=== PATIENT | male | born 1945 | race Caucasian/White ===

== ENCOUNTER 2019-06-02 13:18 | Inpatient (IN) ==
[2019-06-02 14:17] LABS: Basophils # (auto) 0.02 K/uL (0-0.2); Basophils % (auto) 0.2 %; Eosinophils % (auto) 1.1 %; Hematocrit (blood only) 31.4 % (42-52); Hemoglobin 9.8 g/dL (14.0-18.0); Immature Granulocytes # (auto) 0.02 K/uL (0.00-0.02); Immature Granulocytes % (auto) 0.2 %; Lymphocytes # (auto) 0.54 K/uL (1.2-3.4); Lymphocytes % (auto) 5.9 %; Mean Corpuscular Hemoglobin 27.8 pg (25-34); Mean Corpuscular Hgb Conc 31.2 g/dL (32-36); Mean Corpuscular Volume 89.2 fL (80-100); Monocytes # (auto) 1.05 K/uL (0.11-0.59); Monocytes % (auto) 11.5 %; Neutrophils # (auto) 7.42 K/uL (1.4-6.5); Neutrophils % (auto) 81.1 %; Platelet Count 218 K/uL (130-400); RDW Coefficient of Variation 15.7 % (11.5-14.5); RDW Standard Deviation 50.7 fL (36.4-46.3); Red Blood Count 3.52 M/uL (4.7-6.1); White Blood Count 9.15 K/uL (4.8-10.8)
--- NOTE | 2019-06-02 14:22 | XRay Report ---
XR chest 1V portable CLINICAL HISTORY: Dyspnea COMPARISON STUDY: No previous studies for comparison. FINDINGS: The heart is enlarged. There is a subtle right lung interstitial edema pattern. While likel y representing asymmetric cardiogenic pulmonary edema, interstitial inflammatory processes could appe ar similar. Clinical and radiographic follow-up is recommended. The left lung appears generally clear . There are no significant pleural effusions.[ IMPRESSION: Right lung interstitial edema pattern. This likely represents asymmetric cardiogenic pulm onary edema although an interstitial inflammatory process could appear similar. [facility] is recommended. Electronically signed by: Vladimir Cheng M.D. 06/02/2019 2:21 PM
[2019-06-02 14:29] LABS: INR 1.2 (0.9-1.1); Partial Thromboplastin Ratio 1.1; Partial Thromboplastin Time 30.1 Seconds (21.0-31.0); Prothrombin Time 11.9 Seconds (9.0-12.0)
[2019-06-02 14:33] LABS: Alanine Aminotransferase 42 U/L (12-78); Albumin Level 3.9 gm/dl (3.4-5.0); Aspartate Aminotransferase 20 U/L (15-37); BUN Creatinine Ratio 17.2 (10-20); Blood Urea Nitrogen 27 mg/dl (7-18); Calcium 9.2 mg/dl (8.5-10.1); Carbon Dioxide 30 mmol/L (21-32); Chloride 104 mmol/L (98-107); Est GFR (African American) 50.7; Est GFR (Non-African American) 43.7; Glucose 96 mg/dl (70-99); Magnesium 2.3 mg/dl (1.8-2.4); Potassium 3.6 mmol/L (3.5-5.1); Sodium 143 mmol/L (136-145)
[2019-06-02 14:52] LABS: Albumin Globulin Ratio 1.2 (0.9-2); Alkaline Phosphatase 112 U/L (45-117); Globulin 3.3 gm/dl (2.5-4.0); Total Protein 7.2 gm/dl (6.4-8.2); Troponin I < 0.015 ng/ml (0-0.045)
[2019-06-02] MEDS ORDERED: FUROSEMIDE 40 MG/4 ML VIAL IV STA (15:44)
--- NOTE | 2019-06-02 16:21 | Emergency Department Note ---
Entered by Ian Viveros acting as a scribe for History of Present Illness General Chief complaint: Shortness of Breath/Dyspnea Stated complaint: SOB Time Seen by Provider: 06/02/19 13:30 Source: patient History of Present Illness Onset (ago): month(s) (few) Location: chest Pain Consistency: + other (persistent) Maximum Pain Intensity: 0 Quality: + other (SOB) Exacerbated By: + other (exertion) Associated symptoms: + denies other symptoms (recent weight gain, increased shortness of breath while laying flat, chest pain, chest pain while breathing, and recent long travels) The patient is a 74 y/o male who presents to the ED w/ CC of persistent shortness of breath beginning a few months ago. The patient states he has a history of atrial fibrillation. He reports he has a history of 7 cardioversions and an ablation. The patient notes his last cardioversion occurred after his ablation and took him out of a-fib for about four months. He states about 2 months ago he his blood pressure cuff told him he was in a-fib. The patient reports he normally knows he is in a-fib when he is short of breath. He notes for the past few days he has been going in and out of a-fib, but he is still short of breath. The patient states he is no longer in a-fib and becomes extremely short of breath with exertion. He reports he has been on Xarelto for several years now. The patient notes he recently had his insulin switched. He states his blood pressure is normally higher than 58 diastolic. The patient also reports a history of several stress test, both chemical and non-chemical, DM, and high cholesterol. He notes his BSG is normally under control. The patient denies recent weight gain, increased shortness of breath while lying flat, chest pain, chest pain while breathing, and recent long travels. He also denies a history of smoking, [place], heart catheterization, thyroid issues, and a heart valve issues. The patient notes he recently moved here from [place] and does not have a PCP up here because he usually travels to [place] for his medical needs. He notes recent right wrist pain but attributes it to carpal tunnel. Home Medications Home Medications Medication Instructions Recorded Confirmed Type [id number] Acid 300 1 cap PO BID 06/02/19 06/02/19 History Mk7 Vitamin K2 100mcg 1 cap PO HS 06/02/19 06/02/19 History albuterol sulfate [ProAir HFA] 2 puff INHALATION BID 06/02/19 06/02/19 History allopurinol 100 mg PO HS 06/02/19 06/02/19 History amlodipine 2.5 mg PO QAM 06/02/19 06/02/19 History anastrozole 1 mg PO UD 06/02/19 06/02/19 History atorvastatin 40 mg PO HS 06/02/19 06/02/19 History cholecalciferol (vitamin D3) 0 unit PO BID 06/02/19 06/02/19 History [Vitamin D3] cinnamon bark [Cinnamon] 500 mg PO BID 06/02/19 06/02/19 History clonidine HCl 0.3 mg PO HS 06/02/19 06/02/19 History coenzyme Q10 [CoQ-10] 100 mg PO HS 06/02/19 06/02/19 History cranberry 0 mg PO BID 06/02/19 06/02/19 History cyanocobalamin (vitamin B-12) 1,000 mcg PO Q2D 06/02/19 06/02/19 History [Vitamin B-12] docusate sodium [Colace] 100 mg PO HS 06/02/19 06/02/19 History dulaglutide [Trulicity] 0.75 mg SUBCUT WK 06/02/19 06/02/19 History eplerenone 25 mg PO QAM 06/02/19 06/02/19 History flecainide 100 mg PO Q12 06/02/19 06/02/19 History fluticasone propionate [Flovent 2 puff INHALATION BID 06/02/19 06/02/19 History HFA] glipizide 5 mg PO BID 06/02/19 06/02/19 History insulin glargine U-300 conc 30 unit SUBCUT HS 06/02/19 06/02/19 History [Toujeo SoloStar U-300 Insulin] insulin lispro [Humalog KwikPen 40 unit SUBCUT AC 06/02/19 06/02/19 History Insulin] lactobacillus combination no.4 0 mmu cells PO QAM 06/02/19 06/02/19 History [Probiotic] losartan 100 mg PO QAM 06/02/19 06/02/19 History metformin 500 mg PO BID 06/02/19 06/02/19 History metolazone 5 mg PO QAM 06/02/19 06/02/19 History metoprolol tartrate 25 mg PO BID 06/02/19 06/02/19 History modafinil 200 mg PO DAILY PRN 06/02/19 06/02/19 History naproxen sodium [Aleve] 220 mg PO Q12H PRN 06/02/19 06/02/19 History omega 4-[id number]-[id number]-fish oil [[place]-3] 1 cap PO BID 06/02/19 06/02/19 History potassium chloride 20 meq PO BID 06/02/19 06/02/19 History ranitidine HCl [[place] 75] 75 mg PO HS 06/02/19 06/02/19 History rivaroxaban [Xarelto] 20 mg PO HS 06/02/19 06/02/19 History tadalafil [Cialis] 20 mg PO DAILY PRN 06/02/19 06/02/19 History testosterone cypionate 400 mg SUBCUT UD 06/02/19 06/02/19 History torsemide 20 mg PO QAM 06/02/19 06/02/19 History triamcinolone acetonide [Nasacort] 2 spray INTRANASAL HS 06/02/19 06/02/19 History vit C-s.efobjp-bljhqx-diqmw sd 1 cap PO HS 06/02/19 06/02/19 History [Tart Roldan] Allergies Allergy/AdvReac Type Severity Reaction Status Date / Time No Known Allergies Allergy Unverified 06/02/19 14:25 Past Med/Surg History Medical History Acquired hallux valgus of right foot (Acute) Hallux valgus (acquired), left foot (Acute) Diabetes mellitus with diabetic polyneuropathy (Acute) Type 2 diabetes mellitus with diabetic neuropathy (Acute) Callus (Acute) Surgical History History of total right hip arthroplasty (Acute) Family History Other No pertinent family history Social History Feels Safe at Home: Yes Smoking Status: Never smoker Review of Systems See HPI for pertinent positives & negatives. and A total of 10 systems reviewed and were otherwise negative Physical Exam Vital Signs Vital Signs - 24 hr 06/02/19 13:26 06/02/19 13:57 06/02/19 14:12 Temperature 36.6 C Temperature Source Oral Sepsis Recent Fever Within 48 Hours No Sepsis New/Unexplained Change in Mental Status No Sepsis Action Taken by Nursing No Action Required Pulse Oximetry Post Tiitration 94 Pulse Rate 72 Pulse Rate [Left Finger] Respiratory Rate 16 Respiratory Effort / Characteristics Respiratory Depth Blood Pressure 121/58 L Blood Pressure [Left Arm] Blood Pressure Mean 79 Blood Pressure Mean [Left Arm] Pulse Oximetry 93 88 L 88 L Oxygen Delivery Method Room Air Room Air Nasal Cannula Oxygen Flow Rate 2 06/02/19 15:42 Temperature Temperature Source Sepsis Recent Fever Within 48 Hours Sepsis New/Unexplained Change in Mental Status Sepsis Action Taken by Nursing Pulse Oximetry Post Tiitration Pulse Rate Pulse Rate [Left Finger] 66 Respiratory Rate 14 Respiratory Effort / Characteristics Non-Labored Respiratory Depth Normal Blood Pressure Blood Pressure [Left Arm] 152/69 H Blood Pressure Mean Blood Pressure Mean [Left Arm] 96 Pulse Oximetry 95 Oxygen Delivery Method Nasal Cannula Oxygen Flow Rate 2 GENERAL: Patient is awake, alert, and in no acute distress.Patient is resting comfortably and showing no signs of anxiety EYES: The conjunctivae are clear. The pupils are round and reactive. EARS, NOSE, MOUTH AND THROAT: The nose is without any evidence of any deformity. Mucous membranes are moist.Tongue is midline NECK: The neck is nontender and supple. RESPIRATORY: Diminished breath sounds at both bases. No conversational dyspnea or tachypnea. There is no evidence of wheezing rhonchi or rales to auscultation. CARDIOVASCULAR: Regular rate and rhythm noted. There no murmurs rubs or gallops normal S1 normal S2 GASTROINTESTINAL: The abdomen is soft. Bowel sounds are present in all qu adrants. Abdomen is nontender. MUSCULOSKELETAL/EXTREMITIES: There is no evidence of gross deformity. Full range of motion is noted in the hips and shoulders. SKIN: There is no obvious evidence of any rash. There are no petechiae, pallor or cyanosis noted. Pedal edema bilaterally. NEUROLOGIC: Patient is awake alert and oriented x3. Course 1343: Past medical records reviewed. The patient was evaluated in room C01B. A complete history and physical exam was performed. 1548: I reviewed the patient's case with Dr. Chen, [facility] Hospitalist. She will evaluate the patient for further management. 1601: Upon reevaluation, I discussed findings and results with him. He verbalized agreement of the treatment plan. The patient will be evaluated for further management and care. Administered Medications Discontinued Medications Furosemide (Lasix) 20 mg IV NOW STA Stop: 06/02/19 15:45 Last Admin: 06/02/19 16:13 Dose: 20 mg Documented by: [id number] Medical Decision Making Differential Diagnosis Differential diagnoses includes but is not limited to pneumonia, bronchitis, COPD/Asthma exacerbation, pneumothorax, pulmonary embolism, congestive heart failure, acute coronary syndrome Medical Records Attestation: I reviewed the patient's medical records. Home Medications Current Medication List: was personally reviewed by me Laboratory Data Attestation: I reviewed the patient's lab results. Result diagrams: 06/02/19 14:05 06/02/19 14:05 Lab Results 06/02/19 06/02/19 06/02/19 Range/Units 14:05 14:05 14:05 WBC 9.15 (4.8-10.8) K/uL RBC 3.52 L (4.7-6.1) M/uL Hgb 9.8 L (14.0-18.0) g/dL Hct 31.4 L (42-52) % MCV 89.2 (80-100) fL MCH 27.8 (25-34) pg MCHC 31.2 L (32-36) g/dL RDW Std Deviation 50.7 H (36.4-46.3) fL RDW Coeff of [place] 15.7 H (11.5-14.5) % Plt Count 218 (130-400) K/uL MPV 9.0 (7.4-10.4) fL Immature Gran % (Auto) 0.2 % Neut % (Auto) 81.1 % Lymph % (Auto) 5.9 % Dare % (Auto) 11.5 % Eos % (Auto) 1.1 % Baso % (Auto) 0.2 % Immature Gran # (Auto) 0.02 (0.00-0.02) K/uL Neut # (Auto) 7.42 H (1.4-6.5) K/uL Lymph # (Auto) 0.54 L (1.2-3.4) K/uL Dare # (Auto) 1.05 H (0.11-0.59) K/uL Eos # (Auto) 0.10 (0-0.5) K/uL Baso # (Auto) 0.02 (0-0.2) K/uL PT 11.9 (9.0-12.0) Seconds INR 1.2 H (0.9-1.1) APTT 30.1 (21.0-31.0) Seconds PTT Ratio 1.1 Sodium 143 (136-145) mmol/L Potassium 3.6 (3.5-5.1) mmol/L Chloride 104 (98-107) mmol/L Carbon Dioxide 30 (21-32) mmol/L Anion Gap 8.0 (3-11) BUN 27 H (7-18) mg/dl Creatinine 1.56 H (0.6-1.4) mg/dl Est Cr Clr Drug Dosing 57.0 ml/min Est GFR ( Amer) 50.7 Est GFR (Non-Af Amer) 43.7 BUN/Creatinine Ratio 17.2 (10-20) Glucose 96 (70-99) mg/dl Calcium 9.2 (8.5-10.1) mg/dl Magnesium 2.3 (1.8-2.4) mg/dl Total Bilirubin 1.0 (0.2-1) mg/dl AST 20 (15-37) U/L ALT 42 (12-78) U/L Alkaline Phosphatase 112 (45-117) U/L Troponin I < 0.015 (0-0.045) ng/ml Total Protein 7.2 (6.4-8.2) gm/dl Albumin 3.9 (3.4-5.0) gm/dl Globulin 3.3 (2.5-4.0) gm/dl Albumin/Globulin Ratio 1.2 (0.9-2) TSH 1.220 (0.300-4.500) uIu/ml Imaging Data Radiologist's Impression: Radiology results as stated below per my review and the radiologist's interpretation: XR chest 1V portable CLINICAL HISTORY: Dyspnea COMPARISON STUDY: No previous studies for comparison. FINDINGS: The heart is enlarged. There is a subtle right lung interstitial edema pattern. While likely representing asymmetric cardiogenic pulmonary edema, interstitial inflammatory processes could appear similar. Clinical and radiographic follow-up is recommended. The left lung appears generally clear. There are no significant pleural effusions.[ IMPRESSION: Right lung interstitial edema pattern. This likely represents asymmetric cardiogenic pulmonary edema although an interstitial inflammatory process could appear similar. Clinical and radiographic follow-up is recommended. Electronically signed by: Vladimir Cheng M.D. 06/02/2019 2:21 PM ECG Data Attestation: I personally reviewed and interpreted this ECG as follows: Indication: SOB/dyspnea Rate (beats per minute): 68 Rhythm: sinus rhythm Findings: + other (Diffuse T-wave flattening noted) and + 1st degree AV block; no PAC, no PVC and no ectopy Comparison ECG Date: no prior available Blood Pressure Blood Pressure Findings: Elevated blood pressure Blood Pressure Disposition: further management by hospitalist MDM Narrative The patient is a 74-year-old male who presented to the emergency department for an evaluation of shortness of breath. The patient has been noticing exertional shortness of breath. He does have cardiac history including paroxysmal atrial fibrillation. He has a monitor at home that is told him that he has been in and out of A. fib recently but currently he is in sinus rhythm with a first-degree AV block. The patient was found to have anemia as well as a chest x-ray that I feel is consistent with pulmonary edema. The patient was treated with IV Lasix in the emergency department. He was reevaluated multiple times. I discussed the patient's laboratory and radiographic studies with him. I also discussed his case with the on-call [facility] hospitalist group. Given the patient's findings I do feel that he would be a candidate for inpatient management as well as further cardiac work-up. The patient was agreeable to this plan. Impression & Plan Congestive heart failure, Hypoxia, Anemia Discharge Plan Visit Data Chief Complaint: Shortness of Breath/Dyspnea Stated Complaint: SOB ED Provider: Bharath Esteban Discharge Problem: Congestive heart failure, Hypoxia, Anemia Patient Disposition: Being Evaluated by Hospitalist Forms Stand Alone Forms: My [facility] Prescriptions Prescriptions: No Action atorvastatin 40 mg tablet 40 mg PO HS RF: 0 anastrozole 1 mg tablet 1 mg PO UD RF: 0 torsemide 20 mg tablet 20 mg PO QAM RF: 0 clonidine HCl 0.3 mg tablet 0.3 mg PO HS RF: 0 glipizide 5 mg tablet extended release 24hr 5 mg PO BID RF: 0 metolazone 5 mg tablet 5 mg PO QAM RF: 0 cyanocobalamin (vitamin B-12) [Vitamin B-12] 1,000 mcg Tablet 1,000 mcg PO Q2D RF: 0 amlodipine 2.5 mg tablet 2.5 mg PO QAM RF: 0 potassium chloride 10 mEq tablet extended release 20 meq PO BID RF: 0 allopurinol 100 mg tablet 100 mg PO HS RF: 0 modafinil 200 mg Tablet 200 mg PO DAILY PRN (Reason: energy) RF: 0 ranitidine HCl [[place] 75] 75 mg Tablet 75 mg PO HS RF: 0 metformin 1,000 mg tablet 500 mg PO BID RF: 0 triamcinolone acetonide [Nasacort] 55 mcg Aerosol,[place] 2 spray INTRANASAL HS RF: 0 naproxen sodium [Aleve] 220 mg Tablet 220 mg PO Q12H PRN (Reason: Pain) RF: 0 flecainide 100 mg tablet 100 mg PO Q12 RF: 0 docusate sodium [Colace] 100 mg Capsule 100 mg PO HS RF: 0 testosterone cypionate 200 mg/mL oil 400 mg subcut UD RF: 0 albuterol sulfate [ProAir HFA] 90 mcg/actuation HFA aerosol inhaler 2 puff inhalation BID RF: 0 losartan 100 mg tablet 100 mg PO QAM RF: 0 cranberry 500 mg Capsule PO BID RF: 0 Flovent HFA 110 mcg/actuation HFA aerosol inhaler 2 puff inhalation BID RF: 0 cholecalciferol (vitamin D3) [Vitamin D3] 1,000 unit Capsule PO BID RF: 0 insulin lispro [Humalog KwikPen Insulin] 100 unit/mL insulin pen 40 unit subcut AC RF: 0 eplerenone 25 mg tablet 25 mg PO QAM RF: 0 coenzyme Q10 [CoQ-10] 100 mg Capsule 100 mg PO HS RF: 0 tadalafil [Cialis] 20 mg Tablet 20 mg PO DAILY PRN (Reason: BPH) RF: 0 metoprolol tartrate 25 mg tablet 25 mg PO BID RF: 0 cinnamon bark [Cinnamon] 500 mg Capsule 500 mg PO BID RF: 0 Tart Roldan [id number] mg Capsule 1 cap PO HS RF: 0 Xarelto 20 mg tablet 20 mg PO HS RF: 0 Probiotic 3 billion cell Capsule PO QAM RF: 0 Trulicity 0.75 mg/0.5 mL pen injector 0.75 mg subcut WK RF: 0 [place]-3 350 mg-235 mg- 90 mg-597 mg Capsule,Delayed Release(Dr/Ec) 1 cap PO BID RF: 0 Toujeo SoloStar U-300 Insulin 300 unit/mL (1.5 mL) insulin pen 30 unit subcut HS RF: 0 [id number] Acid 300 1 cap PO BID RF: 0 Mk7 Vitamin K2 100mcg 1 cap PO HS RF: 0 Referrals Referrals: Jennifer Moser MD [Primary Care Provider] - Discharge Problem: Congestive heart failure Qualifiers: Heart failure type: unspecified Heart failure chronicity: acute Qualified Code(s): I50.9 - Heart failure, unspecified Anemia Qualifiers: Anemia type: unspecified type Qualified Code(s): D64.9 - Anemia, unspecified The davyibe's documentation has been prepared under my direction and personally reviewed by me in its entirety. I confirm that the note above accurately reflects all work, treatment, procedures, and medical decision making performed by me.
[2019-06-02] MEDS ORDERED: NON-FORMULARY MEDICATION (Dulaglutide [Trulicity] 0.75 MG) SQ SCH (17:48)
[2019-06-02] MEDS ORDERED: GLUCOSE 40% GEL 15 GM TUBE PO PRN ×2 (17:48→21:29)
[2019-06-02] MEDS ORDERED: DEXTROSE 50% 50 ML SYRINGE IV PRN ×2 (17:48→21:29)
[2019-06-02] MEDS ORDERED: ZOLPIDEM TARTRATE 5 MG TAB PO PRN (17:48)
[2019-06-02] MEDS ORDERED: MODAFINIL 100 MG TAB PO PRN (17:48)
[2019-06-02] MEDS ORDERED: NON-FORMULARY MEDICATION (Tadalafil [Cialis] 20 MG) PO PRN (17:48)
[2019-06-02] MEDS ORDERED: GLUCOSE 10 TABS/TUBE PO PRN ×2 (17:48→21:29)
[2019-06-02] MEDS ORDERED: CARBOHYDRATES FOR HYPOGLYCEMIA PO PRN ×2 (17:48→21:29)
[2019-06-02] MEDS ORDERED: ACETAMINOPHEN 325 MG TAB PO PRN (17:48)
[2019-06-02] MEDS ORDERED: GLUCAGON FOR INJ 1 MG VIAL SQ PRN ×2 (17:48→21:29)
[2019-06-02] MEDS ORDERED: POLYETHYLENE (MIRALAX) 17 GM PACK PO PRN (17:48)
[2019-06-02] MEDS ORDERED: PHARMACY GLYCEMIC MGMT CONSULT PRN (18:24)
[2019-06-02 18:54] LABS: BUN Creatinine Ratio 18.1 (10-20); Calcium 9.4 mg/dl (8.5-10.1); Est GFR (African American) 53.6; Est GFR (Non-African American) 46.2; Potassium 3.7 mmol/L (3.5-5.1)
--- NOTE | 2019-06-02 19:18 | CT Scan Report ---
CT head/brain wo con CLINICAL HISTORY: 74 years-old Male with tingling in the arms. Acute strokelike symptoms TECHNIQUE: Multiple axial CT images of the head were obtained without contrast. A dose lowering tech nique was utilized adhering to the principles of ALARA. CT DOSE: 1232.33 mGy.cm COMPARISON: CT cervical spine of same day. FINDINGS: No acute intracranial hemorrhage, midline shift, intracranial mass, hydrocephalus, territorial ischem ia or abnormal extra-axial collection. Age-related involutional changes. Senescent calcifications of the lentiform nuclei. Mild degree of patchy white matter hypodensities suggest chronic microvascular ischemic disease. Cerebral vascular calcifications noted. The calvarium is intact. Polypoid mucosal thickening of the inferior right maxillary sinus. Mastoid air cells and middle ear cavities are clear. Soft tissues and orbits are within normal limits. IMPRESSION: No acute intracranial abnormality. The above report was generated using voice recognition software. It may contain grammatical, syntax o r spelling errors. Electronically signed by: Kevin San M.D. 06/02/2019 7:17 PM
--- NOTE | 2019-06-02 19:23 | CT Scan Report ---
CT cervical spine wo con CLINICAL HISTORY: 74 years-old Male with tingling in the arms. Acute tingling of the bilateral upper extremity COMPARISON: Head CT of same day. TECHNIQUE: Multiple axial CT images of the cervical spine were obtained without contrast. A dose low ering technique was utilized adhering to the principles of ALARA. FINDINGS: Multilevel spondylitic spurring with multilevel mild disc space narrowing with moderate to severe mul tilevel facet arthrosis. Evaluation of the central canal and neuroforamina is better assessed by MRI. There is a least mild right-sided foraminal narrowing at at C3-C4 with severe right-sided foraminal narrowing at C4-C5. No definite high-grade central canal stenosis. No prevertebral soft tissue swelli ng. Lung apices are clear without pneumothorax. Polypoid mucosal thickening of the inferior right max illary sinus. IMPRESSION: 1. No acute cervical spine fracture or subluxation. 2. Degenerative changes as above. The above report was generated using voice recognition software. It may contain grammatical, syntax o r spelling errors. Electronically signed by: Kevin San M.D. 06/02/2019 7:22 PM
[2019-06-02] MEDS ORDERED: metOLazone 5 MG TABLET PO SCH (20:00)
[2019-06-02] MEDS ORDERED: FUROSEMIDE 100 MG in DEXTROSE 5% 90 ML IV SCH (20:00)
[2019-06-02] MEDS ORDERED: Nursing to Pharmacy Communication ONE (20:32)
[2019-06-02] MEDS ORDERED: POTASSIUM CHLORIDE 20 MEQ TABCR PO STA (20:58)
[2019-06-02] MEDS ORDERED: [UNRECOGNIZED DRUG - OTHER] PO SCH (21:00)
[2019-06-02] MEDS ORDERED: [UNRECOGNIZED DRUG - OTHER] PO SCH (21:00)
[2019-06-02] MEDS ORDERED: VIT C S CHERRY CELERY GRAPE SD PO SCH (21:00)
[2019-06-02] MEDS ORDERED: CHOLECALCIFEROL PO SCH (21:00)
[2019-06-02] MEDS ORDERED: NON-FORMULARY MEDICATION (Coenzyme Q10 [Coq-10] 100 MG) PO SCH (21:00)
[2019-06-02] MEDS ORDERED: CRANBERRY PO SCH (21:00)
[2019-06-02] MEDS ORDERED: NON-FORMULARY MEDICATION (Cinnamon Bark [Cinnamon] 500 MG) PO SCH (21:00)
--- NOTE | 2019-06-02 21:06 | History & Physical Report ---
Date of Service June 02, 2019 Assessment & Plan (1) Congestive heart failure: Admit to PCU on telemetry Vital signs every 4 hours Started Lasix drip. Titrate drip to 1.5 L net output daily. CBC daily CMP every 6 hours Magnesium BNP pending Replenish magnesium and potassium daily. Keep magnesium above 2 and potassium around 4. Echocardiogram pending DVT prophylaxis -continue Xarelto 20 mg p.o. nightly for A. fib Heart healthy diet low sodium Restrict p.o. free water intake to 1200 mils per day. Full code Present on Admission?: Yes (2) Respiratory failure, acute: Appears to be related to congestive heart failure, but also could be an inflammatory process which was not clearly seen on chest x-rays. CT of the chest Procalcitonin If pneumonia possible or probable we will start ceftriaxone IV 2 g daily and doxycycline 100 mg IV twice daily Blood cultures pending Sputum cultures pending (3) Diabetes mellitus with diabetic polyneuropathy: AC and at bedtime Hemoglobin A1c pending Glycemic control per pharmacy Present on Admission?: Yes (4) Anemia: Chronic issue Will do iron studies Present on Admission?: Yes History of Present Illness Chief Complaint: Shortness of breath Primary Care Provider: Jennifer Moser MD Patient is a 74 years old male with past medical history of congestive heart failure, diabetes mellitus with diabetic polyneuropathy, anemia, presented with shortness of breath while laying flat, chest pain. Patient reports having atrial fibrillation. Patient said he had 7 cardioversions and ablation. Patient said that last cardioversion occurred after his ablation and to keep him out of A. fib's for about 4 months.. Patient is also diabetic and have diabetic polyneuropathy he reports tingling and numbness in his hands. Patient was seeing a patient oxygenation on room air was below 88% and on 2 L he was above 92. Patient denies fever chills chest pain headache syncope near syncope abdominal pain frequency urgency hemoptysis hematuria dysuria recent weight gain. Patient said that he recently moved here [place] and does not have PCP here but usually travels to [place] if he has medical needs. He is right wrist pain he attributes to carpal tunnel. Labs are reviewed: White blood cell 9.15, hemoglobin 9.8, hematocrit 31.4, platelets 218. PT 11.9, INR 1.2 APTT 30.1 sodium 142, potassium 3.7, chloride 104, anion gap 7, BUN 27, creatinine 1.49, GFR 46.2 calcium 9.4 magnesium 2.3 AST 20 ALT 42, troponin 0 0.015, total protein 7.2 albumin 3.9 globulin 3.3 TSH 1.22. BNP pending. Chest x-ray shows right lung interstitial edema pattern. This likely represent asymmetric metric cardiogenic pulmonary edema although an interstitial inflammatory process could appears seminal similar. Head CT no intracranial abnormalities except for inferior right maxillary sinus thickening of mucosa. CT neck no acute cervical spine fracture or subluxation. Degenerative changes present. There is a least mild right-sided foraminal narrowing at C3 and C4 with severe right-sided foraminal narrowing at C4 and C5. There is no definite high-grade central canal stenosis. No paravertebral soft tissue swelling. Multilevel spondylotic sporting with mid multilevel mild disc space narrowing with moderate to severe multilevel facet arthrosis. The case was discussed with the patient and he is admitted for pulmonary edema and diuresis to the floor on telemetry. Allergies Allergy/AdvReac Type Severity Reaction Status Date / Time No Known Allergies Allergy Unverified 06/02/19 14:25 Home Medications Home Medications Medication Instructions Recorded Confirmed Type [id number]+Alpha Acid 300 1 cap PO BID 06/02/19 06/02/19 History Mk7 Vitamin K2 100mcg 1 cap PO HS 06/02/19 06/02/19 History albuterol sulfate [ProAir HFA] 2 puff INHALATION BID 06/02/19 06/02/19 History allopurinol 100 mg PO HS 06/02/19 06/02/19 History amlodipine 2.5 mg PO QAM 06/02/19 06/02/19 History anastrozole 1 mg PO UD 06/02/19 06/02/19 History atorvastatin 40 mg PO HS 06/02/19 06/02/19 History cholecalciferol (vitamin D3) 0 unit PO BID 06/02/19 06/02/19 History [Vitamin D3] cinnamon bark [Cinnamon] 500 mg PO BID 06/02/19 06/02/19 History clonidine HCl 0.3 mg PO HS 06/02/19 06/02/19 History coenzyme Q10 [CoQ-10] 100 mg PO HS 06/02/19 06/02/19 History cranberry 0 mg PO BID 06/02/19 06/02/19 History cyanocobalamin (vitamin B-12) 1,000 mcg PO Q2D 06/02/19 06/02/19 History [Vitamin B-12] docusate sodium [Colace] 100 mg PO HS 06/02/19 06/02/19 History dulaglutide [Trulicity] 0.75 mg SUBCUT WK 06/02/19 06/02/19 History eplerenone 25 mg PO QAM 06/02/19 06/02/19 History flecainide 100 mg PO Q12 06/02/19 06/02/19 History fluticasone propionate [Flovent 2 puff INHALATION BID 06/02/19 06/02/19 History HFA] glipizide 5 mg PO BID 06/02/19 06/02/19 History insulin glargine U-300 conc 30 unit SUBCUT HS 06/02/19 06/02/19 History [Toujeo SoloStar U-300 Insulin] insulin lispro [Humalog KwikPen 40 unit SUBCUT AC 06/02/19 06/02/19 History Insulin] lactobacillus combination no.4 0 mmu cells PO QAM 06/02/19 06/02/19 History [Probiotic] losartan 100 mg PO QAM 06/02/19 06/02/19 History metformin 500 mg PO BID 06/02/19 06/02/19 History metolazone 5 mg PO QAM 06/02/19 06/02/19 History metoprolol tartrate 25 mg PO BID 06/02/19 06/02/19 History modafinil 200 mg PO DAILY PRN 06/02/19 06/02/19 History naproxen sodium [Aleve] 220 mg PO Q12H PRN 06/02/19 06/02/19 History omega 4-fua-yds-fish oil [Pevely-3] 1 cap PO BID 06/02/19 06/02/19 History potassium chloride 20 meq PO BID 06/02/19 06/02/19 History ranitidine HCl [[place] 75] 75 mg PO HS 06/02/19 06/02/19 History rivaroxaban [Xarelto] 20 mg PO HS 06/02/19 06/02/19 History tadalafil [Cialis] 20 mg PO DAILY PRN 06/02/19 06/02/19 History testosterone cypionate 400 mg SUBCUT UD 06/02/19 06/02/19 History torsemide 20 mg PO QAM 06/02/19 06/02/19 History triamcinolone acetonide [Nasacort] 2 spray INTRANASAL HS 06/02/19 06/02/19 History vit C-s.qjhjef-iqnhoy-qfkip sd 1 cap PO HS 06/02/19 06/02/19 History [Tart Roldan] Past Med/Surg History Medical History Acquired hallux valgus of right foot (Acute) Hallux valgus (acquired), left foot (Acute) Diabetes mellitus with diabetic polyneuropathy (Acute) Type 2 diabetes mellitus with diabetic neuropathy (Acute) Callus (Acute) Surgical History History of total right hip arthroplasty (Acute) Family History Other No pertinent family history Social History Preferred Language: Georgian Communication Ability: Effective Technical Program Manager Required: No Beliefs That Will Affect Care: None Current Living Situation: Spouse Other Information That Helps Us Care for You: Yes (small airway) Feels Safe at Home: Yes Safety Concerns: Feels Safe At This Time Smoking Status: Never smoker Hx Alcohol Use: No Hx Substance Use: No Review of Systems Review of Systems: All systems reviewed & are unremarkable except as noted in HPI & below Physical Exam Constitutional: WD/WN, vitals as above well developed and + morbidly obese Eyes: PERRL, conjunctivae normal, anicteric sclerae ENMT: external ear and nose normal, oropharynx normal Neck: trachea midline, no thyromegaly Respiratory: Auscultation: + crackles (Right lung) and + wheezes (Mostly right lung) Cardiovascular: Heart Sounds: normal S1 and normal S2 Palpation: + palpable S3 Vessels: + JVD and dorsalis pedis pulses present Extremities: + pedal edema (2+ pitting pedal edema up to the knees) Gastrointestinal (Abdomen): normal bowel sounds, soft, nontender, no hepatosplenomegaly Musculoskeletal: no cyanosis or clubbing, extremities motor strength 5/5 Skin: no rashes, warm and dry Neurologic: patellar DTR's 2+ bilat, sensation intact Psychiatric: A+Ox3, euthymic affect Lymphatic: no cervical or axillary lymphadenopathy Results & Data Vital Signs (Past 12 Hours) Vital Signs Temp Pulse Pulse Resp BP BP Pulse Ox 06/02/19 18:14 36.8 C 62 18 137/72 99 06/02/19 17:16 64 20 137/66 98 06/02/19 15:42 66 14 152/69 H 95 06/02/19 14:12 88 L 06/02/19 13:57 88 L 06/02/19 13:26 36.6 C 72 16 121/58 L 93 Code Status & VTE Plan Code Status Full code VTE Prophylaxis Plan VTE Prophylaxis will be ordered: Yes PG Care Time/CCT Total # of Minutes Spent Total Time Spent with Patient: Total time spent is greater than 50% in coordination of care (as documented) at patient's floor/unit and/or counseling patient: (1) Congestive heart failure Heart failure chronicity: acute Heart failure type: unspecified Qualified Code(s): I50.9 - Heart failure, unspecified (2) Anemia Anemia type: unspecified type Qualified Code(s): D64.9 - Anemia, unspecified
[2019-06-02] MEDS: INSULIN ASPART 100 UNITS/ML 3 ML PEN SC SCH ×2 (21:24→21:44)
[2019-06-02] MEDS: FLECAINIDE ACETATE 100 MG TABLET PO SCH (21:24)
[2019-06-02] MEDS: FLUTICASONE HFA 110MCG INHALER INH SCH (21:25)
[2019-06-02] MEDS: RIVAROXABAN 20 MG TAB PO SCH (21:27)
[2019-06-02] MEDS: ALLOPURINOL 100 MG TAB PO SCH (21:28)
[2019-06-02] MEDS: METOPROLOL TARTRATE 25 MG TAB PO SCH (21:28)
[2019-06-02] MEDS: DOCUSATE SODIUM 100 MG CAP PO SCH (21:28)
[2019-06-02] MEDS: ATORVASTATIN 40 MG TAB PO SCH (21:28)
[2019-06-02] MEDS ORDERED: PHARMACY GLYCEMIC MGMT CONSULT STA (21:29)
[2019-06-02] MEDS: TRIAMCINOLONE ACET NASAL SPRAY 10.8ML BTL NAE SCH (21:29)
[2019-06-02] MEDS: INSULIN GLARGINE SOLOSTAR 100 UNITS/ML 3 ML PEN SC SCH (21:30)
[2019-06-02 21:39] LABS: Albumin Level 3.7 gm/dl (3.4-5.0); BUN Creatinine Ratio 14.3 (10-20); Creatinine Clr Calc Pharmacy 47.6 ml/min; Est GFR (African American) 41.2; Est GFR (Non-African American) 35.6; Potassium 3.7 mmol/L (3.5-5.1)
[2019-06-02 21:44] LABS: Albumin Globulin Ratio 1.1 (0.9-2); Globulin 3.5 gm/dl (2.5-4.0); Total Protein 7.2 gm/dl (6.4-8.2)
[2019-06-02] MEDS: ALBUTEROL HFA 8 GM INHALER INH SCH (22:19)
[2019-06-03 00:13] LABS: BUN Creatinine Ratio 16.4 (10-20); Calcium 9.1 mg/dl (8.5-10.1); Creatinine Clr Calc Pharmacy 51.2 ml/min; Est GFR (Non-African American) 38.9; Potassium 3.5 mmol/L (3.5-5.1)
[2019-06-03] MEDS ORDERED: cefTRIAXone SODIUM 1,000 MG in DEXTROSE 5% 50 ML IV SCH (05:45)
[2019-06-03] MEDS ORDERED: cefTRIAXone SODIUM 2,000 MG in DEXTROSE 5% 50 ML IV SCH (06:00)
[2019-06-03] MEDS: DOXYCYCLINE HYCLATE 100 MG in DEXTROSE 5% 100 ML IV SCH ×2 (06:08→17:27)
[2019-06-03 06:11] LABS: Basophils # (auto) 0.02 K/uL (0-0.2); Basophils % (auto) 0.2 %; Eosinophils # (auto) 0.13 K/uL (0-0.5); Eosinophils % (auto) 1.6 %; Hematocrit (blood only) 32.5 % (42-52); Immature Granulocytes # (auto) 0.02 K/uL (0.00-0.02); Immature Granulocytes % (auto) 0.2 %; Lymphocytes # (auto) 0.88 K/uL (1.2-3.4); Lymphocytes % (auto) 10.6 %; Mean Corpuscular Hemoglobin 27.8 pg (25-34); Mean Corpuscular Hgb Conc 30.8 g/dL (32-36); Mean Corpuscular Volume 90.3 fL (80-100); Mean Platelet Volume 9.6 fL (7.4-10.4); Monocytes # (auto) 0.94 K/uL (0.11-0.59); Monocytes % (auto) 11.4 %; Neutrophils # (auto) 6.29 K/uL (1.4-6.5); Platelet Count 236 K/uL (130-400); RDW Coefficient of Variation 15.8 % (11.5-14.5); RDW Standard Deviation 52.3 fL (36.4-46.3); Reticulocytes # 0.07 10^6/uL (0.02-0.10); White Blood Count 8.28 K/uL (4.8-10.8)
[2019-06-03 06:45] LABS: BUN Creatinine Ratio 16.3 (10-20); Calcium 9.2 mg/dl (8.5-10.1); Creatinine Clr Calc Pharmacy 54.7 ml/min; Est GFR (African American) 49.5; Est GFR (Non-African American) 42.7; Potassium 3.4 mmol/L (3.5-5.1)
[2019-06-03 06:50] LABS: Ferritin 31.6 ng/ml (8-388)
[2019-06-03 07:16] LABS: Estimated Average Glucose 223 mg/dl; Hemoglobin A1C 9.4 % (4.5-5.6)
--- NOTE | 2019-06-03 08:02 | CT Scan Report ---
CT SCAN OF THE CHEST WITHOUT IV CONTRAST CLINICAL HISTORY: Dyspnea. COMPARISON STUDY: Chest x-ray dated 06/02/2019. TECHNIQUE: CT scan of the thorax was performed from the thoracic inlet to the upper abdomen. Images are reviewed in the axial, sagittal, and coronal planes. IV contrast was not administered for this ex amination as per the referring clinician. A dose lowering technique was utilized adhering to the niurka trudi of G[place]. CT DOSE: 862.07 mGy.cm FINDINGS: Thyroid: Imaged portions of the thyroid gland are normal in size and attenuation. A coarse calcificat ion is noted in the right lobe. Thoracic aorta: There is mild atherosclerotic calcification of the thoracic aorta, which is normal in caliber and demonstrates standard 3-vessel arch anatomy. Heart: The heart is enlarged and without pericardial effusion. The coronary arteries are densely calc ified. Lungs and pleural spaces: There is no lobar consolidation or pleural effusion. Mild groundglass negro e with tree-in-bud opacities are present in the right middle lobe and at both lung bases. Scarring/at electasis and mild air trapping are also present at the lung bases. The trachea and central airways a re clear. There is mild intralobular septal thickening. Mediastinum: There is no mediastinal lymphadenopathy. Brittney: Not well assessed without IV contrast. Axillae: There is no axillary lymphadenopathy. Upper abdomen: There is a small hiatal hernia. Diverticula are noted in the partially imaged colon. Skeletal structures: The skeletal structures are osteopenic. 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 Arthritic change is seen in the shoulders. No lytic or blastic bony lesions are seen. There are healed left-sided rib fractures. IMPRESSION: 1. Cardiomegaly. Mild intralobular septal thickening suggests a component of congestive change. This could be acute versus chronic and clinical correlation will be required. 2. Mild groundglass change with foci of tree-in-bud nodularity are seen in the right middle lobe as w ell the lower lobes. Correlate clinically for evidence of a mild infectious/inflammatory pneumonitis. 3. There is no lobar consolidation or pleural effusion. 4. Additional findings as above. Electronically signed by: Jaren Lopez M.D. 06/03/2019 8:01 AM
[2019-06-03] MEDS: FLUTICASONE HFA 110MCG INHALER INH SCH ×2 (08:25→20:37)
[2019-06-03] MEDS: METOPROLOL TARTRATE 25 MG TAB PO SCH ×2 (08:26→20:38)
[2019-06-03] MEDS: FLECAINIDE ACETATE 100 MG TABLET PO SCH ×2 (08:26→20:36)
[2019-06-03] MEDS: POTASSIUM CHLORIDE 20 MEQ TABCR PO SCH (08:26)
[2019-06-03] MEDS: ALBUTEROL HFA 8 GM INHALER INH SCH ×2 (08:26→20:37)
[2019-06-03] MEDS: AMLODIPINE BESYLATE 5 MG TAB PO SCH (08:27)
[2019-06-03] MEDS: LACTOBACILLUS ACIDOPHILUS (FLORANEX) TAB PO SCH (08:27)
[2019-06-03] MEDS: INSULIN ASPART 100 UNITS/ML 3 ML PEN SC SCH ×4 (08:28→20:40)
[2019-06-03 08:54] LABS: Folate (Folic Acid) 13.11 ng/ml (>5.38)
[2019-06-03] MEDS ORDERED: LOSARTAN POTASSIUM 50 MG TAB PO SCH (09:00)
[2019-06-03] MEDS ORDERED: CYANOCOBALAMIN 500 MCG TABLET (VITAMIN B-12) PO SCH (09:00)
[2019-06-03] MEDS ORDERED: ANASTROZOLE 1 MG TAB PO SCH (09:00)
[2019-06-03 12:48] LABS: BUN Creatinine Ratio 16.9 (10-20); Calcium 9.6 mg/dl (8.5-10.1); Creatinine Clr Calc Pharmacy 59.2 ml/min; Est GFR (African American) 54.5; Potassium 3.3 mmol/L (3.5-5.1)
--- NOTE | 2019-06-03 15:02 | Pharmacy Report ---
Glycemic Control Consultation - Date of Service June 03, 2019 - Scope Scope: Glycemic Pharmacist consulted by Dr. Chen on 06/02/19 for glycemic control and to write orders per [facility] inpatient glycemic control protocol - Objective Weight: 120.8 kg Accuchecks BSG (last 24hrs): 06/02/19 06/02/19 06/02/19 18:00 18:08 20:09 Glucose 117 H POC Glucose 122 H 214 H 06/02/19 06/02/19 06/03/19 21:10 23:34 05:48 Glucose 192 H 158 H 123 H POC Glucose 06/03/19 06/03/19 06/03/19 07:13 11:15 12:11 Glucose 200 H POC Glucose 148 H 217 H Laboratory Data (last 24hrs): 06/02/19 06/02/19 06/02/19 18:08 21:10 23:34 Potassium 3.7 3.7 3.5 Carbon Dioxide 31 34 H 33 H Anion Gap 7.0 6.0 7.0 Creatinine 1.49 H 1.85 H D 1.72 H Est Cr Clr Drug Dosing 59.0 47.6 51.2 06/03/19 06/03/19 05:48 12:11 Potassium 3.4 L 3.3 L Carbon Dioxide 34 H 34 H Anion Gap 6.0 7.0 Creatinine 1.59 H 1.47 H Est Cr Clr Drug Dosing 54.7 59.2 HbA1c: Hemoglobin A1c 9.4 % (4.5-5.6) H 06/03/19 05:48 - Recent Pertinent Medications Outpatient Anti-diabetic Regimen: * Trulicity * Glipizide 5 mg BID * Toujeo 30 units HS * Humalog 40 units AC * A1c = 9.4 % [date] The patient is currently receiving: * Basal insulin: Lantus at HS based on scale. Received 25 units last night. * Correctional Insulin: Novolog Correction per scale ACHS Goal Range: Low 110 mg/dL - High 140 mg/dL Correction Factor: 20 mg/dL/unit * Prandial insulin: Per carb ratio of 1 unit per 6 grams CHO consumed * Oral Agents: Glipizide on hold * Trulicity on hold Risk Factors for Insulin Resistance: * Steroids: none * Infection: Rocephin + Doxy IV * IVF: on Lasix drip * Diet: T2DM - Assessment & Plan Assessment & Plan: ASSESSMENT: * 74 y/o M admitted with CHF exacerbation and possible Pneumonia. Patient has history of Type 2 Diabetes managed by multiple agents as listed above. * Pharmacy consulted for glycemic control during inpatient stay. * Oral agents are not recommended for inpatient use d/t drug interactions, changing PO intake, and difficulty titrating for acute hyper/hypoglycemia. ADA recommends re-initiating outpatient oral agents 1-2 days prior to discharge if/when appropriate if they were held on admission. * Will hold oral agent (Glipizide) and Trulicity during admission and utilize SQ basal bolus insulin regimen which is the recommended regimen for inpatient glycemic control. * Patient on Toujeo 40 units HS IRON ERECTOR. Started patient on Lantus HS based on scale yesterday. Novolog was started based on SQ dose calculator using a stress of 2. CF = 20 and CR = 6. * Novolog carb ratio was tightened to 5 today with lunch since BSG trended up above 200. PLAN FOR INPATIENT GLYCEMIC CONTROL: * Holding outpatient oral diabetes medications and Trulicity. * Basal insulin * Lantus SQ at HS based on following scale: - for BSG less than 140 = 10 units - for BSG 140 - 180 = 20 units - for BSG greater than 180 = 25 units * Bolus insulin * NovoLog per scale ACHS or Q6hrs while NPO * Goal Range: Low 110 mg/dL - High 140 mg/dL * Correction Factor: 20 mg/dL/unit * Nutritional / Prandial insulin per carb ratio of 1 unit per 5 grams CHO consumed * Please note that the plan above was derived based on current level of insulin resistance and hospital stress. These recommendations are appropriate for inpatient admission only. Plan of care upon discharge will need to be reassessed to avoid potential outpatient hypo/hyperglycemia. Thank you.
[2019-06-03 18:39] LABS: BUN Creatinine Ratio 16.8 (10-20); Calcium 9.6 mg/dl (8.5-10.1); Creatinine Clr Calc Pharmacy 57.2 ml/min; Est GFR (African American) 52.3; Est GFR (Non-African American) 45.1; Potassium 3.6 mmol/L (3.5-5.1)
--- NOTE | 2019-06-03 20:12 | Hospitalist Progress Note ---
Date of Service June 03, 2019 Assessment & Plan (1) Congestive heart failure: Acute on chronic diastolic congestive heart failure Initially started started Lasix drip. Appears to be sensitive to Lasix and has a negative balance of 3100 Stopped Lasix drip Also stopped Losartan Will reevaluate tomorrow Echocardiogram showed normal LV size, mild concentric LVH, ejection fraction of 60%, no wall motion abnormality, diastolic dysfunction, normal RV size and function, mild aortic stenosis, mild mitral regurgitation, severe left atrial enlargement, mild pulmonary hypertension, 40 to 45 mmHg, normal estimated CVP DVT prophylaxis -continue Xarelto 20 mg p.o. nightly for A. fib Heart healthy diet low sodium Restrict p.o. free water intake to 1200 mils per day. Full code (2) Respiratory failure, acute: On admission had acute respiratory failure with hypoxemia Secondary to CHF Procalcitonin is negative Patient denies any fever/chills/cough Stop ceftriaxone and doxycycline CT chest results reviewed showed some questionable right middle lung density which I believe is an equal distribution of pulmonary congestion Sputum cultures pending (3) Diabetes mellitus with diabetic polyneuropathy: AC and at bedtime Hemoglobin A1c is 9.4 Glycemic control per pharmacy (4) Anemia: Chronic issue B12 is 863, folic acid is 13.8, TSH is 1.22 Await iron studies Subjective Feeling much better, no more shortness of breath Denies any cough or sputum production, denies any fever Review of Systems Review of Systems: Review of system Constitutional: No fever / no chills / no sweats / no weakness / no fatigue Eyes: no blurring of vision / no eye pain / no discharge / no redness ENT: no hearing loss / no epistaxis /no swallowing problems Respiratory: no cough / no wheezing / no SOB / no hemoptysis Cardiovascular: no Chest pain / no lower extremity edema / no palpitation Abdomen: no pain / no nausea / no vomiting / no constipation Musculoskeletal: no joint pain / no muscle pain / no joint swelling Genitourinary: no dysuria / no incontinence / no urinary retention Neurologic: no focal weakness / no numbness/tingling / no ataxia Psychiatric: no depression symptoms / no anxiety / no insomnia Endocrine: no excessive thirst / no excessive urination Hematologic: no abnormal bleeding / no bruising / no LN swelling Skin: No rash / no pallor Physical Exam Physical Exam: Physical examination General patient appears to be comfortable, not in acute distress HEENT: Atraumatic , normocephalic /no jaundice /no pallor /anicteric /no dry mucous membrane /normal external ear inspection Neck: Supple /no swelling /central trach Heart: S1/S2 normal/regular rate and rhythm/no gallop /no rub /no murmur Lungs: Clear to auscultation bilaterally/normal chest with expansion/no rhonchi/no rales/no wheezing/no use of accessory muscles of respiration Abdomen: Soft/nontender/no guarding/no rebound/no organomegaly/no pulsatile mass Musculoskeletal: No swelling/no edema/no tenderness/normal range of motion Neuro exam: Awake alert oriented 3/cranial nerves II through XII appear to be intact/sensation intact/moves all extremities/no abnormal movements Psychiatric evaluation: No depressed mood/normal affect Skin: No rash on exposed skin area/no erythema Extremity: Normal pulse/no pitting edema/no clubbing or cyanosis Endocrine/lymphatic: No obvious lymphadenopathy /no lymphedema Results & Data Vital Signs (Past 12 Hours) Vital Signs Temp Pulse Resp BP BP Pulse Ox 06/03/19 19:24 36.6 C 68 18 168/79 H 93 06/03/19 15:51 36.5 C 77 18 122/63 94 06/03/19 10:41 36.8 C 64 18 128/65 91 PG Care Time/CCT Total # of Minutes Spent Total Time Spent with Patient: 35 minutes total time spent is greater than 50% in coordination of care (as documented) at patient's floor/unit and/or counseling patient/family discussion of care with nursing staff (1) Congestive heart failure Heart failure chronicity: acute Heart failure type: unspecified Qualified Code(s): I50.9 - Heart failure, unspecified (2) Anemia Anemia type: unspecified type Qualified Code(s): D64.9 - Anemia, unspecified : Congestive heart failure Qualifiers: Heart failure type: unspecified Heart failure chronicity: acute Qualified Code(s): I50.9 - Heart failure, unspecified Anemia Qualifiers: Anemia type: unspecified type Qualified Code(s): D64.9 - Anemia, unspecified
[2019-06-03] MEDS: RIVAROXABAN 20 MG TAB PO SCH (20:35)
[2019-06-03] MEDS: TRIAMCINOLONE ACET NASAL SPRAY 10.8ML BTL NAE SCH (20:38)
[2019-06-03] MEDS: ALLOPURINOL 100 MG TAB PO SCH (20:38)
[2019-06-03] MEDS: DOCUSATE SODIUM 100 MG CAP PO SCH (20:39)
[2019-06-03] MEDS: INSULIN GLARGINE SOLOSTAR 100 UNITS/ML 3 ML PEN SC SCH (20:39)
[2019-06-03] MEDS: ATORVASTATIN 40 MG TAB PO SCH (20:39)
[2019-06-04 06:35] LABS: Basophils # (auto) 0.02 K/uL (0-0.2); Basophils % (auto) 0.3 %; Eosinophils # (auto) 0.14 K/uL (0-0.5); Eosinophils % (auto) 2.4 %; Hematocrit (blood only) 32.5 % (42-52); Immature Granulocytes # (auto) 0.01 K/uL (0.00-0.02); Immature Granulocytes % (auto) 0.2 %; Lymphocytes # (auto) 0.75 K/uL (1.2-3.4); Mean Corpuscular Hemoglobin 27.5 pg (25-34); Mean Corpuscular Hgb Conc 30.8 g/dL (32-36); Mean Corpuscular Volume 89.5 fL (80-100); Mean Platelet Volume 9.2 fL (7.4-10.4); Monocytes # (auto) 0.75 K/uL (0.11-0.59); Neutrophils # (auto) 4.09 K/uL (1.4-6.5); Neutrophils % (auto) 71.1 %; Platelet Count 208 K/uL (130-400); RDW Coefficient of Variation 15.6 % (11.5-14.5); RDW Standard Deviation 50.6 fL (36.4-46.3); Red Blood Count 3.63 M/uL (4.7-6.1); White Blood Count 5.76 K/uL (4.8-10.8)
[2019-06-04] MEDS: FLUTICASONE HFA 110MCG INHALER INH SCH (08:16)
[2019-06-04] MEDS: ALBUTEROL HFA 8 GM INHALER INH SCH (08:17)
[2019-06-04] MEDS: METOPROLOL TARTRATE 25 MG TAB PO SCH (08:17)
[2019-06-04] MEDS: AMLODIPINE BESYLATE 5 MG TAB PO SCH (08:17)
[2019-06-04] MEDS: LACTOBACILLUS ACIDOPHILUS (FLORANEX) TAB PO SCH (08:17)
[2019-06-04] MEDS: FLECAINIDE ACETATE 100 MG TABLET PO SCH (08:18)
[2019-06-04] MEDS: POTASSIUM CHLORIDE 20 MEQ TABCR PO SCH (08:18)
[2019-06-04] MEDS: INSULIN ASPART 100 UNITS/ML 3 ML PEN SC SCH ×2 (08:19→12:21)
[2019-06-04 08:28] LABS: Hematocrit (blood only) 32.4 % (42-52); Hemoglobin 10.2 g/dL (14.0-18.0); Mean Corpuscular Hemoglobin 28.1 pg (25-34); Mean Corpuscular Volume 89.3 fL (80-100); Mean Platelet Volume 8.9 fL (7.4-10.4); Platelet Count 209 K/uL (130-400); RDW Coefficient of Variation 15.6 % (11.5-14.5); Red Blood Count 3.63 M/uL (4.7-6.1); White Blood Count 5.49 K/uL (4.8-10.8)
[2019-06-04 08:35] LABS: Mean Corpuscular Hgb Conc 31.5 g/dL (32-36)
[2019-06-04 08:50] LABS: Creatine Kinase MB 1.6 ng/ml (0.5-3.6); Troponin I < 0.015 ng/ml (0-0.045)
[2019-06-04 09:04] LABS: BUN Creatinine Ratio 17.2 (10-20); Calcium 9.6 mg/dl (8.5-10.1); Est GFR (Non-African American) 56.1; Potassium 3.5 mmol/L (3.5-5.1)
--- NOTE | 2019-06-04 09:46 | Pharmacy Report ---
Pharmacy Glycemic Short Note 2 - Date of Service June 04, 2019 - Glycemic Short BSG Results (Last 24 hours): 06/03/19 06/03/19 06/03/19 11:15 12:11 16:32 Glucose 200 H POC Glucose 217 H 181 H 06/03/19 06/03/19 06/04/19 18:03 20:36 07:43 Glucose 259 H POC Glucose 226 H 187 H 06/04/19 08:14 Glucose 220 H POC Glucose OUTPATIENT ANTIDIABETIC REGIMEN: * Dulaglutide 0.75mg SQ weekly (last dose 06/02) * Toujeo 30 units Q HS * Humalog 40 units w/ meals * Glipizide 5mg BID * Metformin 500mg BID * A1c = 9.4% 06/03/19 ASSESSMENT: * Type 2 diabetic admitted for resp distress secondary to ADHF * Over the last 24 hrs 64 units insulin have been admin while pt tolerating diet * Fasting BSG 187 this AM with 25 units Lantus on board - will titrate upwards today. Pt used more basal than this PEDIATRIC ANESTHESIOLOGIST as well. * Current Novolog CF and CR doses are reasonable to continue today PLAN FOR INPATIENT GLYCEMIC CONTROL: * Hold outpatient oral diabetes medications (glipizide, metformin, trulicity) * Basal insulin * Lantus 5 units SQ x1 with next BSG check, then increase to 30 units Q HS * Bolus insulin * NovoLog per scale ACHS or Q6hrs while NPO * Goal Range: Low 110 mg/dL - High 140 mg/dL * Correction Factor: 20 mg/dL/unit * Nutritional / Prandial insulin per carb ratio of 1 unit per 5 grams CHO consumed PLAN FOR DISCHARGE: * Might consider dc of glipizide on discharge given the patient is already using GLP1 agonist and prandial insulin. MÉNDEZ have a known high failure rate with continued therapy. A1c is elevated above goal, out-pt regimen may need adjusted by PCP/Endo to better attain goal A1c.
[2019-06-04] MEDS ORDERED: INSULIN GLARGINE SOLOSTAR 100 UNITS/ML 3 ML PEN SC ONE (11:30)
--- NOTE | 2019-06-04 16:06 | Discharge Summary ---
Date of Service June 04, 2019 Admission HPI Per Admitting Provider Patient is a 74 years old male with past medical history of congestive heart failure, diabetes mellitus with diabetic polyneuropathy, anemia, presented with shortness of breath while laying flat, chest pain. Patient reports having atrial fibrillation. Patient said he had 7 cardioversions and ablation. Patient said that last cardioversion occurred after his ablation and to keep him out of A. fib's for about 4 months.. Patient is also diabetic and have diabetic polyneuropathy he reports tingling and numbness in his hands. Patient was seeing a patient oxygenation on room air was below 88% and on 2 L he was above 92. Patient denies fever chills chest pain headache syncope near syncope abdominal pain frequency urgency hemoptysis hematuria dysuria recent weight gain. Patient said that he recently moved here [place] and does not have PCP here but usually travels to [place] if he has medical needs. He is right wrist pain he attributes to carpal tunnel. Labs are reviewed: White blood cell 9.15, hemoglobin 9.8, hematocrit 31.4, platelets 218. PT 11.9, INR 1.2 APTT 30.1 sodium 142, potassium 3.7, chloride 104, anion gap 7, BUN 27, creatinine 1.49, GFR 46.2 calcium 9.4 magnesium 2.3 AST 20 ALT 42, troponin 0 0.015, total protein 7.2 albumin 3.9 globulin 3.3 TSH 1.22. BNP pending. Chest x-ray shows right lung interstitial edema pattern. This likely represent asymmetric metric cardiogenic pulmonary edema although an interstitial inflammatory process could appears seminal similar. Head CT no intracranial abnormalities except for inferior right maxillary sinus thickening of mucosa. CT neck no acute cervical spine fracture or subluxation. Degenerative changes present. There is a least mild right-sided foraminal narrowing at C3 and C4 with severe right-sided foraminal narrowing at C4 and C5. There is no definite high-grade central canal stenosis. No paravertebral soft tissue swelling. Multilevel spondylotic sporting with mid multilevel mild disc space narrowing w ith moderate to severe multilevel facet arthrosis. The case was discussed with the patient and he is admitted for pulmonary edema and diuresis to the floor on telemetry. Principal Diagnosis Shortness of breath secondary to below Acute diastolic congestive heart failure Acute kidney injury on chronic kidney disease stage III Uncontrolled diabetes mellitus insulin requiring Morbid obesity Anemia of chronic diseases Obstructive sleep apnea, compliant with CPAP machine Numbness in both hands Discharge Exam Physical examination General morbidly obese, patient appears to be comfortable, not in acute distress HEENT: Atraumatic , normocephalic /no jaundice /no pallor /anicteric /no dry mucous membrane /normal external ear inspection Neck: Supple /no swelling /central trach Heart: S1/S2 normal/regular rate and rhythm/no gallop /no rub /no murmur Lungs: Clear to auscultation bilaterally/normal chest with expansion/no rhonchi/no rales/no wheezing/no use of accessory muscles of respiration Abdomen: Soft/nontender/no guarding/no rebound/no organomegaly/no pulsatile mass Musculoskeletal: No swelling/no edema/no tenderness/normal range of motion Neuro exam: Awake alert oriented 3/cranial nerves II through XII appear to be intact/sensation intact/moves all extremities/no abnormal movements Psychiatric evaluation: No depressed mood/normal affect Skin: No rash on exposed skin area/no erythema Extremity: Normal pulse/no pitting edema/no clubbing or cyanosis Endocrine/lymphatic: No obvious lymphadenopathy /no lymphedema Discharge Data Allergies Allergy/AdvReac Type Severity Reaction Status Date / Time No Known Allergies Allergy Unverified 06/02/19 14:25 Consultations 06/02/19 15:48 ED Decision to Admit Stat Ordered Studies 06/02/19 18:39 CT cervical spine wo con Stat CT head/brain wo con Stat 06/02/19 21:22 CT chest wo con Urgent Hospital Course (1) Congestive heart failure: Acute on chronic diastolic congestive heart failure Initially started started Lasix drip. Lower rate 2 mg/h, with 20 mg Lasix bolus IV Took only 24-hour of the Lasix drip plus the bolus, and was able to diurese 5 L negative balance Appears to be sensitive to Lasix and has a negative balance of about 5 L Stopped Lasix drip, Also stopped Losartan due to bump in his creatinine to 1.87 Next day his creatinine improved to 1.27, his breathing normal in room air with saturation above 95% Lungs are clear and he has no new symptoms. Possibly his CHF relapse was secondary to forgetting to take his furosemide after traveling 4 hours with the car. Nevertheless adjusted his regimen is slightly, simplify the regimen All the regimen was to take torsemide 20 mg p.o. daily, monitor his swelling in his ankles and take metolazone if his ankles swelling gets worse. New regimen as to take torsemide 20 mg p.o. daily in the morning and 10 mg p.o. every afternoon at 5:00 afternoon Take his weight daily in the same time every day in the morning with the same close If he gains more than 5 pounds in 2 days in a row then to take 1 dose of metolazone plus an extra dose of potassium. Losartan was decreased from 100 mg p.o. daily to 50 mg p.o. daily Clonidine at bedtime was decreased from 0.3 mg nightly to 0.1 mg nightly Discussed all these changes with Dr. Moser, who is patient's primary care physician, who agreed with the plan. Echocardiogram showed normal LV size, mild concentric LVH, ejection fraction of 60%, no wall motion abnormality, diastolic dysfunction, normal RV size and function, mild aortic stenosis, mild mitral regurgitation, severe left atrial enlargement, mild pulmonary hypertension, 40 to 45 mmHg, normal estimated CVP DVT prophylaxis -continue Xarelto 20 mg p.o. nightly for A. fib Heart healthy diet low sodium Restrict p.o. free water intake to 1200 mils per day. Full code (2) Respiratory failure, acute: On admission had acute respiratory failure with hypoxemia Unable to speak full sentences, using accessory muscles of respiration, hypoxia of 88% on room air All improved with diuresis (3) Diabetes mellitus with diabetic polyneuropathy: Placed on sliding scale insulin while in the hospital Hemoglobin A1c is 9.4 Glycemic control per primary care physician, patient stated that they are starting a new plan Continued on same his diabetic regimen on discharge (4) Anemia: Chronic issue B12 is 863, folic acid is 13.8, TSH is 1.22 Normal initial iron study As far as numbness in his hand that thought to be neuropathy, he was instructed to follow-up with neurologist regarding possible carpal tunnel syndrome and may be the need for nerve conduction study Total Time Total Time Spent Total Time Spent (In Minutes): 35 minutes total time spent is greater than 50% in coordination of care (as documented) at patient's floor/unit and/or counseling patient/family discussion of care with nursing staff Discharge Plan Discharge Items Patient Disposition: Home - Self-Care Reason For Visit: SOB Discharge Diagnosis: Shortness of breath secondary to below Acute diastolic congestive heart failure Acute kidney injury on chronic kidney disease stage III Uncontrolled diabetes mellitus insulin requiring Morbid obesity Anemia of chronic diseases Obstructive sleep apnea, compliant with CPAP machine Numbness in both hands Condition: Good Discharge Goals: Decrease discomfort and Improve function Activity: Resume your previous activity Lifting: Gradually increase as tolerated and No more than 5 pounds Bathing: No limitations Sexual Activity: When tolerated Exercise/Sports: Gradually increase as tolerated Driving/Machine Use: Resume 1 day after discharge Weightbearing: Full weightbearing Non-emergency contact: Primary Care Provider Call non-emergency contact if: you have any medication questions and your symptoms worsen Follow-up/Referrals: Jennifer Moser MD [Primary Care Provider] - (Please, follow up with Dr. Mayur Moser. *I called the office and spoke with his nurse [place] regarding your hospitalization. The nurse said that Dr. Moser will see you as soon as you are able to get into the office. The office phone number is [phone].) Diet: Carb Consistent or DM2 and Low Sodium (2gm) Fluids: 1200ml (5 cups) Addtl Provider Instructions: You have been treated for fluid overload in your body take your weight daily, if you gain more than 5 pounds for 2 days in a row call your family doctor try to restrict your salt use as much as possible (no more than 2gms per day) try to restrict your fluid intake to 5-6 cups of water/fluid per day Prescriptions: New clonidine HCl 0.1 mg tablet 0.1 mg PO HS Qty: 30 RF: 0 losartan 50 mg tablet 50 mg PO DAILY Qty: 30 RF: 0 torsemide 10 mg tablet 10 mg PO QPM Qty: 30 RF: 0 Continued atorvastatin 40 mg tablet 40 mg PO HS RF: 0 anastrozole 1 mg tablet 1 mg PO UD RF: 0 torsemide 20 mg tablet 20 mg PO QAM RF: 0 glipizide 5 mg tablet extended release 24hr 5 mg PO BID RF: 0 metolazone 5 mg tablet 5 mg PO QAM RF: 0 cyanocobalamin (vitamin B-12) [Vitamin B-12] 1,000 mcg Tablet 1,000 mcg PO Q2D RF: 0 amlodipine 2.5 mg tablet 2.5 mg PO QAM RF: 0 potassium chloride 10 mEq tablet extended release 20 meq PO BID RF: 0 allopurinol 100 mg tablet 100 mg PO HS RF: 0 modafinil 200 mg Tablet 200 mg PO DAILY PRN (Reason: energy) RF: 0 ranitidine HCl [[place] 75] 75 mg Tablet 75 mg PO HS RF: 0 metformin 1,000 mg tablet 500 mg PO BID RF: 0 triamcinolone acetonide [Nasacort] 55 mcg Aerosol,[place] 2 spray INTRANASAL HS RF: 0 flecainide 100 mg tablet 100 mg PO Q12 RF: 0 docusate sodium [Colace] 100 mg Capsule 100 mg PO HS RF: 0 testosterone cypionate 200 mg/mL oil 400 mg subcut UD RF: 0 albuterol sulfate [ProAir HFA] 90 mcg/actuation HFA aerosol inhaler 2 puff inhalation BID RF: 0 cranberry 500 mg Capsule PO BID RF: 0 Flovent HFA 110 mcg/actuation HFA aerosol inhaler 2 puff inhalation BID RF: 0 cholecalciferol (vitamin D3) [Vitamin D3] 1,000 unit Capsule PO BID RF: 0 insulin lispro [Humalog KwikPen Insulin] 100 unit/mL insulin pen 40 unit subcut AC RF: 0 coenzyme Q10 [CoQ-10] 100 mg Capsule 100 mg PO HS RF: 0 tadalafil [Cialis] 20 mg Tablet 20 mg PO DAILY PRN (Reason: BPH) RF: 0 metoprolol tartrate 25 mg tablet 25 mg PO BID RF: 0 cinnamon bark [Cinnamon] 500 mg Capsule 500 mg PO BID RF: 0 Tart [place] [id number] mg Capsule 1 cap PO HS RF: 0 Xarelto 20 mg tablet 20 mg PO HS RF: 0 Probiotic 3 billion cell Capsule PO QAM RF: 0 Trulicity 0.75 mg/0.5 mL pen injector 0.75 mg subcut WK RF: 0 Toujeo SoloStar U-300 Insulin 300 unit/mL (1.5 mL) insulin pen 30 unit subcut HS RF: 0 [id number]+Alpha Acid 300 1 cap PO BID RF: 0 Mk7 Vitamin K2 100mcg 1 cap PO HS RF: 0 Discontinued clonidine HCl 0.3 mg tablet 0.3 mg PO HS RF: 0 naproxen sodium [Aleve] 220 mg Tablet 220 mg PO Q12H PRN (Reason: Pain) RF: 0 losartan 100 mg tablet 100 mg PO QAM RF: 0 eplerenone 25 mg tablet 25 mg PO QAM RF: 0 [place]-3 350 mg-235 mg- 90 mg-597 mg Capsule,Delayed Release(Dr/Ec) 1 cap PO BID RF: 0 Stand-Alone Forms: [facility] Discharge Orders: Discharge Order (Routine); Ordered 06/04/19 Ordered By: Lida Zuniga Admission Data Admit Date/Time: 06/02/19 16:09 Attending Provider: Lida Mauricio Admit Provider: Abigail Chen Primary Care Provider: Jennifer Moser Other Providers: Abigail Chen Service: Telemetry
[2019-06-04] MEDS ORDERED: INSULIN GLARGINE SOLOSTAR 100 UNITS/ML 3 ML PEN SC SCH (21:00)
== END 2019-06-04 17:02 | disposition home or self-care (01) | DRG 291 ==
LOC: ED 13:18 → 2S 16:09 → SUATTDRO 16:09 → 2S 17:16
DX: E11.42 Type 2 diabetes mellitus with diabetic polyneuropathy; D63.8 Anemia in other chronic diseases classified elsewhere; N18.3 Chronic kidney disease, stage 3 (moderate); J96.00 Acute respiratory failure, unspecified whether with hypoxia or hypercapnia; I50.33 Acute on chronic diastolic (congestive) heart failure; G47.33 Obstructive sleep apnea (adult) (pediatric); N17.9 Acute kidney failure, unspecified; Z79.4 Long term (current) use of insulin; E66.01 Morbid (severe) obesity due to excess calories

== ENCOUNTER 2019-11-14 15:52 | Inpatient (IN) ==
[2019-11-14] MEDS ORDERED: PIPERACILL/TAZOBAC CONSULT ACTIVE PRN (16:22)
[2019-11-14] MEDS ORDERED: PIPERACILLIN/TAZOBACTAM 4.5 GM/120 ML BAG IV ONE (16:22)
[2019-11-14 16:46] LABS: Eosinophils # (auto) 0.01 K/uL (0-0.5); Eosinophils % (auto) 0.2 %; Hematocrit (blood only) 35.8 % (42-52); Hemoglobin 11.3 g/dL (14.0-18.0); Immature Granulocytes # (auto) 0.04 K/uL (0.00-0.02); Immature Granulocytes % (auto) 0.7 %; Lymphocytes # (auto) 0.67 K/uL (1.2-3.4); Lymphocytes % (auto) 12.4 %; Mean Corpuscular Hemoglobin 28.6 pg (25-34); Mean Corpuscular Hgb Conc 31.6 g/dL (32-36); Mean Corpuscular Volume 90.6 fL (80-100); Mean Platelet Volume 9.9 fL (7.4-10.4); Monocytes # (auto) 0.08 K/uL (0.11-0.59); Monocytes % (auto) 1.5 %; Neutrophils % (auto) 85.2 %; Platelet Count 212 K/uL (130-400); RDW Coefficient of Variation 17.4 % (11.5-14.5); RDW Standard Deviation 58.2 fL (36.4-46.3); Red Blood Count 3.95 M/uL (4.7-6.1)
[2019-11-14 16:56] LABS: Partial Thromboplastin Ratio 0.9; Partial Thromboplastin Time 24.5 Seconds (21.0-31.0); Prothrombin Time 10.1 Seconds (9.0-12.0)
--- NOTE | 2019-11-14 16:58 | XRay Report ---
XR chest 1V portable CLINICAL HISTORY: SEPSIS COMPARISON STUDY: November 11, 2019 FINDINGS: The heart is enlarged. There is no focal pulmonary consolidation. There is minor chronic in terstitial thickening. There is no overt failure. There are no pleural effusions. Indistinctness of t he left heart border is felt to be chronic and likely secondary to a prominent fat-pad[ IMPRESSION: Cardiomegaly. No acute findings. ACT 112: Negative or not required by law. Electronically signed by: Vladimir Cheng M.D. 11/14/2019 4:57 PM
[2019-11-14 17:05] LABS: Albumin Level 3.1 gm/dl (3.4-5.0); BUN Creatinine Ratio 30.3 (10-20); Calcium 9.6 mg/dl (8.5-10.1); Creatinine Clr Calc Pharmacy 63.6 ml/min; Est GFR (African American) 58.8; Est GFR (Non-African American) 50.7; Magnesium 2.2 mg/dl (1.8-2.4); Potassium 3.2 mmol/L (3.5-5.1)
[2019-11-14 17:08] LABS: Albumin Globulin Ratio 0.7 (0.9-2); Bilirubin,Total 0.8 mg/dl (0.2-1); Globulin 4.1 gm/dl (2.5-4.0); Total Protein 7.2 gm/dl (6.4-8.2)
--- NOTE | 2019-11-14 17:33 | Ultrasound Report ---
US gallbladder CLINICAL HISTORY: M- bacteremia. Elevated LFTs and bilirubin. COMPARISON STUDY: Noncontrast CT scan dated November 11, 2019 FINDINGS: There is diffusely increased hepatic echogenicity, consistent with hepatic steatosis. There is an are a of presumed focal fatty sparing adjacent the gallbladder fossa. The pancreas appears sonographically normal. There are several tiny gallstones. There is borderline gallbladder wall thickening. The technologist reports a negative sonographic Whitley sign. There is no evidence of intra or extrahepatic biliary ductal dilatation. The common bile duct measure s 3 mm. There is no right-sided hydronephrosis IMPRESSION: 1. Cholelithiasis. No ductal dilatation 2. Borderline gallbladder wall thickening 3. Negative sonographic Whitley sign 4. Hepatic steatosis ACT 112: Negative or not required by law. Electronically signed by: Vladimir Cheng M.D. 11/14/2019 5:31 PM
--- NOTE | 2019-11-14 17:46 | Emergency Department Note ---
Entered by Yani Pederson acting as a scribe for Leo De La Rosa DO History of Present Illness General Chief complaint: Abnormal Labs/Diagnostic Testing Stated complaint: POSITIVE BLOOD CULTURE Source: patient Limitations: no limitations History of Present Illness Onset (ago): day(s) (a few) Location: head (general) Pain Consistency: + other (episode) Maximum Pain Intensity: 2 Quality: + other (abnormal labs) Associated symptoms: + denies other symptoms (urinary symptoms) The patient is a 74 year old male who presents to the Emergency Room with complaints of an episode of abnormal lab results, stating that he was called and informed that one of his blood culture was abnormal by the staff of this ER. He states that he was seen in this ER a few days ago, because he was feeling SOB. He notes that he was given doxycycline and prednisone per the chart. The patient reports that he was feeling hot/cold flashes, chills, and diaphoresis, but he has not experienced those symptoms since he was discharged. He complains of a cough. The patient denies any urinary symptoms and change in BMs. He also notes that his LFTs were elevated as well as his bilirubin and he followed up to have them checked yesterday. He denies any abdominal pain, nausea vomiting or diarrhea. No dysuria urgency or frequency. No chest pain. Home Medications Home Medications Medication Instructions Recorded Confirmed Type Flovent HFA 2 puff INHALATION BID 06/02/19 11/14/19 History Tart Roldan 1 cap PO HS 06/02/19 11/14/19 History Trulicity 0.75 mg SUBCUT WK 06/02/19 11/14/19 History Xarelto 20 mg PO HS 06/02/19 11/14/19 History albuterol sulfate [ProAir HFA] 2 puff INHALATION BID 06/02/19 11/14/19 History docusate sodium [Colace] 200 mg PO HS 06/02/19 11/14/19 History glipizide 5 mg PO BID 06/02/19 11/14/19 History metformin 500 mg PO BID 06/02/19 11/14/19 History modafinil 200 mg PO DAILY PRN 06/02/19 11/14/19 History ranitidine HCl [Wal-Sagar 75] 75 mg PO HS 06/02/19 11/14/19 History tadalafil [Cialis] 20 mg PO DAILY PRN 06/02/19 11/14/19 History torsemide 20 mg PO QAM 06/02/19 11/14/19 History triamcinolone acetonide [Nasacort] 2 spray INTRANASAL HS 06/02/19 11/14/19 History losartan 100 mg tablet 100 mg PO DAILY 07/14/19 11/14/19 History allopurinol 100 mg tablet 100 mg PO DAILY tab 10/14/19 11/14/19 History amlodipine 5 mg tablet 5 mg PO DAILY 10/14/19 11/14/19 History atorvastatin 20 mg tablet 20 mg PO QPM 10/14/19 11/14/19 History coenzyme Q10 100 mg capsule 100 mg PO DAILY cap 10/14/19 11/14/19 History cyanocobalamin (vitamin B-12) 1,000 mcg PO DAILY 10/14/19 11/14/19 History 1,000 mcg tablet doxazosin 2 mg tablet 2 mg PO BID 10/14/19 11/14/19 History eplerenone 25 mg tablet 25 mg PO DAILY 10/14/19 11/14/19 History gabapentin 100 mg capsule 200 mg PO BID cap 10/14/19 11/14/19 History insulin glargine U-300 conc 300 40 units SUBCUT HS ml 10/14/19 11/14/19 History unit/mL (1.5 mL) subcutaneous pen metolazone 10 mg tablet 10 mg PO DAILY 10/14/19 11/14/19 History metoprolol succinate 25 mg 50 mg PO BID tab 10/14/19 11/14/19 History tablet,extended release 24 hr potassium chloride 10 mEq 20 meq PO DAILY 10/14/19 11/14/19 History tablet,extended release cholecalciferol (vitamin D3) 25 mcg PO DAILY 11/11/19 11/14/19 History [Vitamin D3] cranberry 400 mg PO BID 11/11/19 11/14/19 History doxycycline hyclate 100 mg PO BID 7 Days #14 tab 11/11/19 11/14/19 Rx lactobacillus combination no.4 3 mmu cells PO DAILY 11/11/19 11/14/19 History [Probiotic] omega 1-aww-rom-fish oil [Fish Oil] 1 cap PO BID 11/11/19 11/14/19 History prednisone 60 mg PO DAILY 4 Days #12 tab 11/11/19 11/14/19 Rx vitamin K2 0 mcg PO DAILY 11/11/19 11/14/19 History Allergies Allergy/AdvReac Type Severity Reaction Status Date / Time No Known Drug Allergies Allergy Unknown Unknown Verified 11/14/19 16:13 Past Med/Surg History Medical History Acquired hallux valgus of right foot (Acute) Atrial fibrillation Status post pulmonary vein isolation at [facility], multiple cardioversions Callus (Acute) Diabetes mellitus with diabetic polyneuropathy (Acute) Hallux valgus (acquired), left foot (Acute) Type 2 diabetes mellitus with diabetic neuropathy (Acute) Surgical History History of total right hip arthroplasty (Acute) S/P tonsillectomy Family History Mother , mid 80s of dementia Hypertension Alzheimer disease Father , age 98 with dementia Dementia Other No pertinent family history Social History Preferred Language: Estonian Communication Ability: Effective 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 and A total of 10 systems reviewed and were otherwise negative Physical Exam Vital Signs Vital Signs - 24 hr 11/14/19 15:59 11/14/19 16:50 Temperature 36.3 C L Temperature Source Oral Pulse Rate 79 84 Pulse Rhythm Irregular Respiratory Rate 18 Respiratory Effort / Characteristics Non-Labored Spontaneous Respiratory Depth Normal Respiratory Pattern Regular Blood Pressure 158/81 H Blood Pressure Mean 106 Blood Pressure Position Sitting Pulse Oximetry 95 93 Oxygen Delivery Method Room Air Room Air Sepsis Recent Fever Within 48 Hours No Sepsis New/Unexplained Change in Mental Status No Sepsis Action Taken by Nursing No Action Required GENERAL: sitting up in bed, obese, no acute distress, non-toxic EYE EXAM: normal conjunctiva OROPHARYNX: no exudate, no erythema, lips, buccal mucosa, and tongue normal and mucous membranes are moist NECK: supple, no nuchal rigidity, no adenopathy, non-tender LUNGS: Clear to auscultation. Normal chest wall mechanics HEART: no murmurs, S1 normal and S2 normal ABDOMEN: abdomen soft, non-tender, normo-active bowel sounds, no masses, no rebound or guarding. BACK: Back is symmetrical on inspection and there is no deformity, no midline tenderness, no CVA tenderness. SKIN: no rashes and no bruising UPPER EXTREMITIES: upper extremities are grossly normal. LOWER EXTREMITIES: No pitting edema. NEURO EXAM: Normal sensorium, cranial nerves II-XII grossly intact, normal speech, no gross weakness of arms, no gross weakness of legs. Course Course ED COURSE: Vital signs were reviewed and showed hypertension The patients medical record was reviewed The above diagnostic studies were performed and reviewed. ED treatments and interventions as stated above. 1605: The patient was evaluated in room B10. A complete history and physical examination was performed. 1731: I spoke with Dr. Chen, [facility] hospitalist, about the patient's case. She will further evaluate the patient. 1745: Upon reevaluation, the patient is improved.I discussed my findings with the patient and he understands and agrees with the treatment plan. Based on the patients age, coexisting illnesses, exam and lab findings the decision to treat as an outpatient was made. The patient remained stable while under my care. The patient will be evaluated for further management. Administered Medications Discontinued Medications Piperacillin Sod/Tazobactam Sod (Zosyn) 4.5 gm in 120 mls @ 240 mls/hr IV NOW ONE Stop: 11/14/19 16:51 Last Infusion: 11/14/19 17:18 Dose: 0 mls/hr Documented by: [id number] Admin: 11/14/19 16:42 Dose: 240 mls/hr Documented by: [id number] Medical Decision Making Differential Diagnosis Differential diagnosis includes etiologies such as sepsis, UTI, pneumonia, metabolic, electrolyte abnormalities, cardiac sources, intracerebral event, toxicologic, neurologic, as well as others were entertained. Medical Records Attestation: I reviewed the patient's medical records. Home Medications Current Medication List: was personally reviewed by me Laboratory Data Attestation: I reviewed the patient's lab results. Result diagrams: 11/14/19 16:28 11/14/19 16:28 Lab Results 02/15/20 02/15/20 02/15/20 Range/Units 16:28 16:28 16:28 WBC 5.40 (4.8-10.8) K/uL RBC 3.95 L (4.7-6.1) M/uL Hgb 11.3 L (14.0-18.0) g/dL Hct 35.8 L (42-52) % MCV 90.6 (80-100) fL MCH 28.6 (25-34) pg MCHC 31.6 L (32-36) g/dL RDW Std Deviation 58.2 H (36.4-46.3) fL RDW Coeff of Dayami 17.4 H (11.5-14.5) % Plt Count 212 (130-400) K/uL MPV 9.9 (7.4-10.4) fL Immature Gran % (Auto) 0.7 % Neut % (Auto) 85.2 % Lymph % (Auto) 12.4 % Robertson % (Auto) 1.5 % Eos % (Auto) 0.2 % Baso % (Auto) 0.0 % Immature Gran # (Auto) 0.04 H (0.00-0.02) K/uL Neut # (Auto) 4.60 (1.4-6.5) K/uL Lymph # (Auto) 0.67 L (1.2-3.4) K/uL Robertson # (Auto) 0.08 L (0.11-0.59) K/uL Eos # (Auto) 0.01 (0-0.5) K/uL Baso # (Auto) 0.00 (0-0.2) K/uL PT 10.1 (9.0-12.0) Seconds INR 1.0 (0.9-1.1) APTT 24.5 (21.0-31.0) Seconds PTT Ratio 0.9 Sodium 139 (136-145) mmol/L Potassium 3.2 L (3.5-5.1) mmol/L Chloride 102 (98-107) mmol/L Carbon Dioxide 27 (21-32) mmol/L Anion Gap 10.0 (3-11) BUN 42 H (7-18) mg/dl Creatinine 1.38 (0.6-1.4) mg/dl Est Cr Clr Drug Dosing 63.6 ml/min Est GFR ( Amer) 58.8 Est GFR (Non-Af Amer) 50.7 BUN/Creatinine Ratio 30.3 H (10-20) Glucose 233 H (70-99) mg/dl Lactate (0.4-2.0) mmol/L Calcium 9.6 (8.5-10.1) mg/dl Magnesium 2.2 (1.8-2.4) mg/dl Total Bilirubin 0.8 (0.2-1) mg/dl AST 121 H (15-37) U/L ALT 238 H (12-78) U/L Alkaline Phosphatase 190 H (45-117) U/L Total Protein 7.2 (6.4-8.2) gm/dl Albumin 3.1 L (3.4-5.0) gm/dl Globulin 4.1 H (2.5-4.0) gm/dl Albumin/Globulin Ratio 0.7 L (0.9-2) / Range/Units 16:28 WBC (4.8-10.8) K/uL RBC (4.7-6.1) M/uL Hgb (14.0-18.0) g/dL Hct (42-52) % MCV (80-100) fL MCH (25-34) pg MCHC (32-36) g/dL RDW Std Deviation (36.4-46.3) fL RDW Coeff of Dayami (11.5-14.5) % Plt Count (130-400) K/uL MPV (7.4-10.4) fL Immature Gran % (Auto) % Neut % (Auto) % Lymph % (Auto) % Robertson % (Auto) % Eos % (Auto) % Baso % (Auto) % Immature Gran # (Auto) (0.00-0.02) K/uL Neut # (Auto) (1.4-6.5) K/uL Lymph # (Auto) (1.2-3.4) K/uL Robertson # (Auto) (0.11-0.59) K/uL Eos # (Auto) (0-0.5) K/uL Baso # (Auto) (0-0.2) K/uL PT (9.0-12.0) Seconds INR (0.9-1.1) APTT (21.0-31.0) Seconds PTT Ratio Sodium (136-145) mmol/L Potassium (3.5-5.1) mmol/L Chloride (98-107) mmol/L Carbon Dioxide (21-32) mmol/L Anion Gap (3-11) BUN (7-18) mg/dl Creatinine (0.6-1.4) mg/dl Est Cr Clr Drug Dosing ml/min Est GFR ( Amer) Est GFR (Non-Af Amer) BUN/Creatinine Ratio (10-20) Glucose (70-99) mg/dl Lactate 3.0 H* (0.4-2.0) mmol/L Calcium (8.5-10.1) mg/dl Magnesium (1.8-2.4) mg/dl Total Bilirubin (0.2-1) mg/dl AST (15-37) U/L ALT (12-78) U/L Alkaline Phosphatase (45-117) U/L Total Protein (6.4-8.2) gm/dl Albumin (3.4-5.0) gm/dl Globulin (2.5-4.0) gm/dl Albumin/Globulin Ratio (0.9-2) Imaging Data Radiologist's Impression: Radiology results as stated below per my review and the radiologist's interpretation: XR chest 1V portable CLINICAL HISTORY: SEPSIS COMPARISON STUDY: November 11, 2019 FINDINGS: The heart is enlarged. There is no focal pulmonary consolidation. There is minor chronic interstitial thickening. There is no overt failure. There are no pleural effusions. Indistinctness of the left heart border is felt to be chronic and likely secondary to a prominent fat-pad[ IMPRESSION: Cardiomegaly. No acute findings. ACT 112: Negative or not required by law. Electronically signed by: Vladimir Cheng M.D. 11/14/2019 4:57 PM ECG Data Attestation: I personally reviewed and interpreted this ECG as follows: Indication: + other (abnormal labs) Rate (beats per minute): 82 Rhythm: + atrial fibrillation ECG [place]: + Normal and + Left axis deviation ECG Findings: + Q waves (Septal); no PVCs Blood Pressure Blood Pressure Findings: Elevated blood pressure Blood Pressure Disposition: further management by hospitalist DORIAN Narrative Patient is a 74-year-old male who was seen in the ER just about 48 hours ago and his blood culture grew out gram-negative bacilli. At that time he was febrile. He was having hot and cold flashes along with sweating. He notes the symptoms have improved. He was discharged on doxycycline. IV was established blood work was obtained and showed no significant leukocytosis and a mild anemia consistent with previous. INR was unremarkable. BMP with mild hypokalemia. LFTs were elevated but do appear to be improving with an AST of 121 and ALT of 238. Elevation of the bilirubin has completely resolved. Previous CT was reviewed of the abdomen was unremarkable. Patient was given IV fluids and IV Zosyn. He was updated bedside. Discussed with the hospitalist and patient will be admitted for gram-negative bacteremia which I favor is intra-abdominal in origin with the elevated transaminitis. He has no belly pain or any abdominal symptoms at this time. Did discuss with general surgery and as patient is asymptomatic and has no belly pain does recommend admission and further work-up and agrees with treatment plan. Impression & Plan Gram-negative bacteremia, Transaminitis, URI (upper respiratory infection), Lactate blood increase Discharge Plan Visit Data Chief Complaint: Abnormal Labs/Diagnostic Testing Stated Complaint: POSITIVE BLOOD CULTURE ED Provider: Leo De La Rosa Discharge Problem: Gram-negative bacteremia, Transaminitis, URI (upper respiratory infection), Lactate blood increase Patient Disposition: Being Evaluated by Hospitalist Forms Stand Alone Forms: My [facility] Prescriptions Prescriptions: No Action doxazosin 2 mg tablet 2 mg PO BID RF: 0 metolazone 10 mg tablet 10 mg PO DAILY RF: 0 eplerenone [Inspra] 25 mg tablet 25 mg PO DAILY RF: 0 amlodipine [Norvasc] 5 mg tablet 5 mg PO DAILY RF: 0 atorvastatin [Lipitor] 20 mg tablet 20 mg PO QPM RF: 0 losartan 100 mg tablet 100 mg PO DAILY RF: 0 metoprolol succinate 25 mg tablet extended release 24 hr 50 mg PO BID RF: 0 gabapentin 100 mg capsule 200 mg PO BID RF: 0 cranberry 400 mg Capsule 400 mg PO BID RF: 0 cholecalciferol (vitamin D3) [Vitamin D3] 25 mcg (1,000 unit) Tablet 25 mcg PO DAILY RF: 0 omega 7-bgn-hun-fish oil [Fish Oil] 1,000 mg (120 mg-180 mg) Capsule 1 cap PO BID RF: 0 Probiotic 3 billion cell Capsule 3 mmu cells PO DAILY RF: 0 vitamin K2 40 mcg Tablet 0 mcg PO DAILY RF: 0 prednisone 20 mg tablet 60 mg PO DAILY 4 Days Qty: 12 RF: 0 doxycycline hyclate 100 mg tablet 100 mg PO BID 7 Days Qty: 14 RF: 0 torsemide 20 mg tablet 20 mg PO QAM RF: 0 glipizide 5 mg tablet extended release 24hr 5 mg PO BID RF: 0 modafinil 200 mg Tablet 200 mg PO DAILY PRN (Reason: energy) RF: 0 ranitidine HCl [Wal-Sagar 75] 75 mg Tablet 75 mg PO HS RF: 0 metformin 1,000 mg tablet 500 mg PO BID RF: 0 triamcinolone acetonide [Nasacort] 55 mcg Aerosol,Michie 2 spray INTRANASAL HS RF: 0 docusate sodium [Colace] 100 mg Capsule 200 mg PO HS RF: 0 albuterol sulfate [ProAir HFA] 90 mcg/actuation HFA aerosol inhaler 2 puff inhalation BID RF: 0 Flovent HFA 110 mcg/actuation HFA aerosol inhaler 2 puff inhalation BID RF: 0 tadalafil [Cialis] 20 mg Tablet 20 mg PO DAILY PRN (Reason: BPH) RF: 0 Tart Roldan [id number] mg Capsule 1 cap PO HS RF: 0 Xarelto 20 mg tablet 20 mg PO HS RF: 0 Trulicity 0.75 mg/0.5 mL pen injector 0.75 mg subcut WK RF: 0 allopurinol [Zyloprim] 100 mg tablet 100 mg PO DAILY RF: 0 Toujeo SoloStar U-300 Insulin 300 unit/mL (1.5 mL) insulin pen 40 units subcut HS RF: 0 potassium chloride 10 mEq tablet extended release 20 meq PO DAILY RF: 0 coenzyme Q10 [CoQ-10] 100 mg capsule 100 mg PO DAILY RF: 0 cyanocobalamin (vitamin B-12) [Vitamin B-12] 1,000 mcg tablet 1,000 mcg PO DAILY RF: 0 Referrals Referrals: Jennifer Moser MD [Primary Care Provider] - Discharge Problem: URI (upper respiratory infection) Qualifiers: URI type: unspecified URI Qualified Code(s): J06.9 - Acute upper respiratory infection, unspecified The scribe's documentation has been prepared under my direction and personally reviewed by me in its entirety. I confirm that the note above accurately reflects all work, treatment, procedures, and medical decision making performed by me.
[2019-11-14 17:57] LABS: Appearance Urine Clear (Clear); Bacteria Urine Automated Negative (Negative); Bilirubin Urine Negative (Negative); Blood Urine Negative (Negative); Cast Urine Automated 0 /lpf (0-5); Color Urine Yellow; Epithelial Cell Urine Auto 0-5 /lpf (0-5); Glucose Urine UA Negative (Negative); Ketones Urine Trace (Negative); Leukocyte Esterase Urine Negative (Negative); Nitrite Urine Negative (Negative); Protein Urine Trace (Negative); RBC Urine Automated 0-4 /hpf (0-4); Specific Gravity Urine 1.021 (1.000-1.030); Urobilinogen Urine Negative (Negative); WBC Urine Automated 0 /hpf (0-5)
--- NOTE | 2019-11-14 18:55 | History & Physical Report ---
Date of Service November 14, 2019 Assessment & Plan (1) Gram-negative bacteremia: Admit to [facility] on telemetry, Vital signs every 4 hours, Gram-negative bacteremia present in 1 of 2 blood cultures, Lactate 3, repeat lactate, Monitor electrolytes and replenish Continue doxycycline 100 mg p.o. twice daily and added ceftriaxone 2 g IV daily, DVT prophylaxis Xarelto (patient is for A. fib on Xarelto), Full code Present on Admission?: Yes (2) Bronchitis: Robitussin every 6 hours as needed cough for cough Duo nebs every 4 hours as needed for shortness of breath, CPAP at night for obstructive sleep apnea. Continue albuterol 2 puffs inhalation twice daily, Flovent HFA 2 puffs twice daily, Present on Admission?: Yes (3) Transaminitis: Patient had work-up for hepatitis which was all negative. Elevated liver enzymes most likely due to hepatic steatosis. Trend down transaminases Present on Admission?: Yes (4) CKD (chronic kidney disease): Creatinine is 1.38 which is borderline normal. Avoid nephrotoxic agents Continue monitoring creatinine and GFR Present on Admission?: Yes (5) JANUARY (obstructive sleep apnea): CPAP, patient may use from home Present on Admission?: Yes (6) History of atrial fibrillation: Continue Xarelto, continue metoprolol succinate 25 mg p.o. twice daily for rate control. Present on Admission?: Yes (7) Congestive heart failure: Diastolic congestive heart failure. BNP elevated to 2958, patient does not appear to be in acute CHF exacerbation but he did stop his torsemide several days ago. Continue metolazone zone 10 mg p.o. daily, losartan 100 mg p.o. daily, torsemide 20 mg p.o. every morning. Body pain 5 mg p.o. daily. Present on Admission?: Yes (8) Hypertension: Continue home medicine as listed above. (9) Diabetes mellitus type 2 in obese: Glycemic control per pharmacy, Accu-Cheks before meals and at bedtime, sliding scale insulin and two thirds of long-acting insulin while patient is in the hospital. Avoid oral hypoglycemic agents while patient is in the hospital to prevent kidney injury if patient needs radiological study and hypoglycemia. Present on Admission?: Yes (10) Gout: Continue allopurinol 100 mg p.o. daily. Present on Admission?: Yes History of Present Illness Chief Complaint: Cough and bacteremia Primary Care Provider: Jennifer Moser MD The patient is a 75 years old male with past medical history of diabetes melli tus type 2, atrial fibrillation on Xarelto, diastolic congestive heart failure, COPD, valvular heart disease, struct of sleep apnea, CKD stage III who was sent to the emergency room after he received abnormal lab results stating that he was informed that 1 of his blood culture was abnormal and positive for bacteremia. Patient was on Saturday in the emergency room when he presented for shortness of breath and cough. At that time blood cultures were drawn and he was given doxycycline and prednisone per chart and discharged home. The patient reports feeling some hot and cold flashes chills and diaphoresis but he did not have these symptoms at the time when he was discharged. Patient complains of nonproductive cough. Patient denies fever, headache, chest pain, abdominal pain, frequency, urgency. Labs are reviewed: Sodium 139, potassium 3.2, chloride 102, carbon dioxide 27, anion gap 1, BUN 42, creatinine 1.38, GFR 50.7, glucose 233, lactate 3, calcium 9.6, magnesium 2.2, total bilirubin 0.8, AST 121, ALT 238, alkaline phosphatase 190, troponin 0 0.02, BNP 2958, albumin 3.1, globulin 4.1, procalcitonin pending. TSH pending. WBCs 5.4, hemoglobin 11.3, hematocrit 35.8, PT 212. Urine is yellow with trace protein, trace ketone, urine nitrate negative, leukocyte Estrace negative. Patient is negative for Lyme disease is negative for hepatitis negative for hepatitis B and negative for hepatitis B core IgM, negative for hepatitis C antibodies. 2 days ago when patient was here he had extensive work-up with abdomen and pelvis CT showing no acute process within the abdomen or pelvis on unenhanced exam. Colonic diverticulosis without evidence of acute diverticulitis. No bowel obstruction. Fatty infiltrate of the liver. 1.4 cm cystic lesion arising from the pancreatic tail. Although indeterminant this is low suspicion and probably reflects a sidebranch IPMN. Was made to admit patient to [facility] on telemetry for possible bacteremia possibly due to pneumonia. Allergies Allergy/AdvReac Type Severity Reaction Status Date / Time No Known Drug Allergies Allergy Unknown Unknown Verified 11/14/19 16:13 Home Medications Home Medications Medication Instructions Recorded Confirmed Type Flovent HFA 2 puff INHALATION BID 06/02/19 11/14/19 History Tart Roldan 1 cap PO HS 06/02/19 11/14/19 History Trulicity 0.75 mg SUBCUT WK 06/02/19 11/14/19 History Xarelto 20 mg PO HS 06/02/19 11/14/19 History albuterol sulfate [ProAir HFA] 2 puff INHALATION BID 06/02/19 11/14/19 History docusate sodium [Colace] 200 mg PO HS 06/02/19 11/14/19 History glipizide 5 mg PO BID 06/02/19 11/14/19 History metformin 500 mg PO BID 06/02/19 11/14/19 History modafinil 200 mg PO DAILY PRN 06/02/19 11/14/19 History ranitidine HCl [[place] 75] 75 mg PO HS 06/02/19 11/14/19 History tadalafil [Cialis] 20 mg PO DAILY PRN 06/02/19 11/14/19 History torsemide 20 mg PO QAM 06/02/19 11/14/19 History triamcinolone acetonide [Nasacort] 2 spray INTRANASAL HS 06/02/19 11/14/19 History losartan 100 mg tablet 100 mg PO DAILY 07/14/19 11/14/19 History allopurinol 100 mg tablet 100 mg PO DAILY tab 10/14/19 11/14/19 History amlodipine 5 mg tablet 5 mg PO DAILY 10/14/19 11/14/19 History atorvastatin 20 mg tablet 20 mg PO QPM 10/14/19 11/14/19 History coenzyme Q10 100 mg capsule 100 mg PO DAILY cap 10/14/19 11/14/19 History cyanocobalamin (vitamin B-12) 1,000 mcg PO DAILY 10/14/19 11/14/19 History 1,000 mcg tablet doxazosin 2 mg tablet 2 mg PO BID 10/14/19 11/14/19 History eplerenone 25 mg tablet 25 mg PO DAILY 10/14/19 11/14/19 History gabapentin 100 mg capsule 200 mg PO BID cap 10/14/19 11/14/19 History insulin glargine U-300 conc 300 40 units SUBCUT HS ml 10/14/19 11/14/19 History unit/mL (1.5 mL) subcutaneous pen metolazone 10 mg tablet 10 mg PO DAILY 10/14/19 11/14/19 History metoprolol succinate 25 mg 50 mg PO BID tab 10/14/19 11/14/19 History tablet,extended release 24 hr potassium chloride 10 mEq 20 meq PO DAILY 10/14/19 11/14/19 History tablet,extended release cholecalciferol (vitamin D3) 25 mcg PO DAILY 11/11/19 11/14/19 History [Vitamin D3] cranberry 400 mg PO BID 11/11/19 11/14/19 History doxycycline hyclate 100 mg PO BID 7 Days #14 tab 11/11/19 11/14/19 Rx lactobacillus combination no.4 3 mmu cells PO DAILY 11/11/19 11/14/19 History [Probiotic] omega 8-lhf-yba-fish oil [Fish Oil] 1 cap PO BID 11/11/19 11/14/19 History prednisone 60 mg PO DAILY 4 Days #12 tab 11/11/19 11/14/19 Rx vitamin K2 0 mcg PO DAILY 11/11/19 11/14/19 History Past Med/Surg History Medical History Acquired hallux valgus of right foot (Acute) Atrial fibrillation Status post pulmonary vein isolation at [facility], multiple cardioversions Callus (Acute) Diabetes mellitus with diabetic polyneuropathy (Acute) Hallux valgus (acquired), left foot (Acute) Type 2 diabetes mellitus with diabetic neuropathy (Acute) Surgical History History of total right hip arthroplasty (Acute) S/P tonsillectomy Family History Mother , mid 80s of dementia Hypertension Alzheimer disease Father , age 98 with dementia Dementia Other No pertinent family history Social History Preferred Language: Grenadian Communication Ability: Effective Electronic Repair Troubleshooter Required: No Beliefs That Will Affect Care: None Current Living Situation: Spouse current occupational status: retired other: 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 Feels Safe at Home: Yes Smoking Status: Never smoker Hx Alcohol Use: No Hx Substance Use: No Review of Systems Review of Systems: All systems reviewed & are unremarkable except as noted in HPI & below Physical Exam Constitutional: WD/WN, vitals as above well developed and + morbidly obese Eyes: PERRL, conjunctivae normal, anicteric sclerae ENMT: external ear and nose normal, oropharynx normal Neck: trachea midline, no thyromegaly Respiratory: normal respiratory effort Auscultation: + wheezes Cardiovascular: Rate/Rhythm: + irregularly irregular Heart Sounds: normal S1 and normal S2 Vessels: dorsalis pedis pulses present Extremities: + pedal edema Gastrointestinal (Abdomen): normal bowel sounds, soft, nontender, no hepatosplenomegaly Musculoskeletal: no cyanosis or clubbing, extremities motor strength 5/5 Skin: no rashes, warm and dry Neurologic: patellar DTR's 2+ bilat, sensation intact Psychiatric: A+Ox3, euthymic affect Lymphatic: no cervical or axillary lymphadenopathy Results & Data Vital Signs (Past 12 Hours) Vital Signs Temp Pulse Resp BP Pulse Ox 11/14/19 16:50 84 93 11/14/19 15:59 36.3 C L 79 18 158/81 H 95 Code Status & VTE Plan Code Status Full code VTE Prophylaxis Plan VTE Prophylaxis will be ordered: Yes PG Care Time/CCT Total # of Minutes Spent Total Time Spent with Patient: Total time spent is greater than 50% in coordination of care (as documented) at patient's floor/unit and/or counseling patient: Coding Level of Care Code 89804 Initial Inpt Care Lvl 3 Diagnoses Gram-negative bacteremia R78.81 Bronchitis J40 Transaminitis R74.0 CKD (chronic kidney disease) N18.9 Chronic kidney disease stage: unspecified stage JANUARY (obstructive sleep apnea) G47.33 History of atrial fibrillation Z86.79 Congestive heart failure I50.9 Heart failure chronicity: acute Heart failure type: unspecified Hypertension I10 Diabetes mellitus type 2 in obese E11.69; E66.9 Gout M10.9 (1) CKD (chronic kidney disease) Chronic kidney disease stage: unspecified stage Qualified Code(s): N18.9 - Chronic kidney disease, unspecified (2) Congestive heart failure Heart failure chronicity: acute Heart failure type: unspecified Qualified Code(s): I50.9 - Heart failure, unspecified
[2019-11-14] MEDS ORDERED: DEXTROSE 50% 50 ML SYRINGE IV PRN (19:38)
[2019-11-14] MEDS ORDERED: POLYETHYLENE (MIRALAX) 17 GM PACK PO PRN (19:38)
[2019-11-14] MEDS ORDERED: ONDANSETRON INJ 2 MG/ML 2 ML VIAL IV PRN (19:38)
[2019-11-14] MEDS ORDERED: GLUCOSE 40% GEL 15 GM TUBE PO PRN (19:38)
[2019-11-14] MEDS ORDERED: GUAIFENESIN/CODEINE 200MG/20MG 10ML UDC PO PRN (19:38)
[2019-11-14] MEDS ORDERED: GLUCOSE 10 TABS/TUBE PO PRN (19:38)
[2019-11-14] MEDS ORDERED: NON-FORMULARY MEDICATION (Tadalafil [Cialis] 20 MG) PO PRN (19:38)
[2019-11-14] MEDS ORDERED: ALUMINUM/MAGNESIUM SUSP 30 ML UDC PO PRN (19:38)
[2019-11-14] MEDS ORDERED: modafiniL 100 MG TAB PO PRN (19:38)
[2019-11-14] MEDS ORDERED: MAGNESIUM HYDROXIDE SUSP 30 ML UDC PO PRN (19:38)
[2019-11-14] MEDS ORDERED: GLUCAGON FOR INJ 1 MG VIAL SQ PRN (19:38)
[2019-11-14] MEDS ORDERED: ALBUT/IPRATROP 3MG/0.5MG NEB 3 ML VIAL NEB PRN (19:38)
[2019-11-14] MEDS ORDERED: CARBOHYDRATES FOR HYPOGLYCEMIA PO PRN (19:38)
[2019-11-14] MEDS ORDERED: POTASSIUM CHLORIDE 20 MEQ TABCR PO STA (19:51)
[2019-11-14] MEDS ORDERED: PHARMACY GLYCEMIC MGMT CONSULT PRN (19:56)
[2019-11-14] MEDS: INSULIN ASPART 100 UNITS/ML 3 ML PEN SC SCH (20:44)
[2019-11-14] MEDS: GABAPENTIN 100 MG CAP PO SCH (20:48)
[2019-11-14] MEDS: DOCUSATE SODIUM 100 MG CAP PO SCH (20:49)
[2019-11-14] MEDS: METOPROLOL SUCC 50MG EXT REL TAB PO SCH (20:49)
[2019-11-14] MEDS: DOXYCYCLINE HYCLATE 100 MG CAP PO SCH (20:49)
[2019-11-14] MEDS: OMEGA-3 (PURIFIED FISH OIL) 1 GM CAP PO SCH (20:50)
[2019-11-14] MEDS: ATORVASTATIN 20 MG TAB PO SCH (20:50)
[2019-11-14] MEDS: DOXAZosin MESYLATE TAB 2 MG TAB PO SCH (20:51)
[2019-11-14] MEDS: RIVAROXABAN 20 MG TAB PO SCH (20:52)
[2019-11-14] MEDS: TRIAMCINOLONE ACET NASAL SPRAY 10.8ML BTL NAE SCH (20:53)
[2019-11-14] MEDS ORDERED: INSULIN GLARGINE SOLOSTAR 100 UNITS/ML 3 ML PEN SC ONE (21:00)
[2019-11-14] MEDS ORDERED: VIT C S CHERRY CELERY GRAPE SD PO SCH (21:00)
[2019-11-14] MEDS ORDERED: NON-FORMULARY MEDICATION (Cranberry 400 MG) PO SCH (21:00)
[2019-11-14] MEDS ORDERED: INSULIN GLARGINE U U SQ SCH (21:00)
[2019-11-14] MEDS ORDERED: ALBUTEROL HFA 8 GM INHALER INH PRN (21:00)
[2019-11-14] MEDS: cefTRIAXone SODIUM 2,000 MG in DEXTROSE 5% 50 ML IV SCH (21:51)
[2019-11-14] MEDS: EPLERENONE 25 MG SCH (23:39)
[2019-11-14] MEDS: ACETAMINOPHEN 325 MG TAB PO PRN (23:42)
[2019-11-15] MEDS ORDERED: INSULIN ASPART 100 UNITS/ML 3 ML PEN SC SCH ×2 (04:00)
[2019-11-15 07:22] LABS: Eosinophils # (auto) 0.01 K/uL (0-0.5); Eosinophils % (auto) 0.2 %; Hemoglobin 10.6 g/dL (14.0-18.0); Immature Granulocytes # (auto) 0.04 K/uL (0.00-0.02); Immature Granulocytes % (auto) 0.8 %; Lymphocytes # (auto) 0.62 K/uL (1.2-3.4); Lymphocytes % (auto) 11.8 %; Mean Corpuscular Hemoglobin 28.4 pg (25-34); Mean Corpuscular Hgb Conc 31.2 g/dL (32-36); Mean Corpuscular Volume 91.2 fL (80-100); Mean Platelet Volume 9.5 fL (7.4-10.4); Monocytes # (auto) 0.65 K/uL (0.11-0.59); Monocytes % (auto) 12.4 %; Neutrophils # (auto) 3.94 K/uL (1.4-6.5); Neutrophils % (auto) 74.8 %; Nucleated RBC # (auto) 0.02 K/uL (0-0); Nucleated RBC % (auto) 0.3 %; Platelet Count 191 K/uL (130-400); RDW Coefficient of Variation 17.5 % (11.5-14.5); RDW Standard Deviation 58.6 fL (36.4-46.3); Red Blood Count 3.73 M/uL (4.7-6.1); White Blood Count 5.26 K/uL (4.8-10.8)
[2019-11-15] MEDS: EPLERENONE 25 MG SCH ×2 (07:49→16:08)
[2019-11-15] MEDS: metOLazone 5 MG TABLET PO SCH (07:58)
[2019-11-15] MEDS: CYANOCOBALAMIN 500 MCG TABLET (VITAMIN B-12) PO SCH (07:58)
[2019-11-15] MEDS: allopurinoL 100 MG TAB PO SCH (07:58)
[2019-11-15 07:59] LABS: Albumin Globulin Ratio 0.7 (0.9-2); Albumin Level 2.7 gm/dl (3.4-5.0); BUN Creatinine Ratio 27.5 (10-20); Calcium 9.1 mg/dl (8.5-10.1); Est GFR (African American) 70.3; Est GFR (Non-African American) 60.7; Globulin 3.7 gm/dl (2.5-4.0); Potassium 3.3 mmol/L (3.5-5.1); Total Protein 6.4 gm/dl (6.4-8.2)
[2019-11-15] MEDS: METOPROLOL SUCC 50MG EXT REL TAB PO SCH ×2 (07:59→20:45)
[2019-11-15] MEDS: GABAPENTIN 100 MG CAP PO SCH (07:59)
[2019-11-15] MEDS: CHOLECALCIFEROL 1,000 UNITS 25 MCG TAB PO SCH (07:59)
[2019-11-15] MEDS: LOSARTAN POTASSIUM 50 MG TAB PO SCH (07:59)
[2019-11-15] MEDS: AMLODIPINE BESYLATE 5 MG TAB PO SCH (07:59)
[2019-11-15] MEDS: LACTOBACILLUS ACIDOPHILUS (FLORANEX) TAB PO SCH (07:59)
[2019-11-15] MEDS: OMEGA-3 (PURIFIED FISH OIL) 1 GM CAP PO SCH ×2 (07:59→20:42)
[2019-11-15] MEDS: TORSEMIDE 20 MG TAB PO SCH (07:59)
[2019-11-15] MEDS: DOXAZosin MESYLATE TAB 2 MG TAB PO SCH ×2 (08:00→20:46)
[2019-11-15] MEDS: INSULIN ASPART 100 UNITS/ML 3 ML PEN SC SCH ×4 (08:00→20:39)
[2019-11-15] MEDS: FLUTICASONE FUROATE 100MCG 14 PUFFS/INHALER INH SCH (08:00)
[2019-11-15 08:01] LABS: Bilirubin,Total 0.6 mg/dl (0.2-1)
[2019-11-15] MEDS: DOXYCYCLINE HYCLATE 100 MG CAP PO SCH ×2 (08:46→20:42)
--- NOTE | 2019-11-15 08:59 | Hospitalist Progress Note ---
Date of Service November 15, 2019 Assessment & Plan (1) Gram-negative bacteremia: Continue admit to [facility] on telemetry, Cell count normal Vital signs every 4 hours, Gram-negative bacteremia present in 1 of 2 blood cultures, Lactate 2.3-->3.5, repeat lactate, Monitor electrolytes and replenish Continue doxycycline 100 mg p.o. twice daily and added ceftriaxone 2 g IV daily, DVT prophylaxis Xarelto (patient is for A. fib on Xarelto), Full code (2) Bronchitis: Robitussin every 6 hours as needed cough for cough Duo nebs every 4 hours as needed for shortness of breath, CPAP at night for obstructive sleep apnea. Continue albuterol 2 puffs inhalation twice daily, Flovent HFA 2 puffs twice daily, (3) Transaminitis: Patient had work-up for hepatitis which was all negative. Elevated liver enzymes most likely due to hepatic steatosis. Trend down transaminases--improving. Appreciate GI recommendations: MRCP: Tiny gallstones are noted. Otherwise no normal MRCP. Hepatomegaly with hepatic steatosis. There are numerous at least 10 cysts pancreatic lesion measuring up to 1.4 cm. 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 Appreciate general surgery recommendation in respect of cholelithiasis. There is no evidence of acute cholecystitis. The transaminitis may have been due to the passage of a stone. General surgery discussed with patient laparoscopic cholecystectomy. Patient was not open to idea to have that done during this admission. They would like to discuss this with Dr. Dave. General surgery continues to follow. EUS as OP to evaluate his Pancreatic cysts. Tapering down steroids that patient was placed on by the ER physician for COPD exacerbation. (4) CKD (chronic kidney disease): Creatinine is 1.38-->1.19 improving. Avoid nephrotoxic agents Continue monitoring creatinine and GFR (5) JANUARY (obstructive sleep apnea): CPAP, patient may use from home (6) History of atrial fibrillation: Continue Xarelto, continue metoprolol succinate 25 mg p.o. twice daily for rate control. (7) Congestive heart failure: Diastolic congestive heart failure. BNP elevated to 2958, patient does not appear to be in acute CHF exacerbation but he did stop his torsemide several days ago. Continue metolazone zone 10 mg p.o. daily, losartan 100 mg p.o. daily, torsemide 20 mg p.o. every morning. Body pain 5 mg p.o. daily. (8) Hypertension: Continue home medicine as listed above. (9) Diabetes mellitus type 2 in obese: Glycemic control per pharmacy, Accu-Cheks before meals and at bedtime, sliding scale insulin and two thirds of long-acting insulin while patient is in the hospital. Avoid oral hypoglycemic agents while patient is in the hospital to prevent kidney injury if patient needs radiological study and hypoglycemia. (10) Gout: Continue allopurinol 100 mg p.o. daily. Admission and Anticipated Discharge Date Admission Date: November 14, 2019 Subjective Patient seen and examined at the bedside. He reports that his cough is slowly improving. Denies fever overnight. P.o. intake is good. Patient denies fever, chills, chest pain, shortness of breath, abdominal pain, frequency, urgency. Review of Systems Review of Systems: All systems reviewed & are unremarkable except as noted in HPI & below Physical Exam Constitutional: WD/WN, vitals as above well developed and + morbidly obese Eyes: PERRL, conjunctivae normal, anicteric sclerae ENMT: external ear and nose normal, oropharynx normal Neck: trachea midline, no thyromegaly Respiratory: normal respiratory effort Auscultation: no wheezes Cardiovascular: Rate/Rhythm: + irregularly irregular Heart Sounds: normal S1 and normal S2 Vessels: dorsalis pedis pulses present Extremities: + pedal edema Gastrointestinal (Abdomen): normal bowel sounds, soft, nontender, no hepatosplenomegaly Musculoskeletal: no cyanosis or clubbing, extremities motor strength 5/5 Skin: no rashes, warm and dry Neurologic: patellar DTR's 2+ bilat, sensation intact Psychiatric: A+Ox3, euthymic affect Lymphatic: no cervical or axillary lymphadenopathy Results & Data ([facility]) Vital Signs (Past 12 Hours) Vital Signs Temp Pulse Pulse Resp BP Pulse Ox 11/15/19 07:20 36.5 C 64 18 102/61 95 11/15/19 03:52 36.7 C 82 20 107/48 L 96 11/15/19 00:41 86 11/14/19 23:45 36.9 C 84 20 117/70 94 11/14/19 21:17 71 PG Care Time/CCT Total # of Minutes Spent Total Time Spent with Patient: Total time spent is greater than 50% in coordination of care (as documented) at patient's floor/unit and/or counseling patient: Coding Level of Care Code 49253 Subseq Hosp Care Lvl 3 Diagnoses Gram-negative bacteremia R78.81 Bronchitis J40 Transaminitis R74.0 CKD (chronic kidney disease) N18.9 Chronic kidney disease stage: unspecified stage JANUARY (obstructive sleep apnea) G47.33 History of atrial fibrillation Z86.79 Congestive heart failure I50.9 Heart failure chronicity: acute Heart failure type: unspecified Hypertension I10 Diabetes mellitus type 2 in obese E11.69; E66.9 Gout M10.9 (1) Congestive heart failure Heart failure chronicity: acute Heart failure type: unspecified Qualified Code(s): I50.9 - Heart failure, unspecified (2) CKD (chronic kidney disease) Chronic kidney disease stage: unspecified stage Qualified Code(s): N18.9 - Chronic kidney disease, unspecified
[2019-11-15] MEDS ORDERED: POTASSIUM CHLORIDE 20 MEQ TABCR PO SCH (09:00)
[2019-11-15] MEDS ORDERED: NON-FORMULARY MEDICATION (Coenzyme Q10 [Coq-10] 100 MG) PO SCH (09:00)
[2019-11-15] MEDS ORDERED: predniSONE 20 MG TAB PO SCH (09:00)
--- NOTE | 2019-11-15 10:34 | Pharmacy Report ---
Glycemic Control Consultation - Date of Service November 15, 2019 - Scope Scope: Glycemic Pharmacist consulted by Dr Chen on 11/14/19 for glycemic control and to write orders per [facility] inpatient glycemic control protocol - Objective Weight: 123.5 kg Accuchecks BSG (last 24hrs): 11/14/19 11/14/19 11/14/19 16:28 20:20 23:34 Glucose 233 H POC Glucose 221 H 303 H* 11/15/19 11/15/19 11/15/19 03:41 07:11 07:36 Glucose 124 H POC Glucose 194 H 113 H Laboratory Data (last 24hrs): 11/14/19 11/15/19 16:28 07:11 Potassium 3.2 L 3.3 L Carbon Dioxide 27 33 H Anion Gap 10.0 3.0 Creatinine 1.38 1.19 Est Cr Clr Drug Dosing 63.6 74.0 - Recent Pertinent Medications Outpatient Anti-diabetic Regimen: * Toujeo 40 units SQ HS * Metformin 500mg PO BID * Trulicity 0.75mg SQ weekly * Glipizide 5mg PO BID * A1c = 9.4 % 06/03/19, updated A1c ordered Risk Factors for Insulin Resistance: * Steroids: Prednisone 60mg PO daily * Infection: IV ceftriaxone, gram negative bacteremia, PO Doxy for bronchitis * Diet: Type 2 DM - Assessment & Plan Assessment & Plan: ASSESSMENT: * 74 year old male, gram negative bacteremia on IV ceftriaxone, type 2 diabetic on multiple DM medications as listed above. * Patient was started on Prednisone 60mg daily x [address] Parrish after ED visit on 11/11 for acute bronchitis. Spoke w/ Dr Chen today - will start tapering down tomorrow. * Will continue home dose of basal insulin and utilize Novolog CF/CR for prandial/correctional insulin. Will use tight CF/CR at this time and loosen as steroids taper. * ADA & AACE recommend a goal blood sugar range 140-180 mg/dl for the majority of critically ill & non-critically ill patients. However, more stringent targets may be selected in individual cases. Will utilize more stringent goal of 110-140mg/dl based on patient age & comorbidities. Additionally, tighter glycemic control is warranted to facilitate wound/infection healing. PLAN FOR INPATIENT GLYCEMIC CONTROL: * Holding outpatient diabetes medications * Basal insulin * Lantus 40 units SQ HS (30 units for BSG < 110mg/dl) * Bolus insulin * NovoLog per scale ACHS or Q6hrs while NPO * Goal Range: Low 110 mg/dL - High 140 mg/dL * Correction Factor: 10 mg/dL/unit --> 15 at dinner today * Nutritional / Prandial insulin per carb ratio of 1 unit per 3 grams CHO consumed --> 5 at dinner today * Please note that the plan above was derived based on current level of insulin resistance and hospital stress. These recommendations are appropriate for inpatient admission only. Plan of care upon discharge will need to be reassessed to avoid potential outpatient hypo/hyperglycemia. Thank you.
[2019-11-15] MEDS: ACETAMINOPHEN 325 MG TAB PO PRN ×2 (13:00→17:01)
--- NOTE | 2019-11-15 14:06 | Gastrointestinal Consultation ---
Date of Consultation November 15, 2019 Assessment & Plan (1) Transaminitis: patient had elevated LFTs with fever 4 days ago, now bilirubin is normal and AST/ALT trending down, no leukocytosis, CT scan and sonogram with no biliary ductal dilation however has gallstones. No abdominal pain but had nausea. Acute viral hepatitis panel is negative. He may have passed a CBD stones. Recommend: MRCP. Surgical evaluation for cholecystectomy. EUS as OP to evaluate his Pancreatic cysts. Continue ABx to complete a 10 days course in view of bacteremia. (2) Gram-negative bacteremia: (3) Gallstone: (4) Pancreas cyst: History of Present Illness Reason for Consultation: Abnormal LFTs Requesting Physician: Abigail Chen MD Attending Physician: Adriana Redman History of Present Illness 74 years old male patient with medical comorbids of Gout, HTN, DM, DLP, CKD, CHF, AFIB on Xarelto, presented to the hospital few days ago with fever, chills and SOB, was given ABx for possible Bronchitis and discharged home on PO ABx. At that time had abnormal LFTs with bilirubin around 3, he denied abdominal pain hence impression was unlikely he has cholangitis and CT scan did not reveal any intra-abdominal pathology however his Blood Cx grew GNB hence recalled back to the hospital. He feels fine now, denies any fever, chills, abdominal pain, nausea or vomiting. LFTs improving, Sono showed gallstones. Allergies Allergy/AdvReac Type Severity Reaction Status Date / Time No Known Drug Allergies Allergy Unknown Unknown Verified 11/14/19 16:13 Home Medications Home Medications Medication Instructions Recorded Confirmed Type Flovent HFA 2 puff INHALATION BID 06/02/19 11/14/19 History Tart Roldan 1 cap PO HS 06/02/19 11/14/19 History Trulicity 0.75 mg SUBCUT WK 06/02/19 11/14/19 History Xarelto 20 mg PO HS 06/02/19 11/14/19 History albuterol sulfate [ProAir HFA] 2 puff INHALATION BID 06/02/19 11/14/19 History docusate sodium [Colace] 200 mg PO HS 06/02/19 11/14/19 History glipizide 5 mg PO BID 06/02/19 11/14/19 History metformin 500 mg PO BID 06/02/19 11/14/19 History modafinil 200 mg PO DAILY PRN 06/02/19 11/14/19 History ranitidine HCl [[place] 75] 75 mg PO HS 06/02/19 11/14/19 History tadalafil [Cialis] 20 mg PO DAILY PRN 06/02/19 11/14/19 History torsemide 20 mg PO QAM 06/02/19 11/14/19 History triamcinolone acetonide [Nasacort] 2 spray INTRANASAL HS 06/02/19 11/14/19 History losartan 100 mg tablet 100 mg PO DAILY 07/14/19 11/14/19 History allopurinol 100 mg tablet 100 mg PO DAILY tab 10/14/19 11/14/19 History amlodipine 5 mg tablet 5 mg PO DAILY 10/14/19 11/14/19 History atorvastatin 20 mg tablet 20 mg PO QPM 10/14/19 11/14/19 History coenzyme Q10 100 mg capsule 100 mg PO DAILY cap 10/14/19 11/14/19 History cyanocobalamin (vitamin B-12) 1,000 mcg PO DAILY 10/14/19 11/14/19 History 1,000 mcg tablet doxazosin 2 mg tablet 2 mg PO BID 10/14/19 11/14/19 History eplerenone 25 mg tablet 25 mg PO DAILY 10/14/19 11/14/19 History gabapentin 100 mg capsule 200 mg PO BID cap 10/14/19 11/14/19 History insulin glargine U-300 conc 300 40 units SUBCUT HS ml 10/14/19 11/14/19 History unit/mL (1.5 mL) subcutaneous pen metolazone 10 mg tablet 10 mg PO DAILY 10/14/19 11/14/19 History metoprolol succinate 25 mg 50 mg PO BID tab 10/14/19 11/14/19 History tablet,extended release 24 hr potassium chloride 10 mEq 20 meq PO DAILY 10/14/19 11/14/19 History tablet,extended release cholecalciferol (vitamin D3) 25 mcg PO DAILY 11/11/19 11/14/19 History [Vitamin D3] cranberry 400 mg PO BID 11/11/19 11/14/19 History doxycycline hyclate 100 mg PO BID 7 Days #14 tab 11/11/19 11/14/19 Rx lactobacillus combination no.4 3 mmu cells PO DAILY 11/11/19 11/14/19 History [Probiotic] omega [id number] oil [Fish Oil] 1 cap PO BID 11/11/19 11/14/19 History prednisone 60 mg PO DAILY 4 Days #12 tab 11/11/19 11/14/19 Rx vitamin K2 0 mcg PO DAILY 11/11/19 11/14/19 History Patient History Medical History Acquired hallux valgus of right foot (Acute) Atrial fibrillation Status post pulmonary vein isolation at [facility], multiple cardioversions Callus (Acute) Diabetes mellitus with diabetic polyneuropathy (Acute) Hallux valgus (acquired), left foot (Acute) Type 2 diabetes mellitus with diabetic neuropathy (Acute) Surgical History History of total right hip arthroplasty (Acute) S/P tonsillectomy Family History Mother , mid 80s of dementia Hypertension Alzheimer disease Father , age 98 with dementia Dementia Other No pertinent family history Social History Preferred Language: Khmer Communication Ability: Effective Marketing Coordinator Required: No Beliefs That Will Affect Care: None Current Living Situation: Spouse current occupational status: retired other: 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 Feels Safe at Home: Yes Smoking Status: Never smoker Second Hand Exposure: No ; Hx Alcohol Use: No Hx Substance Use: No Review of Systems 2 Constitutional: no fever, no chills, no fatigue and no weight loss Eyes: no eye pain and no worsening vision Ear, Nose, Mouth, Throat: no tinnitus, no dizziness, no nasal discharge and no epistaxis Respiratory: no cough, no dyspnea, no dyspnea on exertion and no wheezing Cardiovascular: no chest pain, no orthopnea, no palpitations and no edema Gastrointestinal: as per Subjective / HPI Musculoskeletal: no stiffness and no myalgia Neurologic: no localized weakness, no paralysis, no tremor(s) and no headache(s) Endocrine: no polydipsia and no polyuria Hematologic / Lymphatic: no easy bleeding and no night sweats Physical Exam Constitutional: + well hydrated, cooperative and comfortable Eyes: PERRL, conjunctivae normal, anicteric sclerae ENMT: external ear and nose normal, oropharynx normal Neck: normal visual inspection and trachea midline Respiratory: normal respiratory effort, lungs clear to auscultation Auscultation: no wheezes Cardiovascular: RRR, no murmur, no edema Gastrointestinal (Abdomen): normal bowel sounds, soft, nontender, no hepatosplenomegaly Musculoskeletal: no cyanosis or clubbing, extremities motor strength 5/5 Skin: no rashes, warm and dry Neurologic: awake; no focal motor deficits Motor/Sensory: no tremor Results & Data ([facility]) Vital Signs (Past 12 Hours) Vital Signs Temp Pulse Resp BP Pulse Ox 11/15/19 11:17 36.5 C 81 18 101/59 L 94 11/15/19 07:20 36.5 C 64 18 102/61 95 11/15/19 03:52 36.7 C 82 20 107/48 L 96 Laboratory Results Laboratory Results - last 24 hr 11/14/19 11/14/19 11/14/19 16:28 16:28 18:27 WBC RBC Hgb Hct MCV MCH MCHC RDW Std Deviation RDW Coeff of Dayami Plt Count MPV Immature Gran % (Auto) Neut % (Auto) Lymph % (Auto) [place] % (Auto) Eos % (Auto) Baso % (Auto) Immature Gran # (Auto) Neut # (Auto) Lymph # (Auto) [place] # (Auto) Eos # (Auto) Baso # (Auto) Absolute Nucleated RBC Nucleated RBC % (auto) Sodium Potassium Chloride Carbon Dioxide Anion Gap BUN Creatinine Est Cr Clr Drug Dosing Est GFR ( Amer) Est GFR (Non-Af Amer) BUN/Creatinine Ratio Glucose POC Glucose Estimat Average Glucose Hemoglobin A1c Lactate 2.3 H* Calcium Total Bilirubin AST ALT Alkaline Phosphatase Troponin I NT-Pro-B Natriuret Pep 2958 H Total Protein Albumin Globulin Albumin/Globulin Ratio Triglycerides Cholesterol LDL Cholesterol, Calc VLDL Cholesterol, Calc HDL Cholesterol Cholesterol/HDL Ratio Procalcitonin 0.57 H 11/14/19 11/14/19 11/14/19 19:48 19:48 20:20 WBC RBC Hgb Hct MCV MCH MCHC RDW Std Deviation RDW Coeff of [place] Plt Count MPV Immature Gran % (Auto) Neut % (Auto) Lymph % (Auto) [place] % (Auto) Eos % (Auto) Baso % (Auto) Immature Gran # (Auto) Neut # (Auto) Lymph # (Auto) [place] # (Auto) Eos # (Auto) Baso # (Auto) Absolute Nucleated RBC Nucleated RBC % (auto) Sodium Potassium Chloride Carbon Dioxide Anion Gap BUN Creatinine Est Cr Clr Drug Dosing Est GFR ( Amer) Est GFR (Non-Af Amer) BUN/Creatinine Ratio Glucose POC Glucose 221 H Estimat Average Glucose Hemoglobin A1c Lactate 2.2 H* Calcium Total Bilirubin AST ALT Alkaline Phosphatase Troponin I < 0.015 NT-Pro-B Natriuret Pep Total Protein Albumin Globulin Albumin/Globulin Ratio Triglycerides Cholesterol LDL Cholesterol, Calc VLDL Cholesterol, Calc HDL Cholesterol Cholesterol/HDL Ratio Procalcitonin 11/14/19 11/14/19 11/15/19 21:37 23:34 01:34 WBC RBC Hgb Hct MCV MCH MCHC RDW Std Deviation RDW Coeff of [place] Plt Count MPV Immature Gran % (Auto) Neut % (Auto) Lymph % (Auto) [place] % (Auto) Eos % (Auto) Baso % (Auto) Immature Gran # (Auto) Neut # (Auto) Lymph # (Auto) [place] # (Auto) Eos # (Auto) Baso # (Auto) Absolute Nucleated RBC Nucleated RBC % (auto) Sodium Potassium Chloride Carbon Dioxide Anion Gap BUN Creatinine Est Cr Clr Drug Dosing Est GFR ( Amer) Est GFR (Non-Af Amer) BUN/Creatinine Ratio Glucose POC Glucose 303 H* Estimat Average Glucose Hemoglobin A1c Lactate 3.5 H* Calcium Total Bilirubin AST ALT Alkaline Phosphatase Troponin I < 0.015 NT-Pro-B Natriuret Pep Total Protein Albumin Globulin Albumin/Globulin Ratio Triglycerides Cholesterol LDL Cholesterol, Calc VLDL Cholesterol, Calc HDL Cholesterol Cholesterol/HDL Ratio Procalcitonin 11/15/19 11/15/19 11/15/19 03:41 07:11 07:11 WBC 5.26 RBC 3.73 L Hgb 10.6 L Hct 34.0 L MCV 91.2 MCH 28.4 MCHC 31.2 L RDW Std Deviation 58.6 H RDW Coeff of [place] 17.5 H Plt Count 191 MPV 9.5 Immature Gran % (Auto) 0.8 Neut % (Auto) 74.8 Lymph % (Auto) 11.8 [place] % (Auto) 12.4 Eos % (Auto) 0.2 Baso % (Auto) 0.0 Immature Gran # (Auto) 0.04 H Neut # (Auto) 3.94 Lymph # (Auto) 0.62 L [place] # (Auto) 0.65 H Eos # (Auto) 0.01 Baso # (Auto) 0.00 Absolute Nucleated RBC 0.02 H Nucleated RBC % (auto) 0.3 Sodium 140 Potassium 3.3 L Chloride 104 Carbon Dioxide 33 H Anion Gap 3.0 BUN 33 H Creatinine 1.19 Est Cr Clr Drug Dosing 74.0 Est GFR ( Amer) 70.3 Est GFR (Non-Af Amer) 60.7 BUN/Creatinine Ratio 27.5 H Glucose 124 H POC Glucose 194 H Estimat Average Glucose Hemoglobin A1c Lactate Calcium 9.1 Total Bilirubin 0.6 AST 76 H ALT 193 H Alkaline Phosphatase 144 H Troponin I NT-Pro-B Natriuret Pep Total Protein 6.4 Albumin 2.7 L Globulin 3.7 Albumin/Globulin Ratio 0.7 L Triglycerides 154 H Cholesterol 121 LDL Cholesterol, Calc 53 VLDL Cholesterol, Calc 31 HDL Cholesterol 37 Cholesterol/HDL Ratio 3 Procalcitonin 11/15/19 11/15/19 11/15/19 07:11 07:11 07:36 WBC RBC Hgb Hct MCV MCH MCHC RDW Std Deviation RDW Coeff of [place] Plt Count MPV Immature Gran % (Auto) Neut % (Auto) Lymph % (Auto) [place] % (Auto) Eos % (Auto) Baso % (Auto) Immature Gran # (Auto) Neut # (Auto) Lymph # (Auto) [place] # (Auto) Eos # (Auto) Baso # (Auto) Absolute Nucleated RBC Nucleated RBC % (auto) Sodium Potassium Chloride Carbon Dioxide Anion Gap BUN Creatinine Est Cr Clr Drug Dosing Est GFR ( Amer) Est GFR (Non-Af Amer) BUN/Creatinine Ratio Glucose POC Glucose 113 H Estimat Average Glucose Pending Hemoglobin A1c Pending Lactate Calcium Total Bilirubin AST ALT Alkaline Phosphatase Troponin I < 0.015 NT-Pro-B Natriuret Pep Total Protein Albumin Globulin Albumin/Globulin Ratio Triglycerides Cholesterol LDL Cholesterol, Calc VLDL Cholesterol, Calc HDL Cholesterol Cholesterol/HDL Ratio Procalcitonin 11/15/19 11/15/19 11/15/19 11:42 16:42 16:43 WBC RBC Hgb Hct MCV MCH MCHC RDW Std Deviation RDW Coeff of [place] Plt Count MPV Immature Gran % (Auto) Neut % (Auto) Lymph % (Auto) [place] % (Auto) Eos % (Auto) Baso % (Auto) Immature Gran # (Auto) Neut # (Auto) Lymph # (Auto) [place] # (Auto) Eos # (Auto) Baso # (Auto) Absolute Nucleated RBC Nucleated RBC % (auto) Sodium Potassium Chloride Carbon Dioxide Anion Gap BUN Creatinine Est Cr Clr Drug Dosing Est GFR ( Amer) Est GFR (Non-Af Amer) BUN/Creatinine Ratio Glucose POC Glucose 153 H 422 H* 402 H* Estimat Average Glucose Hemoglobin A1c Lactate Calcium Total Bilirubin AST ALT Alkaline Phosphatase Troponin I NT-Pro-B Natriuret Pep Total Protein Albumin Globulin Albumin/Globulin Ratio Triglycerides Cholesterol LDL Cholesterol, Calc VLDL Cholesterol, Calc HDL Cholesterol Cholesterol/HDL Ratio Procalcitonin
--- NOTE | 2019-11-15 14:08 | Electrocardiogram Report ---
Test Reason : Blood Pressure : / mmHG Vent. Rate : 082 BPM Atrial Rate : 375 BPM P-R Int : 000 ms QRS Dur : 096 ms QT Int : 362 ms P-R-T Axes : 000 -51 051 degrees QTc Int : 422 ms Atrial fibrillation Left axis deviation Incomplete right bundle branch block Possible Anterior infarct , age undetermined Abnormal ECG When compared with ECG of 11-NOV-2019 17:24, Incomplete right bundle branch block is now Present Borderline criteria for Anterior infarct are now Present Criteria for Inferior infarct are no longer Present Confirmed by Jose Lopez ([id number]) on 11/15/2019 2:07:50 PM Referred By: REFERRED SELF Confirmed By:Jose Lopez
--- NOTE | 2019-11-15 14:52 | Magnetic Resonance Report ---
MRCP CLINICAL HISTORY: Abnormal hepatic transaminases. COMPARISON STUDY: Abdominal ultrasound dated 11/14/2019. Abdominal CT dated 11/11/2019. TECHNIQUE: Abdominal MRCP is performed utilizing various T2-weighted sequences in the axial and coron al planes. IV contrast was not administered for this examination. 3-D reformats are created and asses sed. FINDINGS: Tiny gallstones are noted. The gallbladder is otherwise normal in appearance. There is no intra or ex trahepatic biliary ductal dilatation. The common bile duct measures 4 mm in diameter. No filling defe cts are seen to suggest choledocholithiasis. The pancreatic duct is normal in caliber. The liver is enlarged, measuring over 18 cm in length. Hepatic steatosis was shown on prior examinati ons. The unenhanced spleen and adrenal glands are grossly normal. The kidneys demonstrate cortical at rophy and are without hydronephrosis. A 1.4 cm cyst is noted in the right kidney. The abdominal aorta is normal in caliber. There is no bowel obstruction. There are numerous (at least 10) tiny cystic fo ci scattered throughout the pancreas. The largest are seen in the pancreatic head and tail, measuring 1.4 cm. There is no abdominal ascites. No pleural effusion is seen. The bony structures appear intac t. IMPRESSION: 1. Tiny gallstones are noted. 2. Otherwise normal MRCP. 3. Hepatomegaly and hepatic steatosis. 4. There are numerous (at least 10) cystic pancreatic lesions measuring up to 1.4 cm. 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 Dictated: 11/15/2019 2:11 PM Transcribed: 11/15/2019 2:28 PM Hemal[facility] [id number] [email or web address] Electronically signed by: Jaren Lopez M.D. 11/15/2019 2:50 PM
[2019-11-15] MEDS ORDERED: GLUCOSE 10 TABS/TUBE PO PRN (16:54)
[2019-11-15] MEDS ORDERED: PHARMACY GLYCEMIC MGMT CONSULT STA (16:54)
[2019-11-15] MEDS ORDERED: GLUCOSE 40% GEL 15 GM TUBE PO PRN (16:54)
[2019-11-15] MEDS ORDERED: DEXTROSE 50% 50 ML SYRINGE IV PRN (16:54)
[2019-11-15] MEDS ORDERED: GLUCAGON FOR INJ 1 MG VIAL SQ PRN (16:54)
[2019-11-15] MEDS ORDERED: CARBOHYDRATES FOR HYPOGLYCEMIA PO PRN (16:54)
[2019-11-15] MEDS ORDERED: INSULIN HUMAN REGULAR IV BOLUS 6 UNITS in SYRINGE 0 ML IV ONE (17:15)
--- NOTE | 2019-11-15 17:33 | Surgery Consultation ---
Date of Consultation November 15, 2019 Assessment & Plan (1) Transaminitis: The patient had transaminitis and elevated alkaline phosphatase all of which are now returning to normal. He has cholelithiasis but there is no evidence of acute cholecystitis. The transaminitis may have been due to the passage of a stone although normally I would expect an elevated bilirubin as well. I explained all this to the patient. I explained that under most circumstances laparoscopic cholecystectomy would be indicated. He is not sure he wants to have it during this admission. He may actually want Dr. Dave to do his surgery. We will continue to follow for evidence of developing acute cholecystitis. History of Present Illness Reason for Consultation: Cholelithiasis Requesting Physician: Abigail Chen MD Attending Physician: Abigail Chen MD History of Present Illness I have been asked by Dr. Chen to see this 74-year-old male who was admitted with a complaint of shortness of breath. He has a history of atrial fibrillation and has had 2 ablations and multiple cardioversions. He also has a history of congestive heart failure. During his work-up he was noted to have elevated AST, ALT and alkaline phosphatase. His bilirubin has not been elevated. He then underwent an ultrasound of the right upper quadrant that demonstrated cholelithiasis and minimal thickening of the gallbladder wall. There was no ductal dilatation. The patient has no abdominal pain whatsoever. He has no nausea or vomiting. He has never had right upper quadrant pain and denies fatty food intolerance. In fact he stated he can eat anything he wants whenever he wants. He has had no fever or chills. He was unaware that he had cholelithiasis. Allergies Allergy/AdvReac Type Severity Reaction Status Date / Time No Known Drug Allergies Allergy Unknown Unknown Verified 11/14/19 16:13 Home Medications Home Medications Medication Instructions Recorded Confirmed Type Flovent HFA 2 puff INHALATION BID 06/02/19 11/14/19 History Tart Roldan 1 cap PO HS 06/02/19 11/14/19 History Trulicity 0.75 mg SUBCUT WK 06/02/19 11/14/19 History Xarelto 20 mg PO HS 06/02/19 11/14/19 History albuterol sulfate [ProAir HFA] 2 puff INHALATION BID 06/02/19 11/14/19 History docusate sodium [Colace] 200 mg PO HS 06/02/19 11/14/19 History glipizide 5 mg PO BID 06/02/19 11/14/19 History metformin 500 mg PO BID 06/02/19 11/14/19 History modafinil 200 mg PO DAILY PRN 06/02/19 11/14/19 History ranitidine HCl [[place] 75] 75 mg PO HS 06/02/19 11/14/19 History tadalafil [Cialis] 20 mg PO DAILY PRN 06/02/19 11/14/19 History torsemide 20 mg PO QAM 06/02/19 11/14/19 History triamcinolone acetonide [Nasacort] 2 spray INTRANASAL HS 06/02/19 11/14/19 History losartan 100 mg tablet 100 mg PO DAILY 07/14/19 11/14/19 History allopurinol 100 mg tablet 100 mg PO DAILY tab 10/14/19 11/14/19 History amlodipine 5 mg tablet 5 mg PO DAILY 10/14/19 11/14/19 History atorvastatin 20 mg tablet 20 mg PO QPM 10/14/19 11/14/19 History coenzyme Q10 100 mg capsule 100 mg PO DAILY cap 10/14/19 11/14/19 History cyanocobalamin (vitamin B-12) 1,000 mcg PO DAILY 10/14/19 11/14/19 History 1,000 mcg tablet doxazosin 2 mg tablet 2 mg PO BID 10/14/19 11/14/19 History eplerenone 25 mg tablet 25 mg PO DAILY 10/14/19 11/14/19 History gabapentin 100 mg capsule 200 mg PO BID cap 10/14/19 11/14/19 History insulin glargine U-300 conc 300 40 units SUBCUT HS ml 10/14/19 11/14/19 History unit/mL (1.5 mL) subcutaneous pen metolazone 10 mg tablet 10 mg PO DAILY 10/14/19 11/14/19 History metoprolol succinate 25 mg 50 mg PO BID tab 10/14/19 11/14/19 History tablet,extended release 24 hr potassium chloride 10 mEq 20 meq PO DAILY 10/14/19 11/14/19 History tablet,extended release cholecalciferol (vitamin D3) 25 mcg PO DAILY 11/11/19 11/14/19 History [Vitamin D3] cranberry 400 mg PO BID 11/11/19 11/14/19 History doxycycline hyclate 100 mg PO BID 7 Days #14 tab 11/11/19 11/14/19 Rx lactobacillus combination no.4 3 mmu cells PO DAILY 11/11/19 11/14/19 History [Probiotic] omega [id number] oil [Fish Oil] 1 cap PO BID 11/11/19 11/14/19 History prednisone 60 mg PO DAILY 4 Days #12 tab 11/11/19 11/14/19 Rx vitamin K2 0 mcg PO DAILY 11/11/19 11/14/19 History Patient History Medical History Acquired hallux valgus of right foot (Acute) Atrial fibrillation Status post pulmonary vein isolation at [facility], multiple cardioversions Callus (Acute) Diabetes mellitus with diabetic polyneuropathy (Acute) Hallux valgus (acquired), left foot (Acute) Type 2 diabetes mellitus with diabetic neuropathy (Acute) Surgical History History of total right hip arthroplasty (Acute) S/P tonsillectomy Family History Mother , mid 80s of dementia Hypertension Alzheimer disease Father , age 98 with dementia Dementia Other No pertinent family history Social History Preferred Language: Cymro Communication Ability: Effective 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 Beliefs That Will Affect Care: None Current Living Situation: Spouse current occupational status: retired 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: [employer] and 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 Feels Safe at Home: Yes Smoking Status: Never smoker Second Hand Exposure: No ; Hx Alcohol Use: No Hx Substance Use: No Review of Systems Review of Systems: All systems reviewed & are unremarkable except as noted in HPI & below Physical Exam Constitutional: + obese; no acute distress Respiratory: normal respiratory effort, lungs clear to auscultation Cardiovascular: Rate/Rhythm: + irregularly irregular Gastrointestinal (Abdomen): normal bowel sounds, soft, nontender, no hepatosplenomegaly Skin: no rashes, warm and dry Lymphatic: no cervical lymphadenopathy Results & Data Vital Signs (Past 12 Hours) Vital Signs Temp Pulse Pulse Resp BP Pulse Ox 11/15/19 15:26 90 11/15/19 15:06 82 18 134/70 94 11/15/19 11:17 36.5 C 81 18 101/59 L 94 11/15/19 07:20 36.5 C 64 18 102/61 95 Laboratory Results 11/15/19 11/15/19 11/15/19 Range/Units 16:43 16:42 11:42 WBC (4.8-10.8) K/uL RBC (4.7-6.1) M/uL Hgb (14.0-18.0) g/dL Hct (42-52) % MCV (80-100) fL MCH (25-34) pg MCHC (32-36) g/dL RDW Std Deviation (36.4-46.3) fL RDW Coeff of Dayami (11.5-14.5) % Plt Count (130-400) K/uL MPV (7.4-10.4) fL Immature Gran % (Auto) % Neut % (Auto) % Lymph % (Auto) % Stokes % (Auto) % Eos % (Auto) % Baso % (Auto) % Immature Gran # (Auto) (0.00-0.02) K/uL Neut # (Auto) (1.4-6.5) K/uL Lymph # (Auto) (1.2-3.4) K/uL Stokes # (Auto) (0.11-0.59) K/uL Eos # (Auto) (0-0.5) K/uL Baso # (Auto) (0-0.2) K/uL Absolute Nucleated RBC (0-0) K/uL Nucleated RBC % (auto) % Sodium (136-145) mmol/L Potassium (3.5-5.1) mmol/L Chloride (98-107) mmol/L Carbon Dioxide (21-32) mmol/L Anion Gap (3-11) BUN (7-18) mg/dl Creatinine (0.6-1.4) mg/dl Est Cr Clr Drug Dosing ml/min Est GFR ( Amer) Est GFR (Non-Af Amer) BUN/Creatinine Ratio (10-20) Glucose (70-99) mg/dl POC Glucose 402 H* 422 H* 153 H (70-99) mg/dl Estimat Average Glucose Hemoglobin A1c Lactate (0.4-2.0) mmol/L Calcium (8.5-10.1) mg/dl Total Bilirubin (0.2-1) mg/dl AST (15-37) U/L ALT (12-78) U/L Alkaline Phosphatase (45-117) U/L Troponin I (0-0.045) ng/ml NT-Pro-B Natriuret Pep (0-900) pg/ml Total Protein (6.4-8.2) gm/dl Albumin (3.4-5.0) gm/dl Globulin (2.5-4.0) gm/dl Albumin/Globulin Ratio (0.9-2) Triglycerides (0-150) mg/dl Cholesterol (0-200) mg/dl LDL Cholesterol, Calc mg/dl VLDL Cholesterol, Calc mg/dl HDL Cholesterol mg/dl Cholesterol/HDL Ratio Procalcitonin (0-0.5) ng/ml Urine Color Urine Appearance (Clear) Urine pH (4.5-7.5) Ur Specific [place] (1.000-1.030) Urine Protein (Negative) Urine Glucose (UA) (Negative) Urine Ketones (Negative) Urine Blood (Negative) Urine Nitrite (Negative) Urine Bilirubin (Negative) Urine Urobilinogen (Negative) Ur Leukocyte Esterase (Negative) Urine WBC (Auto) (0-5) /hpf Urine RBC (Auto) (0-4) /hpf U Hyaline Cast (Auto) (0-5) /lpf U Epithel Cells (Auto) (0-5) /lpf Urine Bacteria (Auto) (Negative) 11/15/19 11/15/19 11/15/19 Range/Units 07:36 07:11 07:11 WBC (4.8-10.8) K/uL RBC (4.7-6.1) M/uL Hgb (14.0-18.0) g/dL Hct (42-52) % MCV (80-100) fL MCH (25-34) pg MCHC (32-36) g/dL RDW Std Deviation (36.4-46.3) fL RDW Coeff of [place] (11.5-14.5) % Plt Count (130-400) K/uL MPV (7.4-10.4) fL Immature Gran % (Auto) % Neut % (Auto) % Lymph % (Auto) % Stokes % (Auto) % Eos % (Auto) % Baso % (Auto) % Immature Gran # (Auto) (0.00-0.02) K/uL Neut # (Auto) (1.4-6.5) K/uL Lymph # (Auto) (1.2-3.4) K/uL Stokes # (Auto) (0.11-0.59) K/uL Eos # (Auto) (0-0.5) K/uL Baso # (Auto) (0-0.2) K/uL Absolute Nucleated RBC (0-0) K/uL Nucleated RBC % (auto) % Sodium (136-145) mmol/L Potassium (3.5-5.1) mmol/L Chloride (98-107) mmol/L Carbon Dioxide (21-32) mmol/L Anion Gap (3-11) BUN (7-18) mg/dl Creatinine (0.6-1.4) mg/dl Est Cr Clr Drug Dosing ml/min Est GFR ( Amer) Est GFR (Non-Af Amer) BUN/Creatinine Ratio (10-20) Glucose (70-99) mg/dl POC Glucose 113 H (70-99) mg/dl Estimat Average Glucose Pending Hemoglobin A1c Pending Lactate (0.4-2.0) mmol/L Calcium (8.5-10.1) mg/dl Total Bilirubin (0.2-1) mg/dl AST (15-37) U/L ALT (12-78) U/L Alkaline Phosphatase (45-117) U/L Troponin I < 0.015 (0-0.045) ng/ml NT-Pro-B Natriuret Pep (0-900) pg/ml Total Protein (6.4-8.2) gm/dl Albumin (3.4-5.0) gm/dl Globulin (2.5-4.0) gm/dl Albumin/Globulin Ratio (0.9-2) Triglycerides (0-150) mg/dl Cholesterol (0-200) mg/dl LDL Cholesterol, Calc mg/dl VLDL Cholesterol, Calc mg/dl HDL Cholesterol mg/dl Cholesterol/HDL Ratio Procalcitonin (0-0.5) ng/ml Urine Color Urine Appearance (Clear) Urine pH (4.5-7.5) Ur Specific [place] (1.000-1.030) Urine Protein (Negative) Urine Glucose (UA) (Negative) Urine Ketones (Negative) Urine Blood (Negative) Urine Nitrite (Negative) Urine Bilirubin (Negative) Urine Urobilinogen (Negative) Ur Leukocyte Esterase (Negative) Urine WBC (Auto) (0-5) /hpf Urine RBC (Auto) (0-4) /hpf U Hyaline Cast (Auto) (0-5) /lpf U Epithel Cells (Auto) (0-5) /lpf Urine Bacteria (Auto) (Negative) 11/15/19 11/15/19 11/15/19 Range/Units 07:11 07:11 03:41 WBC 5.26 (4.8-10.8) K/uL RBC 3.73 L (4.7-6.1) M/uL Hgb 10.6 L (14.0-18.0) g/dL Hct 34.0 L (42-52) % MCV 91.2 (80-100) fL MCH 28.4 (25-34) pg MCHC 31.2 L (32-36) g/dL RDW Std Deviation 58.6 H (36.4-46.3) fL RDW Coeff of [place] 17.5 H (11.5-14.5) % Plt Count 191 (130-400) K/uL MPV 9.5 (7.4-10.4) fL Immature Gran % (Auto) 0.8 % Neut % (Auto) 74.8 % Lymph % (Auto) 11.8 % Stokes % (Auto) 12.4 % Eos % (Auto) 0.2 % Baso % (Auto) 0.0 % Immature Gran # (Auto) 0.04 H (0.00-0.02) K/uL Neut # (Auto) 3.94 (1.4-6.5) K/uL Lymph # (Auto) 0.62 L (1.2-3.4) K/uL Stokes # (Auto) 0.65 H (0.11-0.59) K/uL Eos # (Auto) 0.01 (0-0.5) K/uL Baso # (Auto) 0.00 (0-0.2) K/uL Absolute Nucleated RBC 0.02 H (0-0) K/uL Nucleated RBC % (auto) 0.3 % Sodium 140 (136-145) mmol/L Potassium 3.3 L (3.5-5.1) mmol/L Chloride 104 (98-107) mmol/L Carbon Dioxide 33 H (21-32) mmol/L Anion Gap 3.0 (3-11) BUN 33 H (7-18) mg/dl Creatinine 1.19 (0.6-1.4) mg/dl Est Cr Clr Drug Dosing 74.0 ml/min Est GFR ( Amer) 70.3 Est GFR (Non-Af Amer) 60.7 BUN/Creatinine Ratio 27.5 H (10-20) Glucose 124 H (70-99) mg/dl POC Glucose 194 H (70-99) mg/dl Estimat Average Glucose Hemoglobin A1c Lactate (0.4-2.0) mmol/L Calcium 9.1 (8.5-10.1) mg/dl Total Bilirubin 0.6 (0.2-1) mg/dl AST 76 H (15-37) U/L ALT 193 H (12-78) U/L Alkaline Phosphatase 144 H (45-117) U/L Troponin I (0-0.045) ng/ml NT-Pro-B Natriuret Pep (0-900) pg/ml Total Protein 6.4 (6.4-8.2) gm/dl Albumin 2.7 L (3.4-5.0) gm/dl Globulin 3.7 (2.5-4.0) gm/dl Albumin/Globulin Ratio 0.7 L (0.9-2) Triglycerides 154 H (0-150) mg/dl Cholesterol 121 (0-200) mg/dl LDL Cholesterol, Calc 53 mg/dl VLDL Cholesterol, Calc 31 mg/dl HDL Cholesterol 37 mg/dl Cholesterol/HDL Ratio 3 Procalcitonin (0-0.5) ng/ml Urine Color Urine Appearance (Clear) Urine pH (4.5-7.5) Ur Specific [place] (1.000-1.030) Urine Protein (Negative) Urine Glucose (UA) (Negative) Urine Ketones (Negative) Urine Blood (Negative) Urine Nitrite (Negative) Urine Bilirubin (Negative) Urine Urobilinogen (Negative) Ur Leukocyte Esterase (Negative) Urine WBC (Auto) (0-5) /hpf Urine RBC (Auto) (0-4) /hpf U Hyaline Cast (Auto) (0-5) /lpf U Epithel Cells (Auto) (0-5) /lpf Urine Bacteria (Auto) (Negative) 11/15/19 11/14/19 11/14/19 Range/Units 01:34 23:34 21:37 WBC (4.8-10.8) K/uL RBC (4.7-6.1) M/uL Hgb (14.0-18.0) g/dL Hct (42-52) % MCV (80-100) fL MCH (25-34) pg MCHC (32-36) g/dL RDW Std Deviation (36.4-46.3) fL RDW Coeff of [place] (11.5-14.5) % Plt Count (130-400) K/uL MPV (7.4-10.4) fL Immature Gran % (Auto) % Neut % (Auto) % Lymph % (Auto) % Stokes % (Auto) % Eos % (Auto) % Baso % (Auto) % Immature Gran # (Auto) (0.00-0.02) K/uL Neut # (Auto) (1.4-6.5) K/uL Lymph # (Auto) (1.2-3.4) K/uL Stokes # (Auto) (0.11-0.59) K/uL Eos # (Auto) (0-0.5) K/uL Baso # (Auto) (0-0.2) K/uL Absolute Nucleated RBC (0-0) K/uL Nucleated RBC % (auto) % Sodium (136-145) mmol/L Potassium (3.5-5.1) mmol/L Chloride (98-107) mmol/L Carbon Dioxide (21-32) mmol/L Anion Gap (3-11) BUN (7-18) mg/dl Creatinine (0.6-1.4) mg/dl Est Cr Clr Drug Dosing ml/min Est GFR ( Amer) Est GFR (Non-Af Amer) BUN/Creatinine Ratio (10-20) Glucose (70-99) mg/dl POC Glucose 303 H* (70-99) mg/dl Estimat Average Glucose Hemoglobin A1c Lactate 3.5 H* (0.4-2.0) mmol/L Calcium (8.5-10.1) mg/dl Total Bilirubin (0.2-1) mg/dl AST (15-37) U/L ALT (12-78) U/L Alkaline Phosphatase (45-117) U/L Troponin I < 0.015 (0-0.045) ng/ml NT-Pro-B Natriuret Pep (0-900) pg/ml Total Protein (6.4-8.2) gm/dl Albumin (3.4-5.0) gm/dl Globulin (2.5-4.0) gm/dl Albumin/Globulin Ratio (0.9-2) Triglycerides (0-150) mg/dl Cholesterol (0-200) mg/dl LDL Cholesterol, Calc mg/dl VLDL Cholesterol, Calc mg/dl HDL Cholesterol mg/dl Cholesterol/HDL Ratio Procalcitonin (0-0.5) ng/ml Urine Color Urine Appearance (Clear) Urine pH (4.5-7.5) Ur Specific [place] (1.000-1.030) Urine Protein (Negative) Urine Glucose (UA) (Negative) Urine Ketones (Negative) Urine Blood (Negative) Urine Nitrite (Negative) Urine Bilirubin (Negative) Urine Urobilinogen (Negative) Ur Leukocyte Esterase (Negative) Urine WBC (Auto) (0-5) /hpf Urine RBC (Auto) (0-4) /hpf U Hyaline Cast (Auto) (0-5) /lpf U Epithel Cells (Auto) (0-5) /lpf Urine Bacteria (Auto) (Negative) 11/14/19 11/14/19 11/14/19 Range/Units 20:20 19:48 19:48 WBC (4.8-10.8) K/uL RBC (4.7-6.1) M/uL Hgb (14.0-18.0) g/dL Hct (42-52) % MCV (80-100) fL MCH (25-34) pg MCHC (32-36) g/dL RDW Std Deviation (36.4-46.3) fL RDW Coeff of [place] (11.5-14.5) % Plt Count (130-400) K/uL MPV (7.4-10.4) fL Immature Gran % (Auto) % Neut % (Auto) % Lymph % (Auto) % Stokes % (Auto) % Eos % (Auto) % Baso % (Auto) % Immature Gran # (Auto) (0.00-0.02) K/uL Neut # (Auto) (1.4-6.5) K/uL Lymph # (Auto) (1.2-3.4) K/uL Stokes # (Auto) (0.11-0.59) K/uL Eos # (Auto) (0-0.5) K/uL Baso # (Auto) (0-0.2) K/uL Absolute Nucleated RBC (0-0) K/uL Nucleated RBC % (auto) % Sodium (136-145) mmol/L Potassium (3.5-5.1) mmol/L Chloride (98-107) mmol/L Carbon Dioxide (21-32) mmol/L Anion Gap (3-11) BUN (7-18) mg/dl Creatinine (0.6-1.4) mg/dl Est Cr Clr Drug Dosing ml/min Est GFR ( Amer) Est GFR (Non-Af Amer) BUN/Creatinine Ratio (10-20) Glucose (70-99) mg/dl POC Glucose 221 H (70-99) mg/dl Estimat Average Glucose Hemoglobin A1c Lactate 2.2 H* (0.4-2.0) mmol/L Calcium (8.5-10.1) mg/dl Total Bilirubin (0.2-1) mg/dl AST (15-37) U/L ALT (12-78) U/L Alkaline Phosphatase (45-117) U/L Troponin I < 0.015 (0-0.045) ng/ml NT-Pro-B Natriuret Pep (0-900) pg/ml Total Protein (6.4-8.2) gm/dl Albumin (3.4-5.0) gm/dl Globulin (2.5-4.0) gm/dl Albumin/Globulin Ratio (0.9-2) Triglycerides (0-150) mg/dl Cholesterol (0-200) mg/dl LDL Cholesterol, Calc mg/dl VLDL Cholesterol, Calc mg/dl HDL Cholesterol mg/dl Cholesterol/HDL Ratio Procalcitonin (0-0.5) ng/ml Urine Color Urine Appearance (Clear) Urine pH (4.5-7.5) Ur Specific [place] (1.000-1.030) Urine Protein (Negative) Urine Glucose (UA) (Negative) Urine Ketones (Negative) Urine Blood (Negative) Urine Nitrite (Negative) Urine Bilirubin (Negative) Urine Urobilinogen (Negative) Ur Leukocyte Esterase (Negative) Urine WBC (Auto) (0-5) /hpf Urine RBC (Auto) (0-4) /hpf U Hyaline Cast (Auto) (0-5) /lpf U Epithel Cells (Auto) (0-5) /lpf Urine Bacteria (Auto) (Negative) 11/14/19 11/14/19 11/14/19 Range/Units 18:27 17:30 16:28 WBC (4.8-10.8) K/uL RBC (4.7-6.1) M/uL Hgb (14.0-18.0) g/dL Hct (42-52) % MCV (80-100) fL MCH (25-34) pg MCHC (32-36) g/dL RDW Std Deviation (36.4-46.3) fL RDW Coeff of [place] (11.5-14.5) % Plt Count (130-400) K/uL MPV (7.4-10.4) fL Immature Gran % (Auto) % Neut % (Auto) % Lymph % (Auto) % Stokes % (Auto) % Eos % (Auto) % Baso % (Auto) % Immature Gran # (Auto) (0.00-0.02) K/uL Neut # (Auto) (1.4-6.5) K/uL Lymph # (Auto) (1.2-3.4) K/uL Stokes # (Auto) (0.11-0.59) K/uL Eos # (Auto) (0-0.5) K/uL Baso # (Auto) (0-0.2) K/uL Absolute Nucleated RBC (0-0) K/uL Nucleated RBC % (auto) % Sodium (136-145) mmol/L Potassium (3.5-5.1) mmol/L Chloride (98-107) mmol/L Carbon Dioxide (21-32) mmol/L Anion Gap (3-11) BUN (7-18) mg/dl Creatinine (0.6-1.4) mg/dl Est Cr Clr Drug Dosing ml/min Est GFR ( Amer) Est GFR (Non-Af Amer) BUN/Creatinine Ratio (10-20) Glucose (70-99) mg/dl POC Glucose (70-99) mg/dl Estimat Average Glucose Hemoglobin A1c Lactate 2.3 H* (0.4-2.0) mmol/L Calcium (8.5-10.1) mg/dl Total Bilirubin (0.2-1) mg/dl AST (15-37) U/L ALT (12-78) U/L Alkaline Phosphatase (45-117) U/L Troponin I (0-0.045) ng/ml NT-Pro-B Natriuret Pep (0-900) pg/ml Total Protein (6.4-8.2) gm/dl Albumin (3.4-5.0) gm/dl Globulin (2.5-4.0) gm/dl Albumin/Globulin Ratio (0.9-2) Triglycerides (0-150) mg/dl Cholesterol (0-200) mg/dl LDL Cholesterol, Calc mg/dl VLDL Cholesterol, Calc mg/dl HDL Cholesterol mg/dl Cholesterol/HDL Ratio Procalcitonin 0.57 H (0-0.5) ng/ml Urine Color Yellow Urine Appearance Clear (Clear) Urine pH 6.0 (4.5-7.5) Ur Specific [place] 1.021 (1.000-1.030) Urine Protein Trace H (Negative) Urine Glucose (UA) Negative (Negative) Urine Ketones Trace H (Negative) Urine Blood Negative (Negative) Urine Nitrite Negative (Negative) Urine Bilirubin Negative (Negative) Urine Urobilinogen Negative (Negative) Ur Leukocyte Esterase Negative (Negative) Urine WBC (Auto) 0 (0-5) /hpf Urine RBC (Auto) 0-4 (0-4) /hpf U Hyaline Cast (Auto) 0 (0-5) /lpf U Epithel Cells (Auto) 0-5 (0-5) /lpf Urine Bacteria (Auto) Negative (Negative) 11/14/19 Range/Units 16:28 WBC (4.8-10.8) K/uL RBC (4.7-6.1) M/uL Hgb (14.0-18.0) g/dL Hct (42-52) % MCV (80-100) fL MCH (25-34) pg MCHC (32-36) g/dL RDW Std Deviation (36.4-46.3) fL RDW Coeff of [place] (11.5-14.5) % Plt Count (130-400) K/uL MPV (7.4-10.4) fL Immature Gran % (Auto) % Neut % (Auto) % Lymph % (Auto) % Stokes % (Auto) % Eos % (Auto) % Baso % (Auto) % Immature Gran # (Auto) (0.00-0.02) K/uL Neut # (Auto) (1.4-6.5) K/uL Lymph # (Auto) (1.2-3.4) K/uL Stokes # (Auto) (0.11-0.59) K/uL Eos # (Auto) (0-0.5) K/uL Baso # (Auto) (0-0.2) K/uL Absolute Nucleated RBC (0-0) K/uL Nucleated RBC % (auto) % Sodium (136-145) mmol/L Potassium (3.5-5.1) mmol/L Chloride (98-107) mmol/L Carbon Dioxide (21-32) mmol/L Anion Gap (3-11) BUN (7-18) mg/dl Creatinine (0.6-1.4) mg/dl Est Cr Clr Drug Dosing ml/min Est GFR ( Amer) Est GFR (Non-Af Amer) BUN/Creatinine Ratio (10-20) Glucose (70-99) mg/dl POC Glucose (70-99) mg/dl Estimat Average Glucose Hemoglobin A1c Lactate (0.4-2.0) mmol/L Calcium (8.5-10.1) mg/dl Total Bilirubin (0.2-1) mg/dl AST (15-37) U/L ALT (12-78) U/L Alkaline Phosphatase (45-117) U/L Troponin I (0-0.045) ng/ml NT-Pro-B Natriuret Pep 2958 H (0-900) pg/ml Total Protein (6.4-8.2) gm/dl Albumin (3.4-5.0) gm/dl Globulin (2.5-4.0) gm/dl Albumin/Globulin Ratio (0.9-2) Triglycerides (0-150) mg/dl Cholesterol (0-200) mg/dl LDL Cholesterol, Calc mg/dl VLDL Cholesterol, Calc mg/dl HDL Cholesterol mg/dl Cholesterol/HDL Ratio Procalcitonin (0-0.5) ng/ml Urine Color Urine Appearance (Clear) Urine pH (4.5-7.5) Ur Specific [place] (1.000-1.030) Urine Protein (Negative) Urine Glucose (UA) (Negative) Urine Ketones (Negative) Urine Blood (Negative) Urine Nitrite (Negative) Urine Bilirubin (Negative) Urine Urobilinogen (Negative) Ur Leukocyte Esterase (Negative) Urine WBC (Auto) (0-5) /hpf Urine RBC (Auto) (0-4) /hpf U Hyaline Cast (Auto) (0-5) /lpf U Epithel Cells (Auto) (0-5) /lpf Urine Bacteria (Auto) (Negative) Diagnostic Findings US gallbladder CLINICAL HISTORY: M- bacteremia. Elevated LFTs and bilirubin. COMPARISON STUDY: Noncontrast CT scan dated November 11, 2019 FINDINGS: There is diffusely increased hepatic echogenicity, consistent with hepatic steatosis. There is an area of presumed focal fatty sparing adjacent the gallbladder fossa. The pancreas appears sonographically normal. There are several tiny gallstones. There is borderline gallbladder wall thickening. The technologist reports a negative sonographic Whitley sign. There is no evidence of intra or extrahepatic biliary ductal dilatation. The common bile duct measures 3 mm. There is no right-sided hydronephrosis IMPRESSION: 1. Cholelithiasis. No ductal dilatation 2. Borderline gallbladder wall thickening 3. Negative sonographic Whitley sign 4. Hepatic steatosis MRCP CLINICAL HISTORY: Abnormal hepatic transaminases. COMPARISON STUDY: Abdominal ultrasound dated 11/14/2019. Abdominal CT dated 11/11/2019. TECHNIQUE: Abdominal MRCP is performed utilizing various T2-weighted sequences in the axial and coronal planes. IV contrast was not administered for this examination. 3-D reformats are created and assessed. FINDINGS: Tiny gallstones are noted. The gallbladder is otherwise normal in appearance. There is no intra or extrahepatic biliary ductal dilatation. The common bile duct measures 4 mm in diameter. No filling defects are seen to suggest choledocholithiasis. The pancreatic duct is normal in caliber. The liver is enlarged, measuring over 18 cm in length. Hepatic steatosis was shown on prior examinations. The unenhanced spleen and adrenal glands are grossly normal. The kidneys demonstrate cortical atrophy and are without hydronephrosis. A 1.4 cm cyst is noted in the right kidney. The abdominal aorta is normal in caliber. There is no bowel obstruction. There are numerous (at least 10) tiny cystic foci scattered throughout the pancreas. The largest are seen in the pancreatic head and tail, measuring 1.4 cm. There is no abdominal ascites. No pleural effusion is seen. The bony structures appear intact. IMPRESSION: 1. Tiny gallstones are noted. 2. Otherwise normal MRCP. 3. Hepatomegaly and hepatic steatosis. 4. There are numerous (at least 10) cystic pancreatic lesions measuring up to 1.4 cm. 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
[2019-11-15] MEDS: ATORVASTATIN 20 MG TAB PO SCH (20:41)
[2019-11-15] MEDS: POTASSIUM CHLORIDE 20 MEQ TABCR PO SCH (20:43)
[2019-11-15] MEDS: DOCUSATE SODIUM 100 MG CAP PO SCH (20:44)
[2019-11-15] MEDS: GABAPENTIN 400 MG CAP PO SCH (20:45)
[2019-11-15] MEDS: RIVAROXABAN 20 MG TAB PO SCH (20:47)
[2019-11-15] MEDS: TRIAMCINOLONE ACET NASAL SPRAY 10.8ML BTL NAE SCH (20:48)
[2019-11-15] MEDS ORDERED: GABAPENTIN 300 MG CAP PO SCH (21:00)
[2019-11-15] MEDS ORDERED: INSULIN GLARGINE SOLOSTAR 100 UNITS/ML 3 ML PEN SC SCH (21:00)
[2019-11-15] MEDS: cefTRIAXone SODIUM 2,000 MG in DEXTROSE 5% 50 ML IV SCH (21:10)
[2019-11-16] MEDS: EPLERENONE 25 MG SCH ×2 (01:05→07:50)
[2019-11-16 05:58] LABS: Estimated Average Glucose 220 mg/dl; Hemoglobin A1C 9.3 % (4.5-5.6)
[2019-11-16 06:16] LABS: Basophils # (auto) 0.01 K/uL (0-0.2); Basophils % (auto) 0.2 %; Eosinophils # (auto) 0.03 K/uL (0-0.5); Eosinophils % (auto) 0.5 %; Hematocrit (blood only) 37.4 % (42-52); Hemoglobin 11.8 g/dL (14.0-18.0); Immature Granulocytes % (auto) 1.5 %; Lymphocytes # (auto) 0.89 K/uL (1.2-3.4); Lymphocytes % (auto) 13.4 %; Mean Corpuscular Hemoglobin 28.8 pg (25-34); Mean Corpuscular Hgb Conc 31.6 g/dL (32-36); Mean Corpuscular Volume 91.2 fL (80-100); Mean Platelet Volume 9.7 fL (7.4-10.4); Monocytes # (auto) 0.66 K/uL (0.11-0.59); Neutrophils # (auto) 4.94 K/uL (1.4-6.5); Neutrophils % (auto) 74.4 %; Platelet Count 218 K/uL (130-400); RDW Coefficient of Variation 17.3 % (11.5-14.5); White Blood Count 6.63 K/uL (4.8-10.8)
[2019-11-16 06:58] LABS: Albumin Globulin Ratio 0.7 (0.9-2); Albumin Level 2.9 gm/dl (3.4-5.0); BUN Creatinine Ratio 28.4 (10-20); Bilirubin,Total 0.6 mg/dl (0.2-1); Calcium 9.5 mg/dl (8.5-10.1); Creatinine Clr Calc Pharmacy 62.8 ml/min; Est GFR (African American) 58.8; Est GFR (Non-African American) 50.7; Potassium 3.9 mmol/L (3.5-5.1); Total Protein 6.9 gm/dl (6.4-8.2)
[2019-11-16] MEDS: CHOLECALCIFEROL 1,000 UNITS 25 MCG TAB PO SCH (07:58)
[2019-11-16] MEDS: FLUTICASONE FUROATE 100MCG 14 PUFFS/INHALER INH SCH (07:58)
[2019-11-16] MEDS: allopurinoL 100 MG TAB PO SCH (07:58)
[2019-11-16] MEDS: CYANOCOBALAMIN 500 MCG TABLET (VITAMIN B-12) PO SCH (07:58)
[2019-11-16] MEDS: metOLazone 5 MG TABLET PO SCH (07:58)
[2019-11-16] MEDS: LOSARTAN POTASSIUM 50 MG TAB PO SCH (07:59)
[2019-11-16] MEDS: METOPROLOL SUCC 50MG EXT REL TAB PO SCH (07:59)
[2019-11-16] MEDS: POTASSIUM CHLORIDE 20 MEQ TABCR PO SCH (07:59)
[2019-11-16] MEDS: GABAPENTIN 400 MG CAP PO SCH (07:59)
[2019-11-16] MEDS ORDERED: INSULIN HUMAN NPH SC SCH (08:00)
[2019-11-16] MEDS: TORSEMIDE 20 MG TAB PO SCH (08:01)
[2019-11-16] MEDS: LACTOBACILLUS ACIDOPHILUS (FLORANEX) TAB PO SCH (08:01)
[2019-11-16] MEDS: OMEGA-3 (PURIFIED FISH OIL) 1 GM CAP PO SCH (08:01)
[2019-11-16] MEDS: DOXAZosin MESYLATE TAB 2 MG TAB PO SCH (08:01)
[2019-11-16] MEDS: AMLODIPINE BESYLATE 5 MG TAB PO SCH (08:01)
[2019-11-16] MEDS: INSULIN ASPART 100 UNITS/ML 3 ML PEN SC SCH ×2 (08:01→11:49)
[2019-11-16] MEDS: DOXYCYCLINE HYCLATE 100 MG CAP PO SCH (08:43)
[2019-11-16] MEDS ORDERED: predniSONE 20 MG TAB PO SCH (09:00)
--- NOTE | 2019-11-16 09:05 | Surgery Progress Note ---
Date of Service November 16, 2019 Assessment & Plan (1) Transaminitis: The patient had transaminitis and elevated alkaline phosphatase all of which are now returning to normal. He has cholelithiasis but there is no evidence of acute cholecystitis on MRCP. The transaminitis may have been due to the passage of a stone although T. bili is normal. Completely asymptomatic. LFTs improving/stable, slight bump in alk phos but t. bili wnl Plan: Patient is completely asymptomatic and there are no signs of acute cholecystitis or choledocholithiasis on MRCP. May require outpatient cholecystectomy in which patient states he would prefer to see Dr. lemus. Given bacteremia will need to determine course of IV abx to oral abx , defer to medicine team continue current medical management Discussed with Dr. Jj who agrees with above Subjective feeling good today no abdominal pain no n/v tolerated diet ready to go home Physical Exam Constitutional: WD/WN, vitals as above + obese; no acute distress Respiratory: normal respiratory effort, lungs clear to auscultation Cardiovascular: Rate/Rhythm: + irregularly irregular Gastrointestinal (Abdomen): Inspection/Auscultation: abdomen normal to inspection (obese); abdomen not distended Percussion/Palpation: abdomen soft; abdomen nontender, no guarding and abdomen not rigid Skin: no rashes, warm and dry Psychiatric: A+Ox3, euthymic affect Results & Data Vital Signs (Past 12 Hours) Vital Signs Temp Pulse Pulse Resp BP Pulse Ox 11/16/19 07:12 36.6 C 74 20 115/61 94 11/16/19 03:30 36.6 C 72 18 117/72 97 11/16/19 00:00 81 11/15/19 23:50 36.6 C 74 20 123/68 97 Laboratory Results 11/16/19 11/16/19 11/16/19 Range/Units 07:52 05:31 05:31 WBC 6.63 (4.8-10.8) K/uL RBC 4.10 L (4.7-6.1) M/uL Hgb 11.8 L (14.0-18.0) g/dL Hct 37.4 L (42-52) % MCV 91.2 (80-100) fL MCH 28.8 (25-34) pg MCHC 31.6 L (32-36) g/dL RDW Std Deviation 58.0 H (36.4-46.3) fL RDW Coeff of [place]ami 17.3 H (11.5-14.5) % Plt Count 218 (130-400) K/uL MPV 9.7 (7.4-10.4) fL Immature Gran % (Auto) 1.5 % Neut % (Auto) 74.4 % Lymph % (Auto) 13.4 % [place] % (Auto) 10.0 % Eos % (Auto) 0.5 % Baso % (Auto) 0.2 % Immature Gran # (Auto) 0.10 H (0.00-0.02) K/uL Neut # (Auto) 4.94 (1.4-6.5) K/uL Lymph # (Auto) 0.89 L (1.2-3.4) K/uL [place] # (Auto) 0.66 H (0.11-0.59) K/uL Eos # (Auto) 0.03 (0-0.5) K/uL Baso # (Auto) 0.01 (0-0.2) K/uL Sodium 141 (136-145) mmol/L Potassium 3.9 D (3.5-5.1) mmol/L Chloride 101 (98-107) mmol/L Carbon Dioxide 36 H (21-32) mmol/L Anion Gap 4.0 (3-11) BUN 39 H (7-18) mg/dl Creatinine 1.38 (0.6-1.4) mg/dl Est Cr Clr Drug Dosing 62.8 ml/min Est GFR ( Amer) 58.8 Est GFR (Non-Af Amer) 50.7 BUN/Creatinine Ratio 28.4 H (10-20) Glucose 172 H (70-99) mg/dl POC Glucose 152 H (70-99) mg/dl Estimat Average Glucose mg/dl Hemoglobin A1c (4.5-5.6) % Lactate (0.4-2.0) mmol/L Calcium 9.5 (8.5-10.1) mg/dl Total Bilirubin 0.6 (0.2-1) mg/dl AST 67 H (15-37) U/L ALT 193 H (12-78) U/L Alkaline Phosphatase 158 H (45-117) U/L Total Protein 6.9 (6.4-8.2) gm/dl Albumin 2.9 L (3.4-5.0) gm/dl Globulin 4.0 (2.5-4.0) gm/dl Albumin/Globulin Ratio 0.7 L (0.9-2) 11/16/19 11/15/19 11/15/19 Range/Units 02:22 19:59 19:56 WBC (4.8-10.8) K/uL RBC (4.7-6.1) M/uL Hgb (14.0-18.0) g/dL Hct (42-52) % MCV (80-100) fL MCH (25-34) pg MCHC (32-36) g/dL RDW Std Deviation (36.4-46.3) fL RDW Coeff of [place] (11.5-14.5) % Plt Count (130-400) K/uL MPV (7.4-10.4) fL Immature Gran % (Auto) % Neut % (Auto) % Lymph % (Auto) % [place] % (Auto) % Eos % (Auto) % Baso % (Auto) % Immature Gran # (Auto) (0.00-0.02) K/uL Neut # (Auto) (1.4-6.5) K/uL Lymph # (Auto) (1.2-3.4) K/uL [place] # (Auto) (0.11-0.59) K/uL Eos # (Auto) (0-0.5) K/uL Baso # (Auto) (0-0.2) K/uL Sodium (136-145) mmol/L Potassium (3.5-5.1) mmol/L Chloride (98-107) mmol/L Carbon Dioxide (21-32) mmol/L Anion Gap (3-11) BUN (7-18) mg/dl Creatinine (0.6-1.4) mg/dl Est Cr Clr Drug Dosing ml/min Est GFR ( Amer) Est GFR (Non-Af Amer) BUN/Creatinine Ratio (10-20) Glucose (70-99) mg/dl POC Glucose 188 H 397 H* 384 H* (70-99) mg/dl Estimat Average Glucose mg/dl Hemoglobin A1c (4.5-5.6) % Lactate (0.4-2.0) mmol/L Calcium (8.5-10.1) mg/dl Total Bilirubin (0.2-1) mg/dl AST (15-37) U/L ALT (12-78) U/L Alkaline Phosphatase (45-117) U/L Total Protein (6.4-8.2) gm/dl Albumin (3.4-5.0) gm/dl Globulin (2.5-4.0) gm/dl Albumin/Globulin Ratio (0.9-2) 11/15/19 11/15/19 11/15/19 Range/Units 19:08 16:43 16:42 WBC (4.8-10.8) K/uL RBC (4.7-6.1) M/uL Hgb (14.0-18.0) g/dL Hct (42-52) % MCV (80-100) fL MCH (25-34) pg MCHC (32-36) g/dL RDW Std Deviation (36.4-46.3) fL RDW Coeff of [place] (11.5-14.5) % Plt Count (130-400) K/uL MPV (7.4-10.4) fL Immature Gran % (Auto) % Neut % (Auto) % Lymph % (Auto) % [place] % (Auto) % Eos % (Auto) % Baso % (Auto) % Immature Gran # (Auto) (0.00-0.02) K/uL Neut # (Auto) (1.4-6.5) K/uL Lymph # (Auto) (1.2-3.4) K/uL [place] # (Auto) (0.11-0.59) K/uL Eos # (Auto) (0-0.5) K/uL Baso # (Auto) (0-0.2) K/uL Sodium (136-145) mmol/L Potassium (3.5-5.1) mmol/L Chloride (98-107) mmol/L Carbon Dioxide (21-32) mmol/L Anion Gap (3-11) BUN (7-18) mg/dl Creatinine (0.6-1.4) mg/dl Est Cr Clr Drug Dosing ml/min Est GFR ( Amer) Est GFR (Non-Af Amer) BUN/Creatinine Ratio (10-20) Glucose (70-99) mg/dl POC Glucose 402 H* 422 H* (70-99) mg/dl Estimat Average Glucose mg/dl Hemoglobin A1c (4.5-5.6) % Lactate 1.5 (0.4-2.0) mmol/L Calcium (8.5-10.1) mg/dl Total Bilirubin (0.2-1) mg/dl AST (15-37) U/L ALT (12-78) U/L Alkaline Phosphatase (45-117) U/L Total Protein (6.4-8.2) gm/dl Albumin (3.4-5.0) gm/dl Globulin (2.5-4.0) gm/dl Albumin/Globulin Ratio (0.9-2) 11/15/19 11/15/19 Range/Units 11:42 07:11 WBC (4.8-10.8) K/uL RBC (4.7-6.1) M/uL Hgb (14.0-18.0) g/dL Hct (42-52) % MCV (80-100) fL MCH (25-34) pg MCHC (32-36) g/dL RDW Std Deviation (36.4-46.3) fL RDW Coeff of [place] (11.5-14.5) % Plt Count (130-400) K/uL MPV (7.4-10.4) fL Immature Gran % (Auto) % Neut % (Auto) % Lymph % (Auto) % [place] % (Auto) % Eos % (Auto) % Baso % (Auto) % Immature Gran # (Auto) (0.00-0.02) K/uL Neut # (Auto) (1.4-6.5) K/uL Lymph # (Auto) (1.2-3.4) K/uL [place] # (Auto) (0.11-0.59) K/uL Eos # (Auto) (0-0.5) K/uL Baso # (Auto) (0-0.2) K/uL Sodium (136-145) mmol/L Potassium (3.5-5.1) mmol/L Chloride (98-107) mmol/L Carbon Dioxide (21-32) mmol/L Anion Gap (3-11) BUN (7-18) mg/dl Creatinine (0.6-1.4) mg/dl Est Cr Clr Drug Dosing ml/min Est GFR ( Amer) Est GFR (Non-Af Amer) BUN/Creatinine Ratio (10-20) Glucose (70-99) mg/dl POC Glucose 153 H (70-99) mg/dl Estimat Average Glucose 220 mg/dl Hemoglobin A1c 9.3 H (4.5-5.6) % Lactate (0.4-2.0) mmol/L Calcium (8.5-10.1) mg/dl Total Bilirubin (0.2-1) mg/dl AST (15-37) U/L ALT (12-78) U/L Alkaline Phosphatase (45-117) U/L Total Protein (6.4-8.2) gm/dl Albumin (3.4-5.0) gm/dl Globulin (2.5-4.0) gm/dl Albumin/Globulin Ratio (0.9-2) Diagnostic Findings MRCP CLINICAL HISTORY: Abnormal hepatic transaminases. COMPARISON STUDY: Abdominal ultrasound dated 11/14/2019. Abdominal CT dated 11/11/2019. TECHNIQUE: Abdominal MRCP is performed utilizing various T2-weighted sequences i n the axial and coronal planes. IV contrast was not administered for this examination. 3-D reformats are created and assessed. FINDINGS: Tiny gallstones are noted. The gallbladder is otherwise normal in appearance. There is no intra or extrahepatic biliary ductal dilatation. The common bile duct measures 4 mm in diameter. No filling defects are seen to suggest choledocholithiasis. The pancreatic duct is normal in caliber. The liver is enlarged, measuring over 18 cm in length. Hepatic steatosis was shown on prior examinations. The unenhanced spleen and adrenal glands are grossly normal. The kidneys demonstrate cortical atrophy and are without hydronephrosis. A 1.4 cm cyst is noted in the right kidney. The abdominal aorta is normal in caliber. There is no bowel obstruction. There are numerous (at least 10) tiny cystic foci scattered throughout the pancreas. The largest are seen in the pancreatic head and tail, measuring 1.4 cm. There is no abdominal ascites. No pleural effusion is seen. The bony structures appear intact. IMPRESSION: 1. Tiny gallstones are noted. 2. Otherwise normal MRCP. 3. Hepatomegaly and hepatic steatosis. 4. There are numerous (at least 10) cystic pancreatic lesions measuring up to 1.4 cm. 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
--- NOTE | 2019-11-16 17:49 | Discharge Summary ---
Date of Service November 16, 2019 Admission HPI Per Admitting Provider The patient is a 75 years old male with past medical history of diabetes mellitus type 2, atrial fibrillation on Xarelto, diastolic congestive heart failure, COPD, valvular heart disease, struct of sleep apnea, CKD stage III who was sent to the emergency room after he received abnormal lab results stating that he was informed that 1 of his blood culture was abnormal and positive for bacteremia. Patient was on Saturday in the emergency room when he presented for shortness of breath and cough. At that time blood cultures were drawn and he was given doxycycline and prednisone per chart and discharged home. The patient reports feeling some hot and cold flashes chills and diaphoresis but he did not have these symptoms at the time when he was discharged. Patient complains of nonproductive cough. Patient denies fever, headache, chest pain, abdominal pain, frequency, urgency. Labs are reviewed: Sodium 139, potassium 3.2, chloride 102, carbon dioxide 27, anion gap 1, BUN 42, creatinine 1.38, GFR 50.7, glucose 233, lactate 3, calcium 9.6, magnesium 2.2, total bilirubin 0.8, AST 121, ALT 238, alkaline phosphatase 190, troponin 0 0.02, BNP 2958, albumin 3.1, globulin 4.1, procalcitonin pending. TSH pending. WBCs 5.4, hemoglobin 11.3, hematocrit 35.8, PT 212. Urine is yellow with trace protein, trace ketone, urine nitrate negative, leukocyte Estrace negative. Patient is negative for Lyme disease is negative for hepatitis negative for hepatitis B and negative for hepatitis B core IgM, negative for hepatitis C antibodies. 2 days ago when patient was here he had extensive work-up with abdomen and pelvis CT showing no acute process within the abdomen or pelvis on unenhanced exam. Colonic diverticulosis without evidence of acute diverticulitis. No bowel obstruction. Fatty infiltrate of the liver. 1.4 cm cystic lesion arising from the pancreatic tail. Although indeterminant this is low suspicion and probably reflects a sidebranch IPMN. Was made to admit patient to [facility] on telemetry for possible bacteremia possibly due to pneumonia. Principal Diagnosis Presumed common bile duct stone with Klebsiella bacteremia Discharge Exam Constitutional WD/WN, vitals as above Eyes EOM intact bilaterally; no conjunctival abnormality ENMT external ear and nose normal, oropharynx normal Neck trachea midline, no thyromegaly normal visual inspection Respiratory normal respiratory effort, lungs clear to auscultation no respiratory distress Cardiovascular RRR, no murmur, no edema Gastrointestinal (Abdomen) Inspection/Auscultation: abdomen normal to inspection; abdomen not distended Musculoskeletal no cyanosis or clubbing, extremities motor strength 5/5 Skin no rashes, warm and dry Neurologic moves all extremities and awake Psychiatric Orientation: alert, oriented to person and cooperative Discharge Data Allergies Allergy/AdvReac Type Severity Reaction Status Date / Time No Known Drug Allergies Allergy Unknown Unknown Verified 11/14/19 16:13 Consultations 11/14/19 17:26 ED Decision to Admit Stat 11/15/19 10:32 Consult General Surgery Routine 11/15/19 10:35 Consult Gastroenterology Routine Ordered Studies 11/14/19 16:18 US gallbladder Stat 11/15/19 11:05 MR MRCP Urgent Hospital Course (1) Gram-negative bacteremia: Presumed to be due to a gallbladder stone that became impacted, then passed. Possibly no RUQ pain due to his diabetes and atypical presentation. - Gallbladder ultrasound and MRCP showed small stones, but no present impaction. - No fevers after 11/11 - Seen by both GI and surgery -> Patient prefers to see Dr. Dave regarding consideration of lap gertrude. No urgent need as no current impaction and minimal symptoms. - Discharged on Augmentin to cover any possible temporary cholangitis. (2) Bronchitis: Came to the ED on 11/11/2019 for shortness of breath. Was put on doxycycline and prednisone. - Breathing on discharge is at baseline. - Discharged with short taper of steroids to avoid hyperglycemia. (3) Diabetes mellitus type 2 in obese: A1c was 9.3% this admission. - Glycemic control per pharmacy while inpatient. - On discharge, since we were doing a fast taper of his steroids, we did not adjust his insulin. He has a reinsurance accountant analog circuit designer/PCP out [facility] who he can speak with multiple times per day regarding his DM care. I spoke with Dr. Moser on the phone, and he agreed with this plan. 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 (4) BPPV (benign paroxysmal positional vertigo): Performed April maneuver on the day of discharge with some improvement. - Given hand-out on how to do it at home. (5) Transaminitis: Patient had work-up for hepatitis which was all negative. Elevated liver enzymes most likely due to retained gallbladder stone that passed vs. hepatic steatosis. - Trended down transaminases--improving. - Seen by GI -> No further recs other than surgery follow up. (6) CKD (chronic kidney disease): Baseline creatinine is ~1.2-1.4. - Avoid nephrotoxic agents - Stable at 1.38 on discharge. (7) JANUARY (obstructive sleep apnea): CPAP, patient may use from home (8) History of atrial fibrillation: Continue Xarelto, continue metoprolol succinate 25 mg p.o. twice daily for rate control. (9) Congestive heart failure: Diastolic congestive heart failure. BNP elevated to 2958, patient does not appear to be in acute CHF exacerbation but he did stop his torsemide several days ago. - Continue metolazone zone 10 mg p.o. daily, losartan 100 mg p.o. daily, torsemide 20 mg p.o. every morning. - On discharge, lung sounds were clear, no swelling. Appears euvolemic. (10) Hypertension: BP stable on discharge. - Continue home medicine as listed above. (11) Gout: No flare while inpatient. - Continue allopurinol 100 mg p.o. daily. Last note: 10/03 blood cultures from 11/14 returned positive for Gram(+) cocci in clusters. I think this is spurious (contaminant) as it does not fit the clinical picture at all of his overall stay. He was also already on appropriate antibiotics and was discharged on Augmentin which will also cover Gram(+). I will call the patient and follow these abx. The MRSA PCR is negative, so no need to broaden him at this time. If it is likely a contaminant, then it needs no further follow up. Total Time Total Time Spent Total Time Spent (In Minutes): 35 Discharge Plan Discharge Items Patient Disposition: Home - Self-Care Reason For Visit: BACTEREMIA Discharge Diagnosis: Likely gallstone causing blockage and bacteremia Activity: Resume your previous activity Non-emergency contact: Primary Care Provider and Surgeon Call non-emergency contact if: your symptoms worsen and your temperature is above 101 Follow-up/Referrals: Jose Dave MD, FACS [Physician] - (Please see Dr. Dave in 1-2 weeks for follow up of your gallbladder.) Adriana Redman MD [Hospitalist] - (Please see Dr. Redman for your small pancreatic cysts. This is non-urgent and can be within the next month or so.) Jennifer Moser MD [Primary Care Provider] - Diet: Carb Consistent or DM2 and Heart Healthy Addtl Attending Provider Instructions: Mr. Abreu, You were admitted to the hospital with a positive blood culture. After testing, we believe this was caused by a gallbladder stone that got stuck in the bile duct and caused a back-up. Diabetic patients can have atypical symptoms with gallbladder issues, so this is possibly why you didn't have any abdominal (or right upper quadrant) pain. Your PCP can order labs in 1-2 weeks to be sure your liver function has returned to normal. We have had you on antibiotics since you've been here, and we are continuing an additional 8 days, to provide a total of a 10 day course. Please take the antibiotic before bedtime tonight and then 2 times per day afterward. You can follow up with Dr. Dave in 1-2 weeks to have him evaluate your gallbladder and discuss whether a gallbladder removal (laparoscopic cholecystectomy) is right for you. I am sending home on a short course of prednisone. You should take 20 mg (2 pills) tomorrow and Saturday, then 10 mg (1 pill) on Saturday and . Your breathing has been doing well here, and you have been on a good course of steroids. You will not need to be on them for more than a few more days. We will lower the dose to prevent your sugars from going so high, and Dr. Moser can work with you on any adjustments to your insulin. We did the April maneuver in the hospital, and this seemed to help your benign vertigo. We have included a hand out for it. Finally, I have increased your gabapentin just a little to see if this helps with your hands. Please follow up with Dr. Gaines as planned for this. Reasons to come back to the hospital would be if you have new/worsening pain in the right upper quadrant, fevers > 101 degrees, nausea, vomiting, or other concerning symptoms. Pending Studies at Discharge: No Stand-Alone Forms: My BUX, Smoking Cessation Medications and DC Order Prescriptions: New prednisone 10 mg tablet 20 mg PO DAILY Qty: 6 RF: 0 amoxicillin-pot clavulanate [Augmentin] 875-125 mg tablet 1 tab PO BID Qty: 17 RF: 0 gabapentin 400 mg capsule 400 mg PO BID Qty: 60 RF: 0 Continued doxazosin 2 mg tablet 2 mg PO BID RF: 0 metolazone 10 mg tablet 10 mg PO DAILY RF: 0 eplerenone [Inspra] 25 mg tablet 25 mg PO DAILY RF: 0 amlodipine [Norvasc] 5 mg tablet 5 mg PO DAILY RF: 0 atorvastatin [Lipitor] 20 mg tablet 20 mg PO QPM RF: 0 losartan 100 mg tablet 100 mg PO DAILY RF: 0 metoprolol succinate 25 mg tablet extended release 24 hr 50 mg PO BID RF: 0 cranberry 400 mg Capsule 400 mg PO BID RF: 0 cholecalciferol (vitamin D3) [Vitamin D3] 25 mcg (1,000 unit) Tablet 25 mcg PO DAILY RF: 0 omega [id number] oil [Fish Oil] 1,000 mg (120 mg-180 mg) Capsule 1 cap PO BID RF: 0 Probiotic 3 billion cell Capsule 3 mmu cells PO DAILY RF: 0 vitamin K2 40 mcg Tablet 0 mcg PO DAILY RF: 0 torsemide 20 mg tablet 20 mg PO QAM RF: 0 glipizide 5 mg tablet extended release 24hr 5 mg PO BID RF: 0 modafinil 200 mg Tablet 200 mg PO DAILY PRN (Reason: energy) RF: 0 ranitidine HCl [[place] 75] 75 mg Tablet 75 mg PO HS RF: 0 metformin 1,000 mg tablet 500 mg PO BID RF: 0 triamcinolone acetonide [Nasacort] 55 mcg Aerosol,[place] 2 spray INTRANASAL HS RF: 0 docusate sodium [Colace] 100 mg Capsule 200 mg PO HS RF: 0 albuterol sulfate [ProAir HFA] 90 mcg/actuation HFA aerosol inhaler 2 puff inhalation BID RF: 0 Flovent HFA 110 mcg/actuation HFA aerosol inhaler 2 puff inhalation BID RF: 0 tadalafil [Cialis] 20 mg Tablet 20 mg PO DAILY PRN (Reason: BPH) RF: 0 Tart [place] [id number] mg Capsule 1 cap PO HS RF: 0 Xarelto 20 mg tablet 20 mg PO HS RF: 0 Trulicity 0.75 mg/0.5 mL pen injector 0.75 mg subcut WK RF: 0 allopurinol [Zyloprim] 100 mg tablet 100 mg PO DAILY RF: 0 [place] SoloStar U-300 Insulin 300 unit/mL (1.5 mL) insulin pen 40 units subcut HS RF: 0 potassium chloride 10 mEq tablet extended release 20 meq PO DAILY RF: 0 coenzyme Q10 [CoQ-10] 100 mg capsule 100 mg PO DAILY RF: 0 cyanocobalamin (vitamin B-12) [Vitamin B-12] 1,000 mcg tablet 1,000 mcg PO DAILY RF: 0 Discontinued prednisone 20 mg tablet 60 mg PO DAILY 4 Days Qty: 12 RF: 0 doxycycline hyclate 100 mg tablet 100 mg PO BID 7 Days Qty: 14 RF: 0 Discharge Orders: Discharge Order (Routine); Ordered 11/16/19 Ordered By: Nicholas Banda/Other Patient Handouts: Vertigo Paroxysmal Positional Admission Data Admit Date/Time: 11/14/19 18:46 Attending Provider: Nicholas Rojas Admit Provider: Abigail Chen Primary Care Provider: Jennifer Moser Other Providers: Mao Lozoya Jr ; Adriana Redman ; Nicholas Rojas Other Interventions: Discharge Summary Assessment (RN) Last Done: 11/16/19 13:30 DC Date/Time DO NOT enter until pt leaves facility: 11/16/19 13:50 Coding Level of Care Code D/C Day Management >30 mins Diagnoses Gram-negative bacteremia R78.81 Bronchitis J40 Diabetes mellitus type 2 in obese E11.69; E66.9 BPPV (benign paroxysmal positional vertigo) H81.10 Transaminitis R74.0 CKD (chronic kidney disease) N18.9 Chronic kidney disease stage: unspecified stage JANUARY (obstructive sleep apnea) G47.33 History of atrial fibrillation Z86.79 Congestive heart failure I50.9 Heart failure chronicity: acute Heart failure type: unspecified Hypertension I10 Gout M10.9
--- NOTE | 2019-11-18 09:01 | Coding Query ---
CODING QUERY To promote full compliance with coding requirements relating to patient care, provider participation is requested in all cases of global sales director uncertainty. Please assist us with the question(s) below: Coding Question(s): 1. The Discharge Summary documents, "Was made to admit patient to [facility] on telemetry for possible bacteremia possibly due to pneumonia.", however, Pneumonia was not documented elsewhere in the record. Please clarify below, in your clinical opinion, regarding Pneumonia. ( x ) No Pneumonia - this is ruled-out ( ) Possible Pneumonia was treated during this admission ( ) Other: Please Specify 2. The Discharge Summary documents conflicting documentation regarding the likely etiology of the Bacteremia as the top of the Discharge Summary documents the bacteremia possibly due to Pneumonia and the Hospital Course documents bacteremia presumed due to gallbladder stone that became impacted, then passed and discharged on Augmentin to cover any possible cholangitis. Please clarify below, in your clinical opinion, regarding the most likely etiology of the Bacteremia. ( x ) Bacteremia with most likely etiology presumed to be due to a gallbladder stone that became impacted, then passed and discharged on Augmentin to cover any possible cholangitis ( ) Bacteremia with most likely etiology of Pneumonia ( ) Bacteremia with most likely etiology of Other: Please Specify Physician's Response(s): Thank you Ara Ramos Principal Diagnosis: "that condition established after study, to be chiefly responsible for occasioning the admission of the patient to the hospital for care." Co-Existing Principal Diagnosis: "when two or more diagnoses equally meet the criteria for principal diagnosis as determined by the circumstances of admission, diagnostic work up, and/or therapy provided, and the Alphabetic Index, Tabular List, or another coding guideline does not provide sequencing direction, any one of the diagnoses may be sequenced first." "When the physician has documented what appears to be a current diagnosis in the body of the record, but has not included the diagnosis in the final diagnostic statement, the physician should be asked whether the diagnosis should be added." (Source Coding Clinic 2 QTR90. p3-4) TAURUS
[2019-11-22] MEDS ORDERED: predniSONE 10 MG TABLET PO SCH (09:00)
== END 2019-11-16 13:50 | disposition home or self-care (01) | DRG 445 ==
LOC: ED 15:52 → SUATTDRO 18:46 → 2W 18:46

== ENCOUNTER 2020-04-21 05:24 | Observation (INO) ==
--- NOTE | 2020-04-15 08:24 | PAT Medication Instructions ---
Medication Instructions Date of Service April 15, 2020 Home Medications Medication Instructions Recorded gabapentin 400 mg PO BID #60 cap 11/16/19 Flovent HFA 2 puff INHALATION BID Tart Roldan 1 cap PO HS Trulicity 0.75 mg SUBCUT WK Xarelto 20 mg PO HS albuterol sulfate [ProAir HFA] 2 puff INHALATION BID docusate sodium [Colace] 200 mg PO HS glipizide 5 mg PO BID metformin 500 mg PO BID modafinil 200 mg PO DAILY PRN tadalafil [Cialis] 20 mg PO DAILY PRN torsemide 20 mg PO QAM triamcinolone acetonide [Nasacort] 2 spray INTRANASAL HS losartan 100 mg tablet 100 mg PO QAM allopurinol 100 mg tablet 100 mg PO QAM amlodipine 5 mg tablet 5 mg PO BID coenzyme Q10 100 mg capsule 100 mg PO DAILY cyanocobalamin (vitamin B-12) 1,000 mcg tablet 1,000 mcg PO DAILY doxazosin 2 mg tablet 2 mg PO HS eplerenone 25 mg tablet 25 mg PO BID insulin glargine U-300 conc 300 unit/mL (1.5 mL) subcutaneous pen 40 units SUBCUT BID metolazone 10 mg tablet 10 mg PO QAM metoprolol succinate 25 mg tablet,extended release 24 hr 50 mg PO BID potassium chloride 10 mEq tablet,extended release 20 meq PO BID Probiotic 3 mmu cells PO DAILY cholecalciferol (vitamin D3) [Vitamin D3] 25 mcg PO DAILY cranberry 400 mg PO BID omega 5-xtg-lpk-fish oil [Fish Oil] 1 cap PO BID vitamin K2 40 mcg PO DAILY gabapentin 400 mg PO BID anastrozole 1 mg PO Q2D calcium carbonate [Tums] 200 mg PO UD PRN insulin lispro [Humalog U-100 Insulin] 1 sliding scale dose SUBCUT USEASDIRECTD Continue as directed anastrozole 1 mg PO Q2D (unless surgeon instructs otherwise) Trulicity 0.75 mg SUBCUT WK ASK your prescriber and surgeon Xarelto 20 mg PO HS STOP taking 2 weeks before surgery (or stop as soon as possible) coenzyme Q10 100 mg capsule 100 mg PO DAILY cranberry 400 mg PO BID omega 9-buf-xcr-fish oil [Fish Oil] 1 cap PO BID vitamin K2 40 mcg PO DAILY Tart Roldan 1 cap PO HS STOP taking 24 hours before surgery tadalafil [Cialis] 20 mg PO DAILY PRN DO NOT take the morning of surgery losartan 100 mg tablet 100 mg PO QAM cyanocobalamin (vitamin B-12) 1,000 mcg tablet 1,000 mcg PO DAILY insulin lispro [Humalog U-100 Insulin] 1 sliding scale dose SUBCUT USEASDIRECTD calcium carbonate [Tums] 200 mg PO UD PRN Probiotic 3 mmu cells PO DAILY cholecalciferol (vitamin D3) [Vitamin D3] 25 mcg PO DAILY potassium chloride 10 mEq tablet,extended release 20 meq PO BID eplerenone 25 mg tablet 25 mg PO BID metolazone 10 mg tablet 10 mg PO QAM glipizide 5 mg PO BID metformin 500 mg PO BID torsemide 20 mg PO QAM modafinil 200 mg PO DAILY PRN Take morning of surgery With a small sip of water, OTHERWISE NOTHING TO EAT OR DRINK AFTER MIDNIGHT: allopurinol 100 mg tablet 100 mg PO QAM amlodipine 5 mg tablet 5 mg PO BID gabapentin 400 mg PO BID metoprolol succinate 25 mg tablet,extended release 24 hr 50 mg PO BID Flovent HFA 2 puff INHALATION BID albuterol sulfate [ProAir HFA] 2 puff INHALATION BID (use if needed; please bring with you to hospital day of surgery if possible) Take evening before surgery triamcinolone acetonide [Nasacort] 2 spray INTRANASAL HS amlodipine 5 mg tablet 5 mg PO BID doxazosin 2 mg tablet 2 mg PO HS eplerenone 25 mg tablet 25 mg PO BID insulin glargine U-300 conc 300 unit/mL (1.5 mL) subcutaneous pen 40 units SUBCUT BID metoprolol succinate 25 mg tablet,extended release 24 hr 50 mg PO BID potassium chloride 10 mEq tablet,extended release 20 meq PO BID gabapentin 400 mg PO BID calcium carbonate [Tums] 200 mg PO UD PRN insulin lispro [Humalog U-100 Insulin] 1 sliding scale dose SUBCUT USEASDIRECTD Flovent HFA 2 puff INHALATION BID albuterol sulfate [ProAir HFA] 2 puff INHALATION BID docusate sodium [Colace] 200 mg PO HS glipizide 5 mg PO BID metformin 500 mg PO BID Insulin Dependent Diabetic Patients * Test your blood sugar the morning of surgery * If Blood Sugar is GREATER THAN 150, take HALF of your regular dose of: insulin glargine U-300 conc 300 unit/mL (1.5 mL) subcutaneous pen (20 units) * If Blood Sugar is LESS THAN 150, DO NOT TAKE ANY: insulin glargine U-300 conc 300 unit/mL (1.5 mL) subcutaneous pen Other Notes If you have any questions please call us at [phone] or [phone] or [phone] or [phone]
--- NOTE | 2020-04-15 16:44 | Anesthesiology Consultation ---
Date of Service April 15, 2020 Assessment & Plan (1) Encounter for pre-operative examination: Per nursing phone assessment on 04/14: Travel screen negative. No known COVID- 19 positive contacts. No current COVID-19 related symptoms. Patient scheduled for preop protocol COVID-19 testing 04/18 ([place]). Awaiting results. - Check BSG AM DOS - Xarelto instructions per surgeon/prescriber - Possible difficult intubation: Per patient, has needed "small tube" in the past, no further details per RN phone interview Chart Review Chart Review: Acceptable Risk for Surgery (pending evaluation AM DOS) and Patient NOT seen in Pre Admission Testing History Surgery Operation Date: 04/21/20 07:00 Proposed Procedures p Laparoscopic Cholecystectomy, Possible Cholangiogram - Jose Dave MD, FACS s Endoscopic Ultrasonography Upper - Adriana Redman MD Height/Weight Height: 5 ft 10 in Weight: 120.202 kg Allergies Allergy/AdvReac Type Severity Reaction Status Date / Time No Known Drug Allergies Allergy Unknown Unknown Verified 04/14/20 15:27 Medications Home Medications Medication Instructions Recorded Confirmed Last Taken Flovent HFA 2 puff INHALATION BID 06/02/19 04/14/20 11/14/19 Tart Roldan 1 cap PO HS 06/02/19 04/14/20 11/14/19 Trulicity 0.75 mg SUBCUT WK 06/02/19 04/14/20 11/11/19 Xarelto 20 mg PO HS 06/02/19 04/14/20 11/13/19 albuterol sulfate [ProAir HFA] 2 puff INHALATION BID 06/02/19 04/14/20 11/14/19 docusate sodium [Colace] 200 mg PO HS 06/02/19 04/14/20 11/13/19 glipizide 5 mg PO BID 06/02/19 04/14/20 11/14/19 metformin 500 mg PO BID 06/02/19 04/14/20 11/14/19 modafinil 200 mg PO DAILY PRN 06/02/19 04/14/20 Unknown tadalafil [Cialis] 20 mg PO DAILY PRN 06/02/19 04/14/20 Unknown torsemide 20 mg PO QAM 06/02/19 04/14/20 11/14/19 triamcinolone acetonide [Nasacort] 2 spray INTRANASAL HS 06/02/19 04/14/20 11/13/19 losartan 100 mg tablet 100 mg PO QAM 07/14/19 04/14/20 11/14/19 allopurinol 100 mg tablet 100 mg PO QAM tab 10/14/19 04/14/20 11/14/19 amlodipine 5 mg tablet 5 mg PO BID 10/14/19 04/14/20 11/14/19 coenzyme Q10 100 mg capsule 100 mg PO DAILY cap 10/14/19 04/14/20 11/14/19 cyanocobalamin (vitamin B-12) 1,000 mcg PO DAILY 10/14/19 04/14/20 11/14/19 1,000 mcg tablet doxazosin 2 mg tablet 2 mg PO HS 10/14/19 04/14/20 11/14/19 eplerenone 25 mg tablet 25 mg PO BID 10/14/19 04/14/20 11/14/19 insulin glargine U-300 conc 300 40 units SUBCUT BID ml 10/14/19 04/14/20 11/13/19 unit/mL (1.5 mL) subcutaneous pen metolazone 10 mg tablet 10 mg PO QAM 10/14/19 04/14/20 11/13/19 metoprolol succinate 25 mg 50 mg PO BID tab 10/14/19 04/14/20 11/14/19 tablet,extended release 24 hr potassium chloride 10 mEq 20 meq PO BID 10/14/19 04/14/20 11/14/19 tablet,extended release Probiotic 3 mmu cells PO DAILY 11/11/19 04/14/20 11/14/19 cholecalciferol (vitamin D3) 25 mcg PO DAILY 11/11/19 04/14/20 11/14/19 [Vitamin D3] cranberry 400 mg PO BID 11/11/19 04/14/20 11/14/19 omega 5-fxj-xhr-fish oil [Fish Oil] 1 cap PO BID 11/11/19 04/14/20 11/14/19 vitamin K2 40 mcg PO DAILY 11/11/19 04/14/20 11/14/19 gabapentin 400 mg PO BID #60 cap 11/16/19 04/14/20 Unknown anastrozole 1 mg PO Q2D 04/14/20 04/14/20 Unknown calcium carbonate [Tums] 200 mg PO UD PRN 04/14/20 04/14/20 Unknown insulin lispro [Humalog U-100 1 sliding scale dose SUBCUT 04/14/20 04/14/20 Unknown Insulin] USEASDIRECTD Past Medical History Medical History (Updated 04/15/20 @ 16:40 by Rosario Treadwell) Acid reflux tums PRN Aortic stenosis, mild per 05/2019 echo Atrial fibrillation Status post pulmonary vein isolation at [facility], multiple cardioversions, Follows w/ Dr. Pandya BPH (benign prostatic hyperplasia) BPPV (benign paroxysmal positional vertigo) CHF (congestive heart failure) hx Cholelithiases Chronic kidney disease, stage 3 Baseline creatine per records 1.2-1.4 COPD (chronic obstructive pulmonary disease) Gout Hypertension Sleep apnea CPAP Type 2 diabetes mellitus with diabetic neuropathy IDDM Past Family History Family History Mother , mid 80s of dementia Alzheimer disease Hypertension Father , age 98 with dementia Dementia Colon cancer Other No pertinent family history Past Surgical History Surgical History (Updated 04/18/20 @ 08:58 by Rosario Treadwell) History of cardiac radiofrequency ablation X2 History of cardioversion History of colonoscopy History of right hip replacement S/P tonsillectomy Past Anesthesia History Difficult Airway (Possible- has needed "small tube" in the past, no further details per RN phone interview) Social History Smoking Status: Never smoker Do You Dip or Chew Tobacco: No Hx Alcohol Use: No Hx Substance Use: No substance use type: does not use Testing Laboratory Results 04/08/20 WBC 6.4 H/H 12.9/38.5 PLATELETS 178 SODIUM 137 POTASSIUM 3.7 CHLORIDE 94 CO2 35 BUN 34 CREATININE 1.40 GLUCOSE 292- surgeon's office made aware 11/15/19 HGBA1C 9.3% (estimated average glucose 220)- surgeon's office made aware Electrocardiogram Date: 11/14/19 Findings: + AFIB @ (82) Left axis deviation, incomplete right bundle branch, possible anterior infarct. Compared to EKG from 11/11/2019, incomplete right bundle branch block is now present, borderline criteria for anterior infarct are now present, criteria for inferior infarct are no longer present. Chest X-Ray Date: 11/14/19 Findings: + NAD. Cardiomegaly. No acute findings. There is minor chronic interstitial thickening. Indistinctness of the left heart border is felt to be chronic and likely secondary to a prominent fat-pad Echocardiogram Date: 06/03/19 EF: 60 to 65% RWMA: + none Other Findings: + LVH (Mild/concentric) Valvular Disease: + (Mild) and + MR (Mild) Diastolic dysfunction. Severe left atrial enlargement. Mild pulmonary hypertensionestimated PASP 40 to 45 mmHg.
[2020-04-21] MEDS ORDERED: cefUROXime 1,500 MG in DEXTROSE 5% 100 ML IV SCH (06:00)
[2020-04-21] MEDS ORDERED: LR 15ML/HR IV SCH (06:00)
--- NOTE | 2020-04-21 06:09 | History & Physical Report ---
Date of Service April 21, 2020 Assessment & Plan (1) Transaminitis: Patient is for laparoscopic cholecystectomy He will be admitted for observation He has a history of being on Xarelto History of Present Illness Primary Care Provider: Jennifer Moser MD 75-year-old male being brought in the hospital for endoscopic ultrasound And laparoscopic cholecystectomy Has a history of prior admission for abdominal pain and elevated LFTs which was felt to be a stone passing through the common bile duct He also has gallstones on his MRCP Patient is on Xarelto Allergies Allergy/AdvReac Type Severity Reaction Status Date / Time No Known Drug Allergies Allergy Unknown Unknown Verified 04/21/20 05:39 Home Medications Home Medications Medication Instructions Recorded Confirmed Type Flovent HFA 2 puff INHALATION BID 06/02/19 04/21/20 History Tart Roldan 1 cap PO HS 06/02/19 04/21/20 History Trulicity 0.75 mg SUBCUT WK 06/02/19 04/21/20 History Xarelto 20 mg PO HS 06/02/19 04/21/20 History albuterol sulfate [ProAir HFA] 2 puff INHALATION BID 06/02/19 04/21/20 History docusate sodium [Colace] 200 mg PO HS 06/02/19 04/21/20 History glipizide 5 mg PO BID 06/02/19 04/21/20 History metformin 500 mg PO BID 06/02/19 04/21/20 History modafinil 200 mg PO DAILY PRN 06/02/19 04/21/20 History tadalafil [Cialis] 20 mg PO DAILY PRN 06/02/19 04/21/20 History torsemide 20 mg PO QAM 06/02/19 04/21/20 History triamcinolone acetonide [Nasacort] 2 spray INTRANASAL HS 06/02/19 04/21/20 History losartan 100 mg tablet 100 mg PO QAM 07/14/19 04/21/20 History allopurinol 100 mg tablet 100 mg PO QAM tab 10/14/19 04/21/20 History amlodipine 5 mg tablet 5 mg PO BID 10/14/19 04/21/20 History coenzyme Q10 100 mg capsule 100 mg PO DAILY cap 10/14/19 04/21/20 History cyanocobalamin (vitamin B-12) 1,000 mcg PO DAILY 10/14/19 04/21/20 History 1,000 mcg tablet doxazosin 2 mg tablet 2 mg PO HS 10/14/19 04/21/20 History eplerenone 25 mg tablet 25 mg PO BID 10/14/19 04/21/20 History insulin glargine U-300 conc 300 40 units SUBCUT BID ml 10/14/19 04/21/20 History unit/mL (1.5 mL) subcutaneous pen metolazone 10 mg tablet 10 mg PO QAM 10/14/19 04/21/20 History metoprolol succinate 25 mg 50 mg PO BID tab 10/14/19 04/21/20 History tablet,extended release 24 hr potassium chloride 10 mEq 20 meq PO BID 10/14/19 04/21/20 History tablet,extended release Probiotic 3 mmu cells PO DAILY 11/11/19 04/21/20 History cholecalciferol (vitamin D3) 25 mcg PO DAILY 11/11/19 04/21/20 History [Vitamin D3] cranberry 400 mg PO BID 11/11/19 04/21/20 History omega 7-gpf-uvw-fish oil [Fish Oil] 1 cap PO BID 11/11/19 04/21/20 History vitamin K2 40 mcg PO DAILY 11/11/19 04/21/20 History gabapentin 400 mg PO BID #60 cap 11/16/19 04/21/20 Rx anastrozole 1 mg PO Q2D 04/14/20 04/21/20 History calcium carbonate [Tums] 200 mg PO UD PRN 04/14/20 04/21/20 History insulin lispro [Humalog U-100 1 sliding scale dose SUBCUT 04/14/20 04/21/20 History Insulin] USEASDIRECTD meloxicam 15 mg tablet 15 mg PO QAM PRN #30 tab 04/19/20 04/21/20 Rx atorvastatin 40 mg PO HS 04/21/20 04/21/20 History Past Med/Surg History Family History Mother , mid 80s of dementia Alzheimer disease Hypertension Father , age 98 with dementia Dementia Colon cancer Other No pertinent family history Social History Smoking Status: Never smoker Second Hand Exposure: No; Do You Dip or Chew Tobacco: No; Hx Alcohol Use: No Hx Substance Use: No Preferred Language: Swazi Communication Ability: Effective Steam Press Tender Required: No Beliefs That Will Affect Care: None marital status: Current Living Situation: Spouse current occupational status: retired Other Information That Helps Us Care for You: No other: 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 Feels Safe at Home: Yes Review of Systems All systems reviewed & are unremarkable except as noted in HPI & below Physical Exam Constitutional: well developed and well nourished; no acute distress Eyes: + anicteric sclerae Respiratory: normal respiratory effort; no respiratory distress Cardiovascular: Rate/Rhythm: regular rate Gastrointestinal (Abdomen): Percussion/Palpation: abdomen soft Musculoskeletal: Gait: normal gait Skin: no rashes, warm and dry Neurologic: awake Psychiatric: Orientation: alert Results & Data Vital Signs (Past 12 Hours) Vital Signs Temp Pulse Resp BP Pulse Ox 04/21/20 05:54 36.7 C 72 18 138/71 94
[2020-04-21] MEDS ORDERED: fentaNYL citrate 100 MCG/2 ML VIAL ONE ×2 (06:43→08:36)
[2020-04-21] MEDS ORDERED: MIDAZOLAM HCL 1 MG/ML 2ML VIAL ONE (06:43)
[2020-04-21] MEDS ORDERED: BUPIVACAINE 0.5 % 5 MG/1 ML MPF 30ML VIAL ONE (06:44)
[2020-04-21] MEDS ORDERED: HYDROmorphone INJ 0.5 MG/0.5 ML SYR IV PRN (06:54)
[2020-04-21] MEDS ORDERED: ONDANSETRON INJ 2 MG/ML 2 ML VIAL IV PRN ×2 (06:54→10:37)
[2020-04-21] MEDS ORDERED: ePHEDrine sulfate 50 MG/ML AMP IV PRN (06:54)
[2020-04-21] MEDS ORDERED: fentaNYL citrate 100 MCG/2 ML VIAL IV PRN (06:54)
[2020-04-21] MEDS ORDERED: PHENYLEPHRINE 100MCG/ML 5ML SYR IV PRN (06:54)
[2020-04-21] MEDS ORDERED: LABETALOL HCL IV 5 MG/ML 20ML IV PRN (06:54)
[2020-04-21] MEDS ORDERED: ATROPINE SULFATE 0.1 MG/ML 10ML SYR IV PRN (06:54)
[2020-04-21] MEDS ORDERED: MEPERIDINE HCL 25 MG/ML CARP/VIAL IV PRN (06:54)
--- NOTE | 2020-04-21 07:01 | History & Physical Report ---
Date of Service April 21, 2020 Assessment & Plan (1) Encounter for pre-operative examination: History of Present Illness Primary Care Provider: Jennifer Moser MD EUS +/- ERCP for pancreatic cysts and r/o choledocholithiasis Allergies Allergy/AdvReac Type Severity Reaction Status Date / Time No Known Drug Allergies Allergy Unknown Unknown Verified 04/21/20 05:39 Home Medications Home Medications Medication Instructions Recorded Confirmed Type Flovent HFA 2 puff INHALATION BID 06/02/19 04/21/20 History Tart Roldan 1 cap PO HS 06/02/19 04/21/20 History Trulicity 0.75 mg SUBCUT WK 06/02/19 04/21/20 History Xarelto 20 mg PO HS 06/02/19 04/21/20 History albuterol sulfate [ProAir HFA] 2 puff INHALATION BID 06/02/19 04/21/20 History docusate sodium [Colace] 200 mg PO HS 06/02/19 04/21/20 History glipizide 5 mg PO BID 06/02/19 04/21/20 History metformin 500 mg PO BID 06/02/19 04/21/20 History modafinil 200 mg PO DAILY PRN 06/02/19 04/21/20 History tadalafil [Cialis] 20 mg PO DAILY PRN 06/02/19 04/21/20 History torsemide 20 mg PO QAM 06/02/19 04/21/20 History triamcinolone acetonide [Nasacort] 2 spray INTRANASAL HS 06/02/19 04/21/20 History losartan 100 mg tablet 100 mg PO QAM 07/14/19 04/21/20 History allopurinol 100 mg tablet 100 mg PO QAM tab 10/14/19 04/21/20 History amlodipine 5 mg tablet 5 mg PO BID 10/14/19 04/21/20 History coenzyme Q10 100 mg capsule 100 mg PO DAILY cap 10/14/19 04/21/20 History cyanocobalamin (vitamin B-12) 1,000 mcg PO DAILY 10/14/19 04/21/20 History 1,000 mcg tablet doxazosin 2 mg tablet 2 mg PO HS 10/14/19 04/21/20 History eplerenone 25 mg tablet 25 mg PO BID 10/14/19 04/21/20 History insulin glargine U-300 conc 300 40 units SUBCUT BID ml 10/14/19 04/21/20 History unit/mL (1.5 mL) subcutaneous pen metolazone 10 mg tablet 10 mg PO QAM 10/14/19 04/21/20 History metoprolol succinate 25 mg 50 mg PO BID tab 10/14/19 04/21/20 History tablet,extended release 24 hr potassium chloride 10 mEq 20 meq PO BID 10/14/19 04/21/20 History tablet,extended release Probiotic 3 mmu cells PO DAILY 11/11/19 04/21/20 History cholecalciferol (vitamin D3) 25 mcg PO DAILY 11/11/19 04/21/20 History [Vitamin D3] cranberry 400 mg PO BID 11/11/19 04/21/20 History omega 4-wda-yry-fish oil [Fish Oil] 1 cap PO BID 11/11/19 04/21/20 History vitamin K2 40 mcg PO DAILY 11/11/19 04/21/20 History gabapentin 400 mg PO BID #60 cap 11/16/19 04/21/20 Rx anastrozole 1 mg PO Q2D 04/14/20 04/21/20 History calcium carbonate [Tums] 200 mg PO UD PRN 04/14/20 04/21/20 History insulin lispro [Humalog U-100 1 sliding scale dose SUBCUT 04/14/20 04/21/20 History Insulin] USEASDIRECTD meloxicam 15 mg tablet 15 mg PO QAM PRN #30 tab 04/19/20 04/21/20 Rx atorvastatin 40 mg PO HS 04/21/20 04/21/20 History Past Med/Surg History Family History Mother , mid 80s of dementia Alzheimer disease Hypertension Father , age 98 with dementia Dementia Colon cancer Other No pertinent family history Social History Smoking Status: Never smoker Second Hand Exposure: No; Do You Dip or Chew Tobacco: No; Hx Alcohol Use: No Hx Substance Use: No Preferred Language: Malay Communication Ability: Effective Audiovisual Aids Technician Required: No Beliefs That Will Affect Care: None marital status: Current Living Situation: Spouse current occupational status: retired Other Information That Helps Us Care for You: No 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
[2020-04-21] MEDS ORDERED: PROPOFOL IV EMULSION 10 MG/ML 20 ML VIAL IV ONE (07:47)
[2020-04-21] MEDS ORDERED: ROCURONIUM BROMIDE 10 MG/ML 5 ML VIAL IV ONE (07:48)
[2020-04-21] MEDS ORDERED: LIDOCAINE HCL 2% 2 ML VIAL/AMP(20MG/ML) INFIL ONE (07:48)
[2020-04-21] MEDS ORDERED: NEOSTIGMINE METHYLSULFATE 5 MG/5 ML SYR ONE (07:48)
[2020-04-21] MEDS ORDERED: GLYCOPYRROLATE 0.2 MG/ML VIAL ONE (07:48)
--- NOTE | 2020-04-21 08:10 | Operative Report ---
Post Operative Report Pre & Post Diagnosis Operation Date: 04/21/20 07:00 Pre-Op Diagnosis: CHOLELITHIASIS, PANCREATIC CYST Post-Op Diagnosis: PANCREATIC CYST I identified the patient and participated in the time-out.: Yes Procedure Operation Date: 04/21/20 07:00 Actual Procedures p Laparoscopic Cholecystectomy with Cholangiogram(Not Applicable) - Jose Dave MD, FACS s Upper Endoscopic Ultrasonography(Not Applicable) - Adriana Redman MD Surgeon Adriana Redman MD Cardiothoracic Icu Rn None Estimated Blood Loss 0 Findings See Below (Pancreas cyst ) Specimens Cyst aspirate Description of Procedure EUS I attest to the content of the Intraoperative Record and any orders documented therein. Any exceptions are noted below.
--- NOTE | 2020-04-21 08:24 | GI REPORT ---
Patient Name: Andre Abreu Procedure Date: 04/21/2020 7:06 AM Date of : 1945 Admit Type: Outpatient Age: 75 Gender: Male Attending MD: Adriana Redman MD Procedure: Upper GI endoscopy Providers: Adriana Redman MD Referring MD: Jose Dave Indications: Suspected gastro-esophageal reflux disease, Abnormal MRI of the GI tract Medicines: General Anesthesia Complications: No immediate complications. Estimated Blood Loss: Estimated blood loss: none. Procedure: Pre-Anesthesia Assessment: - Prior to the procedure, a History and Physical was performed, and patient medications, allergies and sensitivities were reviewed. The patient's tolerance of previous anesthesia was reviewed. - The risks and benefits of the procedure and the sedation options and risks were discussed with the patient. All questions were answered and informed consent was obtained. - Patient identification and proposed procedure were verified prior to the procedure by the physician and the nurse. The procedure was verified in the procedure room. - Pre-procedure physical examination revealed no contraindications to sedation. After obtaining informed consent, the endoscope was passed under direct vision. Throughout the procedure, the patient's blood pressure, pulse, and oxygen saturations were monitored continuously. The Endoscope was introduced through the mouth, and advanced to the second part of duodenum. The upper GI endoscopy was accomplished without difficulty. The patient tolerated the procedure well. Findings: The examined esophagus was normal. The entire examined stomach was normal. The duodenal bulb and second portion of the duodenum were normal. Impression: - Normal esophagus. - Normal stomach. - Normal duodenal bulb and second portion of the duodenum. Recommendation: - Perform an upper endoscopic ultrasound (UEUS) today. Adriana Redman MD 04/21/2020 8:23:49 AM This report has been signed electronically. Note Initiated On: 04/21/2020 7:06 AM Number of Addenda: 0 I attest to the content of the Intraoperative Record and orders documented therein, exceptions below {[id number]}
--- NOTE | 2020-04-21 08:37 | GI REPORT ---
Patient Name: Andre Abreu Procedure Date: 04/21/2020 7:07 AM Date of : 1945 Admit Type: Outpatient Age: 75 Gender: Male Attending MD: Adriana Redman MD Procedure: Upper EUS Providers: Adriana Redman MD Referring MD: Jose Dave Indications: Pancreatic cyst on MRCP, Suspected choledocholithiasis Medicines: General Anesthesia, Cefuroxime Complications: No immediate complications. Estimated Blood Loss: Estimated blood loss: none. Procedure: Pre-Anesthesia Assessment: - Prior to the procedure, a History and Physical was performed, and patient medications, allergies and sensitivities were reviewed. The patient's tolerance of previous anesthesia was reviewed. - The risks and benefits of the procedure and the sedation options and risks were discussed with the patient. All questions were answered and informed consent was obtained. - Patient identification and proposed procedure were verified prior to the procedure by the physician and the nurse. The procedure was verified in the procedure room. - Pre-procedure physical examination revealed no contraindications to sedation. After obtaining informed consent, the endoscope was passed under direct vision. Throughout the procedure, the patient's blood pressure, pulse, and oxygen saturations were monitored continuously. The scope was introduced through the mouth, and advanced to the second part of duodenum. The upper EUS was accomplished without difficulty. The patient tolerated the procedure well. Findings: ENDOSONOGRAPHIC FINDING: (limited exam due to fat related shadowing artifact). : There was no sign of significant endosonographic abnormality in the ampulla. No masses were identified. There was no sign of significant endosonographic abnormality in the common bile duct. The maximum diameter of the duct was 4 mm. No stones and no biliary sludge were identified. Many stones were visualized endosonographically in the gallbladder. They were hyperechoic and characterized by shadowing. There was abnormal echotexture in the visualized portion of the liver suggestive of fatty liver. Pancreatic parenchymal abnormalities were noted in the entire pancreas. These consisted of atrophy, diffuse echogenicity, lobularity and cysts. Pancreatic duct diameter measured 2 mm in the head and 1.5 mm in the body. An anechoic lesion suggestive of a cyst was identified in the pancreatic tail. It is not in obvious communication with the pancreatic duct. The lesion measured 12 mm in maximal cross-sectional diameter. There was a single compartment without septae. The outer wall of the lesion was thin. There was no associated mass. There was no internal debris within the fluid-filled cavity. Diagnostic needle aspiration for fluid was performed. Color Doppler imaging was utilized prior to needle puncture to confirm a lack of significant vascular structures within the needle path. One pass was made with the 22 gauge needle using a transgastric approach. A stylet was used. The amount of fluid collected was 2 mL. Sample(s) were sent for cytology and CEA. Verification of patient identification for the specimen was done by the physician and nurse using the patient's name and date. Anechoic lesions suggestive of a few cysts were identified in the pancreatic body and pancreatic tail. The largest lesion measured 6 mm in maximal cross-sectional diameter. There was no associated mass. There was no sign of significant endosonographic abnormality involving the celiac trunk. Impression: - There was no sign of significant pathology in the ampulla. - There was no sign of significant pathology in the common bile duct. No stones. - Many stones were visualized endosonographically in the gallbladder. - There was abnormal echotexture in the visualized portion of the liver suggestive of pete liver. - Pancreatic parenchymal abnormalities were noted in the entire pancreas consistent with atrophic fatty pancreas. PD was normal. 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 Fine needle aspiration for fluid performed. - A few subcentimer cysts were seen in the pancreatic body and pancreatic tail likely side branch IPMN, no worrisome features. - The celiac trunk was endosonographically normal. Recommendation: - Discharge patient to home. - Await cytology results. - Perform magnetic resonance imaging (MRI) with gadolinium in 3 months given limitations of today's exam. - Return to referring physician. Adriana Redman MD 04/21/2020 8:36:37 AM This report has been signed electronically. Note Initiated On: 04/21/2020 7:07 AM Number of Addenda: 0 I attest to the content of the Intraoperative Record and orders documented therein, exceptions below {[id number]}
[2020-04-21] MEDS ORDERED: ACETAMINOPHEN 1,000 MG/100 ML VIAL IV ONE (09:09)
--- NOTE | 2020-04-21 09:09 | Post Operative Brief Note ---
PG Immediate Post Op with CF Date of Surgery April 21, 2020 Pre & Post Diagnosis Operation Date: 04/21/20 07:00 Pre-Op Diagnosis: CHOLELITHIASIS, PANCREATIC CYST Post-Op Diagnosis: CHOLELITHIASIS, PANCREATIC CYST adhesions I identified the patient and participated in the time-out.: Yes Procedure Operation Date: 04/21/20 07:00 Actual Procedures p Laparoscopic Cholecystectomy (Not Applicable) - Jose Dave MD, FACS lysis of adhesions s Upper Endoscopic Ultrasonography(Not Applicable) - Adriana Redman MD Surgeon Jose Dave MD, FACS Greeting Card Editor None Estimated Blood Loss 20 Findings Consistent with Post-Op Diagnosis Specimens Specimen Description: Permanent Solution: A.) Gallbladder and Contents
[2020-04-21] MEDS ORDERED: INSULIN ASPART PER UNIT ONE (09:55)
[2020-04-21] MEDS ORDERED: INSULIN ASPART PER UNIT SC STA (09:56)
--- NOTE | 2020-04-21 09:58 | Anesthesiology Progress Note ---
Date of Service April 21, 2020 Anesthesia Post Procedure Vital Signs Vital Signs: Temp Pulse Pulse Resp BP Pulse Ox 04/21/20 09:50 36.2 C L 67 21 134/69 94 04/21/20 09:40 64 18 132/70 94 04/21/20 09:32 36 C L 61 16 125/69 93 04/21/20 05:54 36.7 C 72 18 138/71 94 Transfer of Care Handoff Completed per policy Notes Mental Status: alert / awake / arousable Patient Amnestic to Procedure: Yes Nausea / Vomiting: adequately controlled Pain: adequately controlled Airway Patency, RR, SpO2: stable & adequate BP & HR: stable & adequate Hydration State: stable & adequate Anesthetic Complications: no major complications apparent and Pt Satisfied with anesthetic care Notes: The patient is awake and comfortable. His vital signs are stable. Postop BSG was 243. He will be given Novolog insulin 8 units SC. His BSG will be rechecked on the floor.
--- NOTE | 2020-04-21 10:23 | Operative Report (OR) ---
DATE OF OPERATION: 04/21/2020 NAME OF OPERATION: Laparoscopic cholecystectomy with lysis of adhesions. PREOPERATIVE DIAGNOSES: Cholelithiasis and transaminitis. POSTOPERATIVE DIAGNOSES: Cholelithiasis and transaminitis. STAFF SURGEON: Jose Dave MD. GASOLINE ATTENDANT: Nurses. ANESTHESIA: General. DESCRIPTION OF PROCEDURE: The patient was in the operating room on the operating room table in supine position. Dr. Redman had just performed EUS. The patient's abdomen was prepped and draped in usual fashion. 0.5% plain Marcaine was used to anesthetize skin and subcutaneous tissue above the umbilicus. Incision made carrying dissection down to the fascia, placing a Veress needle producing pneumoperitoneum and then placing an 11 mm port. Under visualization, three 5 mm ports were placed, 1 cephalad and 2 laterally. The patient was placed in reverse Trendelenburg position. The patient had an enormous omentum up over the liver, which was somewhat difficult to retract down, but I was able to identify the gallbladder and grasp it. We did have some spillage of bile, which was aspirated. Gallbladder was retracted with some difficulty because of the patient's obesity. Dissection carried out to niki hepatis, identifying the cystic duct and cystic artery. These were clipped and transected and the gallbladder dissected away from the liver bed in the usual fashion. The patient did have adhesions of the omentum and surrounding tissue to the gallbladder, including the duodenum. These were taken down prior to mobilizing and removing the gallbladder from the liver bed. Gallbladder was placed in an Endobag. After appropriate hemostasis and irrigation, the Endobag was removed through the umbilical site. The pneumoperitoneum had been reduced with suction. All ports were removed. Fascia at the umbilicus closed using 0 PDS suture and then the skin reapproximated using 4-0 nylon suture. The patient was transferred to recovery room in stable condition. I attest to the content of the Intraoperative Record and any orders documented therein. Any exception s are noted below.
[2020-04-21] MEDS ORDERED: ACETAMINOPHEN 325 MG TAB PO PRN (10:37)
[2020-04-21] MEDS ORDERED: MoRPHine SULFATE 4 MG/ML 1 ML CARP\\VIAL IV PRN (10:37)
[2020-04-21] MEDS ORDERED: HYDROCODONE/ACETAMOPHEN 5/325MG TAB PO PRN (10:37)
[2020-04-21] MEDS ORDERED: PROMETHAZINE HCL 12.5 MG in SODIUM CHLORIDE 0.9% 50 ML IV PRN (10:37)
[2020-04-21] MEDS ORDERED: LACTATED RINGER'S 1,000 ML IV SCH (10:37)
[2020-04-21] MEDS ORDERED: MoRPHine SULFATE 2 MG/ML CARP IV PRN (10:37)
[2020-04-21] MEDS ORDERED: SUCCINYLCHOLINE CHLORIDE 20 MG/ML 10 ML VIAL IV ONE (11:15)
[2020-04-21] MEDS: HYDROCODONE/ACETAMOPHEN 5/325MG TAB PO PRN ×3 (11:16→21:07)
--- NOTE | 2020-04-21 14:17 | Hospitalist Consultation ---
Date of Consultation April 21, 2020 Assessment & Plan (1) Status post cholecystectomy: Pain and post op management as per Dr Dave Restart Xarelto when ok by surgery (2) Pancreas cyst: Follow up with GI outpatient for results (3) Diabetes mellitus type 2 in obese: Total insulin @ home 200 units daily in addition to glipizide 5mg BID and Trulicity HbA1C with AM labs (9.3 in Oct) Start lantus tinight at his usual 40 units BID Novolog sliding scale per insulin scale calculated with total basal dosing 10 correction factors, 3 carb ratio, additional midnight dose if remains high in evening. Can be discharged on usual regimen with close outpatient follow up with PCP or his manager project for optimization Discussed possible SGLT2 inhibitors beneficial in his case, likely glipizide not doing a lot given his pancreas size and function (4) Severe obstructive sleep apnea: Use own CPAP @ night (5) Chronic heart failure with preserved ejection fraction: Stop IV fluids given increased leg swelling and held diuretics pre-op. Unlikely to develop heart failure unless he develops a. fib. Hold eplerenone just for tonight. Can likely be restarted on all his usual diuretics tomorrow depending on AM labs Will defer to physician clinical assessment tomorrow for stability for discharge from this aspect (6) Paroxysmal atrial fibrillation: Restart Xarelto when ok from surgical stand point. Not particularly urgent given prior ablation unlikely to have current thrombus Currently in NSR s/p ablation (7) Gout: Continue allopurinol 100mg PO daily History of Present Illness Attending Physician: Jose Dave MD, FACS Andre Abreu is a 75-year-old male admission today under Dr. Dave for elective endoscopic ultrasound (performed by Dr. Redman) and laparoscopic cholecystectomy for cholelithiasis, elevated transaminases and pancreatic cyst. EGD was unremarkable. EUS performed for cyst aspiration - sent for pathology. Laparoscopic cholecystectomy performed earlier today with lysis of adhesions without any complications noted in the operation note. Estimated blood loss 20 mL. Patient current feels well. No questions or concerns. Mild abdominal pain post operatively. Already eating and drinking well. The patient was originally hospitalized back in October and diagnosed with presumed common bile duct stone which she passed without intervention and Klebsiella bacteremia - suspected source to be cholangitis. Plan for outpatient follow-up with Dr. Dave to consider lap cholecystectomy at that time however due t current pandemic this is been on hold. The patient has a significant past medical history of type 2 diabetes mellitus with insulin and oral medications (HbA1C 9.3 in Oct), severe obstructive sleep apnea (on auto titrating CPAP 5-12, occasionally reaching can stop pressure as per last sleep night), chronic congestive diastolic heart failure (occasionally related to increased rate from his atrial fibrillation, most recently hospitalized for this in May 2019). Allergies Allergy/AdvReac Type Severity Reaction Status Date / Time No Known Drug Allergies Allergy Unknown Unknown Verified 04/21/20 05:39 Home Medications Home Medications Medication Instructions Recorded Confirmed Type Flovent HFA 2 puff INHALATION BID 06/02/19 04/21/20 History Tart Roldan 1 cap PO HS 06/02/19 04/21/20 History Trulicity 0.75 mg SUBCUT WK 06/02/19 04/21/20 History Xarelto 20 mg PO HS 06/02/19 04/21/20 History albuterol sulfate [ProAir HFA] 2 puff INHALATION BID 06/02/19 04/21/20 History docusate sodium [Colace] 200 mg PO HS 06/02/19 04/21/20 History glipizide 5 mg PO BID 06/02/19 04/21/20 History metformin 500 mg PO BID 06/02/19 04/21/20 History modafinil 200 mg PO DAILY PRN 06/02/19 04/21/20 History tadalafil [Cialis] 20 mg PO DAILY PRN 06/02/19 04/21/20 History torsemide 20 mg PO QAM 06/02/19 04/21/20 History triamcinolone acetonide [Nasacort] 2 spray INTRANASAL HS 06/02/19 04/21/20 History losartan 100 mg tablet 100 mg PO QAM 07/14/19 04/21/20 History allopurinol 100 mg tablet 100 mg PO QAM tab 10/14/19 04/21/20 History amlodipine 5 mg tablet 5 mg PO BID 10/14/19 04/21/20 History coenzyme Q10 100 mg capsule 100 mg PO DAILY cap 10/14/19 04/21/20 History cyanocobalamin (vitamin B-12) 1,000 mcg PO DAILY 10/14/19 04/21/20 History 1,000 mcg tablet doxazosin 2 mg tablet 2 mg PO HS 10/14/19 04/21/20 History eplerenone 25 mg tablet 25 mg PO BID 10/14/19 04/21/20 History insulin glargine U-300 conc 300 40 units SUBCUT BID ml 10/14/19 04/21/20 History unit/mL (1.5 mL) subcutaneous pen metolazone 10 mg tablet 10 mg PO QAM 10/14/19 04/21/20 History metoprolol succinate 25 mg 50 mg PO BID tab 10/14/19 04/21/20 History tablet,extended release 24 hr potassium chloride 10 mEq 20 meq PO BID 10/14/19 04/21/20 History tablet,extended release Probiotic 3 mmu cells PO DAILY 11/11/19 04/21/20 History cholecalciferol (vitamin D3) 25 mcg PO DAILY 11/11/19 04/21/20 History [Vitamin D3] cranberry 400 mg PO BID 11/11/19 04/21/20 History omega 3-vqq-qjw-fish oil [Fish Oil] 1 cap PO BID 11/11/19 04/21/20 History vitamin K2 40 mcg PO DAILY 11/11/19 04/21/20 History gabapentin 400 mg PO BID #60 cap 11/16/19 04/21/20 Rx anastrozole 1 mg PO Q2D 04/14/20 04/21/20 History calcium carbonate [Tums] 200 mg PO UD PRN 04/14/20 04/21/20 History insulin lispro [Humalog U-100 1 sliding scale dose SUBCUT 04/14/20 04/21/20 History Insulin] USEASDIRECTD meloxicam 15 mg tablet 15 mg PO QAM PRN #30 tab 04/19/20 04/21/20 Rx atorvastatin 40 mg PO HS 04/21/20 04/21/20 History Patient History Medical History (Updated 04/21/20 @ 20:46 by Vito Dupree MD) Acid reflux tums PRN Aortic stenosis, mild per 05/2019 echo Atrial fibrillation Status post pulmonary vein isolation at [facility], multiple cardioversions, Follows w/ Dr. Pandya BPH (benign prostatic hyperplasia) BPPV (benign paroxysmal positional vertigo) CHF (congestive heart failure) hx Cholelithiases Chronic kidney disease, stage 3 Baseline creatine per records 1.2-1.4 COPD (chronic obstructive pulmonary disease) Gout Gram-negative bacteremia (Inactive) Hypertension Sleep apnea CPAP Type 2 diabetes mellitus with diabetic neuropathy IDDM Surgical History (Updated 04/21/20 @ 14:29 by Vito Dupree MD) History of cardiac radiofrequency ablation X2 History of cardioversion History of colonoscopy History of right hip replacement Hx laparoscopic cholecystectomy Laparoscopic cholecystectomy with lysis of adhesions. Dr. Dave 04/21/2020 S/P ERCP (04/21/20) Upper Endoscopic Ultrasonography Adriana Redman MD 04/21/2020 S/P tonsillectomy Family History Mother , mid 80s of dementia Alzheimer disease Hypertension Father , age 98 with dementia Dementia Colon cancer Other No pertinent family history Social History Smoking Status: Never smoker Second Hand Exposure: No; Do You Dip or Chew Tobacco: No; Hx Alcohol Use: No Hx Substance Use: No Preferred Language: Kyrgyz Communication Ability: Effective Doctor Of Dental Medicine Required: No Beliefs That Will Affect Care: None marital status: Current Living Situation: Spouse current occupational status: retired Other Information That Helps Us Care for You: No other: 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 Feels Safe at Home: Yes Safety Concerns: Feels Safe At This Time Review of Systems Review of Systems: All systems reviewed & are unremarkable except as noted in HPI & below Physical Exam Constitutional: well developed and + morbidly obese; no acute distress Eyes: + anicteric sclerae; normal pupil size ENMT: external ear and nose normal, oropharynx normal Neck: trachea midline, no thyromegaly Respiratory: normal respiratory effort; no respiratory distress Auscultation: + diminished lung sounds (bibasal, likely due to porr inspiratory effort with obesity) Cardiovascular: Rate/Rhythm: regular rate and regular rhythm Heart Sounds: no murmur Vessels: no JVD (difficult to assess with neck size) Extremities: normal capillary refill and + pedal edema (pitting edema 1+ to knees, equal b/l) Gastrointestinal (Abdomen): Inspection/Auscultation: abdomen normal to inspection and normal bowel sounds; abdomen not distended Percussion/Palpation: + abdomen tender (mild around surgical sites) and abdomen soft; no guarding and abdomen not rigid Musculoskeletal: no cyanosis or clubbing, extremities motor strength 5/5 Skin: no rashes, warm and dry Neurologic: moves all extremities and awake; not confused Psychiatric: A+Ox3, euthymic affect Results & Data Results & Data ([facility]) Vital Signs (Past 12 Hours) Vital Signs Temp Pulse Pulse Resp BP BP Pulse Ox 04/21/20 12:15 82 16 128/64 95 04/21/20 11:30 36.9 C 66 16 139/67 92 04/21/20 11:15 36.9 C 75 16 149/73 H 93 04/21/20 10:45 71 16 122/66 92 04/21/20 10:15 36.9 C 66 16 138/67 92 04/21/20 10:00 66 22 132/65 94 04/21/20 09:50 36.2 C L 67 21 134/69 94 04/21/20 09:40 64 18 132/70 94 04/21/20 09:32 36 C L 61 16 125/69 93 04/21/20 05:54 36.7 C 72 18 138/71 94 PG Care Time/CCT Total # of Minutes Spent Total Time Spent with Patient: Total time spent is greater than 50% in coordination of care (as documented) at patient's floor/unit and/or counseling patient: Coding Level of Care Code 85212 Inpt Consult Level 4 Diagnoses Status post cholecystectomy Z90.49 Pancreas cyst K86.2 Diabetes mellitus type 2 in obese E11.69; E66.9 Severe obstructive sleep apnea G47.33 Chronic heart failure with preserved ejection fraction I50.32 Paroxysmal atrial fibrillation I48.0 Gout M10.9
[2020-04-21] MEDS ORDERED: DEXTROSE 50% 50 ML SYRINGE IV PRN (14:31)
[2020-04-21] MEDS ORDERED: GLUCAGON FOR INJ 1 MG VIAL SQ PRN (14:31)
[2020-04-21] MEDS ORDERED: CARBOHYDRATES FOR HYPOGLYCEMIA PO PRN (14:31)
[2020-04-21] MEDS ORDERED: GLUCOSE 40% GEL 15 GM TUBE PO PRN (14:31)
[2020-04-21] MEDS ORDERED: GLUCOSE 10 TABS/TUBE PO PRN (14:31)
[2020-04-21] MEDS ORDERED: COUGH DROP (SUGAR FREE) LOZ 24 LOZ/1 BOX BUCCAL PRN (17:00)
[2020-04-21] MEDS: INSULIN ASPART 100 UNITS/ML 3 ML PEN SC SCH ×2 (17:41→21:03)
[2020-04-21] MEDS: ALBUTEROL HFA 8 GM INHALER INH SCH (20:45)
[2020-04-21] MEDS: GABAPENTIN 400 MG CAP PO SCH (20:46)
[2020-04-21] MEDS: AMLODIPINE BESYLATE 5 MG TAB PO SCH (20:47)
[2020-04-21] MEDS: POTASSIUM CHLORIDE 20 MEQ TABCR PO SCH (20:48)
[2020-04-21] MEDS: DOCUSATE SODIUM/SENNA 50/8.6MG TAB PO SCH (20:49)
[2020-04-21] MEDS: METOPROLOL SUCC 50MG EXT REL TAB PO SCH (20:52)
[2020-04-21] MEDS: FLUTICASONE FUROATE 200MCG 14 PUFFS/INHALER INH SCH (20:57)
[2020-04-21] MEDS ORDERED: DOXAZosin MESYLATE TAB 2 MG TAB PO SCH (21:00)
[2020-04-21] MEDS ORDERED: INSULIN GLARGINE SOLOSTAR 100 UNITS/ML 3 ML PEN SC SCH (21:00)
[2020-04-21] MEDS ORDERED: NON-FORMULARY MEDICATION (Glipizide 5 MG) PO SCH (21:00)
[2020-04-21] MEDS ORDERED: ATORVASTATIN 40 MG TAB PO SCH (21:00)
[2020-04-21] MEDS ORDERED: DOCUSATE SODIUM 100 MG CAP PO SCH (21:00)
[2020-04-21] MEDS: INSULIN GLARGINE SOLOSTAR 100 UNITS/ML 3 ML PEN SC SCH (21:02)
[2020-04-22] MEDS ORDERED: INSULIN ASPART 100 UNITS/ML 3 ML PEN SC ONE
[2020-04-22 06:18] LABS: Basophils # (auto) 0.01 K/uL (0-0.2); Basophils % (auto) 0.1 %; Eosinophils # (auto) 0.11 K/uL (0-0.5); Eosinophils % (auto) 1.2 %; Hematocrit (blood only) 35.5 % (42-52); Hemoglobin 11.7 g/dL (14.0-18.0); Immature Granulocytes # (auto) 0.02 K/uL (0.00-0.02); Immature Granulocytes % (auto) 0.2 %; Lymphocytes # (auto) 0.72 K/uL (1.2-3.4); Lymphocytes % (auto) 7.6 %; Mean Platelet Volume 9.1 fL (7.4-10.4); Monocytes # (auto) 0.96 K/uL (0.11-0.59); Monocytes % (auto) 10.2 %; Neutrophils % (auto) 80.7 %; Platelet Count 183 K/uL (130-400); RDW Coefficient of Variation 14.1 % (11.5-14.5); RDW Standard Deviation 50.3 fL (36.4-46.3); Red Blood Count 3.66 M/uL (4.7-6.1); White Blood Count 9.42 K/uL (4.8-10.8)
[2020-04-22 06:56] LABS: Albumin Level 3.3 gm/dl (3.4-5.0); BUN Creatinine Ratio 20.7 (10-20); Calcium 9.1 mg/dl (8.5-10.1); Creatinine Clr Calc Pharmacy 69.8 ml/min; Est GFR (African American) 65.8; Est GFR (Non-African American) 56.8; Potassium 3.7 mmol/L (3.5-5.1)
[2020-04-22 06:57] LABS: Bilirubin Direct 0.2 mg/dl (0-0.2); Bilirubin,Total 0.9 mg/dl (0.2-1); Globulin 3.4 gm/dl (2.5-4.0); Total Protein 6.7 gm/dl (6.4-8.2)
[2020-04-22] MEDS: ALBUTEROL HFA 8 GM INHALER INH SCH (07:18)
[2020-04-22] MEDS: INSULIN GLARGINE SOLOSTAR 100 UNITS/ML 3 ML PEN SC SCH (08:43)
[2020-04-22] MEDS: INSULIN ASPART 100 UNITS/ML 3 ML PEN SC SCH (08:43)
[2020-04-22] MEDS: METOPROLOL SUCC 50MG EXT REL TAB PO SCH (08:47)
[2020-04-22] MEDS: FLUTICASONE FUROATE 200MCG 14 PUFFS/INHALER INH SCH (08:48)
[2020-04-22] MEDS: DOCUSATE SODIUM/SENNA 50/8.6MG TAB PO SCH (08:48)
[2020-04-22] MEDS: POTASSIUM CHLORIDE 20 MEQ TABCR PO SCH (08:48)
[2020-04-22] MEDS: GABAPENTIN 400 MG CAP PO SCH (08:48)
[2020-04-22] MEDS: AMLODIPINE BESYLATE 5 MG TAB PO SCH (08:48)
[2020-04-22] MEDS ORDERED: MAGNESIUM HYDROXIDE SUSP 30 ML UDC PO SCH (09:00)
[2020-04-22] MEDS ORDERED: TORSEMIDE 10 MG TAB PO SCH (09:00)
[2020-04-22] MEDS ORDERED: DOCUSATE SODIUM/SENNA 50/8.6MG TAB PO SCH (09:00)
[2020-04-22] MEDS ORDERED: LOSARTAN POTASSIUM 50 MG TAB PO SCH (09:00)
[2020-04-22] MEDS ORDERED: allopurinoL 100 MG TAB PO SCH (09:00)
[2020-04-22] MEDS ORDERED: metOLazone 5 MG TABLET PO SCH (09:00)
[2020-04-22] MEDS: HYDROCODONE/ACETAMOPHEN 5/325MG TAB PO PRN (09:04)
[2020-04-22 09:06] LABS: Estimated Average Glucose 203 mg/dl; Hemoglobin A1C 8.7 % (4.5-5.6)
--- NOTE | 2020-04-22 14:13 | Discharge Summary (DS) ---
PRINCIPAL DIAGNOSIS: Transaminitis and cholelithiasis. PROCEDURES: The patient underwent laparoscopic cholecystectomy and also endoscopic ultrasound with aspiration. HISTORY OF PRESENT ILLNESS: The patient is a 75-year-old male who was admitted to the hospital earlier this year with elevated liver function studies felt that he possibly had a stone pass through the common bile duct, but also had some cysts in the liver noted. HOSPITAL COURSE: The patient was brought into the hospital where Dr. Redman performed endoscopic ultrasound with aspiration and then I performed a laparoscopic cholecystectomy. The patient tolerated the procedure well, has done well overnight and is felt stable for discharge home today to be followed in the surgical clinic next week.
== END 2020-04-22 10:46 | disposition home or self-care (01) ==
LOC: 3W 05:24 → ASU 05:24 → 3W 12:27

== ENCOUNTER 2022-02-26 16:55 | Inpatient (IN) ==
[2022-02-26 18:07] LABS: Basophils # (auto) 0.02 K/uL (0-0.2); Basophils % (auto) 0.2 %; Eosinophils # (auto) 0.04 K/uL (0-0.5); Eosinophils % (auto) 0.4 %; Hematocrit (blood only) 41.1 % (42-52); Hemoglobin 13.7 g/dL (14.0-18.0); Immature Granulocytes # (auto) 0.05 K/uL (0.00-0.02); Immature Granulocytes % (auto) 0.5 %; Lymphocytes # (auto) 0.99 K/uL (1.2-3.4); Mean Corpuscular Hemoglobin 33.1 pg (25-34); Mean Corpuscular Hgb Conc 33.3 g/dL (32-36); Mean Corpuscular Volume 99.3 fL (80-100); Mean Platelet Volume 9.5 fL (7.4-10.4); Monocytes # (auto) 0.92 K/uL (0.11-0.59); Monocytes % (auto) 8.4 %; Neutrophils # (auto) 8.96 K/uL (1.4-6.5); Neutrophils % (auto) 81.5 %; Platelet Count 160 K/uL (130-400); RDW Coefficient of Variation 14.5 % (11.5-14.5); Red Blood Count 4.14 M/uL (4.7-6.1); White Blood Count 10.98 K/uL (4.8-10.8)
[2022-02-26] MEDS ORDERED: CEFEPIME 2,000 MG/20 ML VIAL IV STA (18:18)
[2022-02-26] MEDS ORDERED: SODIUM CHLORIDE 0.9% 1000ML 1,000 ML IV ONE (18:18)
[2022-02-26 18:25] LABS: Albumin Globulin Ratio 1.4 (0.9-2); BUN Creatinine Ratio 20.9 (10-20); Bilirubin,Total 1.1 mg/dl (0.2-1.0); Calcium 9.1 mg/dl (8.5-10.1); Creatinine Clr Calc Pharmacy 62.8 ml/min; Est GFR (African American) 62.4 ml/min; Est GFR (Non-African American) 53.9 ml/min; Globulin 2.9 gm/dl (2.5-4.0); Potassium 3.7 mmol/L (3.5-5.1); Total Protein 6.9 gm/dl (6.0-8.3)
--- NOTE | 2022-02-26 18:25 | Emergency Department Note ---
Impression & Plan Fever, Cellulitis, Leukocytosis, Failure of outpatient treatment ED Provider Note NAME: AISHWARYA AMEZQUITA AGE: 77 SEX: M : 1945 ARRIVES VIA: Walk-In INFORMANT: [Patient] ED PROVIDER(S): [Jaren River MD] CHIEF COMPLAINT: Rash HISTORY OF PRESENT ILLNESS: The patient is a 77-year-old male with 4 days of a rash across the lower abdomen around his umbilicus. He has had a temperature up to 101. He was placed on Keflex by his doctors office, he has taken 6 doses. Today, when his doctor saw a picture of the rash, he referred him to the ED. The patient has not had any respiratory symptoms, no cough or congestion. No diarrhea. No urinary complaints. The patient states that the rash itself is painful but his abdomen underneath the rash does not seem painful. The pain is mild in severity. REVIEW OF SYSTEMS: See HPI for pertinent positives and negatives. A total of ten systems were reviewed and were otherwise negative. PMHx/PSHx: See Below SOCIAL HISTORY: See Below. PHYSICAL EXAM: GENERAL: Patient is in no acute distress. HEENT: No acute trauma, normocephalic atraumatic, mucous membranes moist, no nasal congestion, no scleral icterus. NECK: No stridor, no adenopathy, no meningismus, trachea is midline. LUNGS: Clear to auscultation bilaterally, no wheeze, no rhonchi, breath sounds equal. HEART: Irregular rhythm, no murmurs, normal rate. ABDOMEN: Soft. The patient has an erythematous and warm slightly raised area of erythema surrounding his umbilicus. It encompasses the lower abdomen completely from side to side. In the very center near the umbilicus, is a scab which looks to be the source for this cellulitis. There is no drainage. EXTREMITIES: No cyanosis or edema, full range of motion of all the joints without pain or difficulty, no signs for acute trauma. NEUROLOGIC: Oriented x 3, no acute motor or sensory deficits, no focal weakness. SKIN: No jaundice, no diaphoresis. DIFFERENTIAL DIAGNOSIS: Sepsis, UTI, pneumonia, metabolic abnormality, electrolyte abnormalities, cardiac sources, cellulitis, bacteremia, intracerebral event, toxicologic etiology, neurologic event, as well as other pathologies. EMERGENCY DEPARTMENT COURSE/PROCEDURES: ECG: Indication was possible sepsis. The ECG shows atrial fibrillation with a rate of 76. There is potential old septal and old inferior infarct. No ST elevation. There is diffuse nonspecific ST change. QTC is 407. Continuous Cardiac Monitoring: An order was placed for continuous cardiac monitoring. The monitor shows a rate of 90 with atrial fibrillation. MEDICAL DECISION MAKING: There is a mild leukocytosis, this would be consistent with infection. A mild anemia is present. There is a normal platelet count. No concerning coagulopathy. No renal failure or significant electrolyte abnormality. Lactic acid level is not elevated making severe sepsis less likely. No worrisome liver enzyme elevation. Procalcitonin level was normal. Urinalysis did show some contamination. Lyme disease testing was negative. COVID, influenza and RSV testing was negative. On e, the patient had an obvious abdominal wall cellulitis. The patient has failed outpatient treatment. He is diabetic and I do believe requires a hospital stay. He requires IV antibiotic therapy. Patient was given 1 L of IV saline, he received 2 g of IV cefepime. I spoke with the patient and case management. The on-call hospitalist was consulted. Past Med/Surg History Medical History Acid reflux tums PRN Aortic stenosis, mild per 05/2019 echo Atrial fibrillation Status post pulmonary vein isolation at [facility], multiple cardioversions, Follows w/ Dr. Pandya BPH (benign prostatic hyperplasia) BPPV (benign paroxysmal positional vertigo) CHF (congestive heart failure) hx Cholelithiases Chronic kidney disease, stage 3 Baseline creatine per records 1.2-1.4 COPD (chronic obstructive pulmonary disease) Gout Gram-negative bacteremia Hypertension Morbid obesity Physical deconditioning Shortness of breath Sleep apnea CPAP Type 2 diabetes mellitus with diabetic neuropathy IDDM Surgical History History of cardiac radiofrequency ablation X2 History of cardioversion History of colonoscopy History of right hip replacement Hx laparoscopic cholecystectomy Laparoscopic cholecystectomy with lysis of adhesions. Dr. Dave 04/21/2020 S/P ERCP (04/21/20) Upper Endoscopic Ultrasonography Adriana Redman MD 04/21/2020 S/P tonsillectomy Status post cholecystectomy Family History Mother Alzheimer disease Hypertension Father Dementia Colon cancer Other Allergies Diabetes Heart disease No pertinent family history Denies family history of Tuberculosis Emphysema, unspecified Lung disease Cancer Asthma Social History Smoking Status: Never smoker Second Hand Exposure: No; Hx Alcohol Use: Yes Alcohol type: hard liquor Hx Substance Use: No Preferred Language: Romanian Communication Ability: Effective Visual Impairment: No Limitations Farebox Repairer Required: No Beliefs That Will Affect Care: None marital status: Current Living Situation: Spouse current occupational status: retired Other Information That Helps Us Care for You: No other: [employer]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 Feels Safe at Home: Yes Safety Concerns: Feels Safe At This Time Assistive Devices: Cane, CPAP and Glasses Allergies Allergies Allergy/AdvReac Type Severity Reaction Status Date / Time No Known Drug Allergies Allergy Unknown Unknown Verified 01/23/22 11:20 Home Meds Home Medications Medication Instructions Recorded Confirmed modafinil 200 mg tablet 200 mg PO DAILY PRN 06/02/19 01/23/22 rivaroxaban 20 mg tablet (Xarelto) 20 mg PO HS 06/02/19 01/23/22 tadalafil 20 mg tablet (Cialis) 20 mg PO DAILY PRN 06/02/19 01/23/22 torsemide 20 mg tablet 20 mg PO QAM 06/02/19 01/23/22 triamcinolone acetonide 55 mcg 2 spray INTRANASAL HS 06/02/19 01/23/22 nasal spray aerosol (Nasacort) allopurinol 100 mg tablet 100 mg PO QAM tab 10/14/19 01/23/22 (Zyloprim) coenzyme Q10 100 mg capsule 100 mg PO DAILY cap 10/14/19 01/23/22 (CoQ-10) doxazosin 2 mg tablet 2 mg PO HS 10/14/19 01/23/22 insulin glargine U-300 conc 300 40 units SUBCUT BID ml 10/14/19 01/23/22 unit/mL (1.5 mL) subcutaneous pen (Toujeo SoloStar U-300 Insulin) potassium chloride 10 mEq 20 meq PO BID 10/14/19 01/23/22 tablet,extended release cholecalciferol (vitamin D3) 25 25 mcg PO DAILY 11/11/19 01/23/22 mcg (1,000 unit) tablet (Vitamin D3) lactobacillus combination no.4 3 3 mmu cells PO DAILY 11/11/19 01/23/22 billion cell capsule (Probiotic) omega 1-crt-qql-fish oil 1,000 mg 1 cap PO BID 11/11/19 01/23/22 (120 mg-180 mg) capsule (Fish Oil) insulin lispro 100 unit/mL 1 sliding scale dose SUBCUT 04/14/20 01/23/22 subcutaneous cartridge (Humalog USEASDIRECTD U-100 Insulin) anastrozole 1 mg tablet 1 mg PO .COMPLEX 06/14/20 01/23/22 atorvastatin 40 mg tablet 20 mg PO HS tab 06/14/20 01/23/22 calcium carbonate 200 mg calcium 400 mg PO BID PRN tab 06/14/20 01/23/22 (500 mg) chewable tablet (Tums) cinnamon bark [Cinnamon] PO BID 06/14/20 01/23/22 colchicine 0.6 mg tablet 0.6 mg PO DAILY 06/14/20 01/23/22 cranberry 400 mg capsule 800 mg PO BID cap 06/14/20 01/23/22 cyanocobalamin (vitamin B-12) 1,000 mcg PO Q OTHER DAY tab 06/14/20 01/23/22 1,000 mcg tablet (Vitamin B-12) glipizide 5 mg tablet, extended 10 mg PO BID tab 06/14/20 01/23/22 release 24 hr vit C 30 mg-s.roldan 250 mg-celery 2 cap PO BID cap 06/14/20 01/23/22 seed 75 mg-grape seed extrt capsule (Tart Roldan) vitamin K2 40 mcg tablet 100 mcg PO DAILY tab 06/14/20 01/23/22 folic exzi-ennyuvrpogxu-ef 1 tab PO BID tab 01/24/21 01/23/22 antioxidant cmb5 1 mg-150 mg-850 mg tablet metoprolol succinate 50 mg 100 mg PO BID tab 06/30/21 01/23/22 tablet,extended release 24 hr empagliflozin 10 mg tablet 10 mg PO DAILY 07/11/21 01/23/22 (Jardiance) eplerenone 25 mg tablet (Inspra) 25 mg PO BID tab 07/11/21 01/23/22 gabapentin 400 mg capsule 400 mg PO TID cap 07/11/21 01/23/22 losartan 100 mg tablet 100 mg PO DAILY 07/11/21 01/23/22 meloxicam 15 mg tablet 15 mg PO DAILY PRN 07/11/21 01/23/22 testosterone cypionate 200 mg/mL 200 mg SUBCUT Q7D ml 07/11/21 01/23/22 intramuscular oil radha niagen 300 mg PO DAILY 07/11/21 01/23/22 metolazone 10 mg tablet 10 mg PO DAILY PRN 12/11/21 01/23/22 colestipol 1 gram tablet 1 g PO DAILY tab 01/23/22 01/23/22 ovvbxc-kixpdgmm-uyytzek 1 cap PO WM cap 01/23/22 01/23/22 12,000-38,000-60,000 unit capsule,delayed rel (Creon) metformin 500 mg tablet 500 mg PO BID 01/23/22 01/23/22 oxycodone-acetaminophen 5 mg-325 1 tab PO UD PRN tab 01/23/22 01/23/22 mg tablet (Percocet) Results & Data (ED) Vital Signs Vital Signs - 24 hr 02/26/22 17:06 02/26/22 19:29 Temperature 37.2 C Temperature Source Oral Pulse Rate 90 Pulse Rate [Apical] 77 Respiratory Rate 18 20 Blood Pressure 108/69 Blood Pressure [Right Arm] 124/65 Blood Pressure Mean 82 Blood Pressure Mean [Right Arm] 84 Pulse Oximetry 94 94 Oxygen Delivery Method Room Air Room Air Sepsis Recent Fever Within 48 Hours No Sepsis New/Unexplained Change in Mental Status No Sepsis Action Taken by Nursing No Action Required Home Medications Current Medication List: was personally reviewed by me Laboratory Data Attestation: I reviewed the patient's lab results. Result diagrams: 02/26/22 17:55 02/26/22 17:55 Lab Results 02/26/22 02/26/22 02/26/22 Range/Units 17:55 17:55 17:55 WBC 10.98 H (4.8-10.8) K/uL RBC 4.14 L (4.7-6.1) M/uL Hgb 13.7 L (14.0-18.0) g/dL Hct 41.1 L (42-52) % MCV 99.3 (80-100) fL MCH 33.1 (25-34) pg MCHC 33.3 (32-36) g/dL RDW Std Deviation 53.0 H (36.4-46.3) fL RDW Coeff of [place]ami 14.5 (11.5-14.5) % Plt Count 160 (130-400) K/uL MPV 9.5 (7.4-10.4) fL Immature Gran % (Auto) 0.5 % Neut % (Auto) 81.5 % Lymph % (Auto) 9.0 % [place] % (Auto) 8.4 % Eos % (Auto) 0.4 % Baso % (Auto) 0.2 % Neut # (Auto) 8.96 H (1.4-6.5) K/uL Lymph # (Auto) 0.99 L (1.2-3.4) K/uL [place] # (Auto) 0.92 H (0.11-0.59) K/uL Eos # (Auto) 0.04 (0-0.5) K/uL Baso # (Auto) 0.02 (0-0.2) K/uL Immature Gran # (Auto) 0.05 H (0.00-0.02) K/uL PT 11.5 (9.0-12.0) Seconds INR 1.1 (0.9-1.1) APTT 34.6 H (21.0-31.0) Seconds PTT Ratio 1.3 Sodium 136 (136-145) mmol/L Potassium 3.7 (3.5-5.1) mmol/L Chloride 101 (98-107) mmol/L Carbon Dioxide 27 (21-32) mmol/L Anion Gap 8 (3-11) BUN 27 H (6-23) mg/dl Creatinine 1.29 (0.6-1.4) mg/dl Est Cr Clr Drug Dosing 62.8 ml/min Est GFR ( Amer) 62.4 ml/min Est GFR (Non-Af Amer) 53.9 ml/min BUN/Creatinine Ratio 20.9 H (10-20) Glucose 185 H (70-99(Fasting)) mg/dl Lactate (0.4-2.0) mmol/L Calcium 9.1 (8.5-10.1) mg/dl Phosphorus (2.5-4.9) mg/dl Magnesium (1.7-2.4) mg/dl Total Bilirubin 1.1 H (0.2-1.0) mg/dl AST 26 (13-39) U/L ALT 23 (7-52) U/L Alkaline Phosphatase 96 (34-104) U/L Total Protein 6.9 (6.0-8.3) gm/dl Albumin 4.0 (3.4-5.0) gm/dl Globulin 2.9 (2.5-4.0) gm/dl Albumin/Globulin Ratio 1.4 (0.9-2) Procalcitonin (0-0.5) ng/ml Lyme Disease IgG Ab (Negative) Lyme Disease IgM Ab (Negative) SARS-CoV-2 (PCR) (Negative) Influenza Type A (PCR) (Neg) Influenza Type B (PCR) (Neg) RSV (RT-PCR) (Neg) 02/26/22 02/26/22 02/26/22 Range/Units 17:55 17:55 18:53 WBC (4.8-10.8) K/uL RBC (4.7-6.1) M/uL Hgb (14.0-18.0) g/dL Hct (42-52) % MCV (80-100) fL MCH (25-34) pg MCHC (32-36) g/dL RDW Std Deviation (36.4-46.3) fL RDW Coeff of [place] (11.5-14.5) % Plt Count (130-400) K/uL MPV (7.4-10.4) fL Immature Gran % (Auto) % Neut % (Auto) % Lymph % (Auto) % [place] % (Auto) % Eos % (Auto) % Baso % (Auto) % Neut # (Auto) (1.4-6.5) K/uL Lymph # (Auto) (1.2-3.4) K/uL [place] # (Auto) (0.11-0.59) K/uL Eos # (Auto) (0-0.5) K/uL Baso # (Auto) (0-0.2) K/uL Immature Gran # (Auto) (0.00-0.02) K/uL PT (9.0-12.0) Seconds INR (0.9-1.1) APTT (21.0-31.0) Seconds PTT Ratio Sodium (136-145) mmol/L Potassium (3.5-5.1) mmol/L Chloride (98-107) mmol/L Carbon Dioxide (21-32) mmol/L Anion Gap (3-11) BUN (6-23) mg/dl Creatinine (0.6-1.4) mg/dl Est Cr Clr Drug Dosing ml/min Est GFR ( Amer) ml/min Est GFR (Non-Af Amer) ml/min BUN/Creatinine Ratio (10-20) Glucose (70-99(Fasting)) mg/dl Lactate 1.0 (0.4-2.0) mmol/L Calcium (8.5-10.1) mg/dl Phosphorus 2.2 L (2.5-4.9) mg/dl Magnesium 2.6 H (1.7-2.4) mg/dl Total Bilirubin (0.2-1.0) mg/dl AST (13-39) U/L ALT (7-52) U/L Alkaline Phosphatase (34-104) U/L Total Protein (6.0-8.3) gm/dl Albumin (3.4-5.0) gm/dl Globulin (2.5-4.0) gm/dl Albumin/Globulin Ratio (0.9-2) Procalcitonin 0.32 (0-0.5) ng/ml Lyme Disease IgG Ab Negative (Negative) Lyme Disease IgM Ab Negative (Negative) SARS-CoV-2 (PCR) (Negative) Influenza Type A (PCR) (Neg) Influenza Type B (PCR) (Neg) RSV (RT-PCR) (Neg) 02/26/22 Range/Units 18:53 WBC (4.8-10.8) K/uL RBC (4.7-6.1) M/uL Hgb (14.0-18.0) g/dL Hct (42-52) % MCV (80-100) fL MCH (25-34) pg MCHC (32-36) g/dL RDW Std Deviation (36.4-46.3) fL RDW Coeff of Dayami (11.5-14.5) % Plt Count (130-400) K/uL MPV (7.4-10.4) fL Immature Gran % (Auto) % Neut % (Auto) % Lymph % (Auto) % [place] % (Auto) % Eos % (Auto) % Baso % (Auto) % Neut # (Auto) (1.4-6.5) K/uL Lymph # (Auto) (1.2-3.4) K/uL [place] # (Auto) (0.11-0.59) K/uL Eos # (Auto) (0-0.5) K/uL Baso # (Auto) (0-0.2) K/uL Immature Gran # (Auto) (0.00-0.02) K/uL PT (9.0-12.0) Seconds INR (0.9-1.1) APTT (21.0-31.0) Seconds PTT Ratio Sodium (136-145) mmol/L Potassium (3.5-5.1) mmol/L Chloride (98-107) mmol/L Carbon Dioxide (21-32) mmol/L Anion Gap (3-11) BUN (6-23) mg/dl Creatinine (0.6-1.4) mg/dl Est Cr Clr Drug Dosing ml/min Est GFR ( Amer) ml/min Est GFR (Non-Af Amer) ml/min BUN/Creatinine Ratio (10-20) Glucose (70-99(Fasting)) mg/dl Lactate (0.4-2.0) mmol/L Calcium (8.5-10.1) mg/dl Phosphorus (2.5-4.9) mg/dl Magnesium (1.7-2.4) mg/dl Total Bilirubin (0.2-1.0) mg/dl AST (13-39) U/L ALT (7-52) U/L Alkaline Phosphatase (34-104) U/L Total Protein (6.0-8.3) gm/dl Albumin (3.4-5.0) gm/dl Globulin (2.5-4.0) gm/dl Albumin/Globulin Ratio (0.9-2) Procalcitonin (0-0.5) ng/ml Lyme Disease IgG Ab (Negative) Lyme Disease IgM Ab (Negative) SARS-CoV-2 (PCR) NEGATIVE (Negative) Influenza Type A (PCR) Negative (Neg) Influenza Type B (PCR) Negative (Neg) RSV (RT-PCR) Negative (Neg) Administered Medications Acetaminophen (Acetaminophen 325 Mg Tab) 650 mg PO Q4H PRN PRN Reason: pain/fever Stop: 03/28/22 21:46 Last Admin: 02/26/22 23:26 Dose: 650 mg Documented by: [id number] Guaifenesin (Guaifenesin Sugar Free 100 Mg/5 Ml Udc) 100 mg PO Q6H PRN PRN Reason: Cough Stop: 03/28/22 23:50 Last Admin: 02/27/22 00:16 Dose: 100 mg Documented by: [id number] Insulin Aspart (Insulin Aspart Per Unit) 0 units SC ACHS [facility] Stop: 03/28/22 21:46 Last Admin: 02/26/22 22:28 Dose: 5 units Documented by: [id number] Cosigned by: [id number] Miscellaneous (Eplerenone~Order Awaiting Action) 1 ea N/A QS [facility] Stop: 03/29/22 00:29 Last Admin: 02/27/22 01:32 Dose: Not Given Documented by: [id number] Rivaroxaban (Rivaroxaban 20 Mg Tab) 20 mg PO HS [facility] Stop: 03/28/22 22:59 Last Admin: 02/26/22 23:22 Dose: 20 mg Documented by: [id number] Discontinued Medications Sodium Chloride (Nss 1000ml) 1,000 mls @ 999 mls/hr IV .Q1H1M ONE Stop: 02/26/22 19:18 Last Infusion: 02/26/22 19:58 Dose: 0 mls/hr Documented by: [id number] Admin: 02/26/22 19:03 Dose: 999 mls/hr Documented by: [id number] Cefepime HCl (Maxipime) 2,000 mg in 20 mls @ 5 mls/min IV NOW STA; Protocol Stop: 02/26/22 18:21 Last Admin: 02/26/22 19:27 Dose: 5 mls/min Documented by: [id number] Vancomycin HCl 2,250 mg/ (Sodium Chloride) 545 mls @ 200 mls/hr IV ONE ONE; Protocol Stop: 02/27/22 00:58 Last Infusion: 02/27/22 01:37 Dose: 0 mls/hr Documented by: [id number] Admin: 02/26/22 22:27 Dose: 200 mls/hr Documented by: [id number] Insulin Glargine (Insulin Glargine Solostar 100 Units/Ml 3 Ml Pen) 30 units SC ONE ONE Stop: 02/26/22 22:01 Last Admin: 02/26/22 22:27 Dose: 30 units Documented by: [id number] Cosigned by: [id number] Discharge Plan Visit Data Chief Complaint: Rash Stated Complaint: Rash on belly, painful, dark red. ED Provider: Jaren River Discharge Problem: Fever, Cellulitis, Leukocytosis, Failure of outpatient treatment Patient Disposition: Admitted As Inpatient Condition: Good Discharge Instructions Interventions: ED Discharge Assessment Last Done: 02/26/22 21:17
[2022-02-26 19:48] LABS: Influenza A virus by PCR Negative (Neg); Influenza B virus by PCR Negative (Neg); RSV by PCR Negative (Neg); SARS CoV2 RNA(COVID-19) InHosp NEGATIVE (Negative)
--- NOTE | 2022-02-26 19:53 | History & Physical Report ---
Date of Service February 26, 2022 Assessment & Plan (1) Abdominal wall cellulitis: Plan: 77yo male with history of HTN, DM presenting with 3 days of progressive abdominal wall cellulitis. Reported febrile outpatient. Presently afebrile, HD stable, nontoxic in appearance. He does have a mild elevation of WBC=10.98. Procalcitonin is within normal limits. -Admit to medical -Follow cultures sent by ER -Follow area of redness -Vancomycin and Cefepime for now (2) Diabetes mellitus type 2 in obese: Plan: Patient with DM-II, blood sugar presently 185. Last XsoI1P=1.2 on 03/29/21. He is on Glipizide, Jardiance, Toujeo, U-300 insulin and Lispro 40u with meals. He follows with Endocrinology. -Will hold oral agents -Continue Toujeo, ISS -Goal blood sugar 100 - 140 -Glycemic management consultation appreciated -History of diabetic polyneuropathy. Patient has been seen by Neurology in the past -Continue Gabapentin (3) Gout: Plan: Chronic. Stable -Continue Allopurinol 100mg po daily -Continue Colchicine (4) Severe obstructive sleep apnea: Plan: Chronic. Patient is compliant with CPAP. He follows with Dr. Aaron -Continue CPAP qHS (5) Paroxysmal atrial fibrillation: Plan: Longstanding history of atrial fibrillation s/p multiple cardioversions as well as pulmonary vein isolation. Patient in atrial fibrillation presently. Heart rate is controlled at 70bpm, he is anticoagulated on Xarelto. Was previously on Flecainide but no longer takes this -Continue Xarelto 20mg po qHS -Continue Metoprolol 100mg po BID (6) Chronic heart failure with preserved ejection fraction: Plan: Patient with diastolic heart failure. Appears well compensated at present. Has a slight cough otherwise denies edema, weight gain, orthopnea. Dry weight noted to be 255# per Heart Failure note -Continue torsemide, metoprolol, metolazone PRN -Continue Losartan, Eplerenone and Jardiance (7) Hypertension: Plan: Blood pressure stable. Was previously on Amlodipine which has been discontinued. -Continue Losartan and Metoprolol -Continue to monitor History of Present Illness Chief Complaint: abdominal wall cellulitis Primary Care Provider: Jennifer Moser MD Andre Abreu is a 77yo male presenting with abdominal wall cellulitis. Patient noted some periumbilical and lower abdominal redness on 02/23/22. He noted his PCP and was given a prescription for Keflex. He started this medication yesterday 02/25/22 and took 4 pills yesterday and 2 today. He notes the redness has spread to involve his entire abdomen. He has been febrile as well to Tm of 101.7 yesterday AM. He has been taking Tylenol with improvement in temperature. He also reports being more tired than usual as well as lighthead ed. He has also had a faint cough, dry. No additional complaints at this time. IN the ER patient afebrile, HD stable, NAD. ER Course: Cefepime Allergies Allergy/AdvReac Type Severity Reaction Status Date / Time No Known Drug Allergies Allergy Unknown Unknown Verified 01/23/22 11:20 Home Medications Medication Instructions Recorded Confirmed Type modafinil 200 mg tablet 200 mg PO DAILY PRN 06/02/19 01/23/22 History rivaroxaban 20 mg tablet (Xarelto) 20 mg PO HS 06/02/19 01/23/22 History tadalafil 20 mg tablet (Cialis) 20 mg PO DAILY PRN 06/02/19 01/23/22 History torsemide 20 mg tablet 20 mg PO QAM 06/02/19 01/23/22 History triamcinolone acetonide 55 mcg 2 spray INTRANASAL HS 06/02/19 01/23/22 History nasal spray aerosol (Nasacort) allopurinol 100 mg tablet 100 mg PO QAM tab 10/14/19 01/23/22 History (Zyloprim) coenzyme Q10 100 mg capsule 100 mg PO DAILY cap 10/14/19 01/23/22 History (CoQ-10) doxazosin 2 mg tablet 2 mg PO HS 10/14/19 01/23/22 History insulin glargine U-300 conc 300 40 units SUBCUT BID ml 10/14/19 01/23/22 History unit/mL (1.5 mL) subcutaneous pen (Toujeo SoloStar U-300 Insulin) potassium chloride 10 mEq 20 meq PO BID 10/14/19 01/23/22 History tablet,extended release cholecalciferol (vitamin D3) 25 25 mcg PO DAILY 11/11/19 01/23/22 History mcg (1,000 unit) tablet (Vitamin D3) lactobacillus combination no.4 3 3 mmu cells PO DAILY 11/11/19 01/23/22 History billion cell capsule (Probiotic) omega 8-dhb-ahh-fish oil 1,000 mg 1 cap PO BID 11/11/19 01/23/22 History (120 mg-180 mg) capsule (Fish Oil) insulin lispro 100 unit/mL 1 sliding scale dose SUBCUT 04/14/20 01/23/22 History subcutaneous cartridge (Humalog USEASDIRECTD U-100 Insulin) anastrozole 1 mg tablet 1 mg PO .COMPLEX 06/14/20 01/23/22 History atorvastatin 40 mg tablet 20 mg PO HS tab 06/14/20 01/23/22 History calcium carbonate 200 mg calcium 400 mg PO BID PRN tab 06/14/20 01/23/22 History (500 mg) chewable tablet (Tums) cinnamon bark [Cinnamon] PO BID 06/14/20 01/23/22 History colchicine 0.6 mg tablet 0.6 mg PO DAILY 06/14/20 01/23/22 History cranberry 400 mg capsule 800 mg PO BID cap 06/14/20 01/23/22 History cyanocobalamin (vitamin B-12) 1,000 mcg PO Q OTHER DAY tab 06/14/20 01/23/22 History 1,000 mcg tablet (Vitamin B-12) glipizide 5 mg tablet, extended 10 mg PO BID tab 06/14/20 01/23/22 History release 24 hr vit C 30 mg-s.roldan 250 mg-celery 2 cap PO BID cap 06/14/20 01/23/22 History seed 75 mg-grape seed extrt capsule (Tart Roldan) vitamin K2 40 mcg tablet 100 mcg PO DAILY tab 06/14/20 01/23/22 History folic lakp-jdjomwhxynwk-vt 1 tab PO BID tab 01/24/21 01/23/22 History antioxidant cmb5 1 mg-150 mg-850 mg tablet metoprolol succinate 50 mg 100 mg PO BID tab 06/30/21 01/23/22 History tablet,extended release 24 hr empagliflozin 10 mg tablet 10 mg PO DAILY 07/11/21 01/23/22 History (Jardiance) eplerenone 25 mg tablet (Inspra) 25 mg PO BID tab 07/11/21 01/23/22 History gabapentin 400 mg capsule 400 mg PO TID cap 07/11/21 01/23/22 History losartan 100 mg tablet 100 mg PO DAILY 07/11/21 01/23/22 History meloxicam 15 mg tablet 15 mg PO DAILY PRN 07/11/21 01/23/22 History testosterone cypionate 200 mg/mL 200 mg SUBCUT Q7D ml 07/11/21 01/23/22 History intramuscular oil radha niagen 300 mg PO DAILY 07/11/21 01/23/22 History metolazone 10 mg tablet 10 mg PO DAILY PRN 12/11/21 01/23/22 History colestipol 1 gram tablet 1 g PO DAILY tab 01/23/22 01/23/22 History asppwm-tlhfyabb-pnsvcen 1 cap PO WM cap 01/23/22 01/23/22 History 12,000-38,000-60,000 unit capsule,delayed rel (Creon) metformin 500 mg tablet 500 mg PO BID 01/23/22 01/23/22 History oxycodone-acetaminophen 5 mg-325 1 tab PO UD PRN tab 01/23/22 01/23/22 History mg tablet (Percocet) Past Med/Surg History Medical History (Updated 02/26/22 @ 21:01 by Amisha Hussein DO) Acid reflux tums PRN Aortic stenosis, mild per 05/2019 echo Atrial fibrillation Status post pulmonary vein isolation at [facility], multiple cardioversions, Follows w/ Dr. Pandya BPH (benign prostatic hyperplasia) BPPV (benign paroxysmal positional vertigo) CHF (congestive heart failure) hx Cholelithiases Chronic kidney disease, stage 3 Baseline creatine per records 1.2-1.4 COPD (chronic obstructive pulmonary disease) Gout Gram-negative bacteremia Hypertension Morbid obesity Physical deconditioning Shortness of breath Sleep apnea CPAP Type 2 diabetes mellitus with diabetic neuropathy IDDM Surgical History History of cardiac radiofrequency ablation X2 History of cardioversion History of colonoscopy History of right hip replacement Hx laparoscopic cholecystectomy Laparoscopic cholecystectomy with lysis of adhesions. Dr. 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 Abdominal wall cellulitis - red, warm to touch involving lower and mid abdomen with extension below waist line as well as streaking noted on right side of chest HEENT: NC/AT, PERRL, EOMI, anicteric sclera, conjunctiva without injection, external ear normal to inspection and nontender, nares patent, moist mucus membranes, dentition intact, no oropharyngeal lesions, neck supple, trachea midline, no LAD, no thyromegaly, no JVD Heart: +S1/S2, irregularly irregular, no m/r/g Lungs: equal air entry bilaterally, no rales/rhonchi/wheezes Abd: +BS, soft, distended and tympanic, no masses/organomegaly/ascites, abdominal wall cellulitis as above Ext: warm, 2+ pulses in UE/LE bilaterally, no clubbing/cyanosis or edema Neuro: nonfocal, patient AA&O x 4, speech intact, no facial droop, moving all extremities on command with equal strength 5/5 Results & Data Results & Data ([facility]) Vital Signs (Past 12 Hours) Vital Signs Temp Pulse Pulse Resp BP BP Pulse Ox 02/26/22 19:29 77 20 124/65 94 02/26/22 17:06 37.2 C 90 18 108/69 94 Laboratory Results Laboratory Results WBC 10.98 K/uL (4.8-10.8) H 02/26/22 17:55 RBC 4.14 M/uL (4.7-6.1) L 02/26/22 17:55 Hgb 13.7 g/dL (14.0-18.0) L 02/26/22 17:55 Hct 41.1 % (42-52) L 02/26/22 17:55 MCV 99.3 fL (80-100) 02/26/22 17:55 MCH 33.1 pg (25-34) 02/26/22 17:55 MCHC 33.3 g/dL (32-36) 02/26/22 17:55 RDW Std Deviation 53.0 fL (36.4-46.3) H 02/26/22 17:55 RDW Coeff of [place] 14.5 % (11.5-14.5) 02/26/22 17:55 Plt Count 160 K/uL (130-400) 02/26/22 17:55 MPV 9.5 fL (7.4-10.4) 02/26/22 17:55 Immature Gran % (Auto) 0.5 % 02/26/22 17:55 Neut % (Auto) 81.5 % 02/26/22 17:55 Lymph % (Auto) 9.0 % 02/26/22 17:55 [place] % (Auto) 8.4 % 02/26/22 17:55 Eos % (Auto) 0.4 % 02/26/22 17:55 Baso % (Auto) 0.2 % 02/26/22 17:55 Neut # (Auto) 8.96 K/uL (1.4-6.5) H 02/26/22 17:55 Lymph # (Auto) 0.99 K/uL (1.2-3.4) L 02/26/22 17:55 [place] # (Auto) 0.92 K/uL (0.11-0.59) H 02/26/22 17:55 Eos # (Auto) 0.04 K/uL (0-0.5) 02/26/22 17:55 Baso # (Auto) 0.02 K/uL (0-0.2) 02/26/22 17:55 Immature Gran # (Auto) 0.05 K/uL (0.00-0.02) H 02/26/22 17:55 PT 11.5 Seconds (9.0-12.0) 02/26/22 17:55 INR 1.1 (0.9-1.1) 02/26/22 17:55 APTT 34.6 Seconds (21.0-31.0) H 02/26/22 17:55 PTT Ratio 1.3 02/26/22 17:55 Sodium 136 mmol/L (136-145) 02/26/22 17:55 Potassium 3.7 mmol/L (3.5-5.1) 02/26/22 17:55 Chloride 101 mmol/L (98-107) 02/26/22 17:55 Carbon Dioxide 27 mmol/L (21-32) 02/26/22 17:55 Anion Gap 8 (3-11) 02/26/22 17:55 BUN 27 mg/dl (6-23) H 02/26/22 17:55 Creatinine 1.29 mg/dl (0.6-1.4) 02/26/22 17:55 Est Cr Clr Drug Dosing 62.8 ml/min 02/26/22 17:55 Est GFR ( Amer) 62.4 ml/min 02/26/22 17:55 Est GFR (Non-Af Amer) 53.9 ml/min 02/26/22 17:55 BUN/Creatinine Ratio 20.9 (10-20) H 02/26/22 17:55 Glucose 185 mg/dl (70-99(Fasting)) H 02/26/22 17:55 Lactate 1.0 mmol/L (0.4-2.0) 02/26/22 18:53 Calcium 9.1 mg/dl (8.5-10.1) 02/26/22 17:55 Total Bilirubin 1.1 mg/dl (0.2-1.0) H 02/26/22 17:55 AST 26 U/L (13-39) 02/26/22 17:55 ALT 23 U/L (7-52) 02/26/22 17:55 Alkaline Phosphatase 96 U/L (34-104) 02/26/22 17:55 Total Protein 6.9 gm/dl (6.0-8.3) 02/26/22 17:55 Albumin 4.0 gm/dl (3.4-5.0) 02/26/22 17:55 Globulin 2.9 gm/dl (2.5-4.0) 02/26/22 17:55 Albumin/Globulin Ratio 1.4 (0.9-2) 02/26/22 17:55 Procalcitonin 0.32 ng/ml (0-0.5) 02/26/22 17:55 Lyme Disease IgG Ab Negative (Negative) 02/26/22 17:55 Lyme Disease IgM Ab Negative (Negative) 02/26/22 17:55 SARS-CoV-2 (PCR) NEGATIVE (Negative) 02/26/22 18:53 Influenza Type A (PCR) Negative (Neg) 02/26/22 18:53 Influenza Type B (PCR) Negative (Neg) 02/26/22 18:53 RSV (RT-PCR) Negative (Neg) 02/26/22 18:53 Code Status & VTE Plan VTE Prophylaxis Plan VTE Prophylaxis will be ordered: Yes PG Care Time/CCT Total # of Minutes Spent Total Time Spent with Patient: Total time spent is greater than 50% in coordination of care (as documented) at patient's floor/unit and/or counseling patient: Coding Diagnoses Diabetes mellitus type 2 in obese E11.69; E66.9 Gout M10.9 Severe obstructive sleep apnea G47.33 Hypertension I10 Abdominal wall cellulitis L03.311 Paroxysmal atrial fibrillation I48.0 Chronic heart failure with preserved ejection fraction I50.32
[2022-02-26 20:17] LABS: INR 1.1 (0.9-1.1); Partial Thromboplastin Ratio 1.3; Partial Thromboplastin Time 34.6 Seconds (21.0-31.0); Prothrombin Time 11.5 Seconds (9.0-12.0)
[2022-02-26 20:34] LABS: Procalcitonin 0.32 ng/ml (0-0.5)
[2022-02-26 20:42] LABS: Lyme Ab IgG w/WB Rflx Negative (Negative); Lyme Ab IgM w/WB Rflx Negative (Negative)
[2022-02-26] MEDS ORDERED: PHARMACY GLYCEMIC MGMT CONSULT PRN (21:47)
[2022-02-26] MEDS ORDERED: ONDANSETRON INJ 2 MG/ML 2 ML VIAL IV PRN (21:47)
[2022-02-26] MEDS ORDERED: GLUCAGON FOR INJ 1 MG VIAL SQ PRN (21:47)
[2022-02-26] MEDS ORDERED: CARBOHYDRATES FOR HYPOGLYCEMIA PO PRN (21:47)
[2022-02-26] MEDS ORDERED: GLUCOSE 10 TABS/TUBE PO PRN (21:47)
[2022-02-26] MEDS ORDERED: VANCOMYCIN CONSULT ACTIVE PRN (21:47)
[2022-02-26] MEDS ORDERED: GLUCOSE 40% GEL 15 GM TUBE PO PRN (21:47)
[2022-02-26] MEDS ORDERED: DEXTROSE 50% 50 ML SYRINGE IV PRN (21:47)
[2022-02-26] MEDS ORDERED: INSULIN GLARGINE SOLOSTAR 100 UNITS/ML 3 ML PEN SC ONE (22:00)
[2022-02-26] MEDS ORDERED: VANCOMYCIN HCL 2,250 MG in SODIUM CHLORIDE 0.9% 500 ML IV ONE (22:15)
[2022-02-26 22:23] LABS: Magnesium 2.6 mg/dl (1.7-2.4); Phosphorus 2.2 mg/dl (2.5-4.9)
[2022-02-26] MEDS: INSULIN ASPART PER UNIT SC SCH (22:28)
[2022-02-26 22:29] LABS: Appearance Urine Cloudy (Clear); Bacteria Urine Automated Negative (Negative); Bilirubin Urine Negative (Negative); Blood Urine Trace (Negative); Color Urine Yellow; Epithelial Cell Urine Auto >30 /lpf (0-5); Glucose Urine UA 3+ (Negative); Ketones Urine Trace (Negative); Leukocyte Esterase Urine 2+ (Negative); Nitrite Urine Negative (Negative); Protein Urine 1+ (Negative); Specific Gravity Urine 1.033 (1.000-1.030); Urobilinogen Urine Negative (Negative); WBC Urine Automated >30 /hpf (0-5); pH Urine 5.5 (4.5-7.5)
[2022-02-26] MEDS: RIVAROXABAN 20 MG TAB PO SCH (23:22)
[2022-02-26] MEDS: ACETAMINOPHEN 325 MG TAB PO PRN (23:26)
[2022-02-26] MEDS ORDERED: guaiFENesin SUGAR FREE 100 MG/5 ML UDC PO PRN (23:51)
[2022-02-27] MEDS: EPLERENONE~ORDER AWAITING ACTION SCH ×3 (01:32→15:37)
[2022-02-27 06:19] LABS: Basophils # (auto) 0.01 K/uL (0-0.2); Basophils % (auto) 0.1 %; Eosinophils # (auto) 0.08 K/uL (0-0.5); Eosinophils % (auto) 0.8 %; Hematocrit (blood only) 37.3 % (42-52); Hemoglobin 12.5 g/dL (14.0-18.0); Immature Granulocytes # (auto) 0.01 K/uL (0.00-0.02); Immature Granulocytes % (auto) 0.1 %; Lymphocytes # (auto) 0.83 K/uL (1.2-3.4); Lymphocytes % (auto) 8.7 %; Mean Corpuscular Hemoglobin 33.3 pg (25-34); Mean Corpuscular Hgb Conc 33.5 g/dL (32-36); Mean Corpuscular Volume 99.5 fL (80-100); Mean Platelet Volume 9.2 fL (7.4-10.4); Monocytes # (auto) 1.13 K/uL (0.11-0.59); Monocytes % (auto) 11.9 %; Neutrophils # (auto) 7.46 K/uL (1.4-6.5); Neutrophils % (auto) 78.4 %; Platelet Count 143 K/uL (130-400); RDW Coefficient of Variation 14.5 % (11.5-14.5); RDW Standard Deviation 52.5 fL (36.4-46.3); Red Blood Count 3.75 M/uL (4.7-6.1); White Blood Count 9.52 K/uL (4.8-10.8)
[2022-02-27 06:38] LABS: Albumin Level 3.5 gm/dl (3.4-5.0); BUN Creatinine Ratio 19.6 (10-20); Bilirubin Direct 0.2 mg/dl (0-0.2); Bilirubin,Total 0.8 mg/dl (0.2-1.0); Calcium 8.5 mg/dl (8.5-10.1); Creatinine Clr Calc Pharmacy 72.6 ml/min; Est GFR (African American) 74.1 ml/min; Est GFR (Non-African American) 63.9 ml/min; Potassium 3.6 mmol/L (3.5-5.1); Total Protein 5.9 gm/dl (6.0-8.3)
[2022-02-27 07:59] LABS: Estimated Average Glucose 209 mg/dl; Hemoglobin A1C 8.9 % (4.5-5.6)
--- NOTE | 2022-02-27 07:59 | Pharmacy Report ---
Pharmacy Vanc AUC Short Note - Date of Service February 27, 2022 - Assessment & Plan Assessment 77 year old M started on vancomycin/cefepime for abdominal wall cellulitis. Given Rx for keflex for medication, only took x ~2 days. Redness worsening/spreading to entire abdomen. Cultures pending. Day #1 of antimicrobial therapy. Plan Vancomycin * AUC/ISIS is the preferred PK/PD target for vancomycin * AUC guided dosing is effective and associated with decreased risk of nep hrotoxicity compared to traditional trough targets * Received loading dose of 2250 mg x 1 (~20 mg/kg/dose) then started on vancomycin 1gm iv q 12 hrs * This dosing is estimated to achieve a trough level of ~18 mcg/mL is predicted to achieve target AUC/ISIS of 400-600 mg/L.hr and may be associated with a 15 % risk of nephrotoxicity * Plan to continue dosing and check level in next 48 hours if plan is to continue Pharmacy will continue to follow and will adjust dose/frequency as necessary. Thank you.
--- NOTE | 2022-02-27 08:47 | Electrocardiogram Report ---
Test Reason : Blood Pressure : / mmHG Vent. 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
[2022-02-27] MEDS: CEFEPIME 2,000 MG in SYRINGE 0 ML IV SCH ×2 (08:56→20:36)
[2022-02-27] MEDS: TORSEMIDE 20 MG TAB PO SCH (08:57)
[2022-02-27] MEDS: LOSARTAN POTASSIUM 50 MG TAB PO SCH (08:58)
[2022-02-27] MEDS: METOPROLOL SUCC 50MG EXT REL TAB PO SCH ×2 (08:58→20:42)
[2022-02-27] MEDS: allopurinoL 100 MG TAB PO SCH (08:58)
[2022-02-27] MEDS ORDERED: COLCHICINE 0.6 MG TAB PO SCH ×2 (09:00→21:00)
[2022-02-27] MEDS: COLESTIPOL HCL 1 GM TAB PO SCH (09:00)
[2022-02-27] MEDS ORDERED: INSULIN GLARGINE SOLOSTAR 100 UNITS/ML 3 ML PEN SC SCH (09:00)
[2022-02-27] MEDS ORDERED: GABAPENTIN 400 MG CAP PO SCH (09:00)
[2022-02-27] MEDS: INSULIN ASPART PER UNIT SC SCH ×4 (09:11→20:50)
[2022-02-27] MEDS: INSULIN GLARGINE SOLOSTAR 100 UNITS/ML 3 ML PEN SC SCH ×2 (09:12→20:51)
[2022-02-27] MEDS ORDERED: Nursing to Pharmacy Communication SCH (10:45)
[2022-02-27] MEDS: traMADol HCL 50 MG TABLET PO SCH ×2 (12:16→22:00)
[2022-02-27] MEDS: ACETAMINOPHEN 325 MG TAB PO PRN ×2 (12:16→16:29)
[2022-02-27] MEDS: POTASSIUM CHLORIDE CRTAB 20 MEQ TABCR PO SCH ×2 (12:17→20:37)
[2022-02-27] MEDS: VANCOMYCIN HCL 1,000 MG in SODIUM CHLORIDE 0.9% 250 ML IV SCH ×2 (12:17→22:05)
[2022-02-27] MEDS: GABAPENTIN 400 MG CAP PO SCH ×2 (13:20→20:38)
--- NOTE | 2022-02-27 13:24 | Pharmacy Report ---
Pharmacy Glycemic Short Note 2 - Date of Service February 27, 2022 - Glycemic Short BSG Results (Last 24 hours): 02/26/22 02/26/22 02/27/22 17:55 21:59 06:00 Glucose 185 H 82 POC Glucose 200 H 02/27/22 02/27/22 08:12 12:06 Glucose POC Glucose 93 133 H OUTPATIENT ANTIDIABETIC REGIMEN: * Toujeo 40 units bid, Jardiance 10 mg daily, glipizide 10 mg bid, Novolog 40 units AC * A1c 8.9 02/27/22 ASSESSMENT: * Patient admitted with progressing abdominal wall cellulitis, started on antibiotics. Pharmacy consulted for glycemic management. * Patient received a reduced Lantus dosing last evening, 30 units - fasting BSG 82 mg/dL, likely will scale back on home basal as PO intake poorer thus far today. Will trial 30 units BID for now. Plan to start with stress of 2/3 dosing for novolog. Lunch BSG within range, will continue same for now PLAN FOR INPATIENT GLYCEMIC CONTROL: * Hold outpatient oral diabetes medications * Basal insulin * Lantus 30 units bid * Bolus insulin * NovoLog per scale ACHS or Q6hrs while NPO * Goal Range: Low 110 mg/dL - High 140 mg/dL * Correction Factor: 15 mg/dL/unit * Nutritional / Prandial insulin per carb ratio of 1 unit per 5 grams CHO consumed
[2022-02-27] MEDS ORDERED: MELOXICAM 7.5 MG TAB PO PRN (14:37)
--- NOTE | 2022-02-27 14:42 | Hospitalist Progress Note ---
Date of Service February 27, 2022 Assessment & Plan (1) Abdominal wall cellulitis: Plan: 77yo male with history of HTN, DM presenting with 3 days of progressive abdominal wall cellulitis. Reported febrile outpatient. Remains afebrile, HD stable, nontoxic in appearance. He does have a mild elevation of WBC=10.98 on admission which is now back to normal. procalcitonin is within normal limits. Improving, erythema slightly receded inside marker line on abdomen Nidus could be small opening of previous umbilical laparoscopic entry site that has likely a retained suture-recommend seeing general surgery as an outpatient after recovery of cellulitis -Blood cultures remain no growth to date-follow -Follow area of erythema -Continue vancomycin and Cefepime for now and if improving further by tomorrow, blood cultures remain no growth, patient anxious for discharge-we will send home on Augmentin and doxycycline for broad-spectrum coverage (2) Diabetes mellitus type 2 in obese: Plan: Patient with DM-II. Last BzbG5R=5.2 on 03/29/21. He is on Glipizide, Jardiance, Toujeo, U-300 insulin and Lispro 40u with meals. He follows with Endocrinology. -Will hold oral agents -Continue Lantus, ISS -Goal blood sugar 100 - 140 -Glycemic management consultation appreciated -History of diabetic polyneuropathy. Patient has been seen by Neurology in the past -Continue Gabapentin (3) Gout: Plan: Chronic. Stable -Continue Allopurinol 100mg po daily -Continue Colchicine (4) Severe obstructive sleep apnea: Plan: Chronic. Patient is compliant with CPAP. He follows with Dr. Aaron -Continue CPAP qHS (5) Paroxysmal atrial fibrillation: Plan: Longstanding history of atrial fibrillation s/p multiple cardioversions as well as pulmonary vein isolation. Patient in atrial fibrillation presently. Heart rate is controlled at 70bpm, he is anticoagulated on Xarelto. Was previously on Flecainide but no longer takes this -Continue Xarelto 20mg po qHS -Continue Metoprolol 100mg po BID (6) Chronic heart failure with preserved ejection fraction: Plan: Patient with diastolic heart failure. Appears well compensated at present. Has a slight cough otherwise denies edema, weight gain, orthopnea. Dry weight noted to be 255# per Heart Failure note -Continue torsemide, metoprolol, metolazone PRN, continue potassium twice daily -Continue Losartan, Eplerenone and Jardiance if can be brought in from home (7) Hypertension: Plan: Blood pressure stable. Was previously on Amlodipine which has been discontinued. -Continue Losartan and Metoprolol -Continue to monitor He reports he is no longer on doxazosin-Home medication reconciliation updated (8) Cough: Plan: Has had a dry cough for the last week. COVID/influenza/RSV are negative Lung exam is clear Start guaifenesin with dextromethorphan as needed Continue home triamcinolone nasal spray (9) Hypogonadism: Plan: It appears the patient is on testosterone injections as well as anastrozole twice a week presumably for hypogonadism Follow-up with PCP Continue home medications of anastrozole Plan: DVT prophylaxis-Xarelto Disposition-continued stay, possible discharge home tomorrow evening if blood cultures remain no growth Admission and Anticipated Discharge Date Admission Date: February 26, 2022 Subjective Patient complains of abdominal pain with movement. Remains afebrile since admission. Is anxious for discharge hopefully tomorrow. No chest pain or shortness of breath. Had 1 loose stool today. Does complain of a mild dry cough that is been going on for a week. Asking for cough syrup. Review of Systems Review of Systems: All systems reviewed & are unremarkable except as noted in HPI & below Physical Exam Constitutional: WD/WN, vitals as above Eyes: + anicteric sclerae Neck: trachea midline, no thyromegaly Respiratory: normal respiratory effort, lungs clear to auscultation Cardiovascular: Rate/Rhythm: regular rate and + irregularly irregular Heart Sounds: no murmur Chest (Breasts): Chest: normal inspection of chest Gastrointestinal (Abdomen): normal bowel sounds, soft, nontender, no hepatosplenomegaly Musculoskeletal: Extremities: extremities normal to inspection; no cyanosis and no clubbing Skin: + erythema (Diffuse erythema of entire abdomen, inside marker line) Neurologic: moves all extremities and awake; no focal motor deficits Psychiatric: A+Ox3, euthymic affect Lymphatic: no lymphedema Results & Data Results & Data ([facility]) Vital Signs (Past 12 Hours) Vital Signs Temp Pulse Resp BP Pulse Ox 02/27/22 07:00 36.8 C 94 H 18 121/71 92 Laboratory Results 05/31/22 05/31/22 05/31/22 Range/Units 12:06 08:12 06:00 WBC (4.8-10.8) K/uL RBC (4.7-6.1) M/uL Hgb (14.0-18.0) g/dL Hct (42-52) % MCV (80-100) fL MCH (25-34) pg MCHC (32-36) g/dL RDW Std Deviation (36.4-46.3) fL RDW Coeff of Dayami (11.5-14.5) % Plt Count (130-400) K/uL MPV (7.4-10.4) fL Immature Gran % (Auto) % Neut % (Auto) % Lymph % (Auto) % [place] % (Auto) % Eos % (Auto) % Baso % (Auto) % Neut # (Auto) (1.4-6.5) K/uL Lymph # (Auto) (1.2-3.4) K/uL [place] # (Auto) (0.11-0.59) K/uL Eos # (Auto) (0-0.5) K/uL Baso # (Auto) (0-0.2) K/uL Immature Gran # (Auto) (0.00-0.02) K/uL PT (9.0-12.0) Seconds INR (0.9-1.1) APTT (21.0-31.0) Seconds PTT Ratio Sodium (136-145) mmol/L Potassium (3.5-5.1) mmol/L Chloride (98-107) mmol/L Carbon Dioxide (21-32) mmol/L Anion Gap (3-11) BUN (6-23) mg/dl Creatinine (0.6-1.4) mg/dl Est Cr Clr Drug Dosing ml/min Est GFR ( Amer) ml/min Est GFR (Non-Af Amer) ml/min BUN/Creatinine Ratio (10-20) Glucose (70-99(Fasting)) mg/dl POC Glucose 133 H 93 (70-99) mg/dl Estimat Average Glucose 209 mg/dl Hemoglobin A1c 8.9 H (4.5-5.6) % Lactate (0.4-2.0) mmol/L Calcium (8.5-10.1) mg/dl Phosphorus (2.5-4.9) mg/dl Magnesium (1.7-2.4) mg/dl Total Bilirubin (0.2-1.0) mg/dl Direct Bilirubin (0-0.2) mg/dl AST (13-39) U/L ALT (7-52) U/L Alkaline Phosphatase (34-104) U/L Total Protein (6.0-8.3) gm/dl Albumin (3.4-5.0) gm/dl Globulin (2.5-4.0) gm/dl Albumin/Globulin Ratio (0.9-2) Procalcitonin (0-0.5) ng/ml Urine Color Urine Appearance (Clear) Urine pH (4.5-7.5) Ur Specific [place] (1.000-1.030) Urine Protein (Negative) Urine Glucose (UA) (Negative) Urine Ketones (Negative) Urine Blood (Negative) Urine Nitrite (Negative) Urine Bilirubin (Negative) Urine Urobilinogen (Negative) Ur Leukocyte Esterase (Negative) Urine WBC (Auto) (0-5) /hpf Urine RBC (Auto) (0-4) /hpf U Hyaline Cast (Auto) (0-5) /lpf U Epithel Cells (Auto) (0-5) /lpf Urine Bacteria (Auto) (Negative) Lyme Disease IgG Ab (Negative) Lyme Disease IgM Ab (Negative) SARS-CoV-2 (PCR) (Negative) Influenza Type A (PCR) (Neg) Influenza Type B (PCR) (Neg) RSV (RT-PCR) (Neg) 02/27/22 02/27/22 02/26/22 Range/Units 06:00 06:00 21:59 WBC 9.52 (4.8-10.8) K/uL RBC 3.75 L (4.7-6.1) M/uL Hgb 12.5 L (14.0-18.0) g/dL Hct 37.3 L (42-52) % MCV 99.5 (80-100) fL MCH 33.3 (25-34) pg MCHC 33.5 (32-36) g/dL RDW Std Deviation 52.5 H (36.4-46.3) fL RDW Coeff of [place] 14.5 (11.5-14.5) % Plt Count 143 (130-400) K/uL MPV 9.2 (7.4-10.4) fL Immature Gran % (Auto) 0.1 % Neut % (Auto) 78.4 % Lymph % (Auto) 8.7 % [place] % (Auto) 11.9 % Eos % (Auto) 0.8 % Baso % (Auto) 0.1 % Neut # (Auto) 7.46 H (1.4-6.5) K/uL Lymph # (Auto) 0.83 L (1.2-3.4) K/uL [place] # (Auto) 1.13 H (0.11-0.59) K/uL Eos # (Auto) 0.08 (0-0.5) K/uL Baso # (Auto) 0.01 (0-0.2) K/uL Immature Gran # (Auto) 0.01 (0.00-0.02) K/uL PT (9.0-12.0) Seconds INR (0.9-1.1) APTT (21.0-31.0) Seconds PTT Ratio Sodium 140 (136-145) mmol/L Potassium 3.6 (3.5-5.1) mmol/L Chloride 105 (98-107) mmol/L Carbon Dioxide 27 (21-32) mmol/L Anion Gap 8 (3-11) BUN 22 (6-23) mg/dl Creatinine 1.12 (0.6-1.4) mg/dl Est Cr Clr Drug Dosing 72.6 ml/min Est GFR ( Amer) 74.1 ml/min Est GFR (Non-Af Amer) 63.9 ml/min BUN/Creatinine Ratio 19.6 (10-20) Glucose 82 (70-99(Fasting)) mg/dl POC Glucose 200 H (70-99) mg/dl Estimat Average Glucose mg/dl Hemoglobin A1c (4.5-5.6) % Lactate (0.4-2.0) mmol/L Calcium 8.5 (8.5-10.1) mg/dl Phosphorus (2.5-4.9) mg/dl Magnesium (1.7-2.4) mg/dl Total Bilirubin 0.8 (0.2-1.0) mg/dl Direct Bilirubin 0.2 (0-0.2) mg/dl AST 29 (13-39) U/L ALT 23 (7-52) U/L Alkaline Phosphatase 74 (34-104) U/L Total Protein 5.9 L (6.0-8.3) gm/dl Albumin 3.5 (3.4-5.0) gm/dl Globulin (2.5-4.0) gm/dl Albumin/Globulin Ratio (0.9-2) Procalcitonin (0-0.5) ng/ml Urine Color Urine Appearance (Clear) Urine pH (4.5-7.5) Ur Specific [place] (1.000-1.030) Urine Protein (Negative) Urine Glucose (UA) (Negative) Urine Ketones (Negative) Urine Blood (Negative) Urine Nitrite (Negative) Urine Bilirubin (Negative) Urine Urobilinogen (Negative) Ur Leukocyte Esterase (Negative) Urine WBC (Auto) (0-5) /hpf Urine RBC (Auto) (0-4) /hpf U Hyaline Cast (Auto) (0-5) /lpf U Epithel Cells (Auto) (0-5) /lpf Urine Bacteria (Auto) (Negative) Lyme Disease IgG Ab (Negative) Lyme Disease IgM Ab (Negative) SARS-CoV-2 (PCR) (Negative) Influenza Type A (PCR) (Neg) Influenza Type B (PCR) (Neg) RSV (RT-PCR) (Neg) 02/26/22 02/26/22 02/26/22 Range/Units 21:05 18:53 18:53 WBC (4.8-10.8) K/uL RBC (4.7-6.1) M/uL Hgb (14.0-18.0) g/dL Hct (42-52) % MCV (80-100) fL MCH (25-34) pg MCHC (32-36) g/dL RDW Std Deviation (36.4-46.3) fL RDW Coeff of Dayami (11.5-14.5) % Plt Count (130-400) K/uL MPV (7.4-10.4) fL Immature Gran % (Auto) % Neut % (Auto) % Lymph % (Auto) % [place] % (Auto) % Eos % (Auto) % Baso % (Auto) % Neut # (Auto) (1.4-6.5) K/uL Lymph # (Auto) (1.2-3.4) K/uL [place] # (Auto) (0.11-0.59) K/uL Eos # (Auto) (0-0.5) K/uL Baso # (Auto) (0-0.2) K/uL Immature Gran # (Auto) (0.00-0.02) K/uL PT (9.0-12.0) Seconds INR (0.9-1.1) APTT (21.0-31.0) Seconds PTT Ratio Sodium (136-145) mmol/L Potassium (3.5-5.1) mmol/L Chloride (98-107) mmol/L Carbon Dioxide (21-32) mmol/L Anion Gap (3-11) BUN (6-23) mg/dl Creatinine (0.6-1.4) mg/dl Est Cr Clr Drug Dosing ml/min Est GFR ( Amer) ml/min Est GFR (Non-Af Amer) ml/min BUN/Creatinine Ratio (10-20) Glucose (70-99(Fasting)) mg/dl POC Glucose (70-99) mg/dl Estimat Average Glucose mg/dl Hemoglobin A1c (4.5-5.6) % Lactate 1.0 (0.4-2.0) mmol/L Calcium (8.5-10.1) mg/dl Phosphorus (2.5-4.9) mg/dl Magnesium (1.7-2.4) mg/dl Total Bilirubin (0.2-1.0) mg/dl Direct Bilirubin (0-0.2) mg/dl AST (13-39) U/L ALT (7-52) U/L Alkaline Phosphatase (34-104) U/L Total Protein (6.0-8.3) gm/dl Albumin (3.4-5.0) gm/dl Globulin (2.5-4.0) gm/dl Albumin/Globulin Ratio (0.9-2) Procalcitonin (0-0.5) ng/ml Urine Color Yellow Urine Appearance Cloudy A (Clear) Urine pH 5.5 (4.5-7.5) Ur Specific [place] 1.033 H (1.000-1.030) Urine Protein 1+ H (Negative) Urine Glucose (UA) 3+ H (Negative) Urine Ketones Trace H (Negative) Urine Blood Trace H (Negative) Urine Nitrite Negative (Negative) Urine Bilirubin Negative (Negative) Urine Urobilinogen Negative (Negative) Ur Leukocyte Esterase 2+ H (Negative) Urine WBC (Auto) >30 H (0-5) /hpf Urine RBC (Auto) 10-30 H (0-4) /hpf U Hyaline Cast (Auto) 1-5 (0-5) /lpf U Epithel Cells (Auto) >30 H (0-5) /lpf Urine Bacteria (Auto) Negative (Negative) Lyme Disease IgG Ab (Negative) Lyme Disease IgM Ab (Negative) SARS-CoV-2 (PCR) NEGATIVE (Negative) Influenza Type A (PCR) Negative (Neg) Influenza Type B (PCR) Negative (Neg) RSV (RT-PCR) Negative (Neg) 02/26/22 02/26/22 02/26/22 Range/Units 17:55 17:55 17:55 WBC (4.8-10.8) K/uL RBC (4.7-6.1) M/uL Hgb (14.0-18.0) g/dL Hct (42-52) % MCV (80-100) fL MCH (25-34) pg MCHC (32-36) g/dL RDW Std Deviation (36.4-46.3) fL RDW Coeff of Dayami (11.5-14.5) % Plt Count (130-400) K/uL MPV (7.4-10.4) fL Immature Gran % (Auto) % Neut % (Auto) % Lymph % (Auto) % [place] % (Auto) % Eos % (Auto) % Baso % (Auto) % Neut # (Auto) (1.4-6.5) K/uL Lymph # (Auto) (1.2-3.4) K/uL [place] # (Auto) (0.11-0.59) K/uL Eos # (Auto) (0-0.5) K/uL Baso # (Auto) (0-0.2) K/uL Immature Gran # (Auto) (0.00-0.02) K/uL PT 11.5 (9.0-12.0) Seconds INR 1.1 (0.9-1.1) APTT 34.6 H (21.0-31.0) Seconds PTT Ratio 1.3 Sodium (136-145) mmol/L Potassium (3.5-5.1) mmol/L Chloride (98-107) mmol/L Carbon Dioxide (21-32) mmol/L Anion Gap (3-11) BUN (6-23) mg/dl Creatinine (0.6-1.4) mg/dl Est Cr Clr Drug Dosing ml/min Est GFR ( Amer) ml/min Est GFR (Non-Af Amer) ml/min BUN/Creatinine Ratio (10-20) Glucose (70-99(Fasting)) mg/dl POC Glucose (70-99) mg/dl Estimat Average Glucose mg/dl Hemoglobin A1c (4.5-5.6) % Lactate (0.4-2.0) mmol/L Calcium (8.5-10.1) mg/dl Phosphorus 2.2 L (2.5-4.9) mg/dl Magnesium 2.6 H (1.7-2.4) mg/dl Total Bilirubin (0.2-1.0) mg/dl Direct Bilirubin (0-0.2) mg/dl AST (13-39) U/L ALT (7-52) U/L Alkaline Phosphatase (34-104) U/L Total Protein (6.0-8.3) gm/dl Albumin (3.4-5.0) gm/dl Globulin (2.5-4.0) gm/dl Albumin/Globulin Ratio (0.9-2) Procalcitonin 0.32 (0-0.5) ng/ml Urine Color Urine Appearance (Clear) Urine pH (4.5-7.5) Ur Specific [place] (1.000-1.030) Urine Protein (Negative) Urine Glucose (UA) (Negative) Urine Ketones (Negative) Urine Blood (Negative) Urine Nitrite (Negative) Urine Bilirubin (Negative) Urine Urobilinogen (Negative) Ur Leukocyte Esterase (Negative) Urine WBC (Auto) (0-5) /hpf Urine RBC (Auto) (0-4) /hpf U Hyaline Cast (Auto) (0-5) /lpf U Epithel Cells (Auto) (0-5) /lpf Urine Bacteria (Auto) (Negative) Lyme Disease IgG Ab Negative (Negative) Lyme Disease IgM Ab Negative (Negative) SARS-CoV-2 (PCR) (Negative) Influenza Type A (PCR) (Neg) Influenza Type B (PCR) (Neg) RSV (RT-PCR) (Neg) 02/26/22 02/26/22 Range/Units 17:55 17:55 WBC 10.98 H (4.8-10.8) K/uL RBC 4.14 L (4.7-6.1) M/uL Hgb 13.7 L (14.0-18.0) g/dL Hct 41.1 L (42-52) % MCV 99.3 (80-100) fL MCH 33.1 (25-34) pg MCHC 33.3 (32-36) g/dL RDW Std Deviation 53.0 H (36.4-46.3) fL RDW Coeff of [place] 14.5 (11.5-14.5) % Plt Count 160 (130-400) K/uL MPV 9.5 (7.4-10.4) fL Immature Gran % (Auto) 0.5 % Neut % (Auto) 81.5 % Lymph % (Auto) 9.0 % [place] % (Auto) 8.4 % Eos % (Auto) 0.4 % Baso % (Auto) 0.2 % Neut # (Auto) 8.96 H (1.4-6.5) K/uL Lymph # (Auto) 0.99 L (1.2-3.4) K/uL [place] # (Auto) 0.92 H (0.11-0.59) K/uL Eos # (Auto) 0.04 (0-0.5) K/uL Baso # (Auto) 0.02 (0-0.2) K/uL Immature Gran # (Auto) 0.05 H (0.00-0.02) K/uL PT (9.0-12.0) Seconds INR (0.9-1.1) APTT (21.0-31.0) Seconds PTT Ratio Sodium 136 (136-145) mmol/L Potassium 3.7 (3.5-5.1) mmol/L Chloride 101 (98-107) mmol/L Carbon Dioxide 27 (21-32) mmol/L Anion Gap 8 (3-11) BUN 27 H (6-23) mg/dl Creatinine 1.29 (0.6-1.4) mg/dl Est Cr Clr Drug Dosing 62.8 ml/min Est GFR ( Amer) 62.4 ml/min Est GFR (Non-Af Amer) 53.9 ml/min BUN/Creatinine Ratio 20.9 H (10-20) Glucose 185 H (70-99(Fasting)) mg/dl POC Glucose (70-99) mg/dl Estimat Average Glucose mg/dl Hemoglobin A1c (4.5-5.6) % Lactate (0.4-2.0) mmol/L Calcium 9.1 (8.5-10.1) mg/dl Phosphorus (2.5-4.9) mg/dl Magnesium (1.7-2.4) mg/dl Total Bilirubin 1.1 H (0.2-1.0) mg/dl Direct Bilirubin (0-0.2) mg/dl AST 26 (13-39) U/L ALT 23 (7-52) U/L Alkaline Phosphatase 96 (34-104) U/L Total Protein 6.9 (6.0-8.3) gm/dl Albumin 4.0 (3.4-5.0) gm/dl Globulin 2.9 (2.5-4.0) gm/dl Albumin/Globulin Ratio 1.4 (0.9-2) Procalcitonin (0-0.5) ng/ml Urine Color Urine Appearance (Clear) Urine pH (4.5-7.5) Ur Specific [place] (1.000-1.030) Urine Protein (Negative) Urine Glucose (UA) (Negative) Urine Ketones (Negative) Urine Blood (Negative) Urine Nitrite (Negative) Urine Bilirubin (Negative) Urine Urobilinogen (Negative) Ur Leukocyte Esterase (Negative) Urine WBC (Auto) (0-5) /hpf Urine RBC (Auto) (0-4) /hpf U Hyaline Cast (Auto) (0-5) /lpf U Epithel Cells (Auto) (0-5) /lpf Urine Bacteria (Auto) (Negative) Lyme Disease IgG Ab (Negative) Lyme Disease IgM Ab (Negative) SARS-CoV-2 (PCR) (Negative) Influenza Type A (PCR) (Neg) Influenza Type B (PCR) (Neg) RSV (RT-PCR) (Neg) PG Care Time/CCT Total # of Minutes Spent Total Time Spent with Patient: Total time spent is greater than 50% in coordination of care (as documented) at patient's floor/unit and/or counseling patient: Coding Level of Care Code 90370 Subseq Hosp Care Lvl 3 Diagnoses Abdominal wall cellulitis L03.311 Diabetes mellitus type 2 in obese E11.69; E66.9 Gout M10.9 Severe obstructive sleep apnea G47.33 Paroxysmal atrial fibrillation I48.0 Chronic heart failure with preserved ejection fraction I50.32 Hypertension I10 Cough R05.9 Hypogonadism
[2022-02-27] MEDS: guaiFENesin/DEXTROM SYRUP 200MG/20MG 10ML UDC PO PRN ×2 (16:26→22:02)
[2022-02-27] MEDS: RIVAROXABAN 20 MG TAB PO SCH (20:38)
[2022-02-27] MEDS ORDERED: DOXAZosin MESYLATE TAB 2 MG TAB PO SCH (21:00)
[2022-02-27] MEDS ORDERED: ACETAMINOPHEN 500 MG TAB PO SCH (21:00)
[2022-02-27] MEDS ORDERED: ATORVASTATIN 20 MG TAB PO SCH (21:00)
[2022-02-27] MEDS ORDERED: NON-FORMULARY MEDICATION (Diphenhydramine-Acetaminophen [Tylenol Pm Extra Strength] 25-500 PO SCH (21:00)
[2022-02-27] MEDS ORDERED: diphenhydrAMINE Capsule 25 MG CAP PO SCH (21:00)
[2022-02-27] MEDS ORDERED: TRIAMCINOLONE ACET NASAL SPRAY 10.8ML BTL SCH (21:00)
[2022-02-27] MEDS: EPLERENONE 25 MG PO SCH (22:02)
[2022-02-28 06:53] LABS: Basophils # (auto) 0.01 K/uL (0-0.2); Basophils % (auto) 0.1 %; Eosinophils # (auto) 0.18 K/uL (0-0.5); Eosinophils % (auto) 2.5 %; Hematocrit (blood only) 38.3 % (42-52); Hemoglobin 12.3 g/dL (14.0-18.0); Immature Granulocytes # (auto) 0.03 K/uL (0.00-0.02); Immature Granulocytes % (auto) 0.4 %; Lymphocytes # (auto) 1.08 K/uL (1.2-3.4); Lymphocytes % (auto) 14.9 %; Mean Corpuscular Hemoglobin 31.8 pg (25-34); Mean Corpuscular Hgb Conc 32.1 g/dL (32-36); Mean Platelet Volume 9.2 fL (7.4-10.4); Monocytes # (auto) 0.69 K/uL (0.11-0.59); Monocytes % (auto) 9.5 %; Neutrophils # (auto) 5.27 K/uL (1.4-6.5); Neutrophils % (auto) 72.6 %; Platelet Count 156 K/uL (130-400); RDW Coefficient of Variation 14.7 % (11.5-14.5); RDW Standard Deviation 52.5 fL (36.4-46.3); Red Blood Count 3.87 M/uL (4.7-6.1); White Blood Count 7.26 K/uL (4.8-10.8)
[2022-02-28 07:06] LABS: BUN Creatinine Ratio 17.9 (10-20); Calcium 8.6 mg/dl (8.5-10.1); Creatinine Clr Calc Pharmacy 69.5 ml/min; Est GFR (African American) 70.3 ml/min; Est GFR (Non-African American) 60.6 ml/min; Potassium 3.9 mmol/L (3.5-5.1)
[2022-02-28] MEDS: CEFEPIME 2,000 MG in SYRINGE 0 ML IV SCH ×2 (07:32→18:00)
[2022-02-28] MEDS: METOPROLOL SUCC 50MG EXT REL TAB PO SCH (08:55)
[2022-02-28] MEDS: traMADol HCL 50 MG TABLET PO SCH (08:55)
[2022-02-28] MEDS: POTASSIUM CHLORIDE CRTAB 20 MEQ TABCR PO SCH (08:55)
[2022-02-28] MEDS: TORSEMIDE 20 MG TAB PO SCH (08:55)
[2022-02-28] MEDS: COLESTIPOL HCL 1 GM TAB PO SCH (08:56)
[2022-02-28] MEDS: LOSARTAN POTASSIUM 50 MG TAB PO SCH (08:56)
[2022-02-28] MEDS: GABAPENTIN 400 MG CAP PO SCH ×2 (08:56→13:21)
[2022-02-28] MEDS: EPLERENONE 25 MG PO SCH ×2 (08:57→17:53)
[2022-02-28] MEDS ORDERED: CYANOCOBALAMIN (B-12) 500 MCG TABLET PO SCH (09:00)
[2022-02-28] MEDS ORDERED: CHOLECALCIFEROL 1,000 UNITS 25 MCG TAB PO SCH (09:00)
[2022-02-28] MEDS: INSULIN GLARGINE SOLOSTAR 100 UNITS/ML 3 ML PEN SC SCH (09:02)
[2022-02-28] MEDS: INSULIN ASPART PER UNIT SC SCH ×3 (09:08→17:54)
[2022-02-28] MEDS: guaiFENesin/DEXTROM SYRUP 200MG/20MG 10ML UDC PO PRN (10:03)
[2022-02-28] MEDS: allopurinoL 100 MG TAB PO SCH (10:03)
[2022-02-28] MEDS: VANCOMYCIN HCL 1,000 MG in SODIUM CHLORIDE 0.9% 250 ML IV SCH (10:53)
--- NOTE | 2022-02-28 14:31 | Discharge Summary ---
Date of Service February 28, 2022 Admission HPI Per Admitting Provider Andre Abreu is a 77yo male presenting with abdominal wall cellulitis. Patient noted some periumbilical and lower abdominal redness on 02/23/22. He noted his PCP and was given a prescription for Keflex. He started this medication yesterday 02/25/22 and took 4 pills yesterday and 2 today. He notes the redness has spread to involve his entire abdomen. He has been febrile as well to Tm of 101.7 yesterday AM. He has been taking Tylenol with improvement in temperature. He also reports being more tired than usual as well as lightheaded. He has also had a faint cough, dry. No additional complaints at this time. IN the ER patient afebrile, HD stable, NAD. ER Course: Cefepime Principal Diagnosis Abdominal wall cellulitis Discharge Exam Constitutional WD/WN, vitals as above Eyes + anicteric sclerae Neck trachea midline, no thyromegaly Respiratory normal respiratory effort, lungs clear to auscultation Cardiovascular Rate/Rhythm: regular rate and + irregularly irregular Heart Sounds: no murmur Chest (Breasts) Chest: normal inspection of chest Gastrointestinal (Abdomen) normal bowel sounds, soft, nontender, no hepatosplenomegaly Musculoskeletal Extremities: extremities normal to inspection; no cyanosis and no clubbing Skin + erythema (+erythema of abdomen, much receded inside marker line,less red) Neurologic moves all extremities and awake; no focal motor deficits Psychiatric A+Ox3, euthymic affect Lymphatic no lymphedema Discharge Data Allergies Allergy/AdvReac Type Severity Reaction Status Date / Time No Known Drug Allergies Allergy Unknown Unknown Verified 01/23/22 11:20 Consultations 02/26/22 18:58 ED Decision to Admit Stat Hospital Course (1) Abdominal wall cellulitis: 77yo male with history of HTN, DM presenting with 3 days of progressive abdominal wall cellulitis. Reported febrile outpatient. Remains afebrile, HD stable, nontoxic in appearance. He does have a mild elevation of WBC=10.98 on admission which is now back to normal. procalcitonin is within normal limits. Improving, erythema now significantly receded inside marker line on abdomen and erythema much reduced No further fevers during hospitalization Nidus could be small opening of previous umbilical laparoscopic entry site that has likely a retained suture-recommend seeing general surgery as an outpatient after recovery of cellulitis -Blood cultures remain no growth to date-follow after discharge but seems unlikely will be positive at this point -Follow area of erythema after discharge and if worsens or spikes fever after transition to po abx, return to hospital instructions given -received vancomycin and Cefepime while admitted--> will send home on Augmentin and doxycycline for broad-spectrum coverage for 7 more days (2) Diabetes mellitus type 2 in obese: Patient with DM-II. Last LnjH3U=3.2 on 03/29/21. He is on Glipizide, Jardiance, Toujeo, U-300 insulin and Lispro 40u with meals. He follows with Endocrinology. -held oral agents while admitted received Lantus and Novolog, good control here -restart home meds on discharge -History of diabetic polyneuropathy. Patient has been seen by Neurology in the past -Continue Gabapentin (3) Gout: Chronic. Stable -Continue Allopurinol 100mg po daily -Continue Colchicine (4) Severe obstructive sleep apnea: Chronic. Patient is compliant with CPAP. He follows with Dr. Aaron -Continue CPAP qHS (5) Paroxysmal atrial fibrillation: Longstanding history of atrial fibrillation s/p multiple cardioversions as well as pulmonary vein isolation. Patient in atrial fibrillation presently. Heart rate is controlled at 70bpm, he is anticoagulated on Xarelto. Was previously on Flecainide but no longer takes this -Continue Xarelto 20mg po qHS -Continue Metoprolol 100mg po BID (6) Chronic heart failure with preserved ejection fraction: Patient with diastolic heart failure. Appears well compensated at present. Has a slight cough otherwise denies edema, weight gain, orthopnea. Dry weight noted to be 255# per Heart Failure note -Continue torsemide, metoprolol, metolazone PRN, continue potassium twice daily -Continue Losartan, Eplerenone and Jardiance if can be brought in from home (7) Hypertension: Blood pressure stable. Was previously on Amlodipine which has been discontinued. -Continue Losartan and Metoprolol -Continue to monitor He reports he is no longer on doxazosin-Home medication reconciliation updated (8) Cough: Has had a dry cough for the last week. COVID/influenza/RSV are negative Lung exam is clear gave guaifenesin with dextromethorphan as needed Continue home triamcinolone nasal spray (9) Hypogonadism: It appears the patient is on testosterone injections as well as anastrozole twice a week presumably for hypogonadism Follow-up with PCP Continue home medication of anastrozole (10) Asymptomatic bacteriuria: UA was contaminated with epis on admission. Ur cx growing Staph species and Zehra albicans which are likely from the skin as has some issues with retraction of penis into residual foreskin Not a true UTI however will treat with topical clotrimazole for balanitis on discharge x 2 weeks DVT prophylaxis-Xarelto Disposition-dc to home today Total Time Total Time Spent Total Time Spent (In Minutes): 35 min Discharge Plan Discharge Items Patient Disposition: Home - Self-Care Reason For Visit: CELLULITIS Discharge Diagnosis: Abdominal wall cellulitis Condition on Discharge: Good Activity: Resume your previous activity Non-emergency contact: Primary Care Provider Call non-emergency contact if: you have any medication questions, your symptoms worsen, your pain is not controlled, you have a fever and your temperature is above 101 Follow-up/Referrals: Jennifer Moser MD [Primary Care Provider] - (Follow up within 1-2 weeks-you can contact him for an appointment through his [employer] service.) Diet: Carb Consistent or DM2 and Heart Healthy Addtl Attending Provider Instructions: Please finish out the course of antibiotics as prescribed with Augmentin twice a day and doxycycline twice a day for 7 more days each. Please remain upright for at least 30 min after taking doxycycline and take it with a full glass of water to prevent it from getting stuck in your esophagus. Also try to take doxycycline by itself and not with any other pills or food. If the redness on your abdomen worsens again or if you develop fevers or any other acute symptoms, please return to the hospital right away. Your urine culture was growing Staph bacteria and yeast, but it was contaminated with skin cells from your penis and is not considered a true urinary tract infection. You will be prescribed an antifungal cream to put on the head of the penis twice a day to treat the yeast infection x 2 weeks. Pending Studies at Discharge: Yes (Final Blood cultures-no growth to date) Stand-Alone Forms: [employer], Smoking Cessation Medications and DC Order Prescriptions: New amoxicillin-pot clavulanate 875-125 mg tablet 1 tab PO BID Qty: 14 RF: 0 doxycycline hyclate 100 mg tablet 100 mg PO BID 7 Days Qty: 14 RF: 0 clotrimazole 1 % cream 1 applic topical AMPM 14 Days Qty: 15 RF: 0 Continued eplerenone [Inspra] 25 mg tablet 25 mg PO BID RF: 0 gabapentin 400 mg capsule 800 mg PO TID RF: 0 meloxicam 15 mg tablet 15 mg PO DAILY PRN (Reason: Back Pain) RF: 0 Jardiance 10 mg tablet 10 mg PO DAILY RF: 0 losartan 100 mg tablet 100 mg PO DAILY RF: 0 testosterone cypionate 200 mg/mL oil 100 mg subcut Q7D RF: 0 metolazone 10 mg tablet 5 mg PO DAILY PRN (Reason: Edema) RF: 0 radha niagen 300 mg PO DAILY RF: 0 metoprolol succinate 50 mg tablet extended release 24 hr 100 mg PO BID RF: 0 colchicine 0.6 mg tablet 0.6 mg PO HS RF: 0 cinnamon bark 1 cap PO BID RF: 0 cholecalciferol (vitamin D3) [Vitamin D3] 25 mcg (1,000 unit) Tablet 25 mcg PO DAILY RF: 0 omega 9-cqe-lyr-fish oil [Fish Oil] 1,000 mg (120 mg-180 mg) Capsule 1 cap PO BID RF: 0 cranberry 400 mg capsule 800 mg PO BID RF: 0 vitamin K2 40 mcg tablet 100 mcg PO DAILY RF: 0 torsemide 20 mg tablet 20 mg PO QAM RF: 0 modafinil 200 mg Tablet 200 mg PO DAILY PRN (Reason: energy) RF: 0 Xarelto 20 mg tablet 20 mg PO HS RF: 0 allopurinol [Zyloprim] 100 mg tablet 100 mg PO QAM RF: 0 Toujeo SoloStar U-300 Insulin 300 unit/mL (1.5 mL) insulin pen 40 units subcut BID RF: 0 potassium chloride 10 mEq tablet extended release 20 meq PO BID RF: 0 coenzyme Q10 [CoQ-10] 100 mg capsule 100 mg PO DAILY RF: 0 glipizide 5 mg tablet extended release 24hr 10 mg PO BID RF: 0 cyanocobalamin (vitamin B-12) [Vitamin B-12] 1,000 mcg tablet 1,000 mcg PO Q OTHER DAY RF: 0 anastrozole 1 mg tablet See Rx Instructions .ROUTE .COMPLEX RF: 0 atorvastatin 40 mg tablet 20 mg PO HS RF: 0 calcium carbonate [Tums] 200 mg calcium (500 mg) tablet,chewable 400 mg PO BID PRN (Reason: Acid Reflux) RF: 0 insulin aspart U-100 [Novolog U-100 Insulin aspart] 100 unit/mL Solution 40 unit subcut AC RF: 0 tramadol 100 mg Tablet 100 mg PO BID RF: 0 triamcinolone acetonide [Nasacort] 55 mcg Aerosol,Gibbon 2 spray INTRANASAL HS RF: 0 Airborne (ascorbic acid) 250-8.875 mg Tablet,Chewable 2 tab PO BID RF: 0 alpha lipoic acid 300 mg Capsule 300 mg PO BID RF: 0 benfotiamine 150 mg Capsule 150 mg PO BID RF: 0 diphenhydramine-acetaminophen [Tylenol PM Extra Strength] 25-500 mg Tablet 2 tab PO HS RF: 0 Vitamin D (with calcium) 77-400 mg-unit Tablet 1 tab PO DAILY RF: 0 glucosamine sulfate [Glucosamine] 750 mg Tablet 1,500 mg PO BID RF: 0 Tart Roldan 08-568-64-75-20 mg Capsule 2 cap PO HS RF: 0 turmeric 400 mg Capsule 1,500 mg PO DAILY RF: 0 Bijan-E 400 mg Tablet 400 mg PO DAILY RF: 0 Discontinued triamcinolone acetonide [Nasacort] 55 mcg Aerosol,Gibbon 2 spray INTRANASAL HS RF: 0 Discharge Orders: Discharge Order (Routine); Ordered 02/28/22 Ordered By: Krystina Motley Admission Data Admit Date/Time: 02/26/22 19:52 Attending Provider: Krystina Motley Admit Provider: Amisha Hussein Primary Care Provider: Jennifer Moser Other Providers: Vito Dumont Coding Level of Care Code D/C DAY MANAGEMENT >30 MINS Diagnoses Abdominal wall cellulitis L03.311 Diabetes mellitus type 2 in obese E11.69; E66.9 Gout M10.9 Severe obstructive sleep apnea G47.33 Paroxysmal atrial fibrillation I48.0 Chronic heart failure with preserved ejection fraction I50.32 Hypertension I10 Cough R05.9 Hypogonadism Asymptomatic bacteriuria R82.71
[2022-03-02] MEDS ORDERED: ANASTROZOLE 1 MG TAB PO SCH (09:00)
== END 2022-02-28 18:15 | disposition home or self-care (01) | DRG 603 ==
LOC: ED 16:55 → 3N 19:52 → SUATTDRO 19:52 → 3N 21:17

== ENCOUNTER 2022-10-31 05:05 | Observation (INO) ==
--- NOTE | 2022-10-05 12:29 | PAT Medication Instructions ---
Medication Instructions Date of Service October 05, 2022 Home Medications Medication Instructions Recorded modafinil 200 mg tablet 200 mg PO DAILY PRN energy 90 days 04/10/22 #90 tabs rivaroxaban 20 mg tablet (Xarelto) 20 mg PO HS torsemide 20 mg tablet 40 mg PO QAM allopurinol 100 mg tablet (Zyloprim) 100 mg PO QAM coenzyme Q10 100 mg capsule (CoQ-10) 100 mg PO QAM insulin glargine U-300 conc 300 unit/mL (1.5 mL) subcutaneous pen (Toujeo SoloStar U-300 Insulin) 40 units subcut BID potassium chloride 10 mEq tablet,extended release 10 meq PO BID cholecalciferol (vitamin D3) 25 mcg (1,000 unit) tablet (Vitamin D3) 50 mcg PO QAM omega 7-fjt-rkr-fish oil 1,000 mg (120 mg-180 mg) capsule (Fish Oil) 1 cap PO BID anastrozole 1 mg tablet 1 mg PO UD atorvastatin 40 mg tablet 20 mg PO HS cinnamon bark [Cinnamon] 1 cap PO BID cranberry 400 mg capsule 800 mg PO BID cyanocobalamin (vitamin B-12) 1,000 mcg tablet (Vitamin B-12) 1,000 mcg PO Q OTHER DAY ] glipizide 5 mg tablet, extended release 24 hr 10 mg PO BID vitamin K2 40 mcg tablet 100 mcg PO QAM metoprolol succinate 50 mg tablet,extended release 24 hr 50 mg PO BID empagliflozin 10 mg tablet (Jardiance) 10 mg PO QAM eplerenone 25 mg tablet (Inspra) 25 mg PO QAM gabapentin 400 mg capsule 800 mg PO TID losartan 100 mg tablet 100 mg PO QAM testosterone cypionate 200 mg/mL intramuscular oil 100 mg subcut Q7D radha niagen 300 mg PO QAM alpha lipoic acid 300 mg capsule 300 mg PO UD benfotiamine 150 mg capsule 150 mg PO BID glucosamine sulfate 750 mg tablet 1,500 mg PO BID dlthrmkh-dbwubiml-wka C 250 mg-herbal no.124 8.875 mg chewable tablet (Airborne (ascorbic acid)) 2 tab PO BID s-adenosylmethionine 400 mg tablet (Bijan-E) 400 mg PO QAM triamcinolone acetonide 55 mcg nasal spray aerosol (Nasacort) 2 spray intranasal BID turmeric 400 mg capsule 1,500 mg PO QAM vit C 30 mg-s.roldan 250 mg-celery seed 75 mg-grape seed extrt capsule (Tart Roldan) 2 cap PO HS ] acetaminophen 300 mg-codeine 30 mg tablet 1 tab PO Q6H PRN Pain modafinil 200 mg tablet 200 mg PO DAILY PRN energy Humalog Pen 40 units subcut TID acetaminophen 500 mg tablet 1,000 mg PO Q6H PRN Pain albuterol sulfate 90 mcg/actuation aerosol inhaler 2 puff inhalation UD PRN Shortness Of Breath colchicine 0.6 mg tablet 0.12 mg PO HS cyanocobalamin (vitamin B-12) 2,500 mcg sublingual tablet (Vitamin B-12) 2,500 mcg sublingual QAM doxazosin 2 mg tablet 2 mg PO HS fluticasone propionate 110 mcg/actuation HFA aerosol inhaler (Flovent HFA) 2 puff inhalation BID nihbii-pgyjccxz-ekvbkub 12,000-38,000-60,000 unit capsule,delayed rel (Creon) 1 cap PO TID naproxen sodium 220 mg tablet (Aleve) 440 mg PO QAM quercetin 500 mg capsule 1,000 mg PO QAM sildenafil (pulm.hypertension) 20 mg tablet 20 mg PO HS tamsulosin 0.4 mg capsule 0.4 mg PO QAM tramadol 50 mg tablet 50 mg PO BID PRN Pain ASK your surgeon for instructions naproxen sodium 220 mg tablet (Aleve) 440 mg PO QAM ASK your prescriber and surgeon rivaroxaban 20 mg tablet (Xarelto) 20 mg PO HS (in order to get spinal anesthesia- will need to hold Xarelto/rivaroxaban at least 72 hours prior to surgery) anastrozole 1 mg tablet 1 mg PO UD testosterone cypionate 200 mg/mL intramuscular oil 100 mg subcut Q7D STOP taking 2 weeks before surgery coenzyme Q10 100 mg capsule (CoQ-10) 100 mg PO QAM omega 0-zlp-oli-fish oil 1,000 mg (120 mg-180 mg) capsule (Fish Oil) 1 cap PO BID cinnamon bark [Cinnamon] 1 cap PO BID cranberry 400 mg capsule 800 mg PO BID vitamin K2 40 mcg tablet 100 mcg PO QAM radha niagen 300 mg PO QAM alpha lipoic acid 300 mg capsule 300 mg PO UD benfotiamine 150 mg capsule 150 mg PO BID glucosamine sulfate 750 mg tablet 1,500 mg PO BID s-adenosylmethionine 400 mg tablet (Bijan-E) 400 mg PO QAM turmeric 400 mg capsule 1,500 mg PO QAM vit C 30 mg-s.roldan 250 mg-celery seed 75 mg-grape seed extrt capsule (Tart Roldan) 2 cap PO HS quercetin 500 mg capsule 1,000 mg PO QAM STOP taking 3 days before surgery empagliflozin 10 mg tablet (Jardiance) 10 mg PO QAM DO NOT take the morning of surgery torsemide 20 mg tablet 40 mg PO QAM potassium chloride 10 mEq tablet,extended release 10 meq PO BID cholecalciferol (vitamin D3) 25 mcg (1,000 unit) tablet (Vitamin D3) 50 mcg PO QAM cyanocobalamin (vitamin B-12) 1,000 mcg tablet (Vitamin B-12) 1,000 mcg PO Q OTHER DAY glipizide 5 mg tablet, extended release 24 hr 10 mg PO BID losartan 100 mg tablet 100 mg PO QAM eplerenone 25 mg tablet (Inspra) 25 mg PO QAM vbgxzxvg-kvpilxee-kqi C 250 mg-herbal no.124 8.875 mg chewable tablet (Airborne (ascorbic acid)) 2 tab PO BID Humalog Pen 40 units subcut TID cyanocobalamin (vitamin B-12) 2,500 mcg sublingual tablet (Vitamin B-12) 2,500 mcg sublingual QAM modafinil 200 mg tablet 200 mg PO DAILY PRN energy ahydwf-elrddopi-tughtrq 12,000-38,000-60,000 unit capsule,delayed rel (Creon) 1 cap PO TID Take morning of surgery With a small sip of water, OTHERWISE NOTHING TO EAT OR DRINK AFTER MIDNIGHT: allopurinol 100 mg tablet (Zyloprim) 100 mg PO QAM metoprolol succinate 50 mg tablet,extended release 24 hr 50 mg PO BID gabapentin 400 mg capsule 800 mg PO TID triamcinolone acetonide 55 mcg nasal spray aerosol (Nasacort) 2 spray intranasal BID acetaminophen 300 mg-codeine 30 mg tablet 1 tab PO Q6H PRN Pain (if needed) acetaminophen 500 mg tablet 1,000 mg PO Q6H PRN Pain (if needed) albuterol sulfate 90 mcg/actuation aerosol inhaler 2 puff inhalation UD PRN Shortness Of Breath (use if needed; please bring with you to hospital day of surgery if possible) fluticasone propionate 110 mcg/actuation HFA aerosol inhaler (Flovent HFA) 2 puff inhalation BID tamsulosin 0.4 mg capsule 0.4 mg PO QAM tramadol 50 mg tablet 50 mg PO BID PRN Pain (if needed) Take evening before surgery insulin glargine U-300 conc 300 unit/mL (1.5 mL) subcutaneous pen (Toujeo SoloStar U-300 Insulin) 40 units subcut BID potassium chloride 10 mEq tablet,extended release 10 meq PO BID atorvastatin 40 mg tablet 20 mg PO HS glipizide 5 mg tablet, extended release 24 hr 10 mg PO BID metoprolol succinate 50 mg tablet,extended release 24 hr 50 mg PO BID gabapentin 400 mg capsule 800 mg PO TID qzgmztgm-pujwdwrd-vaa C 250 mg-herbal no.124 8.875 mg chewable tablet (Airborne (ascorbic acid)) 2 tab PO BID triamcinolone acetonide 55 mcg nasal spray aerosol (Nasacort) 2 spray intranasal BID acetaminophen 300 mg-codeine 30 mg tablet 1 tab PO Q6H PRN Pain (if needed) Humalog Pen 40 units subcut TID acetaminophen 500 mg tablet 1,000 mg PO Q6H PRN Pain (if needed) albuterol sulfate 90 mcg/actuation aerosol inhaler 2 puff inhalation UD PRN Shortness Of Breath (if needed) colchicine 0.6 mg tablet 0.12 mg PO HS doxazosin 2 mg tablet 2 mg PO HS fluticasone propionate 110 mcg/actuation HFA aerosol inhaler (Flovent HFA) 2 puff inhalation BID wmwxvd-rxfhdvng-ihlsnnj 12,000-38,000-60,000 unit capsule,delayed rel (Creon) 1 cap PO TID sildenafil (pulm.hypertension) 20 mg tablet 20 mg PO HS tramadol 50 mg tablet 50 mg PO BID PRN Pain (if needed) Insulin Dependent Diabetic Patients * Test your blood sugar the morning of surgery * If Blood Sugar is GREATER THAN 150, take HALF of your regular dose of: insulin glargine U-300 conc 300 unit/mL (1.5 mL) subcutaneous pen (Toujeo SoloStar U- 300 Insulin) (20 units) * If Blood Sugar is LESS THAN 150, DO NOT TAKE ANY: insulin glargine U-300 conc 300 unit/mL (1.5 mL) subcutaneous pen (Toujeo SoloStar U-300 Insulin) * Other Notes If you have any questions please call us at [phone] or [phone] or [phone] or [phone]
--- NOTE | 2022-10-08 10:39 | Anesthesiology Consultation ---
Date of Service October 08, 2022 Assessment & Plan (1) Encounter for pre-operative examination: - check BSG am DOS. - A1c 9.6%, surgeon's office made aware. - cough: Pt reports cough occasionally productive ongoing x 6 weeks. Denies change or worsening. - awaiting PCP 10/10/22 and cardiology pre-op evaluation 10/18/22. Optimization form completed for PCP review given ongoing cough occasionally productive and elevated A1c. - cardiology 09/26/22 [place]: "...permanent atrial fibrillation, diastolic heart failure, mild valvular heart disease, type 2 diabetes, JANUARY, hypertension, and dyslipidemia who presents to the clinic for preoperative cardiovascular misty luation prior to left total knee arthroplasty on 10/31/[address] Tran...chronic, but stable dyspnea with exertion. Prior ischemic evaluation for the shortness of breath was negative...is not having angina...is in permanent atrial fibrillation, but his rate is well controlled...blood pressure is also well controlled...does admit to missing some doses of Torsemide recently, and he appears hypervolemic on exam today. His weight is up 13 lbs since March, according to office scales. He was therefore advised to increase his Torsemide dose to 40 mg daily until his weight returns to baseline. Will not have him take metolazone for the time-being. He will continue Jardiance and eplerenone as prescribed as well as his other medical therapy. Will have him follow-up in 3 weeks to reassess his volume status and ensure he is optimized from a cardiovascular standpoint for surgery..." anesthesia concerns: "can't remember the name of the pain medication they gave me, but it made me see spiders crawling up the wall." "must use a smaller tube when intubating me; had a sore throat for over a month because the tube was too large" - Outpatient joint assessment: Patient is currently scheduled for inpatient pathway. If re-evaluated pending system levels during current pandemic/surgeon requests outpatient pathway, patient is not acceptable candidate for outpatient joint program from anesthesia standpoint. Chart Review Chart Review: Pending: Refer to Additional Notes / Consult section and Patient seen in Pre Admission Testing Teaching & Discussion Pre-Anesthesia Teaching/Discussion Notes: Instructed NPO after midnight before surgery, except medications with 15 cc of water. Medication instructions provided according to the PAT guidelines. History Surgery Operation Date: 10/31/22 08:50 Proposed Procedures p Left Total Knee Arthroplasty - Rudy Tran MD Height/Weight Height: 5 ft 10 in Weight: 119.44 kg Allergies Allergy/AdvReac Type Severity Reaction Status Date / Time No Known Drug Allergies Allergy Unknown Unknown Verified 10/05/22 10:09 Medications Home Medications Medication Instructions Recorded Confirmed Last Taken rivaroxaban 20 mg tablet (Xarelto) 20 mg PO HS 06/02/19 10/05/22 02/26/22 torsemide 20 mg tablet 40 mg PO QAM 06/02/19 10/05/22 1 Day Ago ~02/26/22 allopurinol 100 mg tablet 100 mg PO QAM 10/14/19 10/05/22 1 Day Ago (Zyloprim) ~02/26/22 coenzyme Q10 100 mg capsule 100 mg PO QAM 10/14/19 10/05/22 1 Day Ago (CoQ-10) ~02/26/22 insulin glargine U-300 conc 300 40 units subcut BID 10/14/19 10/05/22 02/27/22 unit/mL (1.5 mL) subcutaneous pen (Toujeo SoloStar U-300 Insulin) potassium chloride 10 mEq 20 meq PO BID 10/14/19 10/08/22 1 Day Ago tablet,extended release ~02/26/22 cholecalciferol (vitamin D3) 25 50 mcg PO QAM 11/11/19 10/05/22 1 Day Ago mcg (1,000 unit) tablet (Vitamin ~02/26/22 D3) omega 4-lpz-vuo-fish oil 1,000 mg 1 cap PO BID 11/11/19 10/05/22 04/15/20 08:00 (120 mg-180 mg) capsule (Fish Oil) anastrozole 1 mg tablet 1 mg PO UD 06/14/20 10/05/22 1 Day Ago ~02/26/22 atorvastatin 40 mg tablet 20 mg PO HS 06/14/20 10/05/22 1 Day Ago ~02/26/22 cranberry 400 mg capsule 800 mg PO BID 06/14/20 10/05/22 Unknown cyanocobalamin (vitamin B-12) 1,000 mcg PO Q OTHER DAY 06/14/20 10/05/22 Unknown 1,000 mcg tablet (Vitamin B-12) glipizide 5 mg tablet, extended 10 mg PO BID 06/14/20 10/05/22 Unknown release 24 hr vitamin K2 40 mcg tablet 100 mcg PO QAM 06/14/20 10/05/22 Unknown metoprolol succinate 50 mg 50 mg PO BID 06/30/21 10/05/22 02/27/22 tablet,extended release 24 hr empagliflozin 10 mg tablet 10 mg PO QAM 07/11/21 10/05/22 1 Day Ago (Jardiance) ~02/26/22 eplerenone 25 mg tablet (Inspra) 25 mg PO QAM 07/11/21 10/05/22 02/26/22 gabapentin 400 mg capsule 400 mg PO TID 07/11/21 10/08/22 1 Day Ago ~02/26/22 losartan 100 mg tablet 100 mg PO QAM 07/11/21 10/05/22 02/27/22 radha niagen 300 mg PO QAM 07/11/21 10/05/22 Unknown alpha lipoic acid 300 mg capsule 300 mg PO UD 02/27/22 10/05/22 Unknown benfotiamine 150 mg capsule 150 mg PO BID 02/27/22 10/05/22 Unknown glucosamine sulfate 750 mg tablet 1,500 mg PO BID 02/27/22 10/05/22 Unknown dgpuwfle-qodbisfq-lnz C 250 2 tab PO BID 02/27/22 10/05/22 Unknown mg-herbal no.124 8.875 mg chewable tablet (Airborne (ascorbic acid)) s-adenosylmethionine 400 mg tablet 400 mg PO QAM 02/27/22 10/05/22 Unknown (Bijan-E) turmeric 400 mg capsule 1,500 mg PO QAM 02/27/22 10/05/22 Unknown vit C 30 mg-s.roldan 250 mg-celery 2 cap PO HS 02/27/22 10/05/22 Unknown seed 75 mg-grape seed extrt capsule (Tart Roldan) acetaminophen 300 mg-codeine 30 mg 1 tab PO Q6H PRN Pain 03/30/22 10/05/22 Unknown tablet modafinil 200 mg tablet 200 mg PO DAILY PRN energy 90 days 04/10/22 10/05/22 Unknown #90 tabs acetaminophen 500 mg tablet 1,000 mg PO Q6H PRN Pain 10/05/22 10/05/22 Unknown albuterol sulfate 90 mcg/actuation 2 puff inhalation UD PRN Shortness 10/05/22 10/05/22 Unknown aerosol inhaler Of Breath colchicine 0.6 mg tablet 0.12 mg PO HS 10/05/22 10/05/22 Unknown cyanocobalamin (vitamin B-12) 2,500 mcg sublingual QAM 10/05/22 10/05/22 Unknown 2,500 mcg sublingual tablet (Vitamin B-12) doxazosin 2 mg tablet 2 mg PO HS 10/05/22 10/05/22 Unknown fluticasone propionate 110 2 puff inhalation BID 10/05/22 10/05/22 Unknown mcg/actuation HFA aerosol inhaler (Flovent HFA) gmoimu-amejxvju-lcpyxym 1 cap PO TID 10/05/22 10/05/22 Unknown 12,000-38,000-60,000 unit capsule,delayed rel (Creon) naproxen sodium 220 mg tablet 440 mg PO QAM 10/05/22 10/05/22 Unknown (Aleve) quercetin 500 mg capsule 1,000 mg PO QAM 10/05/22 10/05/22 Unknown sildenafil (pulm.hypertension) 20 20 mg PO HS 10/05/22 10/05/22 Unknown mg tablet tamsulosin 0.4 mg capsule 0.4 mg PO QAM 10/05/22 10/05/22 Unknown tramadol 50 mg tablet 50 mg PO BID PRN Pain 10/05/22 10/05/22 Unknown Aller-Itin 1 dose PO QAM 10/08/22 10/08/22 Unknown Mk-7 Vitamin K2 100 mcg PO DAILY 10/08/22 10/08/22 Unknown Vitamin D (with calcium) 1 cap PO DAILY 10/08/22 10/08/22 Unknown cinnamon bark 500 mg capsule 500 mg PO BID 10/08/22 10/08/22 Unknown (Cinnamon) clotrimazole-betamethasone 1 1 applic topical BID 10/08/22 10/08/22 Unknown %-0.05 % topical cream codeine 10 mg-guaifenesin 100 mg/5 5 ml PO Q4H PRN Cough 10/08/22 10/08/22 Unknown mL oral liquid eplerenone 25 mg tablet 25 mg PO BID 10/08/22 10/08/22 Unknown fluconazole 100 mg tablet 100 mg PO UD 10/08/22 10/08/22 Unknown umhobvxlona-jsrptuabm-wvf C-Mn 500 1 cap PO BID 10/08/22 10/08/22 Unknown mg-400 mg capsule insulin aspart U-100 100 unit/mL 40 unit subcut AC 10/08/22 10/08/22 Unknown (3 mL) subcutaneous pen (Novolog Flexpen U-100 Insulin aspart) metolazone 5 mg tablet 5 mg PO UD PRN as needed 10/08/22 10/08/22 Unknown montelukast 10 mg tablet 10 mg PO DAILY 10/08/22 10/08/22 Unknown zjqzeykg-ghtfvvns-cbk C 250 2 tab PO DAILY 10/08/22 10/08/22 Unknown mg-herbal no.124 8.875 mg chewable tablet (Airborne (ascorbic acid)) oxycodone-acetaminophen 5 mg-325 1 tab PO UD PRN Pain 10/08/22 10/08/22 Unknown mg tablet s-adenosylmethionine 400 mg tablet 400 mg PO DAILY 10/08/22 10/08/22 Unknown (Bijan-E) testosterone cypionate 200 mg/mL 100 mg subcut Q7D 10/08/22 10/08/22 Unknown intramuscular kit triamcinolone acetonide 55 mcg 1 spray intranasal HS 10/08/22 10/08/22 Unknown nasal spray aerosol (Nasacort) vitamin C 500 mg-quercetin 250 2 cap PO DAILY 10/08/22 10/08/22 Unknown mg-bioflavonoids, citrus 33 mg capsule (Quercetin Complex) Past Medical History Medical History (Updated 10/08/22 @ 10:49 by Alicia Licea PA-C) Acid reflux tums PRN, stable per pt Aortic stenosis, mild per 08/2021 echo, max PG 21 mmHg, dimensionless valve index 0.39 Atrial fibrillation Status post pulmonary vein isolation at [facility], multiple cardioversions, Follows w/ Dr. Pandya BPH (benign prostatic hyperplasia) BPPV (benign paroxysmal positional vertigo) CHF (congestive heart failure) EF 60-65% Chronic kidney disease, stage 3 Baseline creatine per records 1.2-1.4 COPD (chronic obstructive pulmonary disease) controlled, stable per pt Gout Gram-negative bacteremia Hx of adverse drug reaction "can't remember the name of the pain medication they gave me, but it made me see spiders crawling up the wall." Hx of difficult intubation "must use a smaller tube when intubating me; had a sore throat for over a month because the tube was too large" Hypertension controlled, stable per pt LVH (left ventricular hypertrophy) moderate Morbid obesity Shortness of breath on flat surfaces and with stairs, denies change or worsening since seeing cardiology Sleep apnea CPAP-compliant Type 2 diabetes mellitus with diabetic neuropathy IDDM Patient denies h/o stroke, seizures, heart attack, blood clots or blood transfusions. Past Family History Family History Mother , mid 80s of dementia Alzheimer disease Hypertension Father , age 98 with dementia Dementia Colon cancer Other Allergies Diabetes Heart disease No pertinent family history Denies family history of Tuberculosis Emphysema, unspecified Lung disease Cancer Asthma Past Surgical History Surgical History (Updated 10/08/22 @ 10:49 by Alicia Licea PA-C) History of cardiac radiofrequency ablation ~2017, X2, MD [place]; f/u dr pandya, [place] History of cardioversion x6; most recent 05/04/17, prior to ablation [facility] History of colonoscopy History of esophagogastroduodenoscopy (EGD) History of total right hip arthroplasty Hx laparoscopic cholecystectomy Laparoscopic cholecystectomy with lysis of adhesions. Dr. Dave 04/21/2020 S/P ERCP (04/21/20) Upper Endoscopic Ultrasonography Adriana Redman MD 04/21/2020 S/P tonsillectomy Past Anesthesia History No Family Hx of Anesthesia Complications and Other History of PONV No Hx of PONV and No Hx of Motion Sickness Social History Smoking Status: Never smoker Do You Dip or Chew Tobacco: No Hx Alcohol Use: Yes Alcohol type: hard liquor alcohol intake frequency: holidays/special occasions only Hx Substance Use: No substance use type: does not use Review of Systems Ongoing productive cough and nasal congestion x 6 weeks, following with PCP. Patient denies chest pain, fever, chills, or palpitations. Physical Exam Vital Signs Vitals BP 107/68 P 79 TEMP 97.6 SP02 94% on RA RESP 18 Physical Full cervical extension range of motion without pain TMD 3.5 finger breadths Mallampati Score 3 Dentition: intact, denies chipped or loose teeth, caps/crowns, implants or bridges Lungs: normal respiratory effort. Clear throughout to auscultation, no adventitious breath sounds Cardiac: regular rate and rhythm, no murmurs noted Carotid arteries: negative bruit bilat Lab Results Anesthesia Preop Results Results Anesthesia Widget: WBC 5.62 K/ul (4.8-10.8) 10/08/22 Hgb 11.8 g/dl (14.0-18.0) L 10/08/22 Hct 36.1 % (40.1-51.0) L 10/08/22 Plt 171 K/uL (130-400) 10/08/22 Na 140 mmol/L (136-145) 10/08/22 K 4.2 mmol/L (3.5-5.1) 10/08/22 Cl 100 mmol/L (98-107) 10/08/22 CO2 35 mmol/L (21-32) H 10/08/22 BUN 37 mg/dl (6-23) H 10/08/22 Creat 1.38 mg/dl (0.6-1.4) 10/08/22 Glucose Level 201 mg/dl (70-99(Fasting)) H 10/08/22 PT 12.8 Seconds (9.0-12.0) H 10/08/22 PTT 37.0 Seconds (21.0-31.0) H 10/08/22 INR 1.2 (0.9-1.1) H 10/08/22 HA1c 9.6 % (4.5-5.6) H 10/02/22 Urine Color Yellow 10/08/22 Urine Appearance Clear (Clear) 10/08/22 Urine pH 5.5 (4.5-7.5) 10/08/22 Urine Specific [place] 1.027 (1.000-1.030) 10/08/22 Urine Protein Trace (Negative) H 10/08/22 Urine Glucose (UA) 3+ (Negative) H 10/08/22 Urine Ketones Negative (Negative) 10/08/22 Urine Blood Negative (Negative) 10/08/22 Urine Nitrite Negative (Negative) 10/08/22 Urine Bilirubin Negative (Negative) 10/08/22 Urine Urobilinogen Negative (Negative) 10/08/22 Urine Leukocyte Esterase Negative (Negative) 10/08/22 Urine WBC (Auto) 0 /hpf (0-5) 10/08/22 Urine RBC (Auto) 0-4 /hpf (0-4) 10/08/22 Urine Hyaline Casts (Auto) 0 /lpf (0-5) 10/08/22 Urine Epithelial Cells (Auto) 0-5 /lpf (0-5) 10/08/22 Urine Bacteria (Auto) Negative (Negative) 10/08/22 Blood Type O Positive 10/08/22 Antibody Screen NEGATIVE 10/08/22 Testing Electrocardiogram Date: 10/08/22 Afib, rate 69 bpm Left axis deviation Low voltage QRS 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 There is no pneumothorax, pleural effusion, a irspace consolidation or overt pulmonary edema. Degenerative changes of the shoulders and spine. IMPRESSION: No acute process. Echocardiogram Date: 09/14/21 EF 60-65% No regional wall motion abnormalities Moderate cLVH Mild biatrial dilatation Mild to moderate aortic valvular sclerosis with mild aortic stenosis Normal estimated right heart pressures Stress Test Date: 08/02/20 Pharmacologic MPHR 82% Normal dobutamine echo without evidence of inducible ischemia Moderate cLVH Mildly dilated atria bilat Mild aortic valve stenosis, max PG 26 mmHg, mean PG 14 mmHg, MARY 1.5 cm2 COVID-19 Risk Screen Screening Information COVID-19 Screen Date: 10/08/22 Exposure 21 Days Family/Household +COVID Last 21 Days: No Exposure 10 Days Any COVID Exposure Last 10 Days: No Symptoms Last 10 Days Experienced COVID Sx Last 10 Days: No + COVID 0-90 Days COVID + in Last 0-90 Days: No
--- NOTE | 2022-10-08 11:43 | PAT Medication Instructions ---
Medication Instructions Date of Service October 08, 2022 Home Medications Medication Instructions Recorded modafinil 200 mg tablet 200 mg PO DAILY PRN energy 90 days 04/10/22 #90 tabs rivaroxaban 20 mg tablet (Xarelto) 20 mg PO HS torsemide 20 mg tablet 40 mg PO QAM allopurinol 100 mg tablet (Zyloprim) 100 mg PO QAM coenzyme Q10 100 mg capsule (CoQ-10) 100 mg PO QAM insulin glargine U-300 conc 300 unit/mL (1.5 mL) subcutaneous pen (Toukarissa SoloStar U-300 Insulin) 40 units subcut BID potassium chloride 10 mEq tablet,extended release 20 meq PO BID cholecalciferol (vitamin D3) 25 mcg (1,000 unit) tablet (Vitamin D3) 50 mcg PO QAM omega 0-ymu-biv-fish oil 1,000 mg (120 mg-180 mg) capsule (Fish Oil) 1 cap PO BID anastrozole 1 mg tablet 1 mg PO UD atorvastatin 40 mg tablet 20 mg PO HS cranberry 400 mg capsule 800 mg PO BID cyanocobalamin (vitamin B-12) 1,000 mcg tablet (Vitamin B-12) 1,000 mcg PO Q OTHER DAY glipizide 5 mg tablet, extended release 24 hr 10 mg PO BID vitamin K2 40 mcg tablet 100 mcg PO QAM metoprolol succinate 50 mg tablet,extended release 24 hr 50 mg PO BID empagliflozin 10 mg tablet (Jardiance) 10 mg PO QAM eplerenone 25 mg tablet (Inspra) 25 mg PO QAM gabapentin 400 mg capsule 400 mg PO TID losartan 100 mg tablet 100 mg PO QAM radha niagen 300 mg PO QAM alpha lipoic acid 300 mg capsule 300 mg PO UD benfotiamine 150 mg capsule 150 mg PO BID glucosamine sulfate 750 mg tablet 1,500 mg PO BID zdsczovt-ouhtdzod-wjz C 250 mg-herbal no.124 8.875 mg chewable tablet (Airborne (ascorbic acid)) 2 tab PO BID s-adenosylmethionine 400 mg tablet (Bijan-E) 400 mg PO QAM turmeric 400 mg capsule 1,500 mg PO QAM vit C 30 mg-s.roldan 250 mg-celery seed 75 mg-grape seed extrt capsule (Tart Roldan) 2 cap PO HS acetaminophen 300 mg-codeine 30 mg tablet 1 tab PO Q6H PRN Pain modafinil 200 mg tablet 200 mg PO DAILY PRN energy acetaminophen 500 mg tablet 1,000 mg PO Q6H PRN Pain albuterol sulfate 90 mcg/actuation aerosol inhaler 2 puff inhalation UD PRN Shortness Of Breath colchicine 0.6 mg tablet 0.12 mg PO HS cyanocobalamin (vitamin B-12) 2,500 mcg sublingual tablet (Vitamin B-12) 2,500 mcg sublingual QAM doxazosin 2 mg tablet 2 mg PO HS fluticasone propionate 110 mcg/actuation HFA aerosol inhaler (Flovent HFA) 2 puff inhalation BID zkuytq-hvmenjeo-rlqinpb 12,000-38,000-60,000 unit capsule,delayed rel (Creon) 1 cap PO TID naproxen sodium 220 mg tablet (Aleve) 440 mg PO QAM quercetin 500 mg capsule 1,000 mg PO QAM sildenafil (pulm.hypertension) 20 mg tablet 20 mg PO HS tamsulosin 0.4 mg capsule 0.4 mg PO QAM tramadol 50 mg tablet 50 mg PO BID PRN Pain Aller-Itin 1 dose PO QAM Mk-7 Vitamin K2 100 mcg PO DAILY Vitamin D (with calcium) 1 cap PO DAILY cinnamon bark 500 mg capsule (Cinnamon) 500 mg PO BID clotrimazole-betamethasone 1 %-0.05 % topical cream 1 applic topical BID codeine 10 mg-guaifenesin 100 mg/5 mL oral liquid 5 ml PO Q4H PRN Cough eplerenone 25 mg tablet 25 mg PO BID fluconazole 100 mg tablet 100 mg PO UD hbcbroevcvf-ogqsmgxzt-nuw C-Mn 500 mg-400 mg capsule 1 cap PO BID insulin aspart U-100 100 unit/mL (3 mL) subcutaneous pen (Novolog Flexpen U-100 Insulin aspart) 40 unit subcut AC metolazone 5 mg tablet 5 mg PO UD PRN as needed montelukast 10 mg tablet 10 mg PO DAILY qcamxhis-msmmmegx-onb C 250 mg-herbal no.124 8.875 mg chewable tablet (Airborne (ascorbic acid)) 2 tab PO DAILY oxycodone-acetaminophen 5 mg-325 mg tablet 1 tab PO UD PRN Pain s-adenosylmethionine 400 mg tablet (Bijan-E) 400 mg PO DAILY testosterone cypionate 200 mg/mL intramuscular kit 100 mg subcut Q7D triamcinolone acetonide 55 mcg nasal spray aerosol (Nasacort) 1 spray intranasal HS vitamin C 500 mg-quercetin 250 mg-bioflavonoids, citrus 33 mg capsule (Quercetin Complex) 2 cap PO DAILY Continue as directed fluconazole 100 mg tablet 100 mg PO UD montelukast 10 mg tablet 10 mg PO DAILY ASK your surgeon for instructions naproxen sodium 220 mg tablet (Aleve) 440 mg PO QAM ASK your prescriber and surgeon rivaroxaban 20 mg tablet (Xarelto) 20 mg PO HS (in order to get spinal ane sthesia- will need to hold Xarelto/rivaroxaban at least 72 hours prior to surgery) anastrozole 1 mg tablet 1 mg PO UD testosterone cypionate 200 mg/mL intramuscular kit 100 mg subcut Q7D STOP taking 2 weeks before surgery coenzyme Q10 100 mg capsule (CoQ-10) 100 mg PO QAM omega 7-rjc-utg-fish oil 1,000 mg (120 mg-180 mg) capsule (Fish Oil) 1 cap PO BID cranberry 400 mg capsule 800 mg PO BID vitamin K2 40 mcg tablet 100 mcg PO QAM radha niagen 300 mg PO QAM alpha lipoic acid 300 mg capsule 300 mg PO UD benfotiamine 150 mg capsule 150 mg PO BID glucosamine sulfate 750 mg tablet 1,500 mg PO BID s-adenosylmethionine 400 mg tablet (Bijan-E) 400 mg PO QAM turmeric 400 mg capsule 1,500 mg PO QAM vit C 30 mg-s.roldan 250 mg-celery seed 75 mg-grape seed extrt capsule (Tart Roldan) 2 cap PO HS Aller-Itin 1 dose PO QAM Mk-7 Vitamin K2 100 mcg PO DAILY cinnamon bark 500 mg capsule (Cinnamon) 500 mg PO BID zjtdnsghdij-kwpjmsmcu-nek C-Mn 500 mg-400 mg capsule 1 cap PO BID s-adenosylmethionine 400 mg tablet (Bijan-E) 400 mg PO DAILY vitamin C 500 mg-quercetin 250 mg-bioflavonoids, citrus 33 mg capsule (Quercetin Complex) 2 cap PO DAILY STOP taking 3 days before surgery empagliflozin 10 mg tablet (Jardiance) 10 mg PO QAM STOP taking 24 hours before surgery clotrimazole-betamethasone 1 %-0.05 % topical cream 1 applic topical BID DO NOT take the morning of surgery torsemide 20 mg tablet 40 mg PO QAM potassium chloride 10 mEq tablet,extended release 20 meq PO BID cholecalciferol (vitamin D3) 25 mcg (1,000 unit) tablet (Vitamin D3) 50 mcg PO QAM cyanocobalamin (vitamin B-12) 1,000 mcg tablet (Vitamin B-12) 1,000 mcg PO Q OTHER DAY glipizide 5 mg tablet, extended release 24 hr 10 mg PO BID eplerenone 25 mg tablet (Inspra) 25 mg PO QAM losartan 100 mg tablet 100 mg PO QAM mkvvxwye-nafmszna-mnf C 250 mg-herbal no.124 8.875 mg chewable tablet (Airborne (ascorbic acid)) 2 tab PO BID modafinil 200 mg tablet 200 mg PO DAILY PRN energy cyanocobalamin (vitamin B-12) 2,500 mcg sublingual tablet (Vitamin B-12) 2,500 mcg sublingual QAM pcvemd-yvckqqdi-afrfkol 12,000-38,000-60,000 unit capsule,delayed rel (Creon) 1 cap PO TID Vitamin D (with calcium) 1 cap PO DAILY codeine 10 mg-guaifenesin 100 mg/5 mL oral liquid 5 ml PO Q4H PRN Cough eplerenone 25 mg tablet 25 mg PO BID insulin aspart U-100 100 unit/mL (3 mL) subcutaneous pen (Novolog Flexpen U-100 Insulin aspart) 40 unit subcut AC metolazone 5 mg tablet 5 mg PO UD PRN as needed huemazvy-nikuiaie-xdm C 250 mg-herbal no.124 8.875 mg chewable tablet (Airborne (ascorbic acid)) 2 tab PO DAILY Take morning of surgery With a small sip of water, OTHERWISE NOTHING TO EAT OR DRINK AFTER MIDNIGHT: allopurinol 100 mg tablet (Zyloprim) 100 mg PO QAM metoprolol succinate 50 mg tablet,extended release 24 hr 50 mg PO BID gabapentin 400 mg capsule 400 mg PO TID acetaminophen 300 mg-codeine 30 mg tablet 1 tab PO Q6H PRN Pain (if needed) acetaminophen 500 mg tablet 1,000 mg PO Q6H PRN Pain (if needed) albuterol sulfate 90 mcg/actuation aerosol inhaler 2 puff inhalation UD PRN Shortness Of Breath (use if needed; please bring with you to hospital day of surgery if possible) fluticasone propionate 110 mcg/actuation HFA aerosol inhaler (Flovent HFA) 2 puff inhalation BID tamsulosin 0.4 mg capsule 0.4 mg PO QAM tramadol 50 mg tablet 50 mg PO BID PRN Pain (if needed) oxycodone-acetaminophen 5 mg-325 mg tablet 1 tab PO UD PRN Pain (if needed) Take evening before surgery insulin glargine U-300 conc 300 unit/mL (1.5 mL) subcutaneous pen (Toujeo SoloStar U-300 Insulin) 40 units subcut BID potassium chloride 10 mEq tablet,extended release 20 meq PO BID atorvastatin 40 mg tablet 20 mg PO HS glipizide 5 mg tablet, extended release 24 hr 10 mg PO BID metoprolol succinate 50 mg tablet,extended release 24 hr 50 mg PO BID gabapentin 400 mg capsule 400 mg PO TID ngnblxgv-mducqteo-ukt C 250 mg-herbal no.124 8.875 mg chewable tablet (Airborne (ascorbic acid)) 2 tab PO BID acetaminophen 300 mg-codeine 30 mg tablet 1 tab PO Q6H PRN Pain (if needed) modafinil 200 mg tablet 200 mg PO DAILY PRN energy (if needed) acetaminophen 500 mg tablet 1,000 mg PO Q6H PRN Pain (if needed) albuterol sulfate 90 mcg/actuation aerosol inhaler 2 puff inhalation UD PRN Shortness Of Breath (if needed) colchicine 0.6 mg tablet 0.12 mg PO HS doxazosin 2 mg tablet 2 mg PO HS fluticasone propionate 110 mcg/actuation HFA aerosol inhaler (Flovent HFA) 2 puff inhalation BID djzhnc-roevtzna-zskglht 12,000-38,000-60,000 unit capsule,delayed rel (Creon) 1 cap PO TID sildenafil (pulm.hypertension) 20 mg tablet 20 mg PO HS tramadol 50 mg tablet 50 mg PO BID PRN Pain (if needed) codeine 10 mg-guaifenesin 100 mg/5 mL oral liquid 5 ml PO Q4H PRN Cough (if needed) eplerenone 25 mg tablet 25 mg PO BID insulin aspart U-100 100 unit/mL (3 mL) subcutaneous pen (Novolog Flexpen U-100 Insulin aspart) 40 unit subcut AC metolazone 5 mg tablet 5 mg PO UD PRN as needed (if needed) oxycodone-acetaminophen 5 mg-325 mg tablet 1 tab PO UD PRN Pain (if needed) triamcinolone acetonide 55 mcg nasal spray aerosol (Nasacort) 1 spray intranasal HS Insulin Dependent Diabetic Patients * Test your blood sugar the morning of surgery * If Blood Sugar is GREATER THAN 150, take HALF of your regular dose of: insulin glargine U-300 conc 300 unit/mL (1.5 mL) subcutaneous pen (Toujeo SoloStar U- 300 Insulin) (20 units) * If Blood Sugar is LESS THAN 150, DO NOT TAKE ANY: insulin glargine U-300 conc 300 unit/mL (1.5 mL) subcutaneous pen (Toujeo SoloStar U-300 Insulin) Other Notes If you have any questions please call us at [phone] or [phone] or [phone] or [phone]
--- NOTE | 2022-10-10 12:13 | History & Physical Report ---
Date of Service October 10, 2022 Assessment & Plan (1) Left knee DJD: Plan: Postoperative prescriptions for Percocet will be provided at discharge from the hospital. Anticipate discharge to home with home health services. He will hold his Xarelto 3 days prior to surgery. He will stop his Celebrex at least 5 days prior to surgery. We will restart his Xarelto the morning after surgery. He has already seen cardiology for clearance. He has also seen his PCP. He is being reevaluated by cardiology prior to surgery. The patient has had a cough with chronic cold symptoms. He is currently under treatment for this. He will meet with PAT today for preoperative lab work, EKG, and chest x-ray. The patient is aware of the COVID-19 risks associated with surgery. He is currently testing negative for COVID-19. His PDMP was checked and there are no concerning findings. He does take some chronic narcotics for pain control. He already has access to a walker and cane. Of note, the patient's A1c is 9.6 today. He will need to have this under better control over the next 3 weeks in order to proceed with surgery. He is aware. History of Present Illness Chief Complaint: Left knee pain Primary Care Provider: Mayur Moser MD This 77-year-old male presents with his , for his preoperative history and physical. He is scheduled to undergo a left knee total knee arthroplasty on 10/31/22. Patient has had a longstanding history of left knee pain. It has been ongoing for several years. It was of insidious onset. He did try viscosupplementation as well as prescription anti-inflammatories with improvement for about a year. Symptoms became worse over the last 6 months. He did try physical therapy as well. Pain is worse with weightbearing. It is affecting his ADLs. He denies any numbness or tingling. He elected to proceed with surgical intervention in hopes of improving his function. Preoperative imaging has been obtained. Allergies Allergy/AdvReac Type Severity Reaction Status Date / Time No Known Drug Allergies Allergy Unknown Unknown Verified 10/05/22 10:09 Home Medications Medication Instructions Recorded Confirmed Type rivaroxaban 20 mg tablet (Xarelto) 20 mg PO HS 06/02/19 10/05/22 History torsemide 20 mg tablet 40 mg PO QAM 06/02/19 10/05/22 History allopurinol 100 mg tablet 100 mg PO QAM 10/14/19 10/05/22 History (Zyloprim) coenzyme Q10 100 mg capsule 100 mg PO QAM 10/14/19 10/05/22 History (CoQ-10) insulin glargine U-300 conc 300 40 units subcut BID 10/14/19 10/05/22 History unit/mL (1.5 mL) subcutaneous pen (Toukarissa SoloStar U-300 Insulin) potassium chloride 10 mEq 20 meq PO BID 10/14/19 10/08/22 History tablet,extended release cholecalciferol (vitamin D3) 25 50 mcg PO QAM 11/11/19 10/05/22 History mcg (1,000 unit) tablet (Vitamin D3) omega 2-lsy-nek-fish oil 1,000 mg 1 cap PO BID 11/11/19 10/05/22 History (120 mg-180 mg) capsule (Fish Oil) anastrozole 1 mg tablet 1 mg PO UD 06/14/20 10/05/22 History atorvastatin 40 mg tablet 20 mg PO HS 06/14/20 10/05/22 History cranberry 400 mg capsule 800 mg PO BID 06/14/20 10/05/22 History cyanocobalamin (vitamin B-12) 1,000 mcg PO Q OTHER DAY 06/14/20 10/05/22 History 1,000 mcg tablet (Vitamin B-12) glipizide 5 mg tablet, extended 10 mg PO BID 06/14/20 10/05/22 History release 24 hr vitamin K2 40 mcg tablet 100 mcg PO QAM 06/14/20 10/05/22 History metoprolol succinate 50 mg 50 mg PO BID 06/30/21 10/05/22 History tablet,extended release 24 hr empagliflozin 10 mg tablet 10 mg PO QAM 07/11/21 10/05/22 History (Jardiance) eplerenone 25 mg tablet (Inspra) 25 mg PO QAM 07/11/21 10/05/22 History gabapentin 400 mg capsule 400 mg PO TID 07/11/21 10/08/22 History losartan 100 mg tablet 100 mg PO QAM 07/11/21 10/05/22 History radha niagen 300 mg PO QAM 07/11/21 10/05/22 History alpha lipoic acid 300 mg capsule 300 mg PO UD 02/27/22 10/05/22 History benfotiamine 150 mg capsule 150 mg PO BID 02/27/22 10/05/22 History glucosamine sulfate 750 mg tablet 1,500 mg PO BID 02/27/22 10/05/22 History dyslurlz-zrdwfygy-wkb C 250 2 tab PO BID 02/27/22 10/05/22 History mg-herbal no.124 8.875 mg chewable tablet (Airborne (ascorbic acid)) s-adenosylmethionine 400 mg tablet 400 mg PO QAM 02/27/22 10/05/22 History (Bijan-E) turmeric 400 mg capsule 1,500 mg PO QAM 02/27/22 10/05/22 History vit C 30 mg-s.roldan 250 mg-celery 2 cap PO HS 02/27/22 10/05/22 History seed 75 mg-grape seed extrt capsule (Tart Roldan) acetaminophen 300 mg-codeine 30 mg 1 tab PO Q6H PRN Pain 03/30/22 10/05/22 History tablet modafinil 200 mg tablet 200 mg PO DAILY PRN energy 90 days 04/10/22 10/05/22 Rx #90 tabs acetaminophen 500 mg tablet 1,000 mg PO Q6H PRN Pain 10/05/22 10/05/22 History albuterol sulfate 90 mcg/actuation 2 puff inhalation UD PRN Shortness 10/05/22 10/05/22 History aerosol inhaler Of Breath colchicine 0.6 mg tablet 0.12 mg PO HS 10/05/22 10/05/22 History cyanocobalamin (vitamin B-12) 2,500 mcg sublingual QAM 10/05/22 10/05/22 History 2,500 mcg sublingual tablet (Vitamin B-12) doxazosin 2 mg tablet 2 mg PO HS 10/05/22 10/05/22 History fluticasone propionate 110 2 puff inhalation BID 10/05/22 10/05/22 History mcg/actuation HFA aerosol inhaler (Flovent HFA) fzvdoh-mbfvvjrs-edzxyup 1 cap PO TID 10/05/22 10/05/22 History 12,000-38,000-60,000 unit capsule,delayed rel (Creon) naproxen sodium 220 mg tablet 440 mg PO QAM 10/05/22 10/05/22 History (Aleve) quercetin 500 mg capsule 1,000 mg PO QAM 10/05/22 10/05/22 History sildenafil (pulm.hypertension) 20 20 mg PO HS 10/05/22 10/05/22 History mg tablet tamsulosin 0.4 mg capsule 0.4 mg PO QAM 10/05/22 10/05/22 History tramadol 50 mg tablet 50 mg PO BID PRN Pain 10/05/22 10/05/22 History Aller-Itin 1 dose PO QAM 10/08/22 10/08/22 History Mk-7 Vitamin K2 100 mcg PO DAILY 10/08/22 10/08/22 History Vitamin D (with calcium) 1 cap PO DAILY 10/08/22 10/08/22 History cinnamon bark 500 mg capsule 500 mg PO BID 10/08/22 10/08/22 History (Cinnamon) clotrimazole-betamethasone 1 1 applic topical BID 10/08/22 10/08/22 History %-0.05 % topical cream codeine 10 mg-guaifenesin 100 mg/5 5 ml PO Q4H PRN Cough 10/08/22 10/08/22 History mL oral liquid eplerenone 25 mg tablet 25 mg PO BID 10/08/22 10/08/22 History fluconazole 100 mg tablet 100 mg PO UD 10/08/22 10/08/22 History osqpuqxqoul-gyuetbmhd-fma C-Mn 500 1 cap PO BID 10/08/22 10/08/22 History mg-400 mg capsule insulin aspart U-100 100 unit/mL 40 unit subcut AC 10/08/22 10/08/22 History (3 mL) subcutaneous pen (Novolog Flexpen U-100 Insulin aspart) metolazone 5 mg tablet 5 mg PO UD PRN as needed 10/08/22 10/08/22 History montelukast 10 mg tablet 10 mg PO DAILY 10/08/22 10/08/22 History yykkfefs-vfknttkp-jsl C 250 2 tab PO DAILY 10/08/22 10/08/22 History mg-herbal no.124 8.875 mg chewable tablet (Airborne (ascorbic acid)) oxycodone-acetaminophen 5 mg-325 1 tab PO UD PRN Pain 10/08/22 10/08/22 History mg tablet s-adenosylmethionine 400 mg tablet 400 mg PO DAILY 10/08/22 10/08/22 History (Bijan-E) testosterone cypionate 200 mg/mL 100 mg subcut Q7D 10/08/22 10/08/22 History intramuscular kit triamcinolone acetonide 55 mcg 1 spray intranasal HS 10/08/22 10/08/22 History nasal spray aerosol (Nasacort) vitamin C 500 mg-quercetin 250 2 cap PO DAILY 10/08/22 10/08/22 History mg-bioflavonoids, citrus 33 mg capsule (Quercetin Complex) Past Med/Surg History Medical History Acid reflux tums PRN, stable per pt Aortic stenosis, mild per 08/2021 echo, max PG 21 mmHg, dimensionless valve index 0.39 Atrial fibrillation Status post pulmonary vein isolation at [facility], multiple cardioversions, Follows w/ Dr. Pandya BPH (benign prostatic hyperplasia) BPPV (benign paroxysmal positional vertigo) CHF (congestive heart failure) EF 60-65% Chronic kidney disease, stage 3 Baseline creatine per records 1.2-1.4 COPD (chronic obstructive pulmonary disease) controlled, stable per pt Gout Gram-negative bacteremia Hx of adverse drug reaction "can't remember the name of the pain medication they gave me, but it made me see spiders crawling up the wall." Hx of difficult intubation "must use a smaller tube when intubating me; had a sore throat for over a month because the tube was too large" Hypertension controlled, stable per pt LVH (left ventricular hypertrophy) moderate Morbid obesity Shortness of breath on flat surfaces and with stairs, denies change or worsening since seeing cardiology Sleep apnea CPAP-compliant Type 2 diabetes mellitus with diabetic neuropathy IDDM Surgical History History of cardiac radiofrequency ablation ~2017, X2, MD Archana; f/u dr pandya, jasmin History of cardioversion x6; most recent 05/04/17, prior to ablation [facility] History of colonoscopy History of esophagogastroduodenoscopy (EGD) History of total right hip arthroplasty Hx laparoscopic cholecystectomy Laparoscopic cholecystectomy with lysis of adhesions. Dr. Dave 04/21/2020 S/P ERCP (04/21/20) Upper Endoscopic Ultrasonography Adriana Redman MD 04/21/2020 S/P tonsillectomy Family History Mother , mid 80s of dementia Alzheimer disease Hypertension Father , age 98 with dementia Dementia Colon cancer Other Allergies Diabetes Heart disease No pertinent family history Denies family history of Tuberculosis Emphysema, unspecified Lung disease Cancer Asthma Social History Smoking Status: Never smoker Second Hand Exposure: No; Hx Alcohol Use: Yes Alcohol type: hard liquor Hx Substance Use: No Preferred Language: Urdu Communication Ability: Effective Visual Impairment: No Limitations Director Financial Analysis Required: No Beliefs That Will Affect Care: None marital status: Current Living Situation: Spouse current occupational status: retired other: 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 Physical Exam Physical Exam: VITAL SIGNS: Height 177.5 cm, weight 114 kilograms., temperature 36.2, BP 110/50, pulse 76, O2 sat 98% on room air. GENERAL: Well-developed, well-nourished elderly white male in no acute distress. Sitting in a chair. Alert and oriented. Has difficulty rising from a chair. SKIN: Warm and dry with fair turgor. No rashes or lesions. No ecchymosis or erythema. No intra-articular effusion in the left knee. HEENT: Normocephalic, atraumatic. Eyes PERRLA, EOMI. Nares and oropharynx exam is deferred due to COVID precautions. HEART: Irregularly irregular. No gallops or rubs. No appreciable murmur. LUNGS: Clear to auscultation on the right. He does have some crackles present in the left base. No wheezing. Occasional dry cough. He is able to take a deep breath. ABDOMEN: Obese. Bowel sounds present x4. Soft and nontender. No organomegaly. No masses. MUSCULOSKELETAL: Left knee evaluation reveals a slight varus stance. No intra- articular effusion. Full terminal extension. Flexion to greater than 100 degrees. Strength is 5/5 with fairly good quad tone. He has focal pain with palpation over the medial joint line. He also has lateral joint line discomfort with palpation today. There is peripatellar discomfort. Crepitation is palpable with motion. Stable collateral ligaments. No palpable defect in the quadriceps tendon or patellar tendon. He is ambulatory with an antalgic gait using a cane. NEUROLOGIC: Gross sensation is intact across both lower extremities by soft touch. Peripheral pulses are 2+. Results & Data Results & Data ([facility]) Diagnostic Findings Radiographic imaging previously obtained shows end-stage DJD of the left knee. Periarticular osteophytes, subchondral sclerosis, and joint space narrowing are all present. Code Status & VTE Plan VTE Prophylaxis Plan VTE Prophylaxis will be ordered: Yes
[2022-10-31] MEDS ORDERED: ceFAZolin 2000MG 2,000 MG/15 ML SYR IV SCH (06:00)
[2022-10-31] MEDS ORDERED: LR 15ML/HR IV SCH (06:00)
[2022-10-31] MEDS ORDERED: LR 60ML/HR IV SCH (06:00)
[2022-10-31] MEDS ORDERED: ROPIVACAINE 0.5% HCL/PF 150 MG, BUPIVACAINE 0.75% MPF 20 ML, EPINEPHrine 0.15 MG, Ketor... INFIL SCH (06:00)
[2022-10-31] MEDS ORDERED: TRANEXAMIC ACID 1,000 MG x 1 **For Topical Use TOP SCH (06:00)
[2022-10-31] MEDS ORDERED: ROPIVACAINE 0.5% 5 MG/ML 30 ML VIAL ONE (06:24)
[2022-10-31] MEDS ORDERED: EPINEPHrine INJ 1 MG/ML AMP ONE (06:24)
[2022-10-31] MEDS ORDERED: BUPIVACAINE 0.5 % 5 MG/1 ML PF 10ML VIAL ONE (06:24)
--- NOTE | 2022-10-31 06:27 | History & Physical Bridge Note ---
Date of Service October 31, 2022 History & Physical Bridge Note I have examined the patient, reviewed the History & Physical and in the interval since the performance of the History & Physical I have noted the following changes of clinical significance:consent reviewed /site marked. no changes noted
[2022-10-31] MEDS ORDERED: MIDAZOLAM HCL 1 MG/ML 2ML VIAL ONE (06:34)
[2022-10-31] MEDS ORDERED: fentaNYL citrate 100 MCG/2 ML VIAL ONE (06:34)
[2022-10-31] MEDS ORDERED: ORTHO JOINT ANESTHETIC ONE (06:41)
[2022-10-31] MEDS ORDERED: PROPOFOL IV EMULSION 10 MG/ML 20 ML VIAL IV ONE (07:15)
[2022-10-31] MEDS ORDERED: ONDANSETRON INJ 2 MG/ML 2 ML VIAL ONE (07:15)
[2022-10-31] MEDS ORDERED: PHENYLEPHRINE 100MCG/ML 5ML SYR ONE (07:16)
[2022-10-31] MEDS ORDERED: ePHEDrine sulfate 50 MG/ML SYR ONE (07:16)
[2022-10-31] MEDS ORDERED: ONDANSETRON INJ 2 MG/ML 2 ML VIAL IV PRN ×2 (07:36→10:05)
[2022-10-31] MEDS ORDERED: ATROPINE SULFATE 0.1 MG/ML 10ML SYR IV PRN (07:36)
[2022-10-31] MEDS ORDERED: HYDROmorphone INJ 1 MG/ML SYRINGE IV PRN (07:36)
[2022-10-31] MEDS ORDERED: fentaNYL citrate 100 MCG/2 ML VIAL IV PRN (07:36)
[2022-10-31] MEDS ORDERED: FLUMAZENIL 0.1 MG/1 ML 10 ML VIAL IV PRN (07:36)
[2022-10-31] MEDS ORDERED: NALOXONE HCL 0.4 MG/1 ML VIAL/CARP IV PRN ×2 (07:36→10:05)
[2022-10-31] MEDS ORDERED: PROMETHAZINE HCL 12.5 MG in SODIUM CHLORIDE 0.9% 50 ML IV PRN (07:36)
[2022-10-31] MEDS ORDERED: ePHEDrine sulfate 50 MG/ML AMP IV PRN (07:36)
[2022-10-31] MEDS ORDERED: LABETALOL HCL IV 5 MG/ML 20ML IV PRN (07:36)
--- NOTE | 2022-10-31 08:39 | Post Operative Brief Note ---
Immediate Post Op Note v1 Date of Surgery October 31, 2022 Pre & Post Diagnosis Operation Date: 10/31/22 07:00 Pre-Op Diagnosis: Left Knee Degenerative Joint Disease Post-Op Diagnosis: Left Knee Degenerative Joint Disease I identified the patient and participated in the time-out.: Yes Procedure Operation Date: 10/31/22 07:00 Actual Procedures p Left Total Knee Arthroplasty, Cemented(Left) - Rudy Tran MD Surgeon Rudy Tran MD Change House Attendant Michael/Usama/Juwan STEEN Estimated Blood Loss 100 Findings Consistent with Post-Op Diagnosis see op note
--- NOTE | 2022-10-31 08:47 | Operative Report ---
Post Operative Report Pre & Post Diagnosis Operation Date: 10/31/22 07:00 Pre-Op Diagnosis: Left Knee Degenerative Joint Disease Post-Op Diagnosis: Left Knee Degenerative Joint Disease I identified the patient and participated in the time-out.: Yes Procedure Operation Date: 10/31/22 07:00 Actual Procedures p Left Total Knee Arthroplasty, Cemented(Left) - Rudy Tran MD Surgeon GUCCI Tran MD Cut Off Saw Set Up Operator Michael/Usama/Juwan STEEN Estimated Blood Loss 100 Findings Consistent with Post-Op Diagnosis see operative report Specimens see operative report Drains none Complications none Disposition Accompanied Patient To Recovery: Yes Indications This 77 year old male presented to the office with complaints of persisting left knee pain. He had tried conservative care measures without improvement. He elected to proceed with surgical intervention after being educated about potential risks and outcomes. Preoperative imaging was obtained. Description of Procedure Patient was administered a spinal anesthetic and then taken to the operating room where he was given sedation. He was prepped and draped in the usual annemarie rile fashion. Please see Dr. Tran's operative report for specifics of the procedure. I was present for the entire case from initial patient positioning through final wound closure. Assistance was provided in tisssue retraction, hemostasis, trial implant placement, final implant placement, and final wound closure. Patient was taken to the recovery room in satisfactory condition. I attest to the content of the Intraoperative Record and any orders documented therein. Any exceptions are noted below.
--- NOTE | 2022-10-31 09:06 | XRay Report ---
XR knee LT 1 or 2V routine HISTORY: 77 years-old Male S/P L TKA left knee total joint arthroplasty COMPARISON: 06/11/2022 TECHNIQUE: 2 views of the left knee FINDINGS: Total joint arthroplasty with patellar resurfacing. Anterior midline skin daja are present along w ith expected postoperative soft tissue swelling with deep tissue air. Arterial calcifications. No acu te fracture or unexpected opaque foreign body. IMPRESSION: Total joint arthroplasty with expected postoperative changes. ACT 112: Negative or not required by law. The above report was generated using voice recognition software. It may contain grammatical, syntax o r spelling errors. Electronically signed by: Eleazar San M.D. 10/31/2022 9:04 AM
--- NOTE | 2022-10-31 09:15 | Progress Notes ---
SUBJECTIVE: Postop check status post left total knee replacement. GENERAL: The patient is resting comfortably. Denies chest pain, shortness of breath, fever, chills, nausea, vomiting, or headache. Spinal was still in place. There is no function in either lower ext remity. Wound dressing clean, dry, and intact. Toes pink and warm. OBJECTIVE: X-ray AP and lateral of the knee left side reveals well-fixed, well-aligned knee replacem ent. ASSESSMENT: Doing well status post left total knee arthroplasty. Continue with care pathway. He do es well overnight. PLAN: Discharge tomorrow. Start Xarelto tomorrow evening 36 hours postop. Job ID: [id number]
--- NOTE | 2022-10-31 09:20 | Operative Report (OR) ---
DATE OF PROCEDURE: 10/31/2022 SURGEON: Rudy Tran MD RUBBER GOODS CUTTER FINISHER: Michael. SECOND RUBBER GOODS CUTTER FINISHER: Alvaro Forrester PA-C. THIRD RUBBER GOODS CUTTER FINISHER: Juwan, medical student. PREOPERATIVE DIAGNOSIS: Osteoarthritis, left knee with varus deformity. POSTOPERATIVE DIAGNOSIS: Osteoarthritis, left knee with varus deformity. OPERATION PERFORMED: Cemented left total knee replacement. PERIOPERATIVE SITUATION: Medically cleared male who has intractable knee pain. He has significant d iabetes. This was managed as best as possible, he knows he has increased risk. DESCRIPTION OF OPERATION: Patient was appropriately identified, site verified, consent verified. An tibiotics were confirmed as being given. The left lower extremity was prepped and draped in usual ro utine fashion. Tourniquet was inflated to 275 mmHg after exsanguination of the limb with a rubber Es march bandage for a total of 56 minutes. Midline exposure was utilized. Parapatellar arthrotomy per formed. Synovectomy completed. It was very hypertrophic. Osteophytes resected. The medial compartm ent was grade IV throughout the entire medial compartment. The cruciates were resected. The tibia w as subluxated. The menisci resected. Distal femur was then resected 12 mm, proximal tibia 4 mm, the extension gap was excellent. Femur was then sized to a 4 and the anterior, posterior condylar and c hamfer cuts made and the flexion gap was slightly tight laterally. It was released appropriately and then it was excellent. Box cut was then made and a size 4 narrow fit well. Tibia was subluxated an d it was broached and reamed to a size 4. The 10 spacer was excellent. The patella tracked well. T he patella was then resected leaving 14 mm. There was a 41 button. That tracked well. All trial im plants were removed. The Orthomix was injected all about the knee. The TXA was then instilled into the knee and sat there for 3 minutes, then it was irrigated out and then the permanent cemented into position, tibia, femur, and patella in that order. At 12 minutes, the tourniquet deflated. Minor bl eeding points controlled with electrocautery. At 14 minutes, knee was flexed. There was no major bl eeding. The trial spacer was removed. The wound was irrigated with Pulsavac, Betadine, and then the permanent liner seated, knee reduced, and then closed at 30-40 degrees of flexion with #2 Vicryl, 2- 0 Vicryl, and stainless steel clips. Appropriate dressing applied and the patient transferred to rec overy room in satisfactory condition, having tolerated the procedure well. ESTIMATED BLOOD LOSS: 100 mL. CRYSTALLOID: Per anesthesia. DVT prophylaxis per protocol. SUMMARY OF IMPLANTS: Size 4 narrow left femur, size 4 mobile bearing tray, size 4 x 10 mm posterior cruciate substituting insert, size 41 patella, 2 bags of Palacos G cement. PATHOLOGY: Pending on bone. Job ID: [id number]
--- NOTE | 2022-10-31 09:38 | Anesthesiology Progress Note ---
Date of Service October 31, 2022 Anesthesia Post Procedure Vital Signs Vital Signs: Temp Pulse Pulse Resp BP Pulse Ox O2 Del Method 10/31/22 09:35 63 19 109/59 L 98 Nasal Cannula 10/31/22 09:25 36.6 C 60 18 117/65 95 Nasal Cannula 10/31/22 09:15 70 19 115/67 97 Nasal Cannula 10/31/22 09:05 76 22 120/65 99 Oxymask 10/31/22 08:55 76 18 116/67 99 Oxymask 10/31/22 08:45 36.8 C 68 12 114/61 96 Oxymask 10/31/22 05:57 36.5 C 80 16 128/89 97 Room Air O2 Flow Rate 10/31/22 09:35 2 10/31/22 09:25 2 10/31/22 09:15 2 10/31/22 09:05 4 10/31/22 08:55 6 10/31/22 08:45 6 10/31/22 05:57 Transfer of Care Handoff Completed per policy Notes Mental Status: alert / awake / arousable Patient Amnestic to Procedure: Yes Nausea / Vomiting: adequately controlled Pain: adequately controlled Airway Patency, RR, SpO2: stable & adequate BP & HR: stable & adequate Hydration State: stable & adequate Neuraxial Anesthesia: was administered and sensory block is resolving Anesthetic Complications: no major complications apparent
[2022-10-31] MEDS ORDERED: MAGNESIUM HYDROXIDE SUSP 30 ML UDC PO PRN (10:05)
[2022-10-31] MEDS ORDERED: BENFOTIAMINE 150 MG PO SCH (10:05)
[2022-10-31] MEDS ORDERED: diphenhydrAMINE 50 MG/ML VIAL IV PRN (10:05)
[2022-10-31] MEDS ORDERED: QUERCETIN 500 MG PO SCH (10:05)
[2022-10-31] MEDS ORDERED: metOLazone 5 MG TABLET PO PRN (10:05)
[2022-10-31] MEDS ORDERED: ALBUTEROL HFA 8 GM INHALER INH PRN (10:05)
[2022-10-31] MEDS ORDERED: HYDROmorphone INJ 0.5 MG/0.5 ML SYR IV PRN (10:05)
[2022-10-31] MEDS ORDERED: [UNRECOGNIZED DRUG - OTHER] PO SCH (10:05)
[2022-10-31] MEDS ORDERED: modafiniL 100 MG TAB PO PRN (10:05)
[2022-10-31] MEDS ORDERED: bisacodyL 10 MG SUPP PR PRN (10:05)
[2022-10-31] MEDS ORDERED: SODIUM CHLORIDE 0.9% 1000ML 1,000 ML IV SCH (10:05)
[2022-10-31] MEDS ORDERED: METOCLOPRAMIDE HCL INJ 5 MG/ML 2 ML VIAL IV PRN (10:05)
[2022-10-31] MEDS ORDERED: PHARMACY GLYCEMIC MGMT CONSULT PRN (10:05)
[2022-10-31] MEDS ORDERED: ALUMINUM/MAGNESIUM SUSP 30 ML UDC PO PRN (10:05)
--- NOTE | 2022-10-31 10:25 | Discharge Summary (DS) ---
DATE OF ADMISSION: 10/31/2022. DATE OF POTENTIAL DISCHARGE: 11/01/2022. CHIEF COMPLAINT: Left knee pain. HISTORY OF PRESENT ILLNESS: The patient underwent elective left total knee replacement. At this point in time, he is resting comfortably. Denies any significant pain. Procedure went without any major events. Past medical history is remarkable for no known drug allergies. HOME MEDICATIONS PREADMISSION: Include Xarelto, torsemide, allopurinol, CoQ10 coenzyme, insulin, potassium, vitamin supplements, anastrozole,glipizide, vitamin K, metoprolol, Jardiance, Inspra, gabapentin, losartan, Niagen, benfotiamine, EVENS-e, turmeric, vitamin C, p.r.n. Tylenol No. 3, modafinil, albuterol, Flovent, Wtztpj-Cmquxsz-Dxbtwjn, sildenafil, tamsulosin, tramadol nasal spray, steroid, testosterone cypionate, montelukast, metolazone. PAST MEDICAL HISTORY: Pertinent for acid reflux, aortic stenosis, atrial fibrillation, BPH, vertigo, posturally induced CHF, kidney disease stage III, COPD, gout, history of septicemia, history of drug adverse reaction, history of intubation issues, hypertension, LVH, morbid obesity, shortness of breath, sleep apnea, type 2 diabetes with neuropathy. PAST SURGICAL HISTORY: Remarkable for cardio-frequency ablation, cardioversion, colonoscopies, EGD, right hip replacement, cholecystectomy, ERCP, and tonsillectomy. FAMILY HISTORY: Remarkable for mother with Alzheimer's, hypertension. Father with dementia, colon cancer, history of diabetes, allergies, heart disease in the family. No history of other issues. SOCIAL HISTORY: Reveals that he does not smoke, secondhand exposure is none. Social alcohol. Lives with his spouse, is retired. REVIEW OF SYSTEMS: Reveals no chest pain, shortness of breath, fever, chills, nausea, vomiting or headache. ASSESSMENT: Status post left total knee replacement. Continue with care pathway. Discharge to home tomorrow if he does well overnight. Job ID: [id number] [facility]
[2022-10-31] MEDS ORDERED: CARBOHYDRATES FOR HYPOGLYCEMIA PO PRN (11:00)
[2022-10-31] MEDS ORDERED: GLUCOSE 10 TAB/TUBE PO PRN (11:00)
[2022-10-31] MEDS ORDERED: GLUCAGON FOR INJ 1 MG VIAL IM PRN (11:00)
[2022-10-31] MEDS ORDERED: DEXTROSE 50% 50 ML SYRINGE IV PRN (11:00)
[2022-10-31] MEDS ORDERED: GLUCOSE 40% GEL 15 GM TUBE PO PRN (11:00)
[2022-10-31] MEDS ORDERED: FLUTICASONE HFA 110MCG INHALER INH SCH (11:30)
[2022-10-31] MEDS ORDERED: LANTUS PER UNIT CHARGE SQ ONE ×2 (11:30→21:00)
--- NOTE | 2022-10-31 11:39 | Pharmacy Report ---
Pharmacy Glycemic Short Note 2 - Date of Service October 31, 2022 - Glycemic Short BSG Results (Last 24 hours): 10/31/22 10/31/22 05:30 09:15 POC Glucose 103 H 170 H OUTPATIENT ANTIDIABETIC REGIMEN: * Empagliflozin 10 mg daily * Glipizide ER 10 mg BID * Novolog 40 units AC * Lantus 40 units BID ASSESSMENT: * Andre Abreu is a 77 yearold patient who presents post-op after a left total knee replacement. Patient did not receive any steroids prior to surgery and does not have any steroids ordered post-op. Fasting BSG this morning was 170. Based on previous admissions, patient has required Lantus 30 units BID. Lantus 30 units was ordered for today (10/31/22) for lunch time. PLAN FOR INPATIENT GLYCEMIC CONTROL: * Hold outpatient oral diabetes medications * Basal insulin * Lantus 30 units once on 10/31/22 at 1130 * Lantus 30 units once HS on 10/31/22 * Bolus insulin * NovoLog per scale ACHS or Q6hrs while NPO * Goal Range: Low 110 mg/dL - High 140 mg/dL * Correction Factor: 15 mg/dL/unit * Nutritional / Prandial insulin per carb ratio of 1 unit per 5 grams CHO consumed
[2022-10-31] MEDS ORDERED: EPLERENONE 25 MG PO SCH (12:15)
[2022-10-31] MEDS: LOSARTAN POTASSIUM 50 MG TAB PO SCH (12:37)
[2022-10-31] MEDS: TAMSULOSIN HCL 0.4 MG CAP PO SCH (12:37)
[2022-10-31] MEDS: POTASSIUM CHLORIDE CRTAB 20 MEQ TABCR PO SCH ×2 (12:37→20:22)
[2022-10-31] MEDS: KETOROLAC TROMETHAMINE 15 MG/ML VIAL IV SCH ×3 (12:38→22:28)
[2022-10-31] MEDS: DOCUSATE SODIUM 100 MG CAP PO SCH ×2 (12:38→20:16)
[2022-10-31] MEDS: MULTIVITAMIN TAB PO SCH (12:38)
[2022-10-31] MEDS: NYSTATIN/TRIAMCIN CR 15 GM TUBE EXT SCH ×2 (12:40→20:19)
[2022-10-31] MEDS: INSULIN ASPART PER UNIT SC SCH ×3 (12:53→21:12)
[2022-10-31] MEDS: MONTELUKAST SODIUM 10 MG TABLET PO SCH (13:46)
[2022-10-31] MEDS: oxyCODONE HCL IR 5 MG TAB (IMMEDIATE RELEASE) PO PRN ×2 (15:02→22:29)
[2022-10-31] MEDS: GABAPENTIN 400 MG CAP PO SCH ×2 (15:02→20:17)
[2022-10-31] MEDS: FLUTICASONE FUROATE 200MCG 14 PUFFS/INHALER INH SCH (15:02)
[2022-10-31] MEDS: ACETAMINOPHEN 500 MG TAB PO SCH ×2 (15:04→22:37)
[2022-10-31] MEDS: ceFAZolin 2000MG 2,000 MG/15 ML SYR IV SCH ×2 (15:04→22:30)
[2022-10-31] MEDS: TORSEMIDE 20 MG TAB PO SCH (15:49)
[2022-10-31] MEDS: METOPROLOL SUCC 50MG EXT REL TAB PO SCH ×2 (15:50→21:14)
[2022-10-31] MEDS: allopurinoL 100 MG TAB PO SCH (16:30)
[2022-10-31] MEDS: ASCORBIC ACID 500 MG TAB PO SCH (16:31)
[2022-10-31] MEDS: PANCREAZE (LIPASE 10,500U) CAP PO SCH (17:42)
[2022-10-31] MEDS: FERROUS GLUCONATE 324 MG TAB PO SCH (17:43)
[2022-10-31] MEDS: DOXAZosin MESYLATE TAB 2 MG TAB PO SCH (20:15)
[2022-10-31] MEDS: COLCHICINE 0.6 MG TAB PO SCH (20:16)
[2022-10-31] MEDS: SILDENAFIL CITRATE 20 MG TABLET PO SCH (20:16)
[2022-10-31] MEDS: SENNA 8.6 MG TAB PO SCH (20:17)
[2022-10-31] MEDS: ATORVASTATIN 20 MG TAB PO SCH (20:18)
[2022-10-31] MEDS: TRIAMCINOLONE ACET NASAL SPRAY 10.8ML BTL NAE SCH (20:18)
[2022-11-01] MEDS: ACETAMINOPHEN 500 MG TAB PO SCH ×3 (05:40→21:05)
[2022-11-01] MEDS: KETOROLAC TROMETHAMINE 15 MG/ML VIAL IV SCH (05:40)
--- NOTE | 2022-11-01 06:38 | Progress Notes ---
SUBJECTIVE: Postop check, status post left total knee replacement. The patient moving well, going to the bathroom. Notes he is a little bit stiffer and more sore today . OBJECTIVE: VITAL SIGNS: Stable. He is afebrile. Neurovascular check, femoral sciatic nerve is good. Range of motion is from near 0 to near 50 degrees. Can do a straight leg raise. Calves nontender. ASSESSMENT: Doing well. Discharged to home today. Dressing changed by PA later this morning. Kumar Payne after 06:00 p.mZahida espinoza. Home services arranged per medical case worker. Job ID: [id number]
[2022-11-01 07:54] LABS: Hematocrit (blood only) 32.8 % (42.0-52.0); Hemoglobin 10.7 g/dl (14.0-18.0); Mean Corpuscular Hemoglobin 31.6 pg (25.0-34.0); Mean Corpuscular Hgb Conc 32.6 g/dL (32.0-36.0); Mean Corpuscular Volume 96.8 fL (80.0-100.0); Mean Platelet Volume 9.7 fL (9.4-12.4); Platelet Count 139 K/uL (130-400); RDW Coefficient of Variation 14.8 % (11.5-14.5); RDW Standard Deviation 52.9 fL (36.4-46.3); Red Blood Count 3.39 M/uL (4.70-6.10); White Blood Count 8.13 K/ul (4.8-10.8)
[2022-11-01] MEDS: oxyCODONE HCL IR 5 MG TAB (IMMEDIATE RELEASE) PO PRN ×3 (08:00→22:42)
[2022-11-01] MEDS: GABAPENTIN 400 MG CAP PO SCH ×2 (08:29→13:39)
[2022-11-01] MEDS: METOPROLOL SUCC 50MG EXT REL TAB PO SCH ×2 (08:30→22:49)
[2022-11-01] MEDS: COLCHICINE 0.6 MG TAB PO SCH ×2 (08:30→21:03)
[2022-11-01] MEDS: DOCUSATE SODIUM 100 MG CAP PO SCH ×2 (08:30→21:06)
[2022-11-01] MEDS: DOXAZosin MESYLATE TAB 2 MG TAB PO SCH ×2 (08:30→21:03)
[2022-11-01] MEDS: allopurinoL 100 MG TAB PO SCH (08:31)
[2022-11-01] MEDS: TORSEMIDE 20 MG TAB PO SCH (08:33)
[2022-11-01] MEDS: MULTIVITAMIN TAB PO SCH (08:34)
[2022-11-01] MEDS: PANCREAZE (LIPASE 10,500U) CAP PO SCH ×3 (08:34→16:42)
[2022-11-01] MEDS: MONTELUKAST SODIUM 10 MG TABLET PO SCH (08:34)
[2022-11-01] MEDS: LOSARTAN POTASSIUM 50 MG TAB PO SCH (08:34)
[2022-11-01] MEDS: FERROUS GLUCONATE 324 MG TAB PO SCH ×2 (08:35→16:43)
[2022-11-01] MEDS: TAMSULOSIN HCL 0.4 MG CAP PO SCH (08:35)
[2022-11-01] MEDS: ASCORBIC ACID 500 MG TAB PO SCH ×2 (08:35→16:43)
[2022-11-01] MEDS: FLUTICASONE FUROATE 200MCG 14 PUFFS/INHALER INH SCH (08:36)
[2022-11-01] MEDS: POTASSIUM CHLORIDE CRTAB 20 MEQ TABCR PO SCH ×2 (08:44→22:44)
[2022-11-01] MEDS: NYSTATIN/TRIAMCIN CR 15 GM TUBE EXT SCH ×2 (08:47→21:05)
--- NOTE | 2022-11-01 08:55 | Orthopedic Progress Note ---
Date of Service November 01, 2022 Assessment & Plan (1) S/P total knee replacement using cement: Plan: Patient's dressing was changed today by me. He will leave this in place until Saturday, at which time it can be changed by home health if necessary. Continue using his walker for ambulation. Use the knee immobilizer today and tomorrow when out of bed. He may discontinue it on Saturday. Start his Xarelto this evening and continue it daily Follow-up in the office in 2 weeks as scheduled for staple removal Call the office with any other concerns Written discharge instructions were provided Prescription for Percocet was sent to his pharmacy. Admission and Anticipated Discharge Date Admission Date: October 31, 2022 Subjective Patient is seen in his room this morning. He denies any chest pain, shortness of breath, nausea, vomiting, or abdominal pain. He does have some knee pain. He has been out of bed and has been to the bathroom. He feels ready for discharge to home today. He has already been set up with [facility] for home health. No other complaints. He is currently eating his breakfast. Review of Systems Review of Systems: Unchanged from yesterday. Physical Exam Physical Exam: General: Well-developed, well-nourished, elderly male, in no acute distress. Sitting in bed. Eating breakfast. Alert and oriented. Skin: Warm and dry with good turgor. Postsurgical dressings are in place on the left knee. Upon removal, there is some strikethrough approximately 2.5 cm in diameter anterior superior knee. Upon removal of all of his dressings, there is no active bleeding at this point. [place] are in place. Wound edges are well approximated. No ecchymosis yet. No significant edema. Musculoskeletal: Patient has intact motor function of his toes, ankle, knee, and hip. He is able to perform a straight leg raise. He lacks about 5-10 degrees of terminal extension. Flexion to 60 degrees fairly easily. Neurologic: Sensation is intact across the lower extremities by soft touch. Peripheral pulses are 2+. Results & Data ([facility]) Vital Signs (Past 12 Hours) Vital Signs Temp Pulse Resp BP BP Pulse Ox O2 Del Method 11/01/22 07:58 36.7 C 71 18 109/53 L 92 Room Air 11/01/22 07:33 36.7 C 71 18 102/52 L 89 L Room Air 11/01/22 04:22 36.8 C 73 18 105/60 94 Room Air 10/31/22 23:48 37.0 C 80 18 96/56 L 98 Room Air Laboratory Results CBC obtained today shows a white count of 8.1. H&H of 10.7 and 32.8. PRP is pending. Glucose this morning is 137.
[2022-11-01 09:03] LABS: Calcium 8.7 mg/dl (8.5-10.1); Potassium 3.5 mmol/L (3.5-5.1)
[2022-11-01 09:09] LABS: BUN Creatinine Ratio 32.5 (10-20); Creatinine Clr Calc Pharmacy 51.5 ml/min; Est GFR (African American) 49.2 ml/min; Est GFR (Non-African American) 42.5 ml/min
[2022-11-01] MEDS: INSULIN ASPART PER UNIT SC SCH ×4 (09:56→20:58)
[2022-11-01] MEDS: LANTUS PER UNIT CHARGE SQ SCH ×2 (09:57→20:58)
[2022-11-01] MEDS: TRIAMCINOLONE ACET NASAL SPRAY 10.8ML BTL NAE SCH (21:04)
[2022-11-01] MEDS: SENNA 8.6 MG TAB PO SCH (21:05)
[2022-11-01] MEDS: ATORVASTATIN 20 MG TAB PO SCH (21:09)
[2022-11-01] MEDS: SILDENAFIL CITRATE 20 MG TABLET PO SCH (21:43)
[2022-11-01] MEDS ORDERED: HYDROmorphone INJ 1 MG/ML SYRINGE IV PRN (22:36)
[2022-11-01] MEDS: GABAPENTIN 300 MG CAP PO SCH (22:43)
[2022-11-01] MEDS: KETOROLAC TROMETHAMINE 15 MG/ML VIAL IV PRN (23:08)
[2022-11-02] MEDS: oxyCODONE HCL IR 5 MG TAB (IMMEDIATE RELEASE) PO PRN ×2 (05:51→11:00)
[2022-11-02] MEDS: ACETAMINOPHEN 500 MG TAB PO SCH (05:52)
--- NOTE | 2022-11-02 07:02 | Progress Notes ---
DATE OF SERVICE: 11/02/2022 SUBJECTIVE: Postop day #2 status post left total knee replacement. The patient was walking out of t he bathroom when I came in. He was independent with his walker. He states he is sore. Denies any chest pain, shortness of breath, fever, chills, nausea, vomiting or headache. He is putting full weight on his leg without the knee immobilizer. OBJECTIVE: Examination reveals calves nontender. Neurovascular check, femoral sciatic nerve is norm al. Has no drainage on the dressing. Range of motion is -5 to roughly 70 degrees easily. Calves nontender. I have reemphasized his medications and the adjustments made. Alvaro Forrester, the PA will be talking to his primary care doctor today to notify of the changes. At this point in time, his medications fo r BP are definitely on the high side. We adjusted accordingly. ASSESSMENT: Doing well, go home today. Keep present dressing in place until Saturday, start his bloo d thinner this evening, adjust medications as we described above and Alvaro Forrester will talk to his [facility] doctor. Follow up with us in 2 weeks. Advised to use Tylenol around the clock. Advised to us e MiraLax for his bowels and call us if he had any questions. Job ID: [id number]
--- NOTE | 2022-11-02 07:06 | Discharge Summary (DS) ---
DATE OF DISCHARGE: 11/02/2022. HOSPITAL COURSE: He was held yesterday due to him feeling kind of lightheadedness. His pain medicat ions and his blood pressure medications needed to be adjusted. He is on high doses of BP meds, these were adjusted appropriately. His sugars have been running well. At this point in time, his wound d ressing is clean, dry and intact. He is mobile with his walker independently. He will be discharged home today. He will start his blood thinner this evening. Keep the present dressing on in place un saturday. Call with any questions. Alvaro Forrester will discuss his adjustment in his BP meds and his gabapentin with his primary care doctor. Job ID: [id number]
[2022-11-02] MEDS: TORSEMIDE 20 MG TAB PO SCH (07:55)
[2022-11-02] MEDS: allopurinoL 100 MG TAB PO SCH (07:55)
[2022-11-02] MEDS: METOPROLOL SUCC 50MG EXT REL TAB PO SCH (07:56)
[2022-11-02] MEDS: MULTIVITAMIN TAB PO SCH (07:57)
[2022-11-02] MEDS: MONTELUKAST SODIUM 10 MG TABLET PO SCH (07:57)
[2022-11-02] MEDS: COLCHICINE 0.6 MG TAB PO SCH ×2 (07:57→08:04)
[2022-11-02] MEDS: DOXAZosin MESYLATE TAB 2 MG TAB PO SCH (07:57)
[2022-11-02] MEDS: DOCUSATE SODIUM 100 MG CAP PO SCH (07:58)
[2022-11-02] MEDS: PANCREAZE (LIPASE 10,500U) CAP PO SCH (07:58)
[2022-11-02] MEDS: TAMSULOSIN HCL 0.4 MG CAP PO SCH (07:58)
[2022-11-02] MEDS: FERROUS GLUCONATE 324 MG TAB PO SCH (07:58)
[2022-11-02] MEDS: ASCORBIC ACID 500 MG TAB PO SCH (07:58)
[2022-11-02] MEDS: GABAPENTIN 300 MG CAP PO SCH (08:01)
[2022-11-02] MEDS: FLUTICASONE FUROATE 200MCG 14 PUFFS/INHALER INH SCH (08:01)
[2022-11-02] MEDS: POTASSIUM CHLORIDE CRTAB 20 MEQ TABCR PO SCH (08:01)
[2022-11-02] MEDS: NYSTATIN/TRIAMCIN CR 15 GM TUBE EXT SCH (08:02)
[2022-11-02] MEDS ORDERED: LOSARTAN POTASSIUM 50 MG TAB PO SCH (09:00)
[2022-11-02] MEDS: LANTUS PER UNIT CHARGE SQ SCH (09:00)
[2022-11-02] MEDS ORDERED: ANASTROZOLE 1 MG TAB PO SCH (09:00)
[2022-11-02] MEDS: INSULIN ASPART PER UNIT SC SCH (09:01)
[2022-11-02] MEDS: KETOROLAC TROMETHAMINE 15 MG/ML VIAL IV PRN (11:23)
[2022-11-13] MEDS ORDERED: FLUCONAZOLE 100 MG TAB PO SCH (09:00)
== END 2022-11-02 12:02 | disposition home health service (06) ==
LOC: ASU 05:05 → 3W 05:05